=== PATIENT | male | born 1970 | race African-American/Black ===

== ENCOUNTER 2017-09-17 20:53 | Observation (INO) | END 2017-09-18 16:35 | disposition left against medical advice (07) ==

== ENCOUNTER 2017-10-20 23:33 | Inpatient (IN) | END 2017-11-14 15:00 | disposition home health service (06) | DRG 252 ==

== ENCOUNTER 2017-11-24 23:32 | Inpatient (IN) | END 2017-12-01 19:50 | disposition home or self-care (01) | DRG 811 ==

== ENCOUNTER 2018-03-29 15:51 | Emergency (ER) | END 2018-03-29 17:56 | disposition home or self-care (01) ==

== ENCOUNTER 2018-05-05 19:45 | Inpatient (IN) | END 2018-05-07 20:25 | disposition home or self-care (01) | DRG 252 ==

== ENCOUNTER 2018-08-09 14:02 | Inpatient (IN) | payer OTHER ==
[~2018-08-09] VITALS: Ht 190.5 cm; Wt 77.9 kg
[~2018-08-09 14:02] MED LIST: CALC667C PO; CLON0.3T PO; DOCU100C59 PO; HYDR-4012 PO; LISI40TA3 PO; MINO2.5T16 PO; NIFE30TA23 PO; PENT400T9 PO; SERT25TA PO; TEMA30CA PO
--- NOTE | 2018-08-09 19:25 | ERD ---
ER Documentation Chief Complaint Chief Complaint Complains of dizziness, infected toe and Hx of Dialysis HPI 47-year-old male history of diabetes, hypertension, end-stage renal disease on dialysis, peripheral vascular disease, coronary artery disease, diastolic congestive heart failure, anemia, right foot 4th/5th toe amputations and left BKA presents to the ED complaining of increasing pain, swelling and malodorous discharge from the right third toe. Patient states he injured his toe approximately a month ago and symptoms has been worsening since. No chest pain, palpitations, shortness of breath, abdominal pain, nausea or vomiting. No fevers or chills. ROS All systems reviewed and are negative except as per history of present illness. Medications Home Meds Reported Medications Hydrocodone/Acetaminophen ([place] 7.5-325 Tablet) 1 Each Tablet, 1 EACH PO BID, TAB 08/09/18 Minoxidil* (Lonitin*) 10 Mg Tab, 10 MG PO BID, TAB 08/09/18 Temazepam* (Temazepam*) 30 Mg Capsule, 30 MG PO HS PRN for INSOMNIA, CAP 08/09/18 Cetirizine Hcl* (Cetirizine Hcl*) 10 Mg Tablet, 10 MG PO DAILY, #30 TAB 08/09/18 Lisinopril* (Lisinopril*) 40 Mg Tablet, 40 MG PO DAILY, #30 TAB 08/09/18 Calcium Acetate* (Calcium Acetate*) 667 Mg Capsule, 1334 MG PO WITH MEALS, #60 CAP 08/09/18 Pentoxifylline* (Pentoxifylline*) 400 Mg Tablet.sa, 400 MG PO WITH MEALS, TAB 08/09/18 Clonidine Hcl* (Clonidine Hcl*) 0.3 Mg Tablet, 0.3 MG PO Q6H PRN for HTN, TAB 08/09/18 Docusate Sodium (Col-Rite) 100 Mg Capsule, 100 MG PO BID, CAP 08/09/18 Discontinued Reported Medications Docusate Sodium (Col-Rite) 100 Mg Capsule, 100 MG PO BID, CAP 05/05/18 Nifedipine* (Nifedipine ER*) 30 Mg Tablet.sa, 60 MG PO BID, TAB.SA 11/24/17 Hydrocodone/Acetaminophen ([place] 7.5-325 Tablet) 1 Each Tablet, 1 EACH PO Q8 PRN for PAIN, TAB 09/17/17 Calcium Acetate* (Calcium Acetate*) 667 Mg Capsule, 1334 MG PO WITH MEALS, CAP 09/17/17 Sertraline Hcl* (Zoloft*) 25 Mg Tablet, 25 MG PO DAILY, TAB 09/17/17 Pentoxifylline* (Pentoxifylline*) 400 Mg Tablet.sa, 400 MG PO TID, TAB 09/17/17 Temazepam* (Temazepam*) 30 Mg Capsule, 30 MG PO HS PRN for INSOMNIA, CAP 09/17/17 Lisinopril* (Lisinopril*) 40 Mg Tablet, 40 MG PO DAILY, TAB 09/17/17 Clonidine Hcl* (Clonidine Hcl*) 0.3 Mg Tablet, 0.6 MG PO BID, TAB 09/17/17 Minoxidil* (Lonitin*) 2.5 Mg Tab, 7.5 MG PO DAILY, TAB 09/17/17 Allergies Allergies: Coded Allergies: No Known Allergy (Unverified , 08/09/18) PMhx/Soc Reviewed in chart. As per HPI. History of Surgery: Yes Anesthesia Reaction: No Hx Neurological Disorder: Yes (H/O NEUROPATHY) Hx Respiratory Disorders: No Hx Cardiac Disorders: Yes (CAD, [place]) Hx Psychiatric Problems: No Hx Miscellaneous Medical Probl: No Hx Alcohol Use: No Hx Substance Use: No Hx Tobacco Use: No FmHx No family history relevant to presenting complaint Physical Exam Vitals Vital Signs Date Temp Pulse Resp B/P (MAP) Pulse Ox O2 O2 Flow FiO2 Time Delivery Rate 08/09/18 70 20 140/67 100 Room Air 21:22 (91) 08/09/18 98.2 59 20 142/80 100 14:10 (100) Physical Exam Const: Chronically ill-appearing, moderate distress. Head: Atraumatic Eyes: Normal Conjunctiva ENT: Normal External Ears, Nose and Mouth. Neck: Full range of motion. No meningismus. No JVD. Resp: Breath sounds are diminished at the bases but otherwise clear to auscultation bilaterally Cardio: Regular rate and rhythm, no murmurs Abd: Soft, non tender, non distended. Normal bowel sounds Skin: Diffuse papulosquamous rash. Back: No midline or flank tenderness. Left lower back: 2 cm area of fluctuance and tenderness. Ext: Status post left BKA. Right foot: Status post ray amputations of the fourth and fifth digits. Third toe is swollen, erythematous and tender with purulent drainage. Swelling and tenderness extends to the plantar aspect of the foot. No subcutaneous crepitus. Left upper extremity AV shunt with palpable thrill. Neur: Awake and alert. No focal deficit Psych: Normal Mood and Affect Result Diagram: 08/12/18 0808 08/12/18 0808 Results 24 hrs Laboratory Tests Test 08/09/18 19:55 08/09/18 19:56 08/09/18 19:57 08/09/18 22:07 Hepatitis B Surface NEGATIVE Antigen Hepatitis B Surface NEGATIVE Antibody White Blood Count 9.7 10^3/ul Red Blood Count 2.76 10^6/ul Hemoglobin 8.1 g/dl Hematocrit 25.6 % Mean Corpuscular 92.8 fl Volume Mean Corpuscular 29.3 pg Hemoglobin Mean Corpuscular 31.6 g/dl Hemoglobin Concent Red Cell Distribution 13.2 % Width Platelet Count 217 10^3/UL Mean Platelet Volume 10.4 fl Immature Granulocytes 0.600 % % Neutrophils % 66.6 % Lymphocytes % 10.0 % Monocytes % 8.0 % Eosinophils % 14.4 % Basophils % 0.4 % Nucleated Red Blood 0.0 /100WBC Cells % Immature Granulocytes 0.060 10^3/ul # Neutrophils # 6.5 10^3/ul Lymphocytes # 1.0 10^3/ul Monocytes # 0.8 10^3/ul Eosinophils # 1.4 10^3/ul Basophils # 0.0 10^3/ul Nucleated Red Blood 0.0 10^3/ul Cells # Prothrombin Time 16.6 Sec Prothrombin Time Ratio 1.3 INR International 1.33 Normalized Ratio Activated 56.8 Sec Partial Thromboplast Time Sodium Level 143 mmol/L Potassium Level 4.0 mmol/L Chloride Level 98 mmol/L Carbon Dioxide Level 27 mmol/L Anion Gap 18 Blood Urea Nitrogen 48 mg/dl Creatinine 8.72 mg/dl Est Glomerular Filtrat 8 mL/min Rate mL/min Glucose Level 130 mg/dl Calcium Level 9.2 mg/dl POC Venous Lactate 1.9 mmol/L 1.0 mmol/L Current Medications Medications Dose Sig/Yunior Start Time Status Last (Trade) Ordered Route PRN Stop Time Admin Dose Reason Admin Vancomycin 250 ml @ ONCE STAT 08/09/18 DC 08/09/18 HCl 125 mls/hr IVPB 19:26 08/09/18 20:59 21:25 Piperacillin 100 ml @ ONCE STAT 08/09/18 DC 08/09/18 Sod/ 200 mls/hr IVPB 19:26 08/09/18 20:18 Tazobactam 19:55 Sod Morphine 4 mg ONCE STAT 08/09/18 DC 08/09/18 Sulfate IV 20:08 08/09/18 20:15 (morphine) 20:10 Ondansetron 4 mg ONCE STAT 08/09/18 DC 08/09/18 HCl (Zofran IV 20:08 08/09/18 20:15 Inj) 20:10 Procedures/MDM DOCUMENTS REVIEWED: ED nurse, prior ED, prior records. EKG: Time: 1946. His rhythm. Ventricular rate 67. Nonspecific T wave changes. No acute ST elevation or depression. No ectopy. My Interpretation IMAGING: PROCEDURE: Portable chest x-ray. CLINICAL INDICATION: 47 years of age, male. Possible sepsis TECHNIQUE: Portable AP view of the chest. COMPARISON: None available. FINDINGS: Medical devices: None. Mediastinum: Mild atherosclerosis of the thoracic aorta. Mild enlarged cardiopericardial silhouette. Lungs: There is mild hazy ground-glass opacity in the right lower lung zone. Lungs are otherwise clear. Pleura: Negative for pleural effusion or pneumothorax. Bones: No acute bony abnormality. Additional comment: None. IMPRESSION: 1. Mild hazy increased opacity in the right lower lung zone is nonspecific and could represent atelectasis or an early infiltrate. 2. Mild cardiomegaly. RPTAT: HCTS Physician Antonio Date Time Electronically viewed and signed by Physician Antonio on 08/09/2018 19:56 CS/ PROCEDURE: XR Foot. CLINICAL INDICATION: 47 years of age, male. Pain, swelling and discharge. TECHNIQUE: Three views of the right foot. COMPARISON: None available. FINDINGS: Status post amputation of the fourth and fifth rays at the proximal shafts of the fourth and fifth metatarsals. There is overlying soft tissue swelling. There is an ulcer overlying the lateral base of the fifth metatarsal with focal soft tissue gas. There is sclerosis of the lateral base of the fifth metatarsal. Negative for aggressive bony destruction. There is mild periosteal reaction along the lateral cortex of the proximal fifth metatarsal. The amputation stumps of the proximal shafts of the fourth and fifth metatarsals are well corticated and tapering. There is destructive arthritis of the third MTP joint with marked bony erosions and a tapered pencil like configuration of the articular surfaces of the proximal phalanx and third metatarsal head from bony destruction. There is subluxation of the third MTP joint and the displaced third proximal phalanx res ults in chronic bony remodelling of the head of the second metatarsal where there is a punched out erosion. Midfoot and hindfoot are unremarkable.. There is diffuse soft tissue swelling over the forefoot and midfoot. There is vascular calcification. Additional comment: None. IMPRESSION: 1. Status post amputation of the fourth and fifth rays through the proximal shafts of the fourth and fifth metatarsals. There is a deep soft tissue ulcer over the lateral base of the fifth metatarsal with mild periosteal reaction along the lateral shaft of the fifth metatarsal that may be due to oste omyelitis. There is chronic bony sclerosis without aggressive bony destruction. This could better be evaluated with MRI. 2. 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 3. Soft tissue swelling and vascular calcification as described. RPTAT: HCTS Physician Antonio Date Time Electronically viewed and signed by Physician Antonio on 08/09/2018 20:04 CS/ MEDICAL DECISION MAKIN-year-old male history of diabetes, hypertension, end-stage renal disease on dialysis, peripheral vascular disease, coronary artery disease, diastolic congestive heart failure, anemia, right foot 4th/5th toe amputations and left BKA presents to the ED complaining of increasing pain, swelling and malodorous discharge from the right third toe. CBC reveals anemia consistent with prior results but no leukocytosis. Chemistry significant for elevated BUN and creatinine consistent with the patient's history of end-stage renal disease but no hyperkalemia or significant hyperglycemia. Patient with known, severe peripheral vascular disease presents with diabetic foot infection and possible abscess and osteomyelitis. Gangrene is considered but no subcutaneous emphysema. No evidence of necrotizing fasciitis. No criteria for systemic inflammatory response syndrome. Antibiotics initiated after cultures. Admit to med/surg for further evaluation and management. PATIENT CARE TRANSITIONED: Time: 20:25, Dr. Hitchcock. Counseled patient regarding diagnosis, diagnostic results and plan for adm ission. Departure Diagnosis: Primary Impression: Right foot pain Additional Impressions: Diabetic infection of right foot End stage renal disease on dialysis Hypertension Hypertension type: essential hypertension Qualified Codes: I10 - Essential (primary) hypertension Condition: Serious JAC DELEON MD Aug 09, 2018 19:25
[2018-08-09] MEDS ORDERED: VANCOMYCIN 1 GM (PMX) 250 ML IVPB STA (19:26)
[2018-08-09] MEDS ORDERED: PIPER-TAZO 3.375 GM IV (PMX) 100 ML IVPB STA (19:26)
[2018-08-09] MEDS ORDERED: ONDANSETRON 4 MG INJ IV STA (20:08)
[2018-08-09] MEDS ORDERED: morphine 4 MG/ML VIAL IV STA (20:08)
[2018-08-09] MEDS ORDERED: CLON0.3T PO (20:42)
[2018-08-09] MEDS ORDERED: DOCU100C59 PO (20:42)
[2018-08-09] MEDS ORDERED: CALC667C PO (20:43)
[2018-08-09] MEDS ORDERED: LISI40TA3 PO (20:43)
[2018-08-09] MEDS ORDERED: PENT400T9 PO (20:43)
[2018-08-09] MEDS ORDERED: CETI10TA19 PO (20:44)
[2018-08-09] MEDS ORDERED: TEMA30CA PO (20:44)
[2018-08-09] MEDS ORDERED: HYDR-4012 PO (20:45)
[2018-08-09] MEDS ORDERED: MINO10TA16 PO (20:45)
[2018-08-09] MEDS ORDERED: ONDANSETRON 4 MG INJ IV PRN (23:00)
[2018-08-09] MEDS ORDERED: ACETAMINOPHEN 325 MG TAB PO PRN (23:00)
[2018-08-09 23:37] VITALS: BP 159/75; PULSE 81; RESP 18
[2018-08-09 23:39] VITALS: Ht 190.5 cm; Wt 77.9 kg
[2018-08-10] VITALS (19 sets, daily range): BP systolic 115–180; BP diastolic 58–86; PULSE 72–95; RESP 16–20
[2018-08-10] MEDS ORDERED: VANCOMYCIN 500 MG (PMX) 100 ML IVPB ONE ×2 (02:00→06:00)
[2018-08-10] MEDS ORDERED: ZOLPIDEM 5 MG TAB PO PRN (02:00)
[2018-08-10] MEDS ORDERED: ACETAMINOPHEN 325 MG TAB PO PRN (02:00)
[2018-08-10] MEDS ORDERED: VANCOMYCIN IV PER PHARMACY XX SCH (02:00)
[2018-08-10] MEDS ORDERED: NON-FORMULARY/PATIENT OWN MED (Temazepam* 30 MG) PO PRN (02:00)
[2018-08-10] MEDS ORDERED: HYDROCODONE/APAP (7.5/325) TAB PO PRN (02:00)
[2018-08-10] MEDS ORDERED: hydrOXYzine HCL 25 MG TAB PO PRN (06:30)
[2018-08-10] MEDS ORDERED: LIDOCAINE 1% (MPF) 5 ML VIAL SC ONE (06:30)
[2018-08-10] MEDS ORDERED: GLUCAGON 1 MG INJ IM PRN (07:00)
[2018-08-10] MEDS ORDERED: GLUCOSE GEL 15 GRAM TUBE BUCCAL PRN (07:00)
[2018-08-10] MEDS ORDERED: DEXTROSE 50% 50 ML SYRINGE IV PRN ×2 (07:00)
[2018-08-10] MEDS ORDERED: GLUCOSE GEL 15 GRAM TUBE PO PRN ×2 (07:00)
[2018-08-10] MEDS: INSULIN ASPART [NOVOLOG] 3 ML PEN SC SCH ×4 (08:00→21:00)
[2018-08-10] MEDS: CALCIUM ACETATE 667 MG CAP PO SCH ×3 (08:03→17:41)
[2018-08-10] MEDS: PENTOXIFYLLINE (SR) 400 MG TAB PO SCH ×3 (08:03→17:41)
[2018-08-10] MEDS: LORATADINE 10 MG TAB PO SCH (08:27)
[2018-08-10] MEDS: LISINOPRIL 20 MG TAB PO SCH (09:00)
[2018-08-10] MEDS: MINOXIDIL 10 MG TAB PO SCH ×2 (09:00→21:40)
[2018-08-10] MEDS ORDERED: NON-FORMULARY/PATIENT OWN MED (Cetirizine Hcl* 10 MG) PO SCH (09:00)
[2018-08-10] MEDS: DOCUSATE SODIUM 100 MG CAP PO SCH ×2 (09:00→21:00)
[2018-08-10] MEDS: PIPER-TAZO 2.25 GM (PMX) 50 ML IVPB SCH ×3 (12:24→21:54)
--- NOTE | 2018-08-10 12:39 | HP ---
EVELYNPATRICIA 08/10/18 1239: Date/Time of Note Date/Time of Note DATE: 08/10/18 TIME: 12:39 Assessment/Plan VTE Prophylaxis Risk score (from Ns)>0 risk: 6 SCD applied (from Ns): No SCD contraindicated: bilateral amputee, other Pharmacological prophylaxis: heparin Lines/Catheters IV Catheter Type (from [facility]): Peripheral IV Assessment/Plan Hospital Course 1. Wet gangrene of 3rd toe on the right foot. 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 S/p amputation of the fourth and fifth rays through the proximal shafts of the fourth and fifth metatarsals right foot. 3. Cellulitis with deep soft tissue ulcer over the lateral base of the fifth metatarsal with mild periosteal reaction along the lateral shaft of the fifth metatarsal that may be due to osteomyelitis of the right foot, per Xray right foot. 4. End-stage renal disease on hemodialysis Monday, and Monday 5. Normocytic normochromic anemia, hx of anemia of chronic disease with EGD 11/01/17 with esophageal ulceration. Colonoscopy was done 09/03/15 for active bleeding. . 6. Hypertension, controlled. 7. Diabetes mellitus type II. 8. Coronary artery disease status post 4 stents. 9. Left below-knee amputation, s/p revision. 10. Diastolic CHF 11. Hx of hematoma of abdomen. Numerous surgical procedures, inc biopsy, drainage, exploratory laparotomy 2014 12. pt did not have cholecystectomy, apparently du to many surgical scars on abdomen, pt mentioned it 13. hx of tracheostomy 14. hx of positive troponin past. 15. s/p abdominal stents removal by dr Guy Assessment/Plan -C/w HD, last was on Monday, one ordered today -wound care -GI prophylaxis start Protonix -pain control -DVT prophylaxis Heparin 5000 U bID -marketing technology coordinator Dr Millard, -ID consult dr Ashton -arterial study left lower extremity -c/w Vancomycin -start Epogen after HD Result Diagram: 08/09/18195508/09/181955 Results 24hrs Laboratory Tests Test 08/09/18 19:56 08/09/18 19:57 08/09/18 22:07 08/10/18 08:02 White Blood Count 9.7 # Red Blood Count 2.76 L Hemoglobin 8.1 L Hematocrit 25.6 L Mean Corpuscular Volume 92.8 Mean Corpuscular 29.3 Hemoglobin Mean Corpuscular 31.6 L Hemoglobin Concent Red Cell Distribution 13.2 Width Platelet Count 217 # Mean Platelet Volume 10.4 Immature Granulocytes % 0.600 H Neutrophils % 66.6 Lymphocytes % 10.0 L Monocytes % 8.0 Eosinophils % 14.4 H Basophils % 0.4 Nucleated Red Blood 0.0 Cells % Immature Granulocytes # 0.060 H Neutrophils # 6.5 Lymphocytes # 1.0 Monocytes # 0.8 Eosinophils # 1.4 H Basophils # 0.0 Nucleated Red Blood 0.0 Cells # Prothrombin Time 16.6 H Prothrombin Time Ratio 1.3 INR International 1.33 Normalized Ratio Activated 56.8 H Partial Thromboplast Time Sodium Level 143 Potassium Level 4.0 Chloride Level 98 Carbon Dioxide Level 27 Anion Gap 18 H Blood Urea Nitrogen 48 H Creatinine 8.72 H Est Glomerular Filtrat 8 L Rate mL/min Glucose Level 130 Calcium Level 9.2 POC Venous Lactate 1.9 1.0 Bedside Glucose 123 Test 08/10/18 11:59 Bedside Glucose 111 HPI/ROS Admit Date/Time Admit Date/Time Aug 09, 2018 at 22:42 Hx of Present Illness 47 yo male with history of diabetes melitis, hypertension, CAD, anemia, PVD, left BKA, right 4,5 toe amputations on the right foot, ESRD, on HD Mon, , Mon. presented to the ED complaining of increasing pain, swelling and malodorous discharge from the right third toe. Patient states he injured his toe approximately a month and a half ago and symptoms has been worsening since. He was in [facility] in November 2017 due to his anemia and cholecystitis. Surgical history: colonoscopy, that was negative, EGD due to active bleeding, exploratory laparotomy due to hematoma formation, amputation of left leg to BKA level due to myositis, cholecystectomy, few left AV fistula revisions, amputation 4 and 5 toes on the right foot, and revision of left BKA. ROS Constitutional: chills, fatigue; No no complaints, No improved, No diaphoresis, No disoriented, No febrile, No nausea, No poor po, No weight change, No other ENT: bleeding; No no complaints, No pain, No congestion, No discharge, No dysphagia, No sore throat, No other Respiratory: shortness of breath; No no complaints, No pain, No cough, No pleuritic pain, No sputum, No wheezing, No other Gastrointestinal: no complaints, nausea; No pain, No blood, No constipation, No decreased appetite, No diarrhea, No flatus, No passing stool, No vomiting, No other Genitourinary: no complaints Musculoskeletal: no complaints, back pain, bone/joint pain, neck pain, restricted range of motion (right foot), swelling, other Skin: skin lesions; No no complaints, No erythema, No laceration, No pruritis, No rash, No other Endocrine: temp intolerance; No no complaints, No polyuria, No polydypsia, No dry skin, No weight change, No other PMH/Family/Social Past Medical History Medical History: congestive heart failure, coronary artery disease, hypertension, renal disease Medications Current Medications Vancomycin HCl (Vanco Iv Per Pharmacy) VANCOMYCIN PER PHARMACY PER PROTOCOL XX ; Start 08/10/18 at 02:00 Acetaminophen (Tylenol Tab) 650 mg Q6H PRN PO MILD PAIN(1-3)OR ELEVATED TEMP; Start 08/10/18 at 02:00 Ondansetron HCl (Zofran Inj) 4 mg Q6H PRN IV NAUSEA AND/OR VOMITING; Start 08/10/18 at 02:00 Calcium Acetate (Phoslo) 1,334 mg WITH MEALS PO Last administered on 08/10/18at 08:03; Admin Dose 1,334 MG; Start 08/10/18 at 08:00 Clonidine (Catapres) 0.3 mg Q6H PRN PO FOR SBP ABOVE 170; Start 08/10/18 at 02:00 Docusate Sodium (Colace) 100 mg BID PO ; Start 08/10/18 at 09:00 Acetaminophen/ Hydrocodone Bitart ([place] (7.5-325)) 1 tab BID PRN PO PAIN; Start 08/10/18 at 02:00 Lisinopril (Zestril) 40 mg DAILY PO ; Start 08/10/18 at 09:00 Minoxidil (Loniten) 10 mg BID PO ; Start 08/10/18 at 09:00 Pentoxifylline (Trental) 400 mg WITH MEALS PO Last administered on 08/10/18at 08:03; Admin Dose 400 MG; Start 08/10/18 at 08:00 Piperacillin Sod/ Tazobactam Sod 50 ml @ 100 mls/hr Q8 IVPB Last administered on 08/10/18at 12:24; Admin Dose 100 MLS/HR; Start 08/10/18 at 06:00 Loratadine (Claritin) 10 mg DAILY PO Last administered on 08/10/18at 08:27; Admin Dose 10 MG; Start 08/10/18 at 09:00 Zolpidem Tartrate (Ambien) 5 mg HS MAY REPEAT X 1 PRN PO INSOMNIA; Start 08/10/18 at 02:00 Insulin Aspart (Novolog Insulin Pen) NOVOLOG *MILD* ALGORITHM WITH MEALS BEDTIME SC ; Start 08/10/18 at 08:00 Hydroxyzine HCl (Atarax) 25 mg BID PRN PO ITCHING; Start 08/10/18 at 06:30 Miscellaneous Information 1 ea NOTE XX ; Start 08/10/18 at 07:00 Glucose (Glutose) 15 gm Q15M PRN PO DECREASED GLUCOSE; Start 08/10/18 at 07:00 Glucose (Glutose) 22.5 gm Q15M PRN PO DECREASED GLUCOSE; Start 08/10/18 at 07:00 Dextrose (D50w Syringe) 25 ml Q15M PRN IV DECREASED GLUCOSE; Start 08/10/18 at 07:00 Dextrose (D50w Syringe) 50 ml Q15M PRN IV DECREASED GLUCOSE; Start 08/10/18 at 07:00 Glucagon (Glucagen) 1 mg Q15M PRN IM DECREASED GLUCOSE; Start 08/10/18 at 07:00 Glucose (Glutose) 15 gm Q15M PRN BUCCAL DECREASED GLUCOSE; Start 08/10/18 at 07:00 Coded Allergies: No Known Allergy (Unverified , 08/09/18) Past Surgical History Past Surgical Hx: angioplasty, other ( right foot 4th/5th toe amputations and left BKA ) Social History Alcohol Use: none Smoking Status: Former smoker Drug Use: none Exam/Review of Systems Vital Signs Vitals Vital Signs Date Temp Pulse Resp B/P (MAP) Pulse Ox O2 O2 Flow FiO2 Time Delivery Rate 08/10/18 98.6 72 16 120/58 94 Room Air 07:25 (78) Intake and Output 08/09/18 08/09/18 08/10/18 1515:00 23:00 07:00 IntakeIntake Total 610 ml BalanceBalance 610 ml Exam Exam left arm av fistula Constitutional: alert, oriented Head: normocephalic ENMT: nl external ears & nose Neck: supple Respiratory: clear to auscultation, normal air movement Cardiovascular: regular rate and rhythm Gastrointestinal: soft, surgical scars Genitourinary - Female: CVA tenderness; No nl adnexae, No nl external genitalia, No CMT, No uterus, No other Musculoskeletal: joint tenderness (right foot), other (left BKA, right 3 toe swelling, s/p amputation 4.5 toesright foot) Skin: other (dry scabs all over, right foot ulcer right foot) HASEEB MAYA MD 08/10/18 1720: Assessment/Plan Assessment/Plan Assessment/Plan seen and examined with 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 abx podiatry and ID CW HD Result Diagram: 08/09/18195508/09/181955 PMH/Family/Social Past Medical History Coded Allergies: No Known Allergy (Unverified , 08/09/18) PATRICIA RIVAS Aug 10, 2018 12:39 HASEEB MAYA MD Aug 10, 2018 17:20
[2018-08-10] MEDS: morphine 2 MG INJ IV PRN ×3 (14:44→23:10)
[2018-08-10] MEDS: PANTOPRAZOLE (EC) 40 MG TAB PO SCH (14:45)
--- NOTE | 2018-08-10 16:17 | PN ---
DATE: 08/10/2018 TYPE OF CONSULTATION: Infectious disease. REQUESTING PHYSICIAN: Nette Moscoso MD Thank you Dr. Moscoso for this consultation. HISTORY OF PRESENT ILLNESS: This is a well-developed, chronically ill-appearing 47-year-old - Japanese man with a past medical history significant for coronary artery disease status post PCI, per ipheral arterial disease, status post left below-knee amputation, hypertension, end-stage renal disea se, hemodialysis dependent diabetes, history of left below-knee stump revision. Acutely, the patient came with right foot cellulitis and drainage from the wound. No fevers, no chills. LABORATORY DATA: White blood cell count on admission 9.7, H and H of 8.1 and 25.6, platelets 217, ne utrophils 66.6. ANTIMICROBIALS: The patient was started on: 1. Zosyn. 2. Vancomycin. DIAGNOSTIC DATA: X-ray of the foot revealed status post amputation of the 4th and 5th rays. There i s a deep soft tissue also over the left base of the 5th metatarsal with mild periosteal reaction johnny g the lateral shaft of the 5th metatarsal that may be due to osteomyelitis, destructive arthritis of the 3rd MTP joint with chronic subluxation and bony remodeling with a punched out erosion at the late ral head of 2nd metatarsal concerning for septic arthritis and osteomyelitis. PHYSICAL EXAMINATION: VITAL SIGNS: Temperature 98.9, pulse 74, respirations 20, blood pressure 115/59, saturation 98 on na kamron cannula. GENERAL: Well-developed, ill-appearing, middle-aged man in no distress. HEENT: Head is atraumatic, normocephalic. NECK: Supple. CHEST: Rise symmetrical. Breath sounds diminished to bases. HEART: S1, S2. ABDOMEN: Soft. Bowel tones are present. EXTREMITIES: With right foot erythema, edema, left below-knee amputation with dry scalp on the knee as well as on the stump itself. DIAGNOSTIC IMPRESSION: This is a middle-aged -Japanese man with numerous medical problems adm itted with right diabetic foot ulceration with concern for osteomyelitis. The patient is on broad sp ectrum antibiotics, which we will continue. We will await for podiatry evaluation. We will try to s end wound drainage for culture. Further recommendations per patient's clinical course, cultures and diagnostics. Above was discussed with Dr. Francisco Ashton. Dictated By: DAYSI BHATIA PRODUCT SAFETY SPECIALIST for FRANCISCO PACHECO/JOSE ANTONIO Conf#: [id number] DID#: [id number] CC: AZEEM HENNING MD;*EndCC*
[2018-08-10] MEDS: LIDOCAINE 2% JELLY 5 ML TOP PRN (16:54)
--- NOTE | 2018-08-10 19:35 | CONS ---
Consultation Date/Type/Reason Admit Date/Time Aug 09, 2018 at 22:42 Date/Time of Note DATE: 08/10/18 TIME: 19:35 Past Medical History Medical History: congestive heart failure, coronary artery disease, hypertensio n, renal disease Home Meds Reported Medications Hydrocodone/Acetaminophen ([place] 7.5-325 Tablet) 1 Each Tablet, 1 EACH PO BID, TAB 08/09/18 Minoxidil* (Lonitin*) 10 Mg Tab, 10 MG PO BID, TAB 08/09/18 Temazepam* (Temazepam*) 30 Mg Capsule, 30 MG PO HS PRN for INSOMNIA, CAP 08/09/18 Cetirizine Hcl* (Cetirizine Hcl*) 10 Mg Tablet, 10 MG PO DAILY, #30 TAB 08/09/18 Lisinopril* (Lisinopril*) 40 Mg Tablet, 40 MG PO DAILY, #30 TAB 08/09/18 Calcium Acetate* (Calcium Acetate*) 667 Mg Capsule, 1334 MG PO WITH MEALS, #60 CAP 08/09/18 Pentoxifylline* (Pentoxifylline*) 400 Mg Tablet.sa, 400 MG PO WITH MEALS, TAB 08/09/18 Clonidine Hcl* (Clonidine Hcl*) 0.3 Mg Tablet, 0.3 MG PO Q6H PRN for HTN, TAB 08/09/18 Docusate Sodium (Col-Rite) 100 Mg Capsule, 100 MG PO BID, CAP 08/09/18 Discontinued Reported Medications Docusate Sodium (Col-Rite) 100 Mg Capsule, 100 MG PO BID, CAP 05/05/18 Nifedipine* (Nifedipine ER*) 30 Mg Tablet.sa, 60 MG PO BID, TAB.SA 11/24/17 Hydrocodone/Acetaminophen ([place] 7.5-325 Tablet) 1 Each Tablet, 1 EACH PO Q8 PRN for PAIN, TAB 09/17/17 Calcium Acetate* (Calcium Acetate*) 667 Mg Capsule, 1334 MG PO WITH MEALS, CAP 09/17/17 Sertraline Hcl* (Zoloft*) 25 Mg Tablet, 25 MG PO DAILY, TAB 09/17/17 Pentoxifylline* (Pentoxifylline*) 400 Mg Tablet.sa, 400 MG PO TID, TAB 09/17/17 Temazepam* (Temazepam*) 30 Mg Capsule, 30 MG PO HS PRN for INSOMNIA, CAP 09/17/17 Lisinopril* (Lisinopril*) 40 Mg Tablet, 40 MG PO DAILY, TAB 09/17/17 Clonidine Hcl* (Clonidine Hcl*) 0.3 Mg Tablet, 0.6 MG PO BID, TAB 09/17/17 Minoxidil* (Lonitin*) 2.5 Mg Tab, 7.5 MG PO DAILY, TAB 09/17/17 Medications Current Medications Vancomycin HCl (Vanco Iv Per Pharmacy) VANCOMYCIN PER PHARMACY PER PROTOCOL XX ; Start 08/10/18 at 02:00 Acetaminophen (Tylenol Tab) 650 mg Q6H PRN PO MILD PAIN(1-3)OR ELEVATED TEMP; Start 08/10/18 at 02:00 Ondansetron HCl (Zofran Inj) 4 mg Q6H PRN IV NAUSEA AND/OR VOMITING; Start 08/10/18 at 02:00 Calcium Acetate (Phoslo) 1,334 mg WITH MEALS PO Last administered on 08/10/18at 17:41; Admin Dose 1,334 MG; Start 08/10/18 at 08:00 Clonidine (Catapres) 0.3 mg Q6H PRN PO FOR SBP ABOVE 170; Start 08/10/18 at 02:00 Docusate Sodium (Colace) 100 mg BID PO ; Start 08/10/18 at 09:00 Acetaminophen/ Hydrocodone Bitart ([place] (7.5-325)) 1 tab BID PRN PO PAIN; Start 08/10/18 at 02:00 Lisinopril (Zestril) 40 mg DAILY PO ; Start 08/10/18 at 09:00 Minoxidil (Loniten) 10 mg BID PO ; Start 08/10/18 at 09:00 Pentoxifylline (Trental) 400 mg WITH MEALS PO Last administered on 08/10/18at 17:41; Admin Dose 400 MG; Start 08/10/18 at 08:00 Piperacillin Sod/ Tazobactam Sod 50 ml @ 100 mls/hr Q8 IVPB Last administered on 08/10/18at 12:24; Admin Dose 100 MLS/HR; Start 08/10/18 at 06:00 Loratadine (Claritin) 10 mg DAILY PO Last administered on 08/10/18at 08:27; Admin Dose 10 MG; Start 08/10/18 at 09:00 Zolpidem Tartrate (Ambien) 5 mg HS MAY REPEAT X 1 PRN PO INSOMNIA; Start 08/10/18 at 02:00 Insulin Aspart (Novolog Insulin Pen) NOVOLOG *MILD* ALGORITHM WITH MEALS BED TIME SC ; Start 08/10/18 at 08:00 Hydroxyzine HCl (Atarax) 25 mg BID PRN PO ITCHING Last administered on 08/10/18at 19:21; Admin Dose 25 MG; Start 08/10/18 at 06:30 Miscellaneous Information 1 ea NOTE XX ; Start 08/10/18 at 07:00 Glucose (Glutose) 15 gm Q15M PRN PO DECREASED GLUCOSE; Start 08/10/18 at 07:00 Glucose (Glutose) 22.5 gm Q15M PRN PO DECREASED GLUCOSE; Start 08/10/18 at 07:00 Dextrose (D50w Syringe) 25 ml Q15M PRN IV DECREASED GLUCOSE; Start 08/10/18 at 07:00 Dextrose (D50w Syringe) 50 ml Q15M PRN IV DECREASED GLUCOSE; Start 08/10/18 at 07:00 Glucagon (Glucagen) 1 mg Q15M PRN IM DECREASED GLUCOSE; Start 08/10/18 at 07:00 Glucose (Glutose) 15 gm Q15M PRN BUCCAL DECREASED GLUCOSE; Start 08/10/18 at 07:00 Epoetin Adi (Epogen (Esrd)) 4,000 units TuThSa@17 SC ; Start 08/11/18 at 17:00 Lidocaine (Xylocaine 2% Jelly) 1 applic BEDSIDE MEDICATION PRN TOP PAIN LEVEL 1-5 Last administered on 08/10/18at 16:54; Admin Dose 1 APPLIC; Start 08/10/18 at 13:30 Morphine Sulfate (morphine) 2 mg Q4H PRN IV SEVERE PAIN LEVEL 7-10 Last administered on 08/10/18at 19:11; Admin Dose 2 MG; Start 08/10/18 at 13:30 Heparin Sodium (Porcine) (Heparin (5000 Units/1ml)) 5,000 unit BID SC ; Start 08/10/18 at 21:00 Pantoprazole (Protonix Tab) 40 mg DAILY@06 PO Last administered on 08/10/18at 14:45; Admin Dose 40 MG; Start 08/10/18 at 14:00 Allergies: Coded Allergies: No Known Allergy (Unverified , 08/09/18) Past Surgical History Past Surgical Hx: angioplasty, other ( right foot 4th/5th toe amputations and left BKA ) Social History Alcohol Use: none Smoking Status: Former smoker Drug Use: none Exam/Review of Systems Exam Vitals Vital Signs Date Temp Pulse Resp B/P (MAP) Pulse Ox O2 O2 Flow FiO2 Time Delivery Rate 08/10/18 80 19:15 08/10/18 18 156/70 98 Room Air 17:00 (98) 08/10/18 88.9 13:46 Intake and Output 08/09/18 08/09/18 08/10/18 1515:00 23:00 07:00 IntakeIntake Total 610 ml BalanceBalance 610 ml Results Result Diagram: 08/10/18 1733 08/10/18 1733 Results 24hrs Laboratory Tests Test 08/09/18 19:55 08/09/18 19:56 08/09/18 19:57 08/09/18 22:07 Hepatitis B Surface NEGATIVE Antigen Hepatitis B Surface NEGATIVE Antibody White Blood Count 9.7 # Red Blood Count 2.76 L Hemoglobin 8.1 L Hematocrit 25.6 L Mean Corpuscular Volume 92.8 Mean Corpuscular 29.3 Hemoglobin Mean Corpuscular 31.6 L Hemoglobin Concent Red Cell Distribution 13.2 Width Platelet Count 217 # Mean Platelet Volume 10.4 Immature Granulocytes % 0.600 H Neutrophils % 66.6 Lymphocytes % 10.0 L Monocytes % 8.0 Eosinophils % 14.4 H Basophils % 0.4 Nucleated Red Blood 0.0 Cells % Immature Granulocytes # 0.060 H Neutrophils # 6.5 Lymphocytes # 1.0 Monocytes # 0.8 Eosinophils # 1.4 H Basophils # 0.0 Nucleated Red Blood 0.0 Cells # Prothrombin Time 16.6 H Prothrombin Time Ratio 1.3 INR International 1.33 Normalized Ratio Activated 56.8 H Partial Thromboplast Time Sodium Level 143 Potassium Level 4.0 Chloride Level 98 Carbon Dioxide Level 27 Anion Gap 18 H Blood Urea Nitrogen 48 H Creatinine 8.72 H Est Glomerular Filtrat 8 L Rate mL/min Glucose Level 130 Calcium Level 9.2 POC Venous Lactate 1.9 1.0 Test 08/10/18 08:02 08/10/18 11:59 08/10/18 17:33 08/10/18 17:41 Bedside Glucose 123 111 100 White Blood Count 5.7 # Red Blood Count 2.50 L Hemoglobin 7.3 L Hematocrit 23.1 L Mean Corpuscular Volume 92.4 Mean Corpuscular 29.2 Hemoglobin Mean Corpuscular 31.6 L Hemoglobin Concent Red Cell Distribution 13.2 Width Platelet Count 190 Mean Platelet Volume 10.4 Immature Granulocytes % 0.500 H Neutrophils % 65.7 Lymphocytes % 10.8 L Monocytes % 4.4 Eosinophils % 18.2 H Basophils % 0.4 Nucleated Red Blood 0.0 Cells % Immature Granulocytes # 0.030 Neutrophils # 3.7 Lymphocytes # 0.6 L Monocytes # 0.3 Eosinophils # 1.0 H Basophils # 0.0 Nucleated Red Blood 0.0 Cells # Sodium Level 143 Potassium Level 4.1 Chloride Level 101 Carbon Dioxide Level 27 Anion Gap 15 H Blood Urea Nitrogen 47 H Creatinine 9.09 H Est Glomerular Filtrat 8 L Rate mL/min Glucose Level 104 Calcium Level 8.8 Medications Medication Current Medications Vancomycin HCl (Vanco Iv Per Pharmacy) VANCOMYCIN PER PHARMACY PER PROTOCOL XX ; Start 08/10/18 at 02:00 Acetaminophen (Tylenol Tab) 650 mg Q6H PRN PO MILD PAIN(1-3)OR ELEVATED TEMP; Start 08/10/18 at 02:00 Ondansetron HCl (Zofran Inj) 4 mg Q6H PRN IV NAUSEA AND/OR VOMITING; Start 08/10/18 at 02:00 Calcium Acetate (Phoslo) 1,334 mg WITH MEALS PO Last administered on 08/10/18at 17:41; Admin Dose 1,334 MG; Start 08/10/18 at 08:00 Clonidine (Catapres) 0.3 mg Q6H PRN PO FOR SBP ABOVE 170; Start 08/10/18 at 02:00 Docusate Sodium (Colace) 100 mg BID PO ; Start 08/10/18 at 09:00 Acetaminophen/ Hydrocodone Bitart ([place] (7.5-325)) 1 tab BID PRN PO PAIN; Start 08/10/18 at 02:00 Lisinopril (Zestril) 40 mg DAILY PO ; Start 08/10/18 at 09:00 Minoxidil (Loniten) 10 mg BID PO ; Start 08/10/18 at 09:00 Pentoxifylline (Trental) 400 mg WITH MEALS PO Last administered on 08/10/18 17:41; Admin Dose 400 MG; Start 08/10/18 at 08:00 Piperacillin Sod/ Tazobactam Sod 50 ml @ 100 mls/hr Q8 IVPB Last administered on 08/10/18at 12:24; Admin Dose 100 MLS/HR; Start 08/10/18 at 06:00 Loratadine (Claritin) 10 mg DAILY PO Last administered on 08/10/18 08:27; Admin Dose 10 MG; Start 08/10/18 at 09:00 Zolpidem Tartrate (Ambien) 5 mg HS MAY REPEAT X 1 PRN PO INSOMNIA; Start 08/10/18 at 02:00 Insulin Aspart (Novolog Insulin Pen) NOVOLOG *MILD* ALGORITHM WITH MEALS BEDTIME SC ; Start 08/10/18 at 08:00 Hydroxyzine HCl (Atarax) 25 mg BID PRN PO ITCHING Last administered on 08/10/18at 19:21; Admin Dose 25 MG; Start 08/10/18 at 06:30 Miscellaneous Information 1 ea NOTE XX ; Start 08/10/18 at 07:00 Glucose (Glutose) 15 gm Q15M PRN PO DECREASED GLUCOSE; Start 08/10/18 at 07:00 Glucose (Glutose) 22.5 gm Q15M PRN PO DECREASED GLUCOSE; Start 08/10/18 at 07:00 Dextrose (D50w Syringe) 25 ml Q15M PRN IV DECREASED GLUCOSE; Start 08/10/18 at 07:00 Dextrose (D50w Syringe) 50 ml Q15M PRN IV DECREASED GLUCOSE; Start 08/10/18 at 07:00 Glucagon (Glucagen) 1 mg Q15M PRN IM DECREASED GLUCOSE; Start 08/10/18 at 07:00 Glucose (Glutose) 15 gm Q15M PRN BUCCAL DECREASED GLUCOSE; Start 08/10/18 at 07:00 Epoetin Adi (Epogen (Esrd)) 4,000 units TuThSa@17 SC ; Start 08/11/18 at 17:00 Lidocaine (Xylocaine 2% Jelly) 1 applic BEDSIDE MEDICATION PRN TOP PAIN LEVEL 1-5 Last administered on 08/10/18at 16:54; Admin Dose 1 APPLIC; Start 08/10/18 at 13:30 Morphine Sulfate (morphine) 2 mg Q4H PRN IV SEVERE PAIN LEVEL 7-10 Last administered on 08/10/18at 19:11; Admin Dose 2 MG; Start 08/10/18 at 13:30 Heparin Sodium (Porcine) (Heparin (5000 Units/1ml)) 5,000 unit BID SC ; Start 08/10/18 at 21:00 Pantoprazole (Protonix Tab) 40 mg DAILY@06 PO Last administered on 08/10/18at 14:45; Admin Dose 40 MG; Start 08/10/18 at 14:00 SHEYLA IZAGUIRRE DPM Aug 10, 2018 19:35
[2018-08-10] MEDS: HEPARIN 5,000 UNIT/1 ML VIAL SC SCH (21:48)
[2018-08-10] MEDS ORDERED: DIPHENHYDRAMINE 25 MG CAP PO PRN (23:00)
[2018-08-11 02:12] VITALS: BP 132/62; PULSE 96; RESP 18
[2018-08-11] MEDS: morphine 2 MG INJ IV PRN ×5 (05:15→22:33)
[2018-08-11] MEDS: PANTOPRAZOLE (EC) 40 MG TAB PO SCH (05:19)
[2018-08-11] MEDS: PIPER-TAZO 2.25 GM (PMX) 50 ML IVPB SCH ×3 (05:20→22:39)
[2018-08-11] MEDS: INSULIN ASPART [NOVOLOG] 3 ML PEN SC SCH ×4 (08:00→21:00)
[2018-08-11 08:12] VITALS: BP 176/82; PULSE 86; RESP 18
[2018-08-11] MEDS: DOCUSATE SODIUM 100 MG CAP PO SCH ×2 (08:28→22:28)
[2018-08-11] MEDS: PENTOXIFYLLINE (SR) 400 MG TAB PO SCH ×3 (08:28→17:54)
[2018-08-11] MEDS: CALCIUM ACETATE 667 MG CAP PO SCH ×3 (08:29→17:54)
[2018-08-11] MEDS: MINOXIDIL 10 MG TAB PO SCH ×2 (08:31→22:28)
[2018-08-11] MEDS: LORATADINE 10 MG TAB PO SCH (08:31)
[2018-08-11] MEDS: LISINOPRIL 20 MG TAB PO SCH (08:31)
[2018-08-11] MEDS: HEPARIN 5,000 UNIT/1 ML VIAL SC SCH ×2 (08:32→22:32)
[2018-08-11 14:18] VITALS: BP 177/83; PULSE 84; RESP 17
--- NOTE | 2018-08-11 14:33 | CONS ---
Assessment/Plan Assessment/Plan Assessment/Plan (Daily) Peripheral vascular disease Attention Diabetes And stage renal disease Right foot ulceration Proceed with a CT angiogram to fully evaluate the peripheral vascular disease in in anticipation for possible intervention Consultation Date/Type/Reason Admit Date/Time Aug 09, 2018 at 22:42 Date of Consultation: Aug 11, 2018 Type of Consult Vascular surgery Reason for Consultation Peripheral vascular disease Date/Time of Note DATE: 08/11/18 TIME: 14:31 Hx of Present Illness This is a 47-year-old male with a history of end-stage renal disease peripheral vascular disease status post left below-knee amputation now being admitted after trauma to his right foot with ulcerations of the right lower extremity patient previously has had right fourth and fifth toe amputation Ultrasound has been done which shows monophasic flow in the lower extremities Past Medical History Medical History: congestive heart failure, coronary artery disease, hypertension, renal disease Home Meds Reported Medications Hydrocodone/Acetaminophen ([place] 7.5-325 Tablet) 1 Each Tablet, 1 EACH PO BID, TAB 08/09/18 Minoxidil* (Lonitin*) 10 Mg Tab, 10 MG PO BID, TAB 08/09/18 Temazepam* (Temazepam*) 30 Mg Capsule, 30 MG PO HS PRN for INSOMNIA, CAP 08/09/18 Cetirizine Hcl* (Cetirizine Hcl*) 10 Mg Tablet, 10 MG PO DAILY, #30 TAB 08/09/18 Lisinopril* (Lisinopril*) 40 Mg Tablet, 40 MG PO DAILY, #30 TAB 08/09/18 Calcium Acetate* (Calcium Acetate*) 667 Mg Capsule, 1334 MG PO WITH MEALS, #60 CAP 08/09/18 Pentoxifylline* (Pentoxifylline*) 400 Mg Tablet.sa, 400 MG PO WITH MEALS, TAB 08/09/18 Clonidine Hcl* (Clonidine Hcl*) 0.3 Mg Tablet, 0.3 MG PO Q6H PRN for HTN, TAB 08/09/18 Docusate Sodium (Col-Rite) 100 Mg Capsule, 100 MG PO BID, CAP 08/09/18 Discontinued Reported Medications Docusate Sodium (Col-Rite) 100 Mg Capsule, 100 MG PO BID, CAP 05/05/18 Nifedipine* (Nifedipine ER*) 30 Mg Tablet.sa, 60 MG PO BID, TAB.SA 11/24/17 Hydrocodone/Acetaminophen ([place] 7.5-325 Tablet) 1 Each Tablet, 1 EACH PO Q8 PRN for PAIN, TAB 09/17/17 Calcium Acetate* (Calcium Acetate*) 667 Mg Capsule, 1334 MG PO WITH MEALS, CAP 09/17/17 Sertraline Hcl* (Zoloft*) 25 Mg Tablet, 25 MG PO DAILY, TAB 09/17/17 Pentoxifylline* (Pentoxifylline*) 400 Mg Tablet.sa, 400 MG PO TID, TAB 09/17/17 Temazepam* (Temazepam*) 30 Mg Capsule, 30 MG PO HS PRN for INSOMNIA, CAP 09/17/17 Lisinopril* (Lisinopril*) 40 Mg Tablet, 40 MG PO DAILY, TAB 09/17/17 Clonidine Hcl* (Clonidine Hcl*) 0.3 Mg Tablet, 0.6 MG PO BID, TAB 09/17/17 Minoxidil* (Lonitin*) 2.5 Mg Tab, 7.5 MG PO DAILY, TAB 09/17/17 Medications Current Medications Vancomycin HCl (Vanco Iv Per Pharmacy) VANCOMYCIN PER PHARMACY PER PROTOCOL XX ; Start 08/10/18 at 02:00 Acetaminophen (Tylenol Tab) 650 mg Q6H PRN PO MILD PAIN(1-3)OR ELEVATED TEMP; Start 08/10/18 at 02:00 Ondansetron HCl (Zofran Inj) 4 mg Q6H PRN IV NAUSEA AND/OR VOMITING; Start 08/10/18 at 02:00 Calcium Acetate (Phoslo) 1,334 mg WITH MEALS PO Last administered on 08/11/18at 08:29; Admin Dose 1,334 MG; Start 08/10/18 at 08:00 Clonidine (Catapres) 0.3 mg Q6H PRN PO FOR SBP ABOVE 170; Start 08/10/18 at 02:00 Docusate Sodium (Colace) 100 mg BID PO Last administered on 08/11/18at 08:28; Admin Dose 100 MG; Start 08/10/18 at 09:00 Acetaminophen/ Hydrocodone Bitart ([place]rev[place] (7.5-325)) 1 tab BID PRN PO PAIN; Start 08/10/18 at 02:00 Lisinopril (Zestril) 40 mg DAILY PO Last administered on 08/11/18at 08:31; Admin Dose 40 MG; Start 08/10/18 at 09:00 Minoxidil (Loniten) 10 mg BID PO Last administered on 08/11/18at 08:31; Admin Dose 10 MG; Start 08/10/18 at 09:00 Pentoxifylline (Trental) 400 mg WITH MEALS PO Last administered on 08/11/18at 08:28; Admin Dose 400 MG; Start 08/10/18 at 08:00 Piperacillin Sod/ Tazobactam Sod 50 ml @ 100 mls/hr Q8 IVPB Last administered on 08/11/18at 13:53; Admin Dose 100 MLS/HR; Start 08/10/18 at 06:00 Loratadine (Claritin) 10 mg DAILY PO Last administered on 08/11/18at 08:31; Admin Dose 10 MG; Start 08/10/18 at 09:00 Zolpidem Tartrate (Ambien) 5 mg HS MAY REPEAT X 1 PRN PO INSOMNIA; Start 08/10/18 at 02:00 Insulin Aspart (Novolog Insulin Pen) NOVOLOG *MILD* ALGORITHM WITH MEALS BEDTIME SC ; Start 08/10/18 at 08:00 Hydroxyzine HCl (Atarax) 25 mg BID PRN PO ITCHING Last administered on 08/10/18at 19:21; Admin Dose 25 MG; Start 08/10/18 at 06:30 Miscellaneous Information 1 ea NOTE XX ; Start 08/10/18 at 07:00 Glucose (Glutose) 15 gm Q15M PRN PO DECREASED GLUCOSE; Start 08/10/18 at 07:00 Glucose (Glutose) 22.5 gm Q15M PRN PO DECREASED GLUCOSE; Start 08/10/18 at 07:00 Dextrose (D50w Syringe) 25 ml Q15M PRN IV DECREASED GLUCOSE; Start 08/10/18 at 07:00 Dextrose (D50w Syringe) 50 ml Q15M PRN IV DECREASED GLUCOSE; Start 08/10/18 at 07:00 Glucagon (Glucagen) 1 mg Q15M PRN IM DECREASED GLUCOSE; Start 08/10/18 at 07:00 Glucose (Glutose) 15 gm Q15M PRN BUCCAL DECREASED GLUCOSE; Start 08/10/18 at 07:00 Epoetin Adi (Epogen (Esrd)) 4,000 units TuThSa@17 SC ; Start 08/11/18 at 17:00 Lidocaine (Xylocaine 2% Jelly) 1 applic BEDSIDE MEDICATION PRN TOP PAIN LEVEL 1-5 Last administered on 08/10/18at 16:54; Admin Dose 1 APPLIC; Start 08/10/18 at 13:30 Morphine Sulfate (morphine) 2 mg Q4H PRN IV SEVERE PAIN LEVEL 7-10 Last administered on 08/11/18at 13:53; Admin Dose 2 MG; Start 08/10/18 at 13:30 Heparin Sodium (Porcine) (Heparin (5000 Units/1ml)) 5,000 unit BID SC Last administered on 08/10/18at 21:48; Admin Dose 5,000 UNIT; Start 08/10/18 at 21:00 Pantoprazole (Protonix Tab) 40 mg DAILY@06 PO Last administered on 08/11/18at 05:19; Admin Dose 40 MG; Start 08/10/18 at 14:00 Diphenhydramine HCl (Benadryl) 25 mg TID PRN PO ITCHING Last administered on 08/10/18at 23:10; Admin Dose 25 MG; Start 08/10/18 at 23:00 Diphenhydramine HCl (Benadryl) 25 mg TID PRN IV ITCHING; Start 08/10/18 at 23:00 Miscellaneous Information (*Rx Drug Level Order Reminder*) VANCO RANDOM @ 0,500 ONCE ONCE XX ; Start 08/12/18 at 05:00; Stop 08/12/18 at 05:01 Allergies: Coded Allergies: No Known Allergy (Unverified , 08/09/18) Past Surgical History Past Surgical Hx: angioplasty, other ( right foot 4th/5th toe amputations and left BKA ) Social History Alcohol Use: none Smoking Status: Former smoker Drug Use: none Exam/Review of Systems Exam Vitals Vital Signs Date Temp Pulse Resp B/P (MAP) Pulse Ox O2 O2 Flow FiO2 Time Delivery Rate 08/11/18 98.3 84 17 177/83 94 Room Air 14:18 (114) Intake and Output 08/10/18 08/10/18 08/11/18 1515:00 23:00 07:00 IntakeIntake Total 530 ml 440 ml 340 ml OutputOutput Total 1600 ml BalanceBalance 530 ml -1160 ml 340 ml Eyes: nl conjunctiva, EOMI, nl lids, nl sclera, PERRL ENMT: nl external ears & nose, nl lips & teeth, nl nasal mucosa & septum Neck: supple, non-tender Respiratory: clear to auscultation, normal air movement Cardiovascular: regular rate and rhythm, nl pulses Gastrointestinal: soft, nl liver, spleen, non-tender Musculoskeletal: nl extremities to inspection, nl gait and stance Extremities: normal pulses Neurological: [employer] II-XII intact, nl mental status, nl speech, nl strength Additional Comments Left below-knee amputation noted Patient with right fourth and fifth toe amputation and multiple lacerations and ulcerations in the right foot there is palpable femoral no popliteal or pedal pulses capillary refill is about 2-3 seconds the leg is warm down to the ankle Results Result Diagram: 08/11/18 1109 08/11/18 1109 Results 24hrs Laboratory Tests Test 08/10/18 17:33 08/10/18 17:41 08/10/18 21:41 08/11/18 08:27 White Blood Count 5.7 # Red Blood Count 2.50 L Hemoglobin 7.3 L Hematocrit 23.1 L Mean Corpuscular Volume 92.4 Mean Corpuscular 29.2 Hemoglobin Mean Corpuscular 31.6 L Hemoglobin Concent Red Cell Distribution 13.2 Width Platelet Count 190 Mean Platelet Volume 10.4 Immature Granulocytes % 0.500 H Neutrophils % 65.7 Lymphocytes % 10.8 L Monocytes % 4.4 Eosinophils % 18.2 H Basophils % 0.4 Nucleated Red Blood 0.0 Cells % Immature Granulocytes # 0.030 Neutrophils # 3.7 Lymphocytes # 0.6 L Monocytes # 0.3 Eosinophils # 1.0 H Basophils # 0.0 Nucleated Red Blood 0.0 Cells # Sodium Level 143 Potassium Level 4.1 Chloride Level 101 Carbon Dioxide Level 27 Anion Gap 15 H Blood Urea Nitrogen 47 H Creatinine 9.09 H Est Glomerular Filtrat 8 L Rate mL/min Glucose Level 104 Calcium Level 8.8 Bedside Glucose 100 78 88 Test 08/11/18 11:09 08/11/18 12:29 White Blood Count 6.0 Red Blood Count 2.72 L Hemoglobin 8.0 L Hematocrit 25.2 L Mean Corpuscular Volume 92.6 Mean Corpuscular 29.4 Hemoglobin Mean Corpuscular 31.7 L Hemoglobin Concent Red Cell Distribution 13.2 Width Platelet Count 196 Mean Platelet Volume 10.7 H Immature Granulocytes % 0.200 Neutrophils % 64.2 Lymphocytes % 10.6 L Monocytes % 9.1 Eosinophils % 15.4 H Basophils % 0.5 Nucleated Red Blood 0.0 Cells % Immature Granulocytes # 0.010 Neutrophils # 3.9 Lymphocytes # 0.6 L Monocytes # 0.6 Eosinophils # 0.9 H Basophils # 0.0 Nucleated Red Blood 0.0 Cells # Sodium Level 146 H Potassium Level 3.8 Chloride Level 101 Carbon Dioxide Level 31 Anion Gap 14 H Blood Urea Nitrogen 26 #H Creatinine 6.75 #H Est Glomerular Filtrat 11 L Rate mL/min Glucose Level 86 Hemoglobin A1c 7.5 H Calcium Level 9.1 Bedside Glucose 84 Medications Medication Current Medications Vancomycin HCl (Vanco Iv Per Pharmacy) VANCOMYCIN PER PHARMACY PER PROTOCOL XX ; Start 08/10/18 at 02:00 Acetaminophen (Tylenol Tab) 650 mg Q6H PRN PO MILD PAIN(1-3)OR ELEVATED TEMP; Start 08/10/18 at 02:00 Ondansetron HCl (Zofran Inj) 4 mg Q6H PRN IV NAUSEA AND/OR VOMITING; Start 08/10/18 at 02:00 Calcium Acetate (Phoslo) 1,334 mg WITH MEALS PO Last administered on 08/11/18at 08:29; Admin Dose 1,334 MG; Start 08/10/18 at 08:00 Clonidine (Catapres) 0.3 mg Q6H PRN PO FOR SBP ABOVE 170; Start 08/10/18 at 02:00 Docusate Sodium (Colace) 100 mg BID PO Last administered on 08/11/18at 08:28; Admin Dose 100 MG; Start 08/10/18 at 09:00 Acetaminophen/ Hydrocodone Bitart (Trevor (7.5-325)) 1 tab BID PRN PO PAIN; Start 08/10/18 at 02:00 Lisinopril (Zestril) 40 mg DAILY PO Last administered on 08/11/18at 08:31; Admin Dose 40 MG; Start 08/10/18 at 09:00 Minoxidil (Loniten) 10 mg BID PO Last administered on 08/11/18at 08:31; Admin Dose 10 MG; Start 08/10/18 at 09:00 Pentoxifylline (Trental) 400 mg WITH MEALS PO Last administered on 08/11/18at 08:28; Admin Dose 400 MG; Start 08/10/18 at 08:00 Piperacillin Sod/ Tazobactam Sod 50 ml @ 100 mls/hr Q8 IVPB Last administered on 08/11/18at 13:53; Admin Dose 100 MLS/HR; Start 08/10/18 at 06:00 Loratadine (Claritin) 10 mg DAILY PO Last administered on 08/11/18at 08:31; Admin Dose 10 MG; Start 08/10/18 at 09:00 Zolpidem Tartrate (Ambien) 5 mg HS MAY REPEAT X 1 PRN PO INSOMNIA; Start 08/10/18 at 02:00 Insulin Aspart (Novolog Insulin Pen) NOVOLOG *MILD* ALGORITHM WITH MEALS BEDTIME SC ; Start 08/10/18 at 08:00 Hydroxyzine HCl (Atarax) 25 mg BID PRN PO ITCHING Last administered on 08/10/18at 19:21; Admin Dose 25 MG; Start 08/10/18 at 06:30 Miscellaneous Information 1 ea NOTE XX ; Start 08/10/18 at 07:00 Glucose (Glutose) 15 gm Q15M PRN PO DECREASED GLUCOSE; Start 08/10/18 at 07:00 Glucose (Glutose) 22.5 gm Q15M PRN PO DECREASED GLUCOSE; Start 08/10/18 at 07:00 Dextrose (D50w Syringe) 25 ml Q15M PRN IV DECREASED GLUCOSE; Start 08/10/18 at 07:00 Dextrose (D50w Syringe) 50 ml Q15M PRN IV DECREASED GLUCOSE; Start 08/10/18 at 07:00 Glucagon (Glucagen) 1 mg Q15M PRN IM DECREASED GLUCOSE; Start 08/10/18 at 07:00 Glucose (Glutose) 15 gm Q15M PRN BUCCAL DECREASED GLUCOSE; Start 08/10/18 at 07:00 Epoetin Adi (Epogen (Esrd)) 4,000 units TuThSa@17 SC ; Start 08/11/18 at 17:00 Lidocaine (Xylocaine 2% Jelly) 1 applic BEDSIDE MEDICATION PRN TOP PAIN LEVEL 1-5 Last administered on 08/10/18at 16:54; Admin Dose 1 APPLIC; Start 08/10/18 at 13:30 Morphine Sulfate (morphine) 2 mg Q4H PRN IV SEVERE PAIN LEVEL 7-10 Last administered on 08/11/18at 13:53; Admin Dose 2 MG; Start 08/10/18 at 13:30 Heparin Sodium (Porcine) (Heparin (5000 Units/1ml)) 5,000 unit BID SC Last administered on 08/10/18at 21:48; Admin Dose 5,000 UNIT; Start 08/10/18 at 21:00 Pantoprazole (Protonix Tab) 40 mg DAILY@06 PO Last administered on 08/11/18at 05:19; Admin Dose 40 MG; Start 08/10/18 at 14:00 Diphenhydramine HCl (Benadryl) 25 mg TID PRN PO ITCHING Last administered on 08/10/18at 23:10; Admin Dose 25 MG; Start 08/10/18 at 23:00 Diphenhydramine HCl (Benadryl) 25 mg TID PRN IV ITCHING; Start 08/10/18 at 23:00 Miscellaneous Information (*Rx Drug Level Order Reminder*) VANCO RANDOM @ 0,500 ONCE ONCE XX ; Start 08/12/18 at 05:00; Stop 08/12/18 at 05:01 CARLOS SANDOVAL MD Aug 11, 2018 14:33
--- NOTE | 2018-08-11 14:38 | CONS ---
Consultation Date/Type/Reason Admit Date/Time Aug 09, 2018 at 22:42 Initial Consult Date SUBJECTIVE: Pt is awakae, afebrile, in no acute distress. VS: stable T: 98.3 LABS: Reviewed. WBC- 6.0 MICROBIOLOGY: Pending cultures. ANTIMICROBIALS: The patient was started on: 1. Zosyn. 2. Vancomycin. DIAGNOSTIC DATA: X-ray of the foot revealed status post amputation of the 4th and 5th rays. 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 PHYSICAL EXAMINATION: VITAL SIGNS: Temperature 98.9, pulse 74, respirations 20, blood pressure 115/59, saturation 98 on nasal cannula. GENERAL: Well-developed, ill-appearing, middle-aged man in no distress. HEENT: Head is atraumatic, normocephalic. NECK: Supple. CHEST: Rise symmetrical. Breath sounds diminished to bases. HEART: S1, S2. ABDOMEN: Soft. Bowel tones are present. EXTREMITIES: With right foot erythema, edema, left below-knee amputation with dry scalp on the knee as well as on the stump itself. ASSESSMENT: 1. right diabetic foot ulceration with concern for osteomyelitis. 2. coronary artery disease status post PCI, 3. Peripheral arterial disease, status post left below-knee amputation and history of revision 4. hypertension 5. end-stage renal disease, hemodialysis dependent 6. DM2 7. Right foot cellulitis Plan: Continue current treatment and current IV antbx. Pain management. Podiatry recommendation and wound care. Cultures are pending. Date/Time of Note DATE: 08/11/18 TIME: 14:32 Exam/Review of Systems Exam Vitals Vital Signs Date Temp Pulse Resp B/P (MAP) Pulse Ox O2 O2 Flow FiO2 Time Delivery Rate 08/11/18 98.3 84 17 177/83 94 Room Air 14:18 (114) Intake and Output 08/10/18 08/10/18 08/11/18 1515:00 23:00 07:00 IntakeIntake Total 530 ml 440 ml 340 ml OutputOutput Total 1600 ml BalanceBalance 530 ml -1160 ml 340 ml Results Result Diagram: 08/11/18 1109 08/11/18 1109 Results 24hrs Laboratory Tests Test 08/10/18 17:33 08/10/18 17:41 08/10/18 21:41 08/11/18 08:27 White Blood Count 5.7 # Red Blood Count 2.50 L Hemoglobin 7.3 L Hematocrit 23.1 L Mean Corpuscular Volume 92.4 Mean Corpuscular 29.2 Hemoglobin Mean Corpuscular 31.6 L Hemoglobin Concent Red Cell Distribution 13.2 Width Platelet Count 190 Mean Platelet Volume 10.4 Immature Granulocytes % 0.500 H Neutrophils % 65.7 Lymphocytes % 10.8 L Monocytes % 4.4 Eosinophils % 18.2 H Basophils % 0.4 Nucleated Red Blood 0.0 Cells % Immature Granulocytes # 0.030 Neutrophils # 3.7 Lymphocytes # 0.6 L Monocytes # 0.3 Eosinophils # 1.0 H Basophils # 0.0 Nucleated Red Blood 0.0 Cells # Sodium Level 143 Potassium Level 4.1 Chloride Level 101 Carbon Dioxide Level 27 Anion Gap 15 H Blood Urea Nitrogen 47 H Creatinine 9.09 H Est Glomerular Filtrat 8 L Rate mL/min Glucose Level 104 Calcium Level 8.8 Bedside Glucose 100 78 88 Test 08/11/18 11:09 08/11/18 12:29 White Blood Count 6.0 Red Blood Count 2.72 L Hemoglobin 8.0 L Hematocrit 25.2 L Mean Corpuscular Volume 92.6 Mean Corpuscular 29.4 Hemoglobin Mean Corpuscular 31.7 L Hemoglobin Concent Red Cell Distribution 13.2 Width Platelet Count 196 Mean Platelet Volume 10.7 H Immature Granulocytes % 0.200 Neutrophils % 64.2 Lymphocytes % 10.6 L Monocytes % 9.1 Eosinophils % 15.4 H Basophils % 0.5 Nucleated Red Blood 0.0 Cells % Immature Granulocytes # 0.010 Neutrophils # 3.9 Lymphocytes # 0.6 L Monocytes # 0.6 Eosinophils # 0.9 H Basophils # 0.0 Nucleated Red Blood 0.0 Cells # Sodium Level 146 H Potassium Level 3.8 Chloride Level 101 Carbon Dioxide Level 31 Anion Gap 14 H Blood Urea Nitrogen 26 #H Creatinine 6.75 #H Est Glomerular Filtrat 11 L Rate mL/min Glucose Level 86 Hemoglobin A1c 7.5 H Calcium Level 9.1 Bedside Glucose 84 Medications Medication Current Medications Vancomycin HCl (Vanco Iv Per Pharmacy) VANCOMYCIN PER PHARMACY PER PROTOCOL XX ; Start 08/10/18 at 02:00 Acetaminophen (Tylenol Tab) 650 mg Q6H PRN PO MILD PAIN(1-3)OR ELEVATED TEMP; Start 08/10/18 at 02:00 Ondansetron HCl (Zofran Inj) 4 mg Q6H PRN IV NAUSEA AND/OR VOMITING; Start 08/10/18 at 02:00 Calcium Acetate (Phoslo) 1,334 mg WITH MEALS PO Last administered on 08/11/18 08:29; Admin Dose 1,334 MG; Start 08/10/18 at 08:00 Clonidine (Catapres) 0.3 mg Q6H PRN PO FOR SBP ABOVE 170; Start 08/10/18 at 02:00 Docusate Sodium (Colace) 100 mg BID PO Last administered on 08/11/18 08:28; Admin Dose 100 MG; Start 08/10/18 at 09:00 Acetaminophen/ Hydrocodone Bitart ([place] (7.5-325)) 1 tab BID PRN PO PAIN; Start 08/10/18 at 02:00 Lisinopril (Zestril) 40 mg DAILY PO Last administered on 08/11/18 08:31; Admin Dose 40 MG; Start 08/10/18 at 09:00 Minoxidil (Loniten) 10 mg BID PO Last administered on 08/11/18 08:31; Admin Dose 10 MG; Start 08/10/18 at 09:00 Pentoxifylline (Trental) 400 mg WITH MEALS PO Last administered on 08/11/18 08:28; Admin Dose 400 MG; Start 08/10/18 at 08:00 Piperacillin Sod/ Tazobactam Sod 50 ml @ 100 mls/hr Q8 IVPB Last administered on 08/11/18 13:53; Admin Dose 100 MLS/HR; Start 08/10/18 at 06:00 Loratadine (Claritin) 10 mg DAILY PO Last administered on 08/11/18 08:31; Admin Dose 10 MG; Start 08/10/18 at 09:00 Zolpidem Tartrate (Ambien) 5 mg HS MAY REPEAT X 1 PRN PO INSOMNIA; Start 08/10/18 at 02:00 Insulin Aspart (Novolog Insulin Pen) NOVOLOG *MILD* ALGORITHM WITH MEALS BEDTIME SC ; Start 08/10/18 at 08:00 Hydroxyzine HCl (Atarax) 25 mg BID PRN PO ITCHING Last administered on 08/10/18at 19:21; Admin Dose 25 MG; Start 08/10/18 at 06:30 Miscellaneous Information 1 ea NOTE XX ; Start 08/10/18 at 07:00 Glucose (Glutose) 15 gm Q15M PRN PO DECREASED GLUCOSE; Start 08/10/18 at 07:00 Glucose (Glutose) 22.5 gm Q15M PRN PO DECREASED GLUCOSE; Start 08/10/18 at 07:00 Dextrose (D50w Syringe) 25 ml Q15M PRN IV DECREASED GLUCOSE; Start 08/10/18 at 07:00 Dextrose (D50w Syringe) 50 ml Q15M PRN IV DECREASED GLUCOSE; Start 08/10/18 at 07:00 Glucagon (Glucagen) 1 mg Q15M PRN IM DECREASED GLUCOSE; Start 08/10/18 at 07:00 Glucose (Glutose) 15 gm Q15M PRN BUCCAL DECREASED GLUCOSE; Start 08/10/18 at 07:00 Epoetin Adi (Epogen (Esrd)) 4,000 units TuThSa@17 SC ; Start 08/11/18 at 17:00 Lidocaine (Xylocaine 2% Jelly) 1 applic BEDSIDE MEDICATION PRN TOP PAIN LEVEL 1-5 Last administered on 08/10/18at 16:54; Admin Dose 1 APPLIC; Start 08/10/18 at 13:30 Morphine Sulfate (morphine) 2 mg Q4H PRN IV SEVERE PAIN LEVEL 7-10 Last administered on 08/11/18at 13:53; Admin Dose 2 MG; Start 08/10/18 at 13:30 Heparin Sodium (Porcine) (Heparin (5000 Units/1ml)) 5,000 unit BID SC Last administered on 08/10/18 21:48; Admin Dose 5,000 UNIT; Start 08/10/18 at 21:00 Pantoprazole (Protonix Tab) 40 mg DAILY@06 PO Last administered on 08/11/18 05:19; Admin Dose 40 MG; Start 08/10/18 at 14:00 Diphenhydramine HCl (Benadryl) 25 mg TID PRN PO ITCHING Last administered on 08/10/18at 23:10; Admin Dose 25 MG; Start 08/10/18 at 23:00 Diphenhydramine HCl (Benadryl) 25 mg TID PRN IV ITCHING; Start 08/10/18 at 23:00 Miscellaneous Information (*Rx Drug Level Order Reminder*) VANCO RANDOM @ 0,500 ONCE ONCE XX ; Start 08/12/18 at 05:00; Stop 08/12/18 at 05:01 CHELA ENCARNACION Aug 11, 2018 14:38
--- NOTE | 2018-08-11 14:55 | PN ---
Date/Time of Note Date/Time of Note DATE: 08/11/18 TIME: 14:52 Assessment/Plan VTE Prophylaxis Risk score (from Nsg)>0 risk: 2 SCD applied (from Ns): No SCD contraindicated: bilateral amputee Pharmacological prophylaxis: heparin Lines/Catheters IV Catheter Type (from Nrs): [place] Urinary Cath still in place: No Assessment/Plan Hospital Course 1. Wet gangrene of 3rd toe on the right foot. 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 S/p amputation of the fourth and fifth rays through the proximal shafts of the fourth and fifth metatarsals right foot. 3. Cellulitis with deep soft tissue ulcer over the lateral base of the fifth metatarsal with mild periosteal reaction along the lateral shaft of the fifth metatarsal that may be due to osteomyelitis of the right foot, per Xray right foot. 4. End-stage renal disease on hemodialysis Monday, and Monday 5. Normocytic normochromic anemia, hx of anemia of chronic disease with EGD 11/01/17 with esophageal ulceration. Colonoscopy was done 09/03/15 for active bleeding. 6. Hypertension, controlled. 7. Diabetes mellitus type II, not controlled well. last hg A1 C 7,5. 8. Coronary artery disease status post 4 stents. 9. Left below-knee amputation, s/p revision. 10. Diastolic CHF 11. Hx of hematoma of abdomen. Numerous surgical procedures, inc. biopsy, drainage, exploratory laparotomy 2014 12. pt did not have cholecystectomy, apparently due to many surgical scars on abdomen, pt mentioned it 13. hx of tracheostomy 14. hx of positive troponin past. 15. s/p abdominal stents removal by dr Guy Assessment/Plan -better hypertension control -C/w HD, last was on Monday, -wound care -GI prophylaxis Protonix -pain control -DVT prophylaxis Heparin 5000 U BID -straightener and aligner Dr Millard, aware -ID consult dr Ashton -Dr Lino vascular surgeon -arterial study left lower extremity is abnormal , monophasic waves -c/w Vancomycin -c/w Epogen after HD Result Diagram: 08/11/18 1109 08/11/18 1109 Results 24hrs Laboratory Tests Test 08/10/18 17:33 08/10/18 17:41 08/10/18 21:41 08/11/18 08:27 White Blood Count 5.7 # Red Blood Count 2.50 L Hemoglobin 7.3 L Hematocrit 23.1 L Mean Corpuscular Volume 92.4 Mean Corpuscular 29.2 Hemoglobin Mean Corpuscular 31.6 L Hemoglobin Concent Red Cell Distribution 13.2 Width Platelet Count 190 Mean Platelet Volume 10.4 Immature Granulocytes % 0.500 H Neutrophils % 65.7 Lymphocytes % 10.8 L Monocytes % 4.4 Eosinophils % 18.2 H Basophils % 0.4 Nucleated Red Blood 0.0 Cells % Immature Granulocytes # 0.030 Neutrophils # 3.7 Lymphocytes # 0.6 L Monocytes # 0.3 Eosinophils # 1.0 H Basophils # 0.0 Nucleated Red Blood 0.0 Cells # Sodium Level 143 Potassium Level 4.1 Chloride Level 101 Carbon Dioxide Level 27 Anion Gap 15 H Blood Urea Nitrogen 47 H Creatinine 9.09 H Est Glomerular Filtrat 8 L Rate mL/min Glucose Level 104 Calcium Level 8.8 Bedside Glucose 100 78 88 Test 08/11/18 11:09 08/11/18 12:29 White Blood Count 6.0 Red Blood Count 2.72 L Hemoglobin 8.0 L Hematocrit 25.2 L Mean Corpuscular Volume 92.6 Mean Corpuscular 29.4 Hemoglobin Mean Corpuscular 31.7 L Hemoglobin Concent Red Cell Distribution 13.2 Width Platelet Count 196 Mean Platelet Volume 10.7 H Immature Granulocytes % 0.200 Neutrophils % 64.2 Lymphocytes % 10.6 L Monocytes % 9.1 Eosinophils % 15.4 H Basophils % 0.5 Nucleated Red Blood 0.0 Cells % Immature Granulocytes # 0.010 Neutrophils # 3.9 Lymphocytes # 0.6 L Monocytes # 0.6 Eosinophils # 0.9 H Basophils # 0.0 Nucleated Red Blood 0.0 Cells # Sodium Level 146 H Potassium Level 3.8 Chloride Level 101 Carbon Dioxide Level 31 Anion Gap 14 H Blood Urea Nitrogen 26 #H Creatinine 6.75 #H Est Glomerular Filtrat 11 L Rate mL/min Glucose Level 86 Hemoglobin A1c 7.5 H Calcium Level 9.1 Bedside Glucose 84 Subjective 24 Hr Interval Summary Musculoskeletal: bone/joint pain (better) Exam/Review of Systems Exam Vitals Vital Signs Date Temp Pulse Resp B/P (MAP) Pulse Ox O2 O2 Flow FiO2 Time Delivery Rate 08/11/18 98.3 84 17 177/83 94 Room Air 14:18 (114) Intake and Output 08/10/18 08/10/18 08/11/18 1414:59 22:59 06:59 IntakeIntake Total 530 ml 340 ml 440 ml OutputOutput Total 1600 ml BalanceBalance 530 ml -1260 ml 440 ml Exam left arm AV fistula Constitutional: alert Neck: supple, other (tracheostomy healed) Gastrointestinal: soft, surgical scars Musculoskeletal: other (left BKA, right 3 toe discoloration , right 4, 5 toe am putated) Results Results 24hrs Laboratory Tests Test 08/10/18 17:33 08/10/18 17:41 08/10/18 21:41 08/11/18 08:27 White Blood Count 5.7 # Red Blood Count 2.50 L Hemoglobin 7.3 L Hematocrit 23.1 L Mean Corpuscular Volume 92.4 Mean Corpuscular 29.2 Hemoglobin Mean Corpuscular 31.6 L Hemoglobin Concent Red Cell Distribution 13.2 Width Platelet Count 190 Mean Platelet Volume 10.4 Immature Granulocytes % 0.500 H Neutrophils % 65.7 Lymphocytes % 10.8 L Monocytes % 4.4 Eosinophils % 18.2 H Basophils % 0.4 Nucleated Red Blood 0.0 Cells % Immature Granulocytes # 0.030 Neutrophils # 3.7 Lymphocytes # 0.6 L Monocytes # 0.3 Eosinophils # 1.0 H Basophils # 0.0 Nucleated Red Blood 0.0 Cells # Sodium Level 143 Potassium Level 4.1 Chloride Level 101 Carbon Dioxide Level 27 Anion Gap 15 H Blood Urea Nitrogen 47 H Creatinine 9.09 H Est Glomerular Filtrat 8 L Rate mL/min Glucose Level 104 Calcium Level 8.8 Bedside Glucose 100 78 88 Test 08/11/18 11:09 08/11/18 12:29 White Blood Count 6.0 Red Blood Count 2.72 L Hemoglobin 8.0 L Hematocrit 25.2 L Mean Corpuscular Volume 92.6 Mean Corpuscular 29.4 Hemoglobin Mean Corpuscular 31.7 L Hemoglobin Concent Red Cell Distribution 13.2 Width Platelet Count 196 Mean Platelet Volume 10.7 H Immature Granulocytes % 0.200 Neutrophils % 64.2 Lymphocytes % 10.6 L Monocytes % 9.1 Eosinophils % 15.4 H Basophils % 0.5 Nucleated Red Blood 0.0 Cells % Immature Granulocytes # 0.010 Neutrophils # 3.9 Lymphocytes # 0.6 L Monocytes # 0.6 Eosinophils # 0.9 H Basophils # 0.0 Nucleated Red Blood 0.0 Cells # Sodium Level 146 H Potassium Level 3.8 Chloride Level 101 Carbon Dioxide Level 31 Anion Gap 14 H Blood Urea Nitrogen 26 #H Creatinine 6.75 #H Est Glomerular Filtrat 11 L Rate mL/min Glucose Level 86 Hemoglobin A1c 7.5 H Calcium Level 9.1 Bedside Glucose 84 Medications Medication Current Medications Vancomycin HCl (Vanco Iv Per Pharmacy) VANCOMYCIN PER PHARMACY PER PROTOCOL XX ; Start 08/10/18 at 02:00 Acetaminophen (Tylenol Tab) 650 mg Q6H PRN PO MILD PAIN(1-3)OR ELEVATED TEMP; Start 08/10/18 at 02:00 Ondansetron HCl (Zofran Inj) 4 mg Q6H PRN IV NAUSEA AND/OR VOMITING; Start 08/10/18 at 02:00 Calcium Acetate (Phoslo) 1,334 mg WITH MEALS PO Last administered on 08/11/18 08:29; Admin Dose 1,334 MG; Start 08/10/18 at 08:00 Clonidine (Catapres) 0.3 mg Q6H PRN PO FOR SBP ABOVE 170; Start 08/10/18 at 02:00 Docusate Sodium (Colace) 100 mg BID PO Last administered on 08/11/18 08:28; Admin Dose 100 MG; Start 08/10/18 at 09:00 Acetaminophen/ Hydrocodone Bitart ([place] (7.5-325)) 1 tab BID PRN PO PAIN; Start 08/10/18 at 02:00 Lisinopril (Zestril) 40 mg DAILY PO Last administered on 08/11/18 08:31; Admin Dose 40 MG; Start 08/10/18 at 09:00 Minoxidil (Loniten) 10 mg BID PO Last administered on 08/11/18 08:31; Admin Dose 10 MG; Start 08/10/18 at 09:00 Pentoxifylline (Trental) 400 mg WITH MEALS PO Last administered on 08/11/18 08:28; Admin Dose 400 MG; Start 08/10/18 at 08:00 Piperacillin Sod/ Tazobactam Sod 50 ml @ 100 mls/hr Q8 IVPB Last administered on 08/11/18 13:53; Admin Dose 100 MLS/HR; Start 08/10/18 at 06:00 Loratadine (Claritin) 10 mg DAILY PO Last administered on 08/11/18 08:31; Admin Dose 10 MG; Start 08/10/18 at 09:00 Zolpidem Tartrate (Ambien) 5 mg HS MAY REPEAT X 1 PRN PO INSOMNIA; Start 08/10/18 at 02:00 Insulin Aspart (Novolog Insulin Pen) NOVOLOG *MILD* ALGORITHM WITH MEALS BEDTIME SC ; Start 08/10/18 at 08:00 Hydroxyzine HCl (Atarax) 25 mg BID PRN PO ITCHING Last administered on 08/10/18 19:21; Admin Dose 25 MG; Start 08/10/18 at 06:30 Miscellaneous Information 1 ea NOTE XX ; Start 08/10/18 at 07:00 Glucose (Glutose) 15 gm Q15M PRN PO DECREASED GLUCOSE; Start 08/10/18 at 07:00 Glucose (Glutose) 22.5 gm Q15M PRN PO DECREASED GLUCOSE; Start 08/10/18 at 07:00 Dextrose (D50w Syringe) 25 ml Q15M PRN IV DECREASED GLUCOSE; Start 08/10/18 at 07:00 Dextrose (D50w Syringe) 50 ml Q15M PRN IV DECREASED GLUCOSE; Start 08/10/18 at 07:00 Glucagon (Glucagen) 1 mg Q15M PRN IM DECREASED GLUCOSE; Start 08/10/18 at 07:00 Glucose (Glutose) 15 gm Q15M PRN BUCCAL DECREASED GLUCOSE; Start 08/10/18 at 07:00 Epoetin Adi (Epogen (Esrd)) 4,000 units TuThSa@17 SC ; Start 08/11/18 at 17:00 Lidocaine (Xylocaine 2% Jelly) 1 applic BEDSIDE MEDICATION PRN TOP PAIN LEVEL 1-5 Last administered on 08/10/18at 16:54; Admin Dose 1 APPLIC; Start 08/10/18 at 13:30 Morphine Sulfate (morphine) 2 mg Q4H PRN IV SEVERE PAIN LEVEL 7-10 Last administered on 08/11/18 13:53; Admin Dose 2 MG; Start 08/10/18 at 13:30 Heparin Sodium (Porcine) (Heparin (5000 Units/1ml)) 5,000 unit BID SC Last administered on 08/10/18at 21:48; Admin Dose 5,000 UNIT; Start 08/10/18 at 21:00 Pantoprazole (Protonix Tab) 40 mg DAILY@06 PO Last administered on 08/11/18at 05:19; Admin Dose 40 MG; Start 08/10/18 at 14:00 Diphenhydramine HCl (Benadryl) 25 mg TID PRN PO ITCHING Last administered on 08/10/18at 23:10; Admin Dose 25 MG; Start 08/10/18 at 23:00 Diphenhydramine HCl (Benadryl) 25 mg TID PRN IV ITCHING; Start 08/10/18 at 23:00 Miscellaneous Information (*Rx Drug Level Order Reminder*) VANCO RANDOM @ 0,500 ONCE ONCE XX ; Start 08/12/18 at 05:00; Stop 08/12/18 at 05:01 PATRICIA RIVAS Aug 11, 2018 14:55
[2018-08-11] MEDS: AMLODIPINE 10 MG TAB PO SCH (16:18)
[2018-08-11] MEDS: EPOETIN 4000 UNITS/1 ML INJ (ESRD) SC SCH (17:51)
[2018-08-11] MEDS ORDERED: SOD CHLORIDE 0.9% 100 ML ONE (19:48)
[2018-08-11] MEDS ORDERED: IODIXANOL LOCM 100 ML BTL ONE (19:48)
[2018-08-11 20:20] VITALS: BP 165/77; PULSE 83; RESP 16
[2018-08-12] VITALS (18 sets, daily range): BP systolic 108–183; BP diastolic 61–81; PULSE 71–87; RESP 16–18
[2018-08-12] MEDS: morphine 2 MG INJ IV PRN ×5 (04:05→23:55)
[2018-08-12] MEDS: PIPER-TAZO 2.25 GM (PMX) 50 ML IVPB SCH ×3 (06:47→23:19)
[2018-08-12] MEDS: PANTOPRAZOLE (EC) 40 MG TAB PO SCH (06:48)
[2018-08-12] MEDS: INSULIN ASPART [NOVOLOG] 3 ML PEN SC SCH ×4 (08:00→21:00)
[2018-08-12] MEDS: HEPARIN 5,000 UNIT/1 ML VIAL SC SCH ×2 (08:52→21:00)
[2018-08-12] MEDS: LORATADINE 10 MG TAB PO SCH (08:55)
[2018-08-12] MEDS: PENTOXIFYLLINE (SR) 400 MG TAB PO SCH ×3 (08:55→17:05)
[2018-08-12] MEDS: DOCUSATE SODIUM 100 MG CAP PO SCH ×2 (08:55→21:00)
[2018-08-12] MEDS: CALCIUM ACETATE 667 MG CAP PO SCH ×3 (08:55→17:04)
[2018-08-12] MEDS: MINOXIDIL 10 MG TAB PO SCH ×2 (08:56→21:28)
[2018-08-12] MEDS: AMLODIPINE 10 MG TAB PO SCH (08:57)
[2018-08-12] MEDS: LISINOPRIL 20 MG TAB PO SCH (08:57)
--- NOTE | 2018-08-12 12:16 | CONS ---
Consultation Date/Type/Reason Admit Date/Time Aug 09, 2018 at 22:42 Initial Consult Date SUBJECTIVE: Pt is awake, afebrile. No acute events over night. VS: stable T: 98.4 LABS: Reviewed. WBC- 7.1 MICROBIOLOGY: Pending cultures. BLOOD CULTURE Preliminary NO GROWTH AFTER 2 DAYS ANTIMICROBIALS: The patient was started on: 1. Zosyn. 2. Vancomycin. DIAGNOSTIC DATA: X-ray of the foot revealed status post amputation of the 4th and 5th rays. 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 PHYSICAL EXAMINATION: VITAL SIGNS: Temperature 98.9, pulse 74, respirations 20, blood pressure 115/59, saturation 98 on nasal cannula. GENERAL: Well-developed, ill-appearing, middle-aged man in no distress. HEENT: Head is atraumatic, normocephalic. NECK: Supple. CHEST: Rise symmetrical. Breath sounds diminished to bases. HEART: S1, S2. ABDOMEN: Soft. Bowel tones are present. EXTREMITIES: With right foot erythema, edema, left below-knee amputation with dry scalp on the knee as well as on the stump itself. ASSESSMENT: 1. right diabetic foot ulceration with concern for osteomyelitis. 2. coronary artery disease status post PCI, 3. Peripheral arterial disease, status post left below-knee amputation and history of revision 4. hypertension 5. end-stage renal disease, hemodialysis dependent 6. DM2 7. Right foot cellulitis Plan: Pt is stable. Continue current treatment and current IV antbx. Pain management. Podiatry recommendation and wound care. Final cultures are pending. Date/Time of Note DATE: 08/12/18 TIME: 12:14 Exam/Review of Systems Exam Vitals Vital Signs Date Temp Pulse Resp B/P (MAP) Pulse Ox O2 O2 Flow FiO2 Time Delivery Rate 08/12/18 98.4 77 16 183/77 98 Room Air 07:26 (112) Intake and Output 08/11/18 08/11/18 08/12/18 1515:00 23:00 07:00 IntakeIntake Total 220 ml 100 ml 50 ml BalanceBalance 220 ml 100 ml 50 ml Results Result Diagram: 08/12/18 0808 08/12/18 0808 Results 24hrs Laboratory Tests Test 08/11/18 12:29 08/11/18 17:57 08/11/18 21:17 08/12/18 08:08 Bedside Glucose 84 118 87 White Blood Count 7.1 Red Blood Count 3.02 L Hemoglobin 8.6 L Hematocrit 27.5 L Mean Corpuscular 91.1 Volume Mean Corpuscular 28.5 L Hemoglobin Mean Corpuscular 31.3 L Hemoglobin Concent Red Cell Distribution 12.9 Width Platelet Count 207 Mean Platelet Volume 10.4 Immature Granulocytes 0.600 H % Neutrophils % 68.8 Lymphocytes % 9.2 L Monocytes % 6.2 Eosinophils % 14.9 H Basophils % 0.3 Nucleated Red Blood 0.0 Cells % Immature Granulocytes 0.040 H # Neutrophils # 4.9 Lymphocytes # 0.7 L Monocytes # 0.4 Eosinophils # 1.1 H Basophils # 0.0 Nucleated Red Blood 0.0 Cells # Sodium Level 148 H Potassium Level 4.0 Chloride Level 104 Carbon Dioxide Level 30 Anion Gap 14 H Blood Urea Nitrogen 29 H Creatinine 8.34 H Est Glomerular Filtrat 8 L Rate mL/min Glucose Level 119 Calcium Level 9.4 Random Vancomycin 10.7 Level Test 08/12/18 08:48 Bedside Glucose 117 Medications Medication Current Medications Vancomycin HCl (Vanco Iv Per Pharmacy) VANCOMYCIN PER PHARMACY PER PROTOCOL XX ; Start 08/10/18 at 02:00 Acetaminophen (Tylenol Tab) 650 mg Q6H PRN PO MILD PAIN(1-3)OR ELEVATED TEMP; Start 08/10/18 at 02:00 Ondansetron HCl (Zofran Inj) 4 mg Q6H PRN IV NAUSEA AND/OR VOMITING; Start 08/10/18 at 02:00 Calcium Acetate (Phoslo) 1,334 mg WITH MEALS PO Last administered on 08/12/18at 08:55; Admin Dose 1,334 MG; Start 08/10/18 at 08:00 Clonidine (Catapres) 0.3 mg Q6H PRN PO FOR SBP ABOVE 170; Start 08/10/18 at 02:00 Docusate Sodium (Colace) 100 mg BID PO Last administered on 08/12/18at 08:55; Admin Dose 100 MG; Start 08/10/18 at 09:00 Acetaminophen/ Hydrocodone Bitart ([place] (7.5-325)) 1 tab BID PRN PO PAIN; Start 08/10/18 at 02:00 Lisinopril (Zestril) 40 mg DAILY PO Last administered on 08/11/18at 08:31; Admin Dose 40 MG; Start 08/10/18 at 09:00 Minoxidil (Loniten) 10 mg BID PO Last administered on 08/11/18at 22:28; Admin Dose 10 MG; Start 08/10/18 at 09:00 Pentoxifylline (Trental) 400 mg WITH MEALS PO Last administered on 08/12/18at 08:55; Admin Dose 400 MG; Start 08/10/18 at 08:00 Piperacillin Sod/ Tazobactam Sod 50 ml @ 100 mls/hr Q8 IVPB Last administered on 08/12/18at 06:47; Admin Dose 100 MLS/HR; Start 08/10/18 at 06:00 Loratadine (Claritin) 10 mg DAILY PO Last administered on 08/12/18at 08:55; Admin Dose 10 MG; Start 08/10/18 at 09:00 Zolpidem Tartrate (Ambien) 5 mg HS MAY REPEAT X 1 PRN PO INSOMNIA; Start 08/10/18 at 02:00 Insulin Aspart (Novolog Insulin Pen) NOVOLOG *MILD* ALGORITHM WITH MEALS BEDTIME SC ; Start 08/10/18 at 08:00 Hydroxyzine HCl (Atarax) 25 mg BID PRN PO ITCHING Last administered on 08/10/18at 19:21; Admin Dose 25 MG; Start 08/10/18 at 06:30 Miscellaneous Information 1 ea NOTE XX ; Start 08/10/18 at 07:00 Glucose (Glutose) 15 gm Q15M PRN PO DECREASED GLUCOSE; Start 08/10/18 at 07:00 Glucose (Glutose) 22.5 gm Q15M PRN PO DECREASED GLUCOSE; Start 08/10/18 at 07:00 Dextrose (D50w Syringe) 25 ml Q15M PRN IV DECREASED GLUCOSE; Start 08/10/18 at 07:00 Dextrose (D50w Syringe) 50 ml Q15M PRN IV DECREASED GLUCOSE; Start 08/10/18 at 07:00 Glucagon (Glucagen) 1 mg Q15M PRN IM DECREASED GLUCOSE; Start 08/10/18 at 07:00 Glucose (Glutose) 15 gm Q15M PRN BUCCAL DECREASED GLUCOSE; Start 08/10/18 at 07:00 Epoetin Adi (Epogen (Esrd)) 4,000 units TuThSa@17 SC Last administered on 08/11/18 17:51; Admin Dose 4,000 UNITS; Start 08/11/18 at 17:00 Lidocaine (Xylocaine 2% Jelly) 1 applic BEDSIDE MEDICATION PRN TOP PAIN LEVEL 1-5 Last administered on 08/10/18 16:54; Admin Dose 1 APPLIC; Start 08/10/18 at 13:30 Morphine Sulfate (morphine) 2 mg Q4H PRN IV SEVERE PAIN LEVEL 7-10 Last administered on 08/12/18 08:53; Admin Dose 2 MG; Start 08/10/18 at 13:30 Heparin Sodium (Porcine) (Heparin (5000 Units/1ml)) 5,000 unit BID SC Last administered on 08/12/18 08:52; Admin Dose 5,000 UNIT; Start 08/10/18 at 21:00 Pantoprazole (Protonix Tab) 40 mg DAILY@06 PO Last administered on 08/12/18 06:48; Admin Dose 40 MG; Start 08/10/18 at 14:00 Diphenhydramine HCl (Benadryl) 25 mg TID PRN PO ITCHING Last administered on 08/10/18at 23:10; Admin Dose 25 MG; Start 08/10/18 at 23:00 Diphenhydramine HCl (Benadryl) 25 mg TID PRN IV ITCHING; Start 08/10/18 at 23:00 Amlodipine Besylate (Norvasc) 10 mg DAILY PO Last administered on 08/11/18 16:18; Admin Dose 10 MG; Start 08/11/18 at 15:00 Vancomycin HCl 250 ml @ 125 mls/hr ONCE ONCE IVPB ; Start 08/12/18 at 18:00; Stop 08/12/18 at 19:59 CHELA ENCARNACION Aug 12, 2018 12:15
[2018-08-12] MEDS: LIDOCAINE 2% JELLY 5 ML TOP PRN (16:18)
--- NOTE | 2018-08-12 17:24 | PN ---
Date/Time of Note Date/Time of Note DATE: 08/12/18 TIME: 17:22 Assessment/Plan VTE Prophylaxis Risk score (from Nsg)>0 risk: 2 SCD applied (from Ns): No SCD contraindicated: other Pharmacological prophylaxis: other Lines/Catheters IV [facility]from [facility]): Saline Lock Urinary Cath still in place: No Assessment/Plan Hospital Course 1. Wet gangrene of 3rd toe on the right foot. 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 S/p amputation of the fourth and fifth rays through the proximal shafts of the fourth and fifth metatarsals right foot. 3. Cellulitis with deep soft tissue ulcer over the lateral base of the fifth metatarsal with mild periosteal reaction along the lateral shaft of the fifth metatarsal that may be due to osteomyelitis of the right foot, per Xray right foot. 4. End-stage renal disease on hemodialysis Monday, and Monday 5. Normocytic normochromic anemia, hx of anemia of chronic disease with EGD 11/01/17 with esophageal ulceration. Colonoscopy was done 09/03/15 for active bleeding. 6. Hypertension, controlled. 7. Diabetes mellitus type II, not controlled well. last hg A1 C 7,5. 8. Coronary artery disease status post 4 stents. 9. Left below-knee amputation, s/p revision. 10. Diastolic CHF 11. Hx of hematoma of abdomen. Numerous surgical procedures, inc. biopsy, drainage, exploratory laparotomy 2014 12. pt did not have cholecystectomy, apparently due to many surgical scars on abdomen, pt mentioned it 13. hx of tracheostomy 14. hx of positive troponin past. 15. s/p abdominal stents removal by dr Guy plan hd per id Result Diagram: 08/12/18 0808 08/12/18 0808 Results 24hrs Laboratory Tests Test 08/11/18 17:57 08/11/18 21:17 08/12/18 08:08 08/12/18 08:48 Bedside Glucose 118 87 117 White Blood Count 7.1 Red Blood Count 3.02 L Hemoglobin 8.6 L Hematocrit 27.5 L Mean Corpuscular 91.1 Volume Mean Corpuscular 28.5 L Hemoglobin Mean Corpuscular 31.3 L Hemoglobin Concent Red Cell Distribution 12.9 Width Platelet Count 207 Mean Platelet Volume 10.4 Immature Granulocytes 0.600 H % Neutrophils % 68.8 Lymphocytes % 9.2 L Monocytes % 6.2 Eosinophils % 14.9 H Basophils % 0.3 Nucleated Red Blood 0.0 Cells % Immature Granulocytes 0.040 H # Neutrophils # 4.9 Lymphocytes # 0.7 L Monocytes # 0.4 Eosinophils # 1.1 H Basophils # 0.0 Nucleated Red Blood 0.0 Cells # Sodium Level 148 H Potassium Level 4.0 Chloride Level 104 Carbon Dioxide Level 30 Anion Gap 14 H Blood Urea Nitrogen 29 H Creatinine 8.34 H Est Glomerular 8 L Filtrat Rate mL/min Glucose Level 119 Calcium Level 9.4 Random Vancomycin 10.7 Level Test 08/12/18 12:59 Bedside Glucose 93 Subjective 24 Hr Interval Summary Respiratory: no complaints Cardiovascular: no complaints Gastrointestinal: no complaints Exam/Review of Systems Exam Vitals Vital Signs Date Temp Pulse Resp B/P (MAP) Pulse Ox O2 O2 Flow FiO2 Time Delivery Rate 08/12/18 95.6 75 17 165/77 98 Room Air 14:22 (106) Intake and Output 08/11/18 08/11/18 08/12/18 1515:00 23:00 07:00 IntakeIntake Total 220 ml 100 ml 50 ml BalanceBalance 220 ml 100 ml 50 ml Neck: supple Respiratory: clear to auscultation Cardiovascular: regular rate and rhythm Gastrointestinal: soft, bowel sounds (+) Extremities: other (foot wound+) Results Results 24hrs Laboratory Tests Test 08/11/18 17:57 08/11/18 21:17 08/12/18 08:08 08/12/18 08:48 Bedside Glucose 118 87 117 White Blood Count 7.1 Red Blood Count 3.02 L Hemoglobin 8.6 L Hematocrit 27.5 L Mean Corpuscular 91.1 Volume Mean Corpuscular 28.5 L Hemoglobin Mean Corpuscular 31.3 L Hemoglobin Concent Red Cell Distribution 12.9 Width Platelet Count 207 Mean Platelet Volume 10.4 Immature Granulocytes 0.600 H % Neutrophils % 68.8 Lymphocytes % 9.2 L Monocytes % 6.2 Eosinophils % 14.9 H Basophils % 0.3 Nucleated Red Blood 0.0 Cells % Immature Granulocytes 0.040 H # Neutrophils # 4.9 Lymphocytes # 0.7 L Monocytes # 0.4 Eosinophils # 1.1 H Basophils # 0.0 Nucleated Red Blood 0.0 Cells # Sodium Level 148 H Potassium Level 4.0 Chloride Level 104 Carbon Dioxide Level 30 Anion Gap 14 H Blood Urea Nitrogen 29 H Creatinine 8.34 H Est Glomerular 8 L Filtrat Rate mL/min Glucose Level 119 Calcium Level 9.4 Random Vancomycin 10.7 Level Test 08/12/18 12:59 Bedside Glucose 93 Medications Medication Current Medications Vancomycin HCl (Vanco Iv Per Pharmacy) VANCOMYCIN PER PHARMACY PER PROTOCOL XX ; Start 08/10/18 at 02:00 Acetaminophen (Tylenol Tab) 650 mg Q6H PRN PO MILD PAIN(1-3)OR ELEVATED TEMP; Start 08/10/18 at 02:00 Ondansetron HCl (Zofran Inj) 4 mg Q6H PRN IV NAUSEA AND/OR VOMITING; Start 08/10/18 at 02:00 Calcium Acetate (Phoslo) 1,334 mg WITH MEALS PO Last administered on 08/12/18 08:55; Admin Dose 1,334 MG; Start 08/10/18 at 08:00 Clonidine (Catapres) 0.3 mg Q6H PRN PO FOR SBP ABOVE 170; Start 08/10/18 at 02:00 Docusate Sodium (Colace) 100 mg BID PO Last administered on 08/12/18 08:55; Admin Dose 100 MG; Start 08/10/18 at 09:00 Acetaminophen/ Hydrocodone Bitart ([place] (7.5-325)) 1 tab BID PRN PO PAIN; Start 08/10/18 at 02:00 Lisinopril (Zestril) 40 mg DAILY PO Last administered on 08/11/18 08:31; Admin Dose 40 MG; Start 08/10/18 at 09:00 Minoxidil (Loniten) 10 mg BID PO Last administered on 08/11/18 22:28; Admin Dose 10 MG; Start 08/10/18 at 09:00 Pentoxifylline (Trental) 400 mg WITH MEALS PO Last administered on 08/12/18 08:55; Admin Dose 400 MG; Start 08/10/18 at 08:00 Piperacillin Sod/ Tazobactam Sod 50 ml @ 100 mls/hr Q8 IVPB Last administered on 08/12/18 13:00; Admin Dose 100 MLS/HR; Start 08/10/18 at 06:00 Loratadine (Claritin) 10 mg DAILY PO Last administered on 08/12/18at 08:55; Admin Dose 10 MG; Start 08/10/18 at 09:00 Zolpidem Tartrate (Ambien) 5 mg HS MAY REPEAT X 1 PRN PO INSOMNIA; Start 08/10/18 at 02:00 Insulin Aspart (Novolog Insulin Pen) NOVOLOG *MILD* ALGORITHM WITH MEALS BEDTIME SC ; Start 08/10/18 at 08:00 Hydroxyzine HCl (Atarax) 25 mg BID PRN PO ITCHING Last administered on 08/10/18at 19:21; Admin Dose 25 MG; Start 08/10/18 at 06:30 Miscellaneous Information 1 ea NOTE XX ; Start 08/10/18 at 07:00 Glucose (Glutose) 15 gm Q15M PRN PO DECREASED GLUCOSE; Start 08/10/18 at 07:00 Glucose (Glutose) 22.5 gm Q15M PRN PO DECREASED GLUCOSE; Start 08/10/18 at 07:00 Dextrose (D50w Syringe) 25 ml Q15M PRN IV DECREASED GLUCOSE; Start 08/10/18 at 07:00 Dextrose (D50w Syringe) 50 ml Q15M PRN IV DECREASED GLUCOSE; Start 08/10/18 at 07:00 Glucagon (Glucagen) 1 mg Q15M PRN IM DECREASED GLUCOSE; Start 08/10/18 at 07:00 Glucose (Glutose) 15 gm Q15M PRN BUCCAL DECREASED GLUCOSE; Start 08/10/18 at 07:00 Epoetin Adi (Epogen (Esrd)) 4,000 units TuThSa@17 SC Last administered on 08/11/18at 17:51; Admin Dose 4,000 UNITS; Start 08/11/18 at 17:00 Lidocaine (Xylocaine 2% Jelly) 1 applic BEDSIDE MEDICATION PRN TOP PAIN LEVEL 1-5 Last administered on 08/12/18at 16:18; Admin Dose 1 APPLIC; Start 08/10/18 at 13:30 Morphine Sulfate (morphine) 2 mg Q4H PRN IV SEVERE PAIN LEVEL 7-10 Last administered on 08/12/18at 17:06; Admin Dose 2 MG; Start 08/10/18 at 13:30 Heparin Sodium (Porcine) (Heparin (5000 Units/1ml)) 5,000 unit BID SC Last administered on 08/12/18at 08:52; Admin Dose 5,000 UNIT; Start 08/10/18 at 21:00 Pantoprazole (Protonix Tab) 40 mg DAILY@06 PO Last administered on 08/12/18at 06:48; Admin Dose 40 MG; Start 08/10/18 at 14:00 Diphenhydramine HCl (Benadryl) 25 mg TID PRN PO ITCHING Last administered on 08/10/18at 23:10; Admin Dose 25 MG; Start 08/10/18 at 23:00 Diphenhydramine HCl (Benadryl) 25 mg TID PRN IV ITCHING; Start 08/10/18 at 23:00 Amlodipine Besylate (Norvasc) 10 mg DAILY PO Last administered on 08/11/18at 16 :18; Admin Dose 10 MG; Start 08/11/18 at 15:00 Vancomycin HCl 250 ml @ 125 mls/hr ONCE ONCE IVPB ; Start 08/12/18 at 18:00; Stop 08/12/18 at 19:59 AZEEM HENNING MD Aug 12, 2018 17:24
[2018-08-12] MEDS ORDERED: VANCOMYCIN 1 GM 250 ML IVPB ONE (18:00)
[2018-08-12] MEDS: DIPHENHYDRAMINE 50 MG INJ IV PRN ×2 (18:38→23:55)
[2018-08-12] MEDS ORDERED: SOD CHLORIDE 0.9% 100 ML ONE (21:04)
[2018-08-12] MEDS ORDERED: IOHEXOL 100 ML ONE (21:04)
--- NOTE | 2018-08-12 23:05 | PN ---
Date/Time of Note Date/Time of Note DATE: 08/12/18 TIME: 23:05 Assessment/Plan Lines/Catheters IV Catheter Type (from [facility]): Saline Lock [place] in Place (from [facility]): No Exam/Review of Systems Vital Signs Vitals Vital Signs Date Temp Pulse Resp B/P (MAP) Pulse Ox O2 O2 Flow FiO2 Time Delivery Rate 08/12/18 72 16 132/63 98 Room Air 20:10 (86) 08/12/18 96.9 19:48 Intake and Output 08/11/18 08/11/18 08/12/18 1515:00 23:00 07:00 IntakeIntake Total 220 ml 100 ml 50 ml BalanceBalance 220 ml 100 ml 50 ml Results Result Diagram: 08/12/18 0808 08/12/18 0808 SHEYLA IZAGUIRRE DPM Aug 12, 2018 23:05
[2018-08-13 02:00] VITALS: BP 148/70; PULSE 84; RESP 18
[2018-08-13] MEDS: morphine 2 MG INJ IV PRN ×5 (04:18→23:26)
[2018-08-13] MEDS: PANTOPRAZOLE (EC) 40 MG TAB PO SCH (06:00)
[2018-08-13] MEDS: PIPER-TAZO 2.25 GM (PMX) 50 ML IVPB SCH (06:11)
[2018-08-13 07:18] VITALS: BP 140/83; PULSE 87; RESP 20
[2018-08-13] MEDS: INSULIN ASPART [NOVOLOG] 3 ML PEN SC SCH ×4 (08:00→21:00)
[2018-08-13] MEDS: PENTOXIFYLLINE (SR) 400 MG TAB PO SCH ×3 (08:29→17:52)
[2018-08-13] MEDS: MINOXIDIL 10 MG TAB PO SCH ×2 (08:29→21:06)
[2018-08-13] MEDS: DOCUSATE SODIUM 100 MG CAP PO SCH ×2 (08:30→21:00)
[2018-08-13] MEDS: CALCIUM ACETATE 667 MG CAP PO SCH ×3 (08:30→17:52)
[2018-08-13] MEDS: AMLODIPINE 10 MG TAB PO SCH (08:31)
[2018-08-13] MEDS: LISINOPRIL 20 MG TAB PO SCH (08:32)
[2018-08-13] MEDS: LORATADINE 10 MG TAB PO SCH ×2 (08:32→12:30)
[2018-08-13] MEDS: HEPARIN 5,000 UNIT/1 ML VIAL SC SCH ×2 (08:33→21:00)
[2018-08-13] MEDS: DIPHENHYDRAMINE 50 MG INJ IV PRN ×2 (08:34→18:21)
--- NOTE | 2018-08-13 12:21 | CONS ---
Assessment/Plan Assessment/Plan Hospital Course (Demo Recall) Patient is awake, complaining of itchiness, no fevers overnight, vital signs stable. No labs today Microbiology: Blood cultures remain negative Antimicrobials: Vancomycin Zosyn PHYSICAL EXAMINATION: VITAL SIGNS: Temperature 98.9, pulse 74, respirations 20, blood pressure 115/59, saturation 98 on nasal cannula. GENERAL: Well-developed, ill-appearing, middle-aged man in no distress. HEENT: Head is atraumatic, normocephalic. NECK: Supple. CHEST: Rise symmetrical. Breath sounds diminished to bases. HEART: S1, S2. ABDOMEN: Soft. Bowel tones are present. EXTREMITIES: With right foot erythema, edema, left below-knee amputation with dry scalp on the knee as well as on the stump itself. Assessment: 1. Right foot diabetic ulceration, possible osteomyelitis 2. End-stage renal disease, hemodialysis dependent 3. Diffuse rash, rule out scabies 4. Severe peripheral arterial disease status post left below-knee amputation 5. Coronary artery disease status post cardiac stent 6. Hypertension Plan: Change Zosyn to Rocephin, continue vancomycin, add antihistamines, empiric Elimite tonight and ivermectin dose, follow podiatry and vascular surgery recommendations, pending CT angiogram Consultation Date/Type/Reason Admit Date/Time Aug 09, 2018 at 22:42 Initial Consult Date 08/11/18 Type of Consult id Date/Time of Note DATE: 08/13/18 TIME: 12:16 Exam/Review of Systems Exam Vitals Vital Signs Date Temp Pulse Resp B/P (MAP) Pulse Ox O2 O2 Flow FiO2 Time Delivery Rate 08/13/18 98.9 87 20 140/83 99 07:18 (102) 08/12/18 Room Air 20:10 Intake and Output 08/12/18 08/12/18 08/13/18 1515:00 23:00 07:00 IntakeIntake Total 340 ml 470 ml 550 ml OutputOutput Total 2500 ml BalanceBalance 340 ml -2030 ml 550 ml Results Result Diagram: 08/12/18 0808 08/13/18 1050 Results 24hrs Laboratory Tests Test 08/12/18 12:59 08/12/18 17:04 08/12/18 21:31 08/13/18 08:13 Bedside Glucose 93 135 77 85 Test 08/13/18 10:50 Sodium Level 147 H Potassium Level 3.7 Chloride Level 103 Carbon Dioxide Level 32 H Anion Gap 12 Blood Urea Nitrogen 17 # Creatinine 5.77 #H Est Glomerular 13 L Filtrat Rate mL/min Glucose Level 95 Calcium Level 9.4 Medications Medication Current Medications Vancomycin HCl (Vanco Iv Per Pharmacy) VANCOMYCIN PER PHARMACY PER PROTOCOL XX ; Start 08/10/18 at 02:00 Acetaminophen (Tylenol Tab) 650 mg Q6H PRN PO MILD PAIN(1-3)OR ELEVATED TEMP; Start 08/10/18 at 02:00 Ondansetron HCl (Zofran Inj) 4 mg Q6H PRN IV NAUSEA AND/OR VOMITING; Start 08/10/18 at 02:00 Calcium Acetate (Phoslo) 1,334 mg WITH MEALS PO Last administered on 08/13/18 08:30; Admin Dose 1,334 MG; Start 08/10/18 at 08:00 Clonidine (Catapres) 0.3 mg Q6H PRN PO FOR SBP ABOVE 170; Start 08/10/18 at 02: 00 Docusate Sodium (Colace) 100 mg BID PO Last administered on 08/12/18 08:55; Admin Dose 100 MG; Start 08/10/18 at 09:00 Acetaminophen/ Hydrocodone Bitart ([place] (7.5-325)) 1 tab BID PRN PO PAIN; Start 08/10/18 at 02:00 Lisinopril (Zestril) 40 mg DAILY PO Last administered on 08/13/18 08:32; Admin Dose 40 MG; Start 08/10/18 at 09:00 Minoxidil (Loniten) 10 mg BID PO Last administered on 08/13/18 08:29; Admin Dose 10 MG; Start 08/10/18 at 09:00 Pentoxifylline (Trental) 400 mg WITH MEALS PO Last administered on 08/13/18 08:29; Admin Dose 400 MG; Start 08/10/18 at 08:00 Piperacillin Sod/ Tazobactam Sod 50 ml @ 100 mls/hr Q8 IVPB Last administered on 08/13/18 06:11; Admin Dose 100 MLS/HR; Start 08/10/18 at 06:00 Loratadine (Claritin) 10 mg DAILY PO Last administered on 3/10/19at 08:55; Admin Dose 10 MG; Start 08/10/18 at 09:00 Zolpidem Tartrate (Ambien) 5 mg HS MAY REPEAT X 1 PRN PO INSOMNIA; Start 08/10/18 at 02:00 Insulin Aspart (Novolog Insulin Pen) NOVOLOG *MILD* ALGORITHM WITH MEALS BEDTIME SC ; Start 08/10/18 at 08:00 Hydroxyzine HCl (Atarax) 25 mg BID PRN PO ITCHING Last administered on 08/10/18at 19:21; Admin Dose 25 MG; Start 08/10/18 at 06:30 Miscellaneous Information 1 ea NOTE XX ; Start 08/10/18 at 07:00 Glucose (Glutose) 15 gm Q15M PRN PO DECREASED GLUCOSE; Start 08/10/18 at 07:00 Glucose (Glutose) 22.5 gm Q15M PRN PO DECREASED GLUCOSE; Start 08/10/18 at 07:00 Dextrose (D50w Syringe) 25 ml Q15M PRN IV DECREASED GLUCOSE; Start 08/10/18 at 07:00 Dextrose (D50w Syringe) 50 ml Q15M PRN IV DECREASED GLUCOSE; Start 08/10/18 at 07:00 Glucagon (Glucagen) 1 mg Q15M PRN IM DECREASED GLUCOSE; Start 08/10/18 at 07:00 Glucose (Glutose) 15 gm Q15M PRN BUCCAL DECREASED GLUCOSE; Start 08/10/18 at 07:00 Epoetin Adi (Epogen (Esrd)) 4,000 units TuThSa@17 SC Last administered on 08/11/18at 17:51; Admin Dose 4,000 UNITS; Start 08/11/18 at 17:00 Lidocaine (Xylocaine 2% Jelly) 1 applic BEDSIDE MEDICATION PRN TOP PAIN LEVEL 1-5 Last administered on 08/12/18at 16:18; Admin Dose 1 APPLIC; Start 08/10/18 at 13:30 Morphine Sulfate (morphine) 2 mg Q4H PRN IV SEVERE PAIN LEVEL 7-10 Last administered on 08/13/18at 08:35; Admin Dose 2 MG; Start 08/10/18 at 13:30 Heparin Sodium (Porcine) (Heparin (5000 Units/1ml)) 5,000 unit BID SC Last administered on 08/12/18at 08:52; Admin Dose 5,000 UNIT; Start 08/10/18 at 21:00 Pantoprazole (Protonix Tab) 40 mg DAILY@06 PO Last administered on 08/12/18 06:48; Admin Dose 40 MG; Start 08/10/18 at 14:00 Diphenhydramine HCl (Benadryl) 25 mg TID PRN PO ITCHING Last administered on 08/10/18at 23:10; Admin Dose 25 MG; Start 08/10/18 at 23:00 Diphenhydramine HCl (Benadryl) 25 mg TID PRN IV ITCHING Last administered on 08/13/18at 08:34; Admin Dose 25 MG; Start 08/10/18 at 23:00 Amlodipine Besylate (Norvasc) 10 mg DAILY PO Last administered on 08/13/18at 08:31; Admin Dose 10 MG; Start 08/11/18 at 15:00 DAYSI BHATIA NP Aug 13, 2018 12:21
[2018-08-13] MEDS: CEFTRIAXONE 1 GM/50 ML (PMX) 50 ML IVPB SCH (13:10)
[2018-08-13 13:19] VITALS: BP 152/71; PULSE 91; RESP 20
--- NOTE | 2018-08-13 14:12 | PN ---
Date/Time of Note Date/Time of Note DATE: 08/13/18 TIME: 14:07 Assessment/Plan VTE Prophylaxis Risk score (from Nsg)>0 risk: 2 SCD applied (from Ns): No SCD contraindicated: low risk/ambulating Pharmacological prophylaxis: NA/contraindicated Pharm contraindication: low risk/ambulating Lines/Catheters IV C[facility] (from [facility]): Saline Lock Urinary Cath still in place: No Assessment/Plan Hospital Course 47 y/o with 1. Wet gangrene of 3rd toe on the right foot. 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 S/p amputation of the fourth and fifth rays through the proximal shafts of the fourth and fifth metatarsals right foot. 3. Cellulitis with deep soft tissue ulcer over the lateral base of the fifth metatarsal with mild periosteal reaction along the lateral shaft of the fifth metatarsal that may be due to osteomyelitis of the right foot, per Xray right foot. 4. End-stage renal disease on hemodialysis Monday, and Monday 5. Normocytic normochromic anemia, hx of anemia of chronic disease with EGD 11/01/17 with esophageal ulceration. Colonoscopy was done 09/03/15 for active bleeding. 6. Hypertension, controlled. 7. Diabetes mellitus type II, not controlled well. last hg A1 C 7,5. 8. Coronary artery disease status post 4 stents. 9. Left below-knee amputation, s/p revision. 10. Diastolic CHF 11. Hx of hematoma of abdomen. Numerous surgical procedures, inc. biopsy, drainage, exploratory laparotomy 2014 12. pt did not have cholecystectomy, apparently due to many surgical scars on abdomen, pt mentioned it 13. hx of tracheostomy 14. hx of positive troponin past. Plan -Spoke to Dr. Grayson Delacruz who will review the CT angiogram and then probably on intervention -Follow-up vascular/podiatry recommendations -Continue with Rocephin -HD tomorrow -Pending cultures -cw with lisinopril/Norvasc/monoxidil - GI/DVT prophylaxsis Result Diagram: 08/12/18 0808 08/13/18 1050 Results 24hrs Laboratory Tests Test 08/12/18 17:04 08/12/18 21:31 08/13/18 08:13 08/13/18 10:50 Bedside Glucose 135 77 85 Sodium Level 147 H Potassium Level 3.7 Chloride Level 103 Carbon Dioxide Level 32 H Anion Gap 12 Blood Urea Nitrogen 17 # Creatinine 5.77 #H Est Glomerular 13 L Filtrat Rate mL/min Glucose Level 95 Calcium Level 9.4 Test 08/13/18 12:55 Bedside Glucose 74 Subjective 24 Hr Interval Summary Free Text/Dictation Status post HD yesterday CT angiogram reviewed pain In the legs Exam/Review of Systems Exam Vitals Vital Signs Date Temp Pulse Resp B/P (MAP) Pulse Ox O2 O2 Flow FiO2 Time Delivery Rate 08/13/18 97.5 91 20 152/71 97 13:19 (98) 08/12/18 Room Air 20:10 Intake and Output 08/12/18 08/12/18 08/13/18 1414:59 22:59 06:59 IntakeIntake Total 340 ml 470 ml 550 ml OutputOutput Total 2500 ml BalanceBalance 340 ml -2030 ml 550 ml Exam Neck: supple Respiratory: clear to auscultation Cardiovascular: regular rate and rhythm Gastrointestinal: soft, bowel sounds (+) Extremities: other (foot wound+)With right foot erythema, edema, left below- knee amputation with dry scalp on the knee as well as on the stump itself. Diffuse skin changes Fistula on the left Results Results 24hrs Laboratory Tests Test 08/12/18 17:04 08/12/18 21:31 08/13/18 08:13 08/13/18 10:50 Bedside Glucose 135 77 85 Sodium Level 147 H Potassium Level 3.7 Chloride Level 103 Carbon Dioxide Level 32 H Anion Gap 12 Blood Urea Nitrogen 17 # Creatinine 5.77 #H Est Glomerular 13 L Filtrat Rate mL/min Glucose Level 95 Calcium Level 9.4 Test 08/13/18 12:55 Bedside Glucose 74 Medications Medication Current Medications Vancomycin HCl (Vanco Iv Per Pharmacy) VANCOMYCIN PER PHARMACY PER PROTOCOL XX ; Start 08/10/18 at 02:00 Acetaminophen (Tylenol Tab) 650 mg Q6H PRN PO MILD PAIN(1-3)OR ELEVATED TEMP; Start 08/10/18 at 02:00 Ondansetron HCl (Zofran Inj) 4 mg Q6H PRN IV NAUSEA AND/OR VOMITING; Start 08/10/18 at 02:00 Calcium Acetate (Phoslo) 1,334 mg WITH MEALS PO Last administered on 08/13/18at 12:56; Admin Dose 1,334 MG; Start 08/10/18 at 08:00 Clonidine (Catapres) 0.3 mg Q6H PRN PO FOR SBP ABOVE 170; Start 08/10/18 at 02:00 Docusate Sodium (Colace) 100 mg BID PO Last administered on 08/12/18at 08:55; Admin Dose 100 MG; Start 08/10/18 at 09:00 Acetaminophen/ Hydrocodone Bitart ([place] (7.5-325)) 1 tab BID PRN PO PAIN; St art 08/10/18 at 02:00 Lisinopril (Zestril) 40 mg DAILY PO Last administered on 08/13/18at 08:32; Admin Dose 40 MG; Start 08/10/18 at 09:00 Minoxidil (Loniten) 10 mg BID PO Last administered on 08/13/18at 08:29; Admin Dose 10 MG; Start 08/10/18 at 09:00 Pentoxifylline (Trental) 400 mg WITH MEALS PO Last administered on 08/13/18at 12:57; Admin Dose 400 MG; Start 08/10/18 at 08:00 Zolpidem Tartrate (Ambien) 5 mg HS MAY REPEAT X 1 PRN PO INSOMNIA; Start 08/10/18 at 02:00 Insulin Aspart (Novolog Insulin Pen) NOVOLOG *MILD* ALGORITHM WITH MEALS BEDTIME SC ; Start 08/10/18 at 08:00 Hydroxyzine HCl (Atarax) 25 mg BID PRN PO ITCHING Last administered on 08/10/18at 19:21; Admin Dose 25 MG; Start 08/10/18 at 06:30 Miscellaneous Information 1 ea NOTE XX ; Start 08/10/18 at 07:00 Glucose (Glutose) 15 gm Q15M PRN PO DECREASED GLUCOSE; Start 08/10/18 at 07:00 Glucose (Glutose) 22.5 gm Q15M PRN PO DECREASED GLUCOSE; Start 08/10/18 at 07:00 Dextrose (D50w Syringe) 25 ml Q15M PRN IV DECREASED GLUCOSE; Start 08/10/18 at 07:00 Dextrose (D50w Syringe) 50 ml Q15M PRN IV DECREASED GLUCOSE; Start 08/10/18 at 07:00 Glucagon (Glucagen) 1 mg Q15M PRN IM DECREASED GLUCOSE; Start 08/10/18 at 07:00 Glucose (Glutose) 15 gm Q15M PRN BUCCAL DECREASED GLUCOSE; Start 08/10/18 at 07:00 Epoetin Adi (Epogen (Esrd)) 4,000 units TuThSa@17 SC Last administered on 08/11/18 17:51; Admin Dose 4,000 UNITS; Start 08/11/18 at 17:00 Lidocaine (Xylocaine 2% Jelly) 1 applic BEDSIDE MEDICATION PRN TOP PAIN LEVEL 1-5 Last administered on 08/12/18 16:18; Admin Dose 1 APPLIC; Start 08/10/18 at 13:30 Morphine Sulfate (morphine) 2 mg Q4H PRN IV SEVERE PAIN LEVEL 7-10 Last administered on 08/13/18 13:02; Admin Dose 2 MG; Start 08/10/18 at 13:30 Heparin Sodium (Porcine) (Heparin (5000 Units/1ml)) 5,000 unit BID SC Last administered on 08/12/18 08:52; Admin Dose 5,000 UNIT; Start 08/10/18 at 21:00 Pantoprazole (Protonix Tab) 40 mg DAILY@06 PO Last administered on 08/12/18 06:48; Admin Dose 40 MG; Start 08/10/18 at 14:00 Diphenhydramine HCl (Benadryl) 25 mg TID PRN PO ITCHING Last administered on 08/10/18 23:10; Admin Dose 25 MG; Start 08/10/18 at 23:00 Diphenhydramine HCl (Benadryl) 25 mg TID PRN IV ITCHING Last administered on 08/13/18 08:34; Admin Dose 25 MG; Start 08/10/18 at 23:00 Amlodipine Besylate (Norvasc) 10 mg DAILY PO Last administered on 08/13/18 08:31; Admin Dose 10 MG; Start 08/11/18 at 15:00 Ceftriaxone Sodium 50 ml @ 100 mls/hr Q24H IVPB Last administered on 08/13/18 13:10; Admin Dose 100 MLS/HR; Start 08/13/18 at 12:30 Ivermectin (Stromectol) 12 mg ONCE ONCE PO ; Start 08/13/18 at 14:30; Stop 08/13/18 at 14:31 Permethrin (Elimite 5% Cr) 1 applic ONCE ONCE TOP ; Start 08/13/18 at 21:00; Stop 08/13/18 at 21:01 Loratadine (Claritin) 10 mg DAILY PO ; Start 08/13/18 at 12:30 HASEEB MAYA MD Aug 13, 2018 14:12
[2018-08-13] MEDS ORDERED: IVERMECTIN 3 MG TAB PO ONE (14:30)
[2018-08-13] MEDS: ONDANSETRON 4 MG INJ IV PRN (15:19)
--- NOTE | 2018-08-13 19:08 | PN ---
Date/Time of Note Date/Time of Note DATE: 08/13/18 TIME: 19:04 Assessment/Plan Lines/Catheters IV Catheter Type (from Nrsg): Peripheral IV [place] in Place (from Nrsg): No Assessment/Plan Assessment/Plan Peripheral vascular disease T angiogram shows moderate to severe peripheral vascular disease lower extremity Patient status post left below-knee amputation He now has multiple ulcerations in the right foot And to proceed with a CT angiogram on Monday Subjective 24 Hr Interval Summary Constitutional: improved Pain Control: mild Exam/Review of Systems Vital Signs Vitals Vital Signs Date Temp Pulse Resp B/P (MAP) Pulse Ox O2 O2 Flow FiO2 Time Delivery Rate 08/13/18 97.5 91 20 152/71 97 13:19 (98) 08/12/18 Room Air 20:10 Intake and Output 08/12/18 08/12/18 08/13/18 1515:00 23:00 07:00 IntakeIntake Total 340 ml 470 ml 550 ml OutputOutput Total 2500 ml BalanceBalance 340 ml -2030 ml 550 ml Exam Eyes: nl conjunctiva, EOMI, nl lids, nl sclera ENMT: nl external ears & nose, nl lips & teeth, nl nasal mucosa & septum, mucosa pink and moist Neck: supple, non-tender Respiratory: clear to auscultation, normal air movement Musculoskeletal: nl extremities to inspection, nl gait and stance Additional Comments Left BKA noted Lacerations and ulcerations noted in the right lower extremity in the foot Results Result Diagram: 08/12/18 0808 08/13/18 1050 CARLOS SANDOVAL MD Aug 13, 2018 19:08
[2018-08-13 19:40] VITALS: BP 156/76; PULSE 86; RESP 18
[2018-08-13] MEDS ORDERED: PERMETHRIN 5% 60 GM CR TOP ONE (21:00)
--- NOTE | 2018-08-13 21:05 | PN ---
Date/Time of Note Date/Time of Note DATE: 08/13/18 TIME: 21:05 Assessment/Plan Lines/Catheters IV Catheter Type (from [facility]): Peripheral IV [place] in Place (from [facility]): No Exam/Review of Systems Vital Signs Vitals Vital Signs Date Temp Pulse Resp B/P (MAP) Pulse Ox O2 O2 Flow FiO2 Time Delivery Rate 08/13/18 96.9 86 18 156/76 99 19:40 (102) 08/12/18 Room Air 20:10 Intake and Output 08/12/18 08/12/18 08/13/18 1414:59 22:59 06:59 IntakeIntake Total 340 ml 470 ml 550 ml OutputOutput Total 2500 ml BalanceBalance 340 ml -2030 ml 550 ml Results Result Diagram: 08/12/18 0808 08/13/18 1050 SHEYLA IZAGUIRRE DPM Aug 13, 2018 21:05
[2018-08-14] VITALS (16 sets, daily range): BP systolic 108–145; BP diastolic 57–71; PULSE 81–95; RESP 18–20
[2018-08-14] MEDS: DIPHENHYDRAMINE 50 MG INJ IV PRN ×3 (03:00→20:37)
[2018-08-14] MEDS: morphine 2 MG INJ IV PRN ×3 (05:04→20:37)
[2018-08-14] MEDS: PANTOPRAZOLE (EC) 40 MG TAB PO SCH (07:34)
[2018-08-14] MEDS: INSULIN ASPART [NOVOLOG] 3 ML PEN SC SCH ×4 (08:00→20:42)
[2018-08-14] MEDS: LISINOPRIL 20 MG TAB PO SCH (09:00)
[2018-08-14] MEDS: MINOXIDIL 10 MG TAB PO SCH ×2 (09:00→20:37)
[2018-08-14] MEDS: AMLODIPINE 10 MG TAB PO SCH (09:00)
[2018-08-14] MEDS: LORATADINE 10 MG TAB PO SCH (09:33)
[2018-08-14] MEDS: CALCIUM ACETATE 667 MG CAP PO SCH ×3 (09:33→18:00)
[2018-08-14] MEDS: HEPARIN 5,000 UNIT/1 ML VIAL SC SCH (09:33)
[2018-08-14] MEDS: PENTOXIFYLLINE (SR) 400 MG TAB PO SCH ×3 (09:34→18:00)
[2018-08-14] MEDS: DOCUSATE SODIUM 100 MG CAP PO SCH ×2 (09:34→20:42)
[2018-08-14] MEDS: LIDOCAINE 2% JELLY 5 ML TOP PRN (12:20)
--- NOTE | 2018-08-14 12:29 | CONS ---
Assessment/Plan Assessment/Plan Hospital Course (Demo Recall) No acute changes, looks comfortable, no fevers Microbiology: Blood cultures remain negative Antimicrobials: Vancomycin Rocephin PHYSICAL EXAMINATION: VITAL SIGNS: Temperature 98.9, pulse 74, respirations 20, blood pressure 115/59, saturation 98 on nasal cannula. GENERAL: Well-developed, ill-appearing, middle-aged man in no distress. HEENT: Head is atraumatic, normocephalic. NECK: Supple. CHEST: Rise symmetrical. Breath sounds diminished to bases. HEART: S1, S2. ABDOMEN: Soft. Bowel tones are present. EXTREMITIES: With right foot erythema, edema, left below-knee amputation with dry scalp on the knee as well as on the stump itself. Assessment: 1. Right foot diabetic ulceration, possible osteomyelitis 2. End-stage renal disease, hemodialysis dependent 3. Diffuse rash==> neg scabies 4. Severe peripheral arterial disease status post left below-knee amputation 5. Coronary artery disease status post cardiac stent 6. Hypertension Plan: Stable, continue abx, follow podiatry and vascular surgery recommendations, pending CT angiogram Consultation Date/Type/Reason Admit Date/Time Aug 09, 2018 at 22:42 Initial Consult Date 08/11/18 Type of Consult id Date/Time of Note DATE: 08/14/18 TIME: 12:27 Exam/Review of Systems Exam Vitals Vital Signs Date Temp Pulse Resp B/P (MAP) Pulse Ox O2 O2 Flow FiO2 Time Delivery Rate 08/14/18 81 12:15 08/14/18 18 128/69 98 Room Air 11:15 (88) 08/14/18 98.5 07:19 Intake and Output 08/13/18 08/13/18 08/14/18 1515:00 23:00 07:00 IntakeIntake Total 290 ml 480 ml OutputOutput Total 100 ml BalanceBalance 190 ml 480 ml Results Result Diagram: 08/12/18 0808 08/13/18 1050 Results 24hrs Laboratory Tests Test 08/13/18 12:55 08/13/18 17:51 08/13/18 21:09 08/14/18 08:24 Bedside Glucose 74 74 116 135 Test 08/14/18 12:18 Bedside Glucose 86 Medications Medication Current Medications Vancomycin HCl (Vanco Iv Per Pharmacy) VANCOMYCIN PER PHARMACY PER PROTOCOL XX ; Start 08/10/18 at 02:00 Acetaminophen (Tylenol Tab) 650 mg Q6H PRN PO MILD PAIN(1-3)OR ELEVATED TEMP; Start 08/10/18 at 02:00 Ondansetron HCl (Zofran Inj) 4 mg Q6H PRN IV NAUSEA AND/OR VOMITING Last ad ministered on 08/13/18 15:19; Admin Dose 4 MG; Start 08/10/18 at 02:00 Calcium Acetate (Phoslo) 1,334 mg WITH MEALS PO Last administered on 08/14/18 09:33; Admin Dose 1,334 MG; Start 08/10/18 at 08:00 Clonidine (Catapres) 0.3 mg Q6H PRN PO FOR SBP ABOVE 170; Start 08/10/18 at 02:00 Docusate Sodium (Colace) 100 mg BID PO Last administered on 08/14/18 09:34; Admin Dose 100 MG; Start 08/10/18 at 09:00 Acetaminophen/ Hydrocodone Bitart ([place] (7.5-325)) 1 tab BID PRN PO PAIN; Start 08/10/18 at 02:00 Lisinopril (Zestril) 40 mg DAILY PO Last administered on 08/13/18 08:32; Admin Dose 40 MG; Start 08/10/18 at 09:00 Minoxidil (Loniten) 10 mg BID PO Last administered on 08/13/18 21:06; Admin Do se 10 MG; Start 08/10/18 at 09:00 Pentoxifylline (Trental) 400 mg WITH MEALS PO Last administered on 08/14/18 09:34; Admin Dose 400 MG; Start 08/10/18 at 08:00 Zolpidem Tartrate (Ambien) 5 mg HS MAY REPEAT X 1 PRN PO INSOMNIA; Start 08/10/18 at 02:00 Insulin Aspart (Novolog Insulin Pen) NOVOLOG *MILD* ALGORITHM WITH MEALS BEDTIME SC ; Start 08/10/18 at 08:00 Hydroxyzine HCl (Atarax) 25 mg BID PRN PO ITCHING Last administered on 08/10/18 19:21; Admin Dose 25 MG; Start 08/10/18 at 06:30 Miscellaneous Information 1 ea NOTE XX ; Start 08/10/18 at 07:00 Glucose (Glutose) 15 gm Q15M PRN PO DECREASED GLUCOSE; Start 08/10/18 at 07:00 Glucose (Glutose) 22.5 gm Q15M PRN PO DECREASED GLUCOSE; Start 08/10/18 at 07:00 Dextrose (D50w Syringe) 25 ml Q15M PRN IV DECREASED GLUCOSE; Start 08/10/18 at 07:00 Dextrose (D50w Syringe) 50 ml Q15M PRN IV DECREASED GLUCOSE; Start 08/10/18 at 07:00 Glucagon (Glucagen) 1 mg Q15M PRN IM DECREASED GLUCOSE; Start 08/10/18 at 07:00 Glucose (Glutose) 15 gm Q15M PRN BUCCAL DECREASED GLUCOSE; Start 08/10/18 at 07:00 Epoetin Adi (Epogen (Esrd)) 4,000 units TuThSa@17 SC Last administered on 08/11/18 17:51; Admin Dose 4,000 UNITS; Start 08/11/18 at 17:00 Lidocaine (Xylocaine 2% Jelly) 1 applic BEDSIDE MEDICATION PRN TOP PAIN LEVEL 1-5 Last administered on 08/14/18 12:20; Admin Dose 1 APPLIC; Start 08/10/18 at 13:30 Morphine Sulfate (morphine) 2 mg Q4H PRN IV SEVERE PAIN LEVEL 7-10 Last administered on 08/14/18 12:13; Admin Dose 2 MG; Start 08/10/18 at 13:30 Heparin Sodium (Porcine) (Heparin (5000 Units/1ml)) 5,000 unit BID SC Last administered on 08/14/18 09:33; Admin Dose 5,000 UNIT; Start 08/10/18 at 21:00 Pantoprazole (Protonix Tab) 40 mg DAILY@06 PO Last administered on 08/14/18 07:34; Admin Dose 40 MG; Start 08/10/18 at 14:00 Diphenhydramine HCl (Benadryl) 25 mg TID PRN PO ITCHING Last administered on 08/10/18 23:10; Admin Dose 25 MG; Start 08/10/18 at 23:00 Diphenhydramine HCl (Benadryl) 25 mg TID PRN IV ITCHING Last administered on 08/14/18 12:10; Admin Dose 25 MG; Start 08/10/18 at 23:00 Amlodipine Besylate (Norvasc) 10 mg DAILY PO Last administered on 08/13/18at 08:31; Admin Dose 10 MG; Start 08/11/18 at 15:00 Ceftriaxone Sodium 50 ml @ 100 mls/hr Q24H IVPB Last administered on 08/13/18at 13:10; Admin Dose 100 MLS/HR; Start 08/13/18 at 12:30 Loratadine (Claritin) 10 mg DAILY PO Last administered on 08/14/18at 09:33; Admin Dose 10 MG; Start 08/13/18 at 12:30 DAYSI BHATIA NP Aug 14, 2018 12:29
[2018-08-14] MEDS: CEFTRIAXONE 1 GM/50 ML (PMX) 50 ML IVPB SCH ×2 (12:30→15:34)
--- NOTE | 2018-08-14 14:11 | PN ---
Date/Time of Note Date/Time of Note DATE: 08/14/18 TIME: 14:08 Assessment/Plan VTE Prophylaxis Risk score (from Nsg)>0 risk: 3 SCD applied (from Nsg): No SCD contraindicated: low risk/ambulating Pharmacological prophylaxis: NA/contraindicated Pharm contraindication: low risk/ambulating Lines/Catheters IV Catheter Type (from Nrs): Saline Lock Urinary Cath still in place: No Assessment/Plan Hospital Course 47 y/o with 1. Wet gangrene of 3rd toe on the right foot. 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 S/p amputation of the fourth and fifth rays through the proximal shafts of the fourth and fifth metatarsals right foot. 3. Cellulitis with deep soft tissue ulcer over the lateral base of the fifth metatarsal with mild periosteal reaction along the lateral shaft of the fifth metatarsal that may be due to osteomyelitis of the right foot, per Xray right foot. 4. End-stage renal disease on hemodialysis Monday, and Monday 5. Normocytic normochromic anemia, hx of anemia of chronic disease with EGD 11/01/17 with esophageal ulceration. Colonoscopy was done 09/03/15 for active bleeding. 6. Hypertension, controlled. 7. Diabetes mellitus type II, not controlled well. last hg A1 C 7,5. 8. Coronary artery disease status post 4 stents. 9. Left below-knee amputation, s/p revision. 10. Diastolic CHF 11. Hx of hematoma of abdomen. Numerous surgical procedures, inc. biopsy, drainage, exploratory laparotomy 2014 12. pt did not have cholecystectomy, apparently due to many surgical scars on abdomen, pt mentioned it 13. hx of tracheostomy 14. hx of positive troponin past. Plan -Go for aortogram tomorrow and possibly angioplasty -Follow-up vascular/podiatry recommendations -Continue with Rocephin/vancomycin -HD Monday -Benadryl/morphine -pt Was following an outside water resources project manager and was supposed to follow them on 0 313 for biopsy results -Pending cultures -cw with lisinopril/Norvasc/monoxidil - cw epogen - GI/DVT prophylaxsis Result Diagram: 08/12/18 0808 08/13/18 1050 Results 24hrs Laboratory Tests Test 08/13/18 17:51 08/13/18 21:09 08/14/18 08:24 08/14/18 12:18 Bedside Glucose 74 116 135 86 Subjective 24 Hr Interval Summary Free Text/Dictation he is scheduled for aortogram tomorrow Complaining of itching requesting Benadryl to be dosed with morphine Exam/Review of Systems Exam Vitals Vital Signs Date Temp Pulse Resp B/P (MAP) Pulse Ox O2 O2 Flow FiO2 Time Delivery Rate 08/14/18 85 14:00 08/14/18 18 128/69 98 Room Air 11:15 (88) 08/14/18 98.5 07:19 Intake and Output 08/13/18 08/13/18 08/14/18 1515:00 23:00 07:00 IntakeIntake Total 290 ml 480 ml OutputOutput Total 100 ml BalanceBalance 190 ml 480 ml Exam Neck: supple Respiratory: clear to auscultation Cardiovascular: regular rate and rhythm Gastrointestinal: soft, bowel sounds (+) Extremities: other (foot wound+)With right foot erythema, edema, left below- knee amputation with dry scalp on the knee as well as on the stump itself. Diffuse skin changes Fistula on the left arm Lacerations and ulcerations noted in the right lower extremity in the foot Results Results 24hrs Laboratory Tests Test 08/13/18 17:51 08/13/18 21:09 08/14/18 08:24 08/14/18 12:18 Bedside Glucose 74 116 135 86 Medications Medication Current Medications Vancomycin HCl (Vanco Iv Per Pharmacy) VANCOMYCIN PER PHARMACY PER PROTOCOL XX ; Start 08/10/18 at 02:00 Acetaminophen (Tylenol Tab) 650 mg Q6H PRN PO MILD PAIN(1-3)OR ELEVATED TEMP; Start 08/10/18 at 02:00 Ondansetron HCl (Zofran Inj) 4 mg Q6H PRN IV NAUSEA AND/OR VOMITING Last administered on 08/13/18at 15:19; Admin Dose 4 MG; Start 08/10/18 at 02:00 Calcium Acetate (Phoslo) 1,334 mg WITH MEALS PO Last administered on 08/14/18at 09:33; Admin Dose 1,334 MG; Start 08/10/18 at 08:00 Clonidine (Catapres) 0.3 mg Q6H PRN PO FOR SBP ABOVE 170; Start 08/10/18 at 02:00 Docusate Sodium (Colace) 100 mg BID PO Last administered on 08/14/18at 09:34; Admin Dose 100 MG; Start 08/10/18 at 09:00 Acetaminophen/ Hydrocodone Bitart ([place] (7.5-325)) 1 tab BID PRN PO PAIN; Start 08/10/18 at 02:00 Lisinopril (Zestril) 40 mg DAILY PO Last administered on 08/13/18at 08:32; Admin Dose 40 MG; Start 08/10/18 at 09:00 Minoxidil (Loniten) 10 mg BID PO Last administered on 08/13/18at 21:06; Admin Dose 10 MG; Start 08/10/18 at 09:00 Pentoxifylline (Trental) 400 mg WITH MEALS PO Last administered on 08/14/18 09:34; Admin Dose 400 MG; Start 08/10/18 at 08:00 Zolpidem Tartrate (Ambien) 5 mg HS MAY REPEAT X 1 PRN PO INSOMNIA; Start 08/10/18 at 02:00 Insulin Aspart (Novolog Insulin Pen) NOVOLOG *MILD* ALGORITHM WITH MEALS BEDTIME SC ; Start 08/10/18 at 08:00 Hydroxyzine HCl (Atarax) 25 mg BID PRN PO ITCHING Last administered on 08/10/18at 19:21; Admin Dose 25 MG; Start 08/10/18 at 06:30 Miscellaneous Information 1 ea NOTE XX ; Start 08/10/18 at 07:00 Glucose (Glutose) 15 gm Q15M PRN PO DECREASED GLUCOSE; Start 08/10/18 at 07:00 Glucose (Glutose) 22.5 gm Q15M PRN PO DECREASED GLUCOSE; Start 08/10/18 at 07:00 Dextrose (D50w Syringe) 25 ml Q15M PRN IV DECREASED GLUCOSE; Start 08/10/18 at 07:00 Dextrose (D50w Syringe) 50 ml Q15M PRN IV DECREASED GLUCOSE; Start 08/10/18 at 07:00 Glucagon (Glucagen) 1 mg Q15M PRN IM DECREASED GLUCOSE; Start 08/10/18 at 07:00 Glucose (Glutose) 15 gm Q15M PRN BUCCAL DECREASED GLUCOSE; Start 08/10/18 at 07:00 Epoetin Adi (Epogen (Esrd)) 4,000 units TuThSa@17 SC Last administered on 08/11/18 17:51; Admin Dose 4,000 UNITS; Start 08/11/18 at 17:00 Lidocaine (Xylocaine 2% Jelly) 1 applic BEDSIDE MEDICATION PRN TOP PAIN LEVEL 1-5 Last administered on 08/14/18 12:20; Admin Dose 1 APPLIC; Start 08/10/18 at 13:30 Morphine Sulfate (morphine) 2 mg Q4H PRN IV SEVERE PAIN LEVEL 7-10 Last administered on 08/14/18 12:13; Admin Dose 2 MG; Start 08/10/18 at 13:30 Heparin Sodium (Porcine) (Heparin (5000 Units/1ml)) 5,000 unit BID SC Last administered on 08/14/18 09:33; Admin Dose 5,000 UNIT; Start 08/10/18 at 21:00 Pantoprazole (Protonix Tab) 40 mg DAILY@06 PO Last administered on 08/14/18 07:34; Admin Dose 40 MG; Start 08/10/18 at 14:00 Amlodipine Besylate (Norvasc) 10 mg DAILY PO Last administered on 08/13/18 08:31; Admin Dose 10 MG; Start 08/11/18 at 15:00 Ceftriaxone Sodium 50 ml @ 100 mls/hr Q24H IVPB Last administered on 08/13/18 13:10; Admin Dose 100 MLS/HR; Start 08/13/18 at 12:30 Loratadine (Claritin) 10 mg DAILY PO Last administered on 08/14/18 09:33; Admin Dose 10 MG; Start 08/13/18 at 12:30 Diphenhydramine HCl (Benadryl) 25 mg Q4 PRN IV ITCHING; Start 08/14/18 at 14:30; Status HASEEB ALVAREZ MD Aug 14, 2018 14:11
--- NOTE | 2018-08-14 15:12 | PN ---
Date/Time of Note Date/Time of Note DATE: 08/14/18 TIME: 15:11 Assessment/Plan Lines/Catheters IV Catheter Type (from Nrsg): Saline Lock [place] in Place (from Nrsg): No Assessment/Plan Assessment/Plan Peripheral vascular disease Plan for angiogram with possible angioplasty tomorrow Subjective 24 Hr Interval Summary Constitutional: improved Pain Control: mild Exam/Review of Systems Vital Signs Vitals Vital Signs Date Temp Pulse Resp B/P (MAP) Pulse Ox O2 O2 Flow FiO2 Time Delivery Rate 08/14/18 86 14:30 08/14/18 18 128/69 98 Room Air 11:15 (88) 08/14/18 98.5 07:19 Intake and Output 08/13/18 08/13/18 08/14/18 1515:00 23:00 07:00 IntakeIntake Total 290 ml 480 ml OutputOutput Total 100 ml BalanceBalance 190 ml 480 ml Exam Eyes: nl conjunctiva, EOMI, nl lids, nl sclera ENMT: nl external ears & nose, nl lips & teeth, nl nasal mucosa & septum, mucosa pink and moist Neck: supple, non-tender Respiratory: clear to auscultation, normal air movement Cardiovascular: regular rate and rhythm, nl pulses Gastrointestinal: soft, nl liver, spleen, non-tender Musculoskeletal: nl extremities to inspection, nl gait and stance Additional Comments Lower extremity ulcerations noted Results Result Diagram: 08/12/18 0808 08/13/18 1050 CARLOS SANDOVAL MD Aug 14, 2018 15:12
[2018-08-14] MEDS: EPOETIN 4000 UNITS/1 ML INJ (ESRD) SC SCH (18:27)
[2018-08-15] VITALS (14 sets, daily range): BP systolic 124–153; BP diastolic 61–79; PULSE 82–96; RESP 14–25
[2018-08-15] MEDS ORDERED: DEXTROSE 5%-0.45% NACL 1,000 ML IV SCH
[2018-08-15] MEDS: DIPHENHYDRAMINE 50 MG INJ IV PRN ×3 (00:38→10:16)
[2018-08-15] MEDS: morphine 2 MG INJ IV PRN ×5 (00:39→22:44)
[2018-08-15] MEDS: INSULIN ASPART [NOVOLOG] 3 ML PEN SC SCH ×5 (05:00→21:00)
[2018-08-15] MEDS: PANTOPRAZOLE (EC) 40 MG TAB PO SCH (05:16)
[2018-08-15] MEDS ORDERED: HEPARIN 1000 UNITS/ML 10 ML INJ ONE (07:26)
[2018-08-15] MEDS ORDERED: LIDOCAINE 1% (MDV) 20 ML INJ ONE ×2 (07:27→08:10)
[2018-08-15] MEDS ORDERED: IODIXANOL LOCM 100 ML BTL ONE ×2 (07:27→08:10)
[2018-08-15] MEDS ORDERED: FENTAnyl 50 MCG/ML VIAL ONE (07:27)
[2018-08-15] MEDS ORDERED: HEPARIN 1000 UNITS/NS (A-LINE) 1,000 ML ONE (07:27)
[2018-08-15] MEDS ORDERED: MIDAZOLAM 1 MG/ML 2 ML INJ ONE ×2 (07:27→07:45)
[2018-08-15] MEDS ORDERED: SOD CHLORIDE 0.9% 500 ML ONE (07:30)
[2018-08-15] MEDS: PENTOXIFYLLINE (SR) 400 MG TAB PO SCH ×3 (08:00→18:17)
[2018-08-15] MEDS: CALCIUM ACETATE 667 MG CAP PO SCH ×3 (08:00→18:17)
[2018-08-15] MEDS: LORATADINE 10 MG TAB PO SCH (08:49)
[2018-08-15] MEDS: DOCUSATE SODIUM 100 MG CAP PO SCH ×2 (08:50→21:00)
[2018-08-15] MEDS: AMLODIPINE 10 MG TAB PO SCH (08:50)
[2018-08-15] MEDS: LISINOPRIL 20 MG TAB PO SCH (08:50)
[2018-08-15] MEDS: MINOXIDIL 10 MG TAB PO SCH ×2 (08:50→21:36)
--- NOTE | 2018-08-15 09:36 | OPR ---
Date/Time of Note Date/Time of Note DATE: 08/15/18 TIME: 09:31 Operative Report Procedure Date: Aug 15, 2018 Preoperative Diagnosis Right lower extremity foot ulcerations and peripheral vascular disease Postoperative Diagnosis Same Operation/Procedure Performed Atherectomy right superficial femoral artery and popliteal artery Balloon angioplasty right superficial femoral artery and popliteal artery using 6 x 200 mm balloon Right lower extremity third order degree angiogram Catheter introduction to the abdominal aorta Aortogram with bilateral iliacs runoffs Ultrasound guidance into the femoral artery Interpositions revision of the angiograms and angioplasties Surgeon see signature line Hydrogen Plant Operations Manager None Anesthesia Type: MAC Estimated Blood Loss: minimal Transfusion none Specimen None Grafts/Implants none Complications none Disposition: PACU Procedure Description Patient was placed in supine position prepped and draped in usual sterile fashion timeout was called I start This was gained in the left common femoral artery using ultrasound guidance a 5 [place] sheath was advanced over the guidewire which was a Invisible Connect wire Rim catheter advanced into the abdominal aorta aortogram with bilateral lower extremity iliac runoffs were done Catheter was advanced from left to right third order degree right lower extremity angiogram was Interpositions revision of the angiogram revealed Abdominal aorta normal Bilateral common iliac arteries and Lateral internal iliac arteries normal The lateral external iliac arteries normal Bilateral common femoral arteries normal The left side the patient had a amputation Right profunda was no Right superficial femoral artery and popliteal artery had multiple tandem lesions up to 99% Trifurcation had minimal disease There was a posterior tibial artery which was a 3 mm vessel widely patent all the way down into the arch of the foot Anterior tibial artery was 100% occluded Peroneal artery was a small vessel that went down into the ankle and stopped Patient was given 5000 units of IV heparin Over a advantage wire a 6 [place] destination sheath was advanced from left to right the tip was placed in the common femoral artery Over an exchange catheter a 014 [place] wire was advanced all the way down into the right posterior tibial artery Patient had been given heparin PT [employer] atherectomy device was used to do atherectomy of the right suture femoral artery popliteal artery Was followed by 3 balloon inflations of 6 x 200 elevator balloon was inflated and the popliteal artery and 2 visual femoral artery including the previous 2 stents The final angiogram revealed less than 10% stenosis in the right superficial femoral artery and the popliteal artery with at least single vessel runoff via a patent posterior tibial artery down to the foot All hardware was removed and the site of femoral entrance was closed using Angio-Seal She tolerated procedure well CARLOS SANDOVAL MD Aug 15, 2018 09:36
--- NOTE | 2018-08-15 09:51 | OPR ---
Date/Time of Note Date/Time of Note DATE: 08/15/18 TIME: 09:50 Operative Report Procedure Date: Aug 15, 2018 Preoperative Diagnosis Right pleural effusion Postoperative Diagnosis Same Operation/Procedure Performed Right Pleurx catheter placement Surgeon see signature line Nail Assembly Machine Operator None Anesthesia Type: other Estimated Blood Loss: minimal Transfusion none Specimen None Grafts/Implants none Complications none Disposition: PACU Procedure Description Patient was placed in supine position prepped and draped in usual sterile fashion timeout was called and I start Access was gained in the right pleural cavity guidewire was advanced through without any difficulty subcutaneous tissues were dilated Pleurx catheter was advanced into the subcutaneous tunnel and advanced into the right pleural cavity using introducer sheath the tip of the catheter was placed into the pleural cavity the cough was just underneath the skin incision the catheter was secured to skin using 4-0 Vicryl suture and the exit site was closing using a single 3-0 Vicryl suture in interrupted fashion patient tolerated procedure well CARLOS SANDOVAL MD Aug 15, 2018 09:51
--- NOTE | 2018-08-15 09:52 | CONS ---
Assessment/Plan Assessment/Plan Hospital Course (Demo Recall) No acute changes, looks comfortable, s/p angioplasty in am Microbiology: Blood cultures remain negative Antimicrobials: Vancomycin Rocephin PHYSICAL EXAMINATION: VITAL SIGNS: Temperature 98.9, pulse 74, respirations 20, blood pressure 115/59, saturation 98 on nasal cannula. GENERAL: Well-developed, ill-appearing, middle-aged man in no distress. HEENT: Head is atraumatic, normocephalic. NECK: Supple. CHEST: Rise symmetrical. Breath sounds diminished to bases. HEART: S1, S2. ABDOMEN: Soft. Bowel tones are present. EXTREMITIES: With right foot erythema, edema, left below-knee amputation with dry scalp on the knee as well as on the stump itself. Assessment: 1. Right foot diabetic ulceration, possible osteomyelitis 2. End-stage renal disease, hemodialysis dependent 3. Diffuse rash==> neg scabies 4. Severe peripheral arterial disease status post left below-knee amputation 5. Coronary artery disease status post cardiac stent 6. Hypertension Plan: Stable, s/p balloon angioplasty in am, continue abx, follow podiatry recommendations, triamcinolone cream for itching Consultation Date/Type/Reason Admit Date/Time Aug 09, 2018 at 22:42 Initial Consult Date 08/11/18 Type of Consult id Date/Time of Note DATE: 08/15/18 TIME: 09:50 Exam/Review of Systems Exam Vitals Vital Signs Date Temp Pulse Resp B/P (MAP) Pulse Ox O2 O2 Flow FiO2 Time Delivery Rate 08/15/18 83 16 145/72 Room Air 09:45 (96) 08/15/18 99 09:42 08/15/18 98.5 09:22 Intake and Output 08/14/18 08/14/18 08/15/18 1515:00 23:00 07:00 IntakeIntake Total 720 ml 50 ml 200 ml OutputOutput Total 1600 ml BalanceBalance -880 ml 50 ml 200 ml Results Result Diagram: 08/15/18 0445 08/15/18 0445 Results 24hrs Laboratory Tests Test 08/14/18 12:18 08/14/18 17:57 08/14/18 20:29 08/15/18 04:45 Bedside Glucose 86 78 97 White Blood Count 8.2 Red Blood Count 3.11 L Hemoglobin 8.8 L Hematocrit 28.3 L Mean Corpuscular 91.0 Volume Mean Corpuscular 28.3 L Hemoglobin Mean Corpuscular 31.1 L Hemoglobin Concent Red Cell 13.3 Distribution Width Platelet Count 205 Mean Platelet Volume 10.0 Immature 0.700 H Granulocytes % Neutrophils % 67.2 Lymphocytes % 12.8 L Monocytes % 5.9 Eosinophils % 12.9 H Basophils % 0.5 Nucleated Red Blood 0.0 Cells % Immature 0.060 H Granulocytes # Neutrophils # 5.5 Lymphocytes # 1.1 Monocytes # 0.5 Eosinophils # 1.1 H Basophils # 0.0 Nucleated Red Blood 0.0 Cells # Sodium Level 146 H Potassium Level 4.3 Chloride Level 103 Carbon Dioxide Level 32 H Anion Gap 11 Blood Urea Nitrogen 15 Creatinine 5.19 H Est Glomerular 14 L Filtrat Rate mL/min Glucose Level 78 Calcium Level 9.6 Phosphorus Level 3.3 Magnesium Level 2.1 Random Vancomycin 15.7 Level Test 08/15/18 04:58 Bedside Glucose 80 Medications Medication Current Medications Vancomycin HCl (Vanco Iv Per Pharmacy) VANCOMYCIN PER PHARMACY PER PROTOCOL XX ; Start 08/10/18 at 02:00 Acetaminophen (Tylenol Tab) 650 mg Q6H PRN PO MILD PAIN(1-3)OR ELEVATED TEMP; Start 08/10/18 at 02:00 Ondansetron HCl (Zofran Inj) 4 mg Q6H PRN IV NAUSEA AND/OR VOMITING Last administered on 08/13/18at 15:19; Admin Dose 4 MG; Start 08/10/18 at 02:00 Calcium Acetate (Phoslo) 1,334 mg WITH MEALS PO Last administered on 08/14/18at 09:33; Admin Dose 1,334 MG; Start 08/10/18 at 08:00 Clonidine (Catapres) 0.3 mg Q6H PRN PO FOR SBP ABOVE 170; Start 08/10/18 at 02:00 Docusate Sodium (Colace) 100 mg BID PO Last administered on 08/14/18at 09:34; Admin Dose 100 MG; Start 08/10/18 at 09:00 Acetaminophen/ Hydrocodone Bitart ([place] (7.5-325)) 1 tab BID PRN PO PAIN; Start 08/10/18 at 02:00 Lisinopril (Zestril) 40 mg DAILY PO Last administered on 08/13/18at 08:32; Admin Dose 40 MG; Start 08/10/18 at 09:00 Minoxidil (Loniten) 10 mg BID PO Last administered on 08/14/18at 20:37; Admin Dose 10 MG; Start 08/10/18 at 09:00 Pentoxifylline (Trental) 400 mg WITH MEALS PO Last administered on 08/14/18 09:34; Admin Dose 400 MG; Start 08/10/18 at 08:00 Zolpidem Tartrate (Ambien) 5 mg HS MAY REPEAT X 1 PRN PO INSOMNIA; Start 08/10/18 at 02:00 Hydroxyzine HCl (Atarax) 25 mg BID PRN PO ITCHING Last administered on 08/10/18 19:21; Admin Dose 25 MG; Start 08/10/18 at 06:30 Miscellaneous Information 1 ea NOTE XX ; Start 08/10/18 at 07:00 Glucose (Glutose) 15 gm Q15M PRN PO DECREASED GLUCOSE; Start 08/10/18 at 07:00 Glucose (Glutose) 22.5 gm Q15M PRN PO DECREASED GLUCOSE; Start 08/10/18 at 07:00 Dextrose (D50w Syringe) 25 ml Q15M PRN IV DECREASED GLUCOSE; Start 08/10/18 at 07:00 Dextrose (D50w Syringe) 50 ml Q15M PRN IV DECREASED GLUCOSE; Start 08/10/18 at 07:00 Glucagon (Glucagen) 1 mg Q15M PRN IM DECREASED GLUCOSE; Start 08/10/18 at 07:00 Glucose (Glutose) 15 gm Q15M PRN BUCCAL DECREASED GLUCOSE; Start 08/10/18 at 07:00 Epoetin Adi (Epogen (Esrd)) 4,000 units TuThSa@17 SC Last administered on 08/14/18 18:27; Admin Dose 4,000 UNITS; Start 08/11/18 at 17:00 Lidocaine (Xylocaine 2% Jelly) 1 applic BEDSIDE MEDICATION PRN TOP PAIN LEVEL 1-5 Last administered on 08/14/18at 12:20; Admin Dose 1 APPLIC; Start 08/10/18 at 13:30 Morphine Sulfate (morphine) 2 mg Q4H PRN IV SEVERE PAIN LEVEL 7-10 Last administered on 08/15/18at 05:09; Admin Dose 2 MG; Start 08/10/18 at 13:30 Heparin Sodium (Porcine) (Heparin (5000 Units/1ml)) 5,000 unit BID SC Last administered on 08/14/18 09:33; Admin Dose 5,000 UNIT; Start 08/10/18 at 21:00; Status Hold Pantoprazole (Protonix Tab) 40 mg DAILY@06 PO Last administered on 08/14/18 07:34; Admin Dose 40 MG; Start 08/10/18 at 14:00 Amlodipine Besylate (Norvasc) 10 mg DAILY PO Last administered on 08/13/18at 08:31; Admin Dose 10 MG; Start 08/11/18 at 15:00 Ceftriaxone Sodium 50 ml @ 100 mls/hr Q24H IVPB Last administered on 08/14/18 15:34; Admin Dose 100 MLS/HR; Start 08/13/18 at 12:30 Loratadine (Claritin) 10 mg DAILY PO Last administered on 08/14/18 09:33; Admin Dose 10 MG; Start 08/13/18 at 12:30 Diphenhydramine HCl (Benadryl) 25 mg Q4H PRN IV ITCHING Last administered on 08/15/18at 05:08; Admin Dose 25 MG; Start 08/14/18 at 14:30 Dextrose/Sodium Chloride 1,000 ml @ 40 mls/hr Q24H IV Last administered on 08/15/18at 00:04; Admin Dose 40 MLS/HR; Start 08/15/18 at 00:00 Insulin Aspart (Novolog Insulin Pen) NOVOLOG *MILD* ALGORI... Q4 SC ; Start 08/15/18 at 05:00 DAYSI BHATIA NP Aug 15, 2018 09:52
--- NOTE | 2018-08-15 11:01 | PN ---
Date/Time of Note Date/Time of Note DATE: 08/15/18 TIME: 10:56 Assessment/Plan Lines/Catheters IV Catheter Type (from [facility]): Peripheral IV [place] in Place (from Nrs): No Assessment/Plan Problems: (1) Toe gangrene (2) Acquired absence of right foot (3) Diabetic infection of right foot Status: Acute (4) Diabetes, polyneuropathy Assessment/Plan patient will be scheduled for amputation of light third gangrenous toe Subjective 24 Hr Interval Summary Patient was seen at bedside. Patient is status post right lower extremity angiography and thrombectomy. Patient is in no acute distress. Denies overnight adverse events. Denies fever, chills, nausea or vomiting. Denies recent trauma. Constitutional: no complaints Pain Control: well controlled Exam/Review of Systems Vital Signs Vitals Vital Signs Date Temp Pulse Resp B/P (MAP) Pulse Ox O2 O2 Flow FiO2 Time Delivery Rate 08/15/18 97.3 94 16 132/68 96 10:13 (89) 08/15/18 Room Air 09:49 Intake and Output 08/14/18 08/14/18 08/15/18 1515:00 23:00 07:00 IntakeIntake Total 720 ml 50 ml 200 ml OutputOutput Total 1600 ml BalanceBalance -880 ml 50 ml 200 ml Results Result Diagram: 08/15/18 0445 08/15/18 0445 SHEYLA IZAGUIRRE DPM Aug 15, 2018 11:01
--- NOTE | 2018-08-15 11:26 | PN ---
Date/Time of Note Date/Time of Note DATE: 08/15/18 TIME: 11:23 Assessment/Plan VTE Prophylaxis Risk score (from Nsg)>0 risk: 2 SCD applied (from Nsg): No SCD contraindicated: low risk/ambulating Pharmacological prophylaxis: NA/contraindicated Pharm contraindication: low risk/ambulating Lines/Catheters IV Catheter Type (from Nrsg): Peripheral IV Urinary Cath still in place: No Assessment/Plan Hospital Course 47 y/o with 1. Wet gangrene of 3rd toe on the right foot. 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 S/p amputation of the fourth and fifth rays through the proximal shafts of the fourth and fifth metatarsals right foot. 3. Cellulitis with deep soft tissue ulcer over the lateral base of the fifth metatarsal with mild periosteal reaction along the lateral shaft of the fifth metatarsal that may be due to osteomyelitis of the right foot, per Xray right foot. 4. End-stage renal disease on hemodialysis Monday, and Monday 5. Normocytic normochromic anemia, hx of anemia of chronic disease with EGD 11/01/17 with esophageal ulceration. Colonoscopy was done 09/03/15 for active bleeding. 6. Hypertension, controlled. 7. Diabetes mellitus type II, not controlled well. last hg A1 C 7,5. 8. Coronary artery disease status post 4 stents. 9. Left below-knee amputation, s/p revision. 10. Diastolic CHF 11. Hx of hematoma of abdomen. Numerous surgical procedures, inc. biopsy, drainage, exploratory laparotomy 2014 12. pt did not have cholecystectomy, apparently due to many surgical scars on abdomen, pt mentioned it 13. hx of tracheostomy 14. hx of positive troponin past. 15 pvd s/p Atherectomy right superficial femoral artery and popliteal artery Balloon angioplasty right superficial femoral artery and popliteal artery using 6 x 200 mm balloon Plan -Patient will need amputation of the third toe spoke to Dr. Klein who will try to schedule -Status post atherectomy and balloon angioplasty of the right superficial femoral artery and popliteal artery today patient will need to be on Plavix, after the surgery -HD Monday -Follow-up vascular/podiatry recommendations -Continue with Rocephin/vancomycin -Benadryl/morphine -pt Was following an outside drop hammer mechanic and was supposed to follow them on [phone] for biopsy results -Culture negative so far -cw with lisinopril/Norvasc/monoxidil - cw epogen - GI/DVT prophylaxsis Result Diagram: 08/15/18 0445 08/15/18 0445 Results 24hrs Laboratory Tests Test 08/14/18 12:18 08/14/18 17:57 08/14/18 20:29 08/15/18 04:45 Bedside Glucose 86 78 97 White Blood Count 8.2 Red Blood Count 3.11 L Hemoglobin 8.8 L Hematocrit 28.3 L Mean Corpuscular 91.0 Volume Mean Corpuscular 28.3 L Hemoglobin Mean Corpuscular 31.1 L Hemoglobin Concent Red Cell 13.3 Distribution Width Platelet Count 205 Mean Platelet Volume 10.0 Immature 0.700 H Granulocytes % Neutrophils % 67.2 Lymphocytes % 12.8 L Monocytes % 5.9 Eosinophils % 12.9 H Basophils % 0.5 Nucleated Red Blood 0.0 Cells % Immature 0.060 H Granulocytes # Neutrophils # 5.5 Lymphocytes # 1.1 Monocytes # 0.5 Eosinophils # 1.1 H Basophils # 0.0 Nucleated Red Blood 0.0 Cells # Sodium Level 146 H Potassium Level 4.3 Chloride Level 103 Carbon Dioxide Level 32 H Anion Gap 11 Blood Urea Nitrogen 15 Creatinine 5.19 H Est Glomerular 14 L Filtrat Rate mL/min Glucose Level 78 Calcium Level 9.6 Phosphorus Level 3.3 Magnesium Level 2.1 Random Vancomycin 15.7 Level Test 08/15/18 04:58 Bedside Glucose 80 Subjective 24 Hr Interval Summary Free Text/Dictation This post atherectomy and angioplasty today Exam/Review of Systems Exam Vitals Vital Signs Date Temp Pulse Resp B/P (MAP) Pulse Ox O2 O2 Flow FiO2 Time Delivery Rate 08/15/18 97.3 94 16 132/68 96 10:13 (89) 08/15/18 Room Air 09:49 Intake and Output 08/14/18 08/14/18 08/15/18 1515:00 23:00 07:00 IntakeIntake Total 720 ml 50 ml 200 ml OutputOutput Total 1600 ml BalanceBalance -880 ml 50 ml 200 ml Exam Neck: supple Respiratory: clear to auscultation Cardiovascular: regular rate and rhythm Gastrointestinal: soft, bowel sounds (+) Extremities: other (foot wound+)With right foot erythema, edema, left below- knee amputation with dry scalp on the knee as well as on the stump itself. Diffuse skin changes Fistula on the left arm Lacerations and ulcerations noted in the right lower extremity in the foot Results Results 24hrs Laboratory Tests Test 08/14/18 12:18 08/14/18 17:57 08/14/18 20:29 08/15/18 04:45 Bedside Glucose 86 78 97 White Blood Count 8.2 Red Blood Count 3.11 L Hemoglobin 8.8 L Hematocrit 28.3 L Mean Corpuscular 91.0 Volume Mean Corpuscular 28.3 L Hemoglobin Mean Corpuscular 31.1 L Hemoglobin Concent Red Cell 13.3 Distribution Width Platelet Count 205 Mean Platelet Volume 10.0 Immature 0.700 H Granulocytes % Neutrophils % 67.2 Lymphocytes % 12.8 L Monocytes % 5.9 Eosinophils % 12.9 H Basophils % 0.5 Nucleated Red Blood 0.0 Cells % Immature 0.060 H Granulocytes # Neutrophils # 5.5 Lymphocytes # 1.1 Monocytes # 0.5 Eosinophils # 1.1 H Basophils # 0.0 Nucleated Red Blood 0.0 Cells # Sodium Level 146 H Potassium Level 4.3 Chloride Level 103 Carbon Dioxide Level 32 H Anion Gap 11 Blood Urea Nitrogen 15 Creatinine 5.19 H Est Glomerular 14 L Filtrat Rate mL/min Glucose Level 78 Calcium Level 9.6 Phosphorus Level 3.3 Magnesium Level 2.1 Random Vancomycin 15.7 Level Test 08/15/18 04:58 Bedside Glucose 80 Medications Medication Current Medications Vancomycin HCl (Vanco Iv Per Pharmacy) VANCOMYCIN PER PHARMACY PER PROTOCOL XX ; Start 08/10/18 at 02:00 Acetaminophen (Tylenol Tab) 650 mg Q6H PRN PO MILD PAIN(1-3)OR ELEVATED TEMP; Start 08/10/18 at 02:00 Ondansetron HCl (Zofran Inj) 4 mg Q6H PRN IV NAUSEA AND/OR VOMITING Last administered on 08/13/18at 15:19; Admin Dose 4 MG; Start 08/10/18 at 02:00 Calcium Acetate (Phoslo) 1,334 mg WITH MEALS PO Last administered on 08/14/18at 09:33; Admin Dose 1,334 MG; Start 08/10/18 at 08:00 Clonidine (Catapres) 0.3 mg Q6H PRN PO FOR SBP ABOVE 170; Start 08/10/18 at 02:00 Docusate Sodium (Colace) 100 mg BID PO Last administered on 08/14/18at 09:34; Admin Dose 100 MG; Start 08/10/18 at 09:00 Acetaminophen/ Hydrocodone Bitart ([place] (7.5-325)) 1 tab BID PRN PO PAIN; Start 08/10/18 at 02:00 Lisinopril (Zestril) 40 mg DAILY PO Last administered on 08/13/18at 08:32; Admin Dose 40 MG; Start 08/10/18 at 09:00 Minoxidil (Loniten) 10 mg BID PO Last administered on 08/14/18at 20:37; Admin Dose 10 MG; Start 08/10/18 at 09:00 Pentoxifylline (Trental) 400 mg WITH MEALS PO Last administered on 08/14/18at 09:34; Admin Dose 400 MG; Start 08/10/18 at 08:00 Zolpidem Tartrate (Ambien) 5 mg HS MAY REPEAT X 1 PRN PO INSOMNIA; Start 08/10/18 at 02:00 Hydroxyzine HCl (Atarax) 25 mg BID PRN PO ITCHING Last administered on 08/10/18at 19:21; Admin Dose 25 MG; Start 08/10/18 at 06:30 Miscellaneous Information 1 ea NOTE XX ; Start 08/10/18 at 07:00 Glucose (Glutose) 15 gm Q15M PRN PO DECREASED GLUCOSE; Start 08/10/18 at 07:00 Glucose (Glutose) 22.5 gm Q15M PRN PO DECREASED GLUCOSE; Start 08/10/18 at 07:00 Dextrose (D50w Syringe) 25 ml Q15M PRN IV DECREASED GLUCOSE; Start 08/10/18 at 07:00 Dextrose (D50w Syringe) 50 ml Q15M PRN IV DECREASED GLUCOSE; Start 08/10/18 at 07:00 Glucagon (Glucagen) 1 mg Q15M PRN IM DECREASED GLUCOSE; Start 08/10/18 at 07:00 Glucose (Glutose) 15 gm Q15M PRN BUCCAL DECREASED GLUCOSE; Start 08/10/18 at 07:00 Epoetin Adi (Epogen (Esrd)) 4,000 units TuThSa@17 SC Last administered on 08/14/18 18:27; Admin Dose 4,000 UNITS; Start 08/11/18 at 17:00 Lidocaine (Xylocaine 2% Jelly) 1 applic BEDSIDE MEDICATION PRN TOP PAIN LEVEL 1-5 Last administered on 08/14/18 12:20; Admin Dose 1 APPLIC; Start 08/10/18 at 13:30 Morphine Sulfate (morphine) 2 mg Q4H PRN IV SEVERE PAIN LEVEL 7-10 Last administered on 08/15/18 05:09; Admin Dose 2 MG; Start 08/10/18 at 13:30 Heparin Sodium (Porcine) (Heparin (5000 Units/1ml)) 5,000 unit BID SC Last administered on 08/14/18 09:33; Admin Dose 5,000 UNIT; Start 08/10/18 at 21:00; Status Hold Pantoprazole (Protonix Tab) 40 mg DAILY@06 PO Last administered on 08/14/18 07:34; Admin Dose 40 MG; Start 08/10/18 at 14:00 Amlodipine Besylate (Norvasc) 10 mg DAILY PO Last administered on 08/13/18 08:31; Admin Dose 10 MG; Start 08/11/18 at 15:00 Ceftriaxone Sodium 50 ml @ 100 mls/hr Q24H IVPB Last administered on 08/14/18 15:34; Admin Dose 100 MLS/HR; Start 08/13/18 at 12:30 Loratadine (Claritin) 10 mg DAILY PO Last administered on 08/14/18 09:33; Admin Dose 10 MG; Start 08/13/18 at 12:30 Diphenhydramine HCl (Benadryl) 25 mg Q4H PRN IV ITCHING Last administered on 08/15/18 10:16; Admin Dose 25 MG; Start 08/14/18 at 14:30 Dextrose/Sodium Chloride 1,000 ml @ 40 mls/hr Q24H IV Last administered on 08/15/18 00:04; Admin Dose 40 MLS/HR; Start 08/15/18 at 00:00 Insulin Aspart (Novolog Insulin Pen) NOVOLOG *MILD* ALGORI... Q4 SC ; Start 08/15/18 at 05:00 Triamcinolone Acetonide (Kenalog 0.1% Cr) 1 applic TID TOP ; Start 08/15/18 at 13:00 HASEEB MAYA MD Aug 15, 2018 11:26
[2018-08-15] MEDS: CEFTRIAXONE 1 GM/50 ML (PMX) 50 ML IVPB SCH (12:54)
[2018-08-15] MEDS: TRIAMCINOLONE ACET 0.1% 15 GM CR TOP SCH ×2 (13:00→21:33)
[2018-08-16] VITALS (17 sets, daily range): BP systolic 87–170; BP diastolic 51–79; PULSE 66–93; RESP 18–19
[2018-08-16] MEDS: ACCU-CHEK XX SCH (01:57)
[2018-08-16] MEDS: morphine 2 MG INJ IV PRN ×4 (02:43→20:00)
[2018-08-16] MEDS: PANTOPRAZOLE (EC) 40 MG TAB PO SCH (06:00)
[2018-08-16] MEDS: INSULIN ASPART [NOVOLOG] 3 ML PEN SC SCH ×4 (08:00→21:00)
[2018-08-16] MEDS: VANCOMYCIN 1 GM 250 ML IVPB SCH (08:40)
[2018-08-16] MEDS: DOCUSATE SODIUM 100 MG CAP PO SCH ×2 (08:43→21:33)
[2018-08-16] MEDS: LORATADINE 10 MG TAB PO SCH (08:43)
[2018-08-16] MEDS: CALCIUM ACETATE 667 MG CAP PO SCH ×3 (08:43→18:00)
[2018-08-16] MEDS: PENTOXIFYLLINE (SR) 400 MG TAB PO SCH ×3 (08:44→18:00)
[2018-08-16] MEDS: TRIAMCINOLONE ACET 0.1% 15 GM CR TOP SCH ×3 (08:45→21:37)
[2018-08-16] MEDS: AMLODIPINE 10 MG TAB PO SCH (09:00)
[2018-08-16] MEDS: LISINOPRIL 20 MG TAB PO SCH (09:00)
[2018-08-16] MEDS: MINOXIDIL 10 MG TAB PO SCH ×2 (09:00→21:34)
[2018-08-16] MEDS: CEFTRIAXONE 1 GM/50 ML (PMX) 50 ML IVPB SCH (12:50)
[2018-08-16] MEDS: DIPHENHYDRAMINE 50 MG INJ IV PRN ×2 (14:20→20:00)
--- NOTE | 2018-08-16 14:23 | PN ---
Date/Time of Note Date/Time of Note DATE: 08/16/18 TIME: 14:21 Assessment/Plan VTE Prophylaxis Risk score (from Nsg)>0 risk: 1 SCD applied (from Nsg): No SCD contraindicated: low risk/ambulating Pharmacological prophylaxis: NA/contraindicated Pharm contraindication: low risk/ambulating Lines/Catheters IV Catheter Type (from Nrs): [place] Urinary Cath still in place: No Assessment/Plan Hospital Course 47 y/o with 1. Wet gangrene of 3rd toe on the right foot. 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 S/p amputation of the fourth and fifth rays through the proximal shafts of the fourth and fifth metatarsals right foot. 3. Cellulitis with deep soft tissue ulcer over the lateral base of the fifth metatarsal with mild periosteal reaction along the lateral shaft of the fifth metatarsal that may be due to osteomyelitis of the right foot, per Xray right foot. 4. End-stage renal disease on hemodialysis Monday, and Monday 5. Normocytic normochromic anemia, hx of anemia of chronic disease with EGD 11/01/17 with esophageal ulceration. Colonoscopy was done 09/03/15 for active bleeding. 6. Hypertension, controlled. 7. Diabetes mellitus type II, not controlled well. last hg A1 C 7,5. 8. Coronary artery disease status post 4 stents. 9. Left below-knee amputation, s/p revision. 10. Diastolic CHF 11. Hx of hematoma of abdomen. Numerous surgical procedures, inc. biopsy, drainage, exploratory laparotomy 2014 12. pt did not have cholecystectomy, apparently due to many surgical scars on abdomen, pt mentioned it 13. hx of tracheostomy 14. hx of positive troponin past. 15 pvd s/p Atherectomy right superficial femoral artery and popliteal artery Balloon angioplasty right superficial femoral artery and popliteal artery using 6 x 200 mm balloon Plan -Patient will need amputation of the third toe spoke to Dr. Millard who will try to schedule, possibly tomorrow -Status post atherectomy and balloon angioplasty of the right superficial femoral artery and popliteal artery today patient will need to be on Plavix, after the surgery -HD Monday -Follow-up vascular/podiatry recommendations -Continue with Rocephin/vancomycin -Benadryl/morphine -pt Was following an outside customer insight analyst and was supposed to follow them on [phone] for biopsy results -Culture negative so far -cw with lisinopril/Norvasc/monoxidil - cw epogen - GI/DVT prophylaxsis Result Diagram: 08/15/18 0445 08/15/18 0445 Results 24hrs Laboratory Tests Test 08/15/18 17:42 08/15/18 21:33 08/16/18 08:26 08/16/18 12:47 Bedside Glucose 121 91 95 109 Subjective 24 Hr Interval Summary Free Text/Dictation Talk to Dr. Klein who is planning on doing surgery tomorrow HD due today Exam/Review of Systems Exam Vitals Vital Signs Date Temp Pulse Resp B/P (MAP) Pulse Ox O2 O2 Flow FiO2 Time Delivery Rate 08/16/18 98.9 91 19 170/78 99 07:44 (108) 08/15/18 Room Air 09:49 Intake and Output 08/15/18 08/15/18 08/16/18 1515:00 23:00 07:00 IntakeIntake Total 610 ml 480 ml BalanceBalance 610 ml 480 ml Exam Neck: supple Respiratory: clear to auscultation Cardiovascular: regular rate and rhythm Gastrointestinal: soft, bowel sounds (+) Extremities: other (foot wound+)With right foot erythema, edema, left below- knee amputation with dry scalp on the knee as well as on the stump itself. Diffuse skin changes Fistula on the left arm Lacerations and ulcerations noted in the right lower extremity in the foot Results Results 24hrs Laboratory Tests Test 08/15/18 17:42 08/15/18 21:33 08/16/18 08:26 08/16/18 12:47 Bedside Glucose 121 91 95 109 Medications Medication Current Medications Vancomycin HCl (Vanco Iv Per Pharmacy) VANCOMYCIN PER PHARMACY PER PROTOCOL XX ; Start 08/10/18 at 02:00 Acetaminophen (Tylenol Tab) 650 mg Q6H PRN PO MILD PAIN(1-3)OR ELEVATED TEMP; Start 08/10/18 at 02:00 Ondansetron HCl (Zofran Inj) 4 mg Q6H PRN IV NAUSEA AND/OR VOMITING Last administered on 08/13/18at 15:19; Admin Dose 4 MG; Start 08/10/18 at 02:00 Calcium Acetate (Phoslo) 1,334 mg WITH MEALS PO Last administered on 08/16/18at 12:46; Admin Dose 1,334 MG; Start 08/10/18 at 08:00 Clonidine (Catapres) 0.3 mg Q6H PRN PO FOR SBP ABOVE 170; Start 08/10/18 at 02:00 Docusate Sodium (Colace) 100 mg BID PO Last administered on 08/16/18at 08:43; Admin Dose 100 MG; Start 08/10/18 at 09:00 Acetaminophen/ Hydrocodone Bitart ([place] (7.5-325)) 1 tab BID PRN PO PAIN; Start 08/10/18 at 02:00 Lisinopril (Zestril) 40 mg DAILY PO Last administered on 08/13/18at 08:32; Admin Dose 40 MG; Start 08/10/18 at 09:00 Minoxidil (Loniten) 10 mg BID PO Last administered on 08/15/18at 21:36; Admin Dose 10 MG; Start 08/10/18 at 09:00 Pentoxifylline (Trental) 400 mg WITH MEALS PO Last administered on 08/16/18at 12:47; Admin Dose 400 MG; Start 08/10/18 at 08:00 Zolpidem Tartrate (Ambien) 5 mg HS MAY REPEAT X 1 PRN PO INSOMNIA; Start 08/10/18 at 02:00 Hydroxyzine HCl (Atarax) 25 mg BID PRN PO ITCHING Last administered on 08/10/18at 19:21; Admin Dose 25 MG; Start 08/10/18 at 06:30 Miscellaneous Information 1 ea NOTE XX ; Start 08/10/18 at 07:00 Glucose (Glutose) 15 gm Q15M PRN PO DECREASED GLUCOSE; Start 08/10/18 at 07:00 Glucose (Glutose) 22.5 gm Q15M PRN PO DECREASED GLUCOSE; Start 08/10/18 at 07:00 Dextrose (D50w Syringe) 25 ml Q15M PRN IV DECREASED GLUCOSE; Start 08/10/18 at 07:00 Dextrose (D50w Syringe) 50 ml Q15M PRN IV DECREASED GLUCOSE; Start 08/10/18 at 07:00 Glucagon (Glucagen) 1 mg Q15M PRN IM DECREASED GLUCOSE; Start 08/10/18 at 07:00 Glucose (Glutose) 15 gm Q15M PRN BUCCAL DECREASED GLUCOSE; Start 08/10/18 at 0 7:00 Epoetin Adi (Epogen (Esrd)) 4,000 units TuThSa@17 SC Last administered on 08/14/18 18:27; Admin Dose 4,000 UNITS; Start 08/11/18 at 17:00 Lidocaine (Xylocaine 2% Jelly) 1 applic BEDSIDE MEDICATION PRN TOP PAIN LEVEL 1-5 Last administered on 08/14/18 12:20; Admin Dose 1 APPLIC; Start 08/10/18 at 13:30 Morphine Sulfate (morphine) 2 mg Q4H PRN IV SEVERE PAIN LEVEL 7-10 Last administered on 08/16/18 14:20; Admin Dose 2 MG; Start 08/10/18 at 13:30 Heparin Sodium (Porcine) (Heparin (5000 Units/1ml)) 5,000 unit BID SC Last administered on 08/14/18 09:33; Admin Dose 5,000 UNIT; Start 08/10/18 at 21:00; Status Hold Pantoprazole (Protonix Tab) 40 mg DAILY@06 PO Last administered on 08/14/18 07:34; Admin Dose 40 MG; Start 08/10/18 at 14:00 Amlodipine Besylate (Norvasc) 10 mg DAILY PO Last administered on 08/13/18 08:31; Admin Dose 10 MG; Start 08/11/18 at 15:00 Ceftriaxone Sodium 50 ml @ 100 mls/hr Q24H IVPB Last administered on 08/16/18 12:50; Admin Dose 100 MLS/HR; Start 08/13/18 at 12:30 Loratadine (Claritin) 10 mg DAILY PO Last administered on 08/16/18 08:43; Admin Dose 10 MG; Start 08/13/18 at 12:30 Diphenhydramine HCl (Benadryl) 25 mg Q4H PRN IV ITCHING Last administered on 08/16/18 14:20; Admin Dose 25 MG; Start 08/14/18 at 14:30 Triamcinolone Acetonide (Kenalog 0.1% Cr) 1 applic TID TOP Last administered on 08/16/18 12:50; Admin Dose 1 APPLIC; Start 08/15/18 at 13:00 Vancomycin HCl 250 ml @ 125 mls/hr Q96H IVPB Last administered on 08/16/18at 08:40; Admin Dose 125 MLS/HR; Start 08/16/18 at 09:00 Diagnostic Test (Pha) (Accu-Chek) 1 ea 02 XX ; Start 08/16/18 at 02:00 Insulin Aspart (Novolog Insulin Pen) NOVOLOG *MILD* ALGORITHM WITH MEALS BEDTIME SC ; Start 08/15/18 at 21:00 HASEEB MAYA MD Aug 16, 2018 14:23
[2018-08-16] MEDS: LIDOCAINE 2% JELLY 5 ML TOP PRN (15:15)
--- NOTE | 2018-08-16 16:02 | CONS ---
Assessment/Plan Assessment/Plan Hospital Course (Demo Recall) Alert, looks comfortable no fevers Microbiology: Blood cultures remain negative Antimicrobials: Vancomycin Rocephin PHYSICAL EXAMINATION: VITAL SIGNS: Temperature 98.9, pulse 74, respirations 20, blood pressure 115/59, saturation 98 on nasal cannula. GENERAL: Well-developed, ill-appearing, middle-aged man in no distress. HEENT: Head is atraumatic, normocephalic. NECK: Supple. CHEST: Rise symmetrical. Breath sounds diminished to bases. HEART: S1, S2. ABDOMEN: Soft. Bowel tones are present. EXTREMITIES: With right foot erythema, edema, left below-knee amputation with dry scalp on the knee as well as on the stump itself. Assessment: 1. Right foot diabetic ulceration, possible osteomyelitis 2. End-stage renal disease, hemodialysis dependent 3. Diffuse rash==> neg scabies 4. Severe peripheral arterial disease status post left below-knee amputation= =s/p balloon angioplasty 08/15/18 5. Coronary artery disease status post cardiac stent 6. Hypertension Plan: Stable, continue abx, follow podiatry recommendations==> plan for toe amputation Consultation Date/Type/Reason Admit Date/Time Aug 09, 2018 at 22:42 Initial Consult Date 08/11/18 Type of Consult id Date/Time of Note DATE: 08/16/18 TIME: 16:01 Exam/Review of Systems Exam Vitals Vital Signs Date Temp Pulse Resp B/P (MAP) Pulse Ox O2 O2 Flow FiO2 Time Delivery Rate 08/16/18 98.9 91 19 170/78 99 07:44 (108) 08/15/18 Room Air 09:49 Intake and Output 08/15/18 08/15/18 08/16/18 1515:00 23:00 07:00 IntakeIntake Total 610 ml 480 ml BalanceBalance 610 ml 480 ml Results Result Diagram: 08/15/18 0445 08/15/18 0445 Results 24hrs Laboratory Tests Test 08/15/18 17:42 08/15/18 21:33 08/16/18 08:26 08/16/18 12:47 Bedside Glucose 121 91 95 109 Medications Medication Current Medications Vancomycin HCl (Vanco Iv Per Pharmacy) VANCOMYCIN PER PHARMACY PER PROTOCOL XX ; Start 08/10/18 at 02:00 Acetaminophen (Tylenol Tab) 650 mg Q6H PRN PO MILD PAIN(1-3)OR ELEVATED TEMP; Start 08/10/18 at 02:00 Ondansetron HCl (Zofran Inj) 4 mg Q6H PRN IV NAUSEA AND/OR VOMITING Last administered on 08/13/18 15:19; Admin Dose 4 MG; Start 08/10/18 at 02:00 Calcium Acetate (Phoslo) 1,334 mg WITH MEALS PO Last administered on 08/16/18 12:46; Admin Dose 1,334 MG; Start 08/10/18 at 08:00 Clonidine (Catapres) 0.3 mg Q6H PRN PO FOR SBP ABOVE 170; Start 08/10/18 at 02:00 Docusate Sodium (Colace) 100 mg BID PO Last administered on 08/16/18 08:43; Admin Dose 100 MG; Start 08/10/18 at 09:00 Acetaminophen/ Hydrocodone Bitart ([place] (7.5-325)) 1 tab BID PRN PO PAIN; Start 08/10/18 at 02:00 Lisinopril (Zestril) 40 mg DAILY PO Last administered on 08/13/18 08:32; Admin Dose 40 MG; Start 08/10/18 at 09:00 Minoxidil (Loniten) 10 mg BID PO Last administered on 08/15/18 21:36; Admin Dose 10 MG; Start 08/10/18 at 09:00 Pentoxifylline (Trental) 400 mg WITH MEALS PO Last administered on 08/16/18 12:47; Admin Dose 400 MG; Start 08/10/18 at 08:00 Zolpidem Tartrate (Ambien) 5 mg HS MAY REPEAT X 1 PRN PO INSOMNIA; Start 08/10/18 at 02:00 Hydroxyzine HCl (Atarax) 25 mg BID PRN PO ITCHING Last administered on 08/10/18 19:21; Admin Dose 25 MG; Start 08/10/18 at 06:30 Miscellaneous Information 1 ea NOTE XX ; Start 08/10/18 at 07:00 Glucose (Glutose) 15 gm Q15M PRN PO DECREASED GLUCOSE; Start 08/10/18 at 07:00 Glucose (Glutose) 22.5 gm Q15M PRN PO DECREASED GLUCOSE; Start 08/10/18 at 07:00 Dextrose (D50w Syringe) 25 ml Q15M PRN IV DECREASED GLUCOSE; Start 08/10/18 at 07:00 Dextrose (D50w Syringe) 50 ml Q15M PRN IV DECREASED GLUCOSE; Start 08/10/18 at 07:00 Glucagon (Glucagen) 1 mg Q15M PRN IM DECREASED GLUCOSE; Start 08/10/18 at 07:00 Glucose (Glutose) 15 gm Q15M PRN BUCCAL DECREASED GLUCOSE; Start 08/10/18 at 07:00 Epoetin Adi (Epogen (Esrd)) 4,000 units TuThSa@17 SC Last administered on 08/14/18 18:27; Admin Dose 4,000 UNITS; Start 08/11/18 at 17:00 Lidocaine (Xylocaine 2% Jelly) 1 applic BEDSIDE MEDICATION PRN TOP PAIN LEVEL 1-5 Last administered on 08/16/18 15:15; Admin Dose 1 APPLIC; Start 08/10/18 at 13:30 Morphine Sulfate (morphine) 2 mg Q4H PRN IV SEVERE PAIN LEVEL 7-10 Last administered on 08/16/18 14:20; Admin Dose 2 MG; Start 08/10/18 at 13:30 Heparin Sodium (Porcine) (Heparin (5000 Units/1ml)) 5,000 unit BID SC Last administered on 08/14/18 09:33; Admin Dose 5,000 UNIT; Start 08/10/18 at 21:00; Status Hold Pantoprazole (Protonix Tab) 40 mg DAILY@06 PO Last administered on 08/14/18 07:34; Admin Dose 40 MG; Start 08/10/18 at 14:00 Amlodipine Besylate (Norvasc) 10 mg DAILY PO Last administered on 08/13/18 08:31; Admin Dose 10 MG; Start 08/11/18 at 15:00 Ceftriaxone Sodium 50 ml @ 100 mls/hr Q24H IVPB Last administered on 08/16/18 12:50; Admin Dose 100 MLS/HR; Start 08/13/18 at 12:30 Loratadine (Claritin) 10 mg DAILY PO Last administered on 08/16/18 08:43; Admin Dose 10 MG; Start 08/13/18 at 12:30 Diphenhydramine HCl (Benadryl) 25 mg Q4H PRN IV ITCHING Last administered on 3/14/19at 14:20; Admin Dose 25 MG; Start 08/14/18 at 14:30 Triamcinolone Acetonide (Kenalog 0.1% Cr) 1 applic TID TOP Last administered on 08/16/18at 12:50; Admin Dose 1 APPLIC; Start 08/15/18 at 13:00 Vancomycin HCl 250 ml @ 125 mls/hr Q96H IVPB Last administered on 08/16/18at 08:40; Admin Dose 125 MLS/HR; Start 08/16/18 at 09:00 Diagnostic Test (Pha) (Accu-Chek) 1 02 XX ; Start 08/16/18 at 02:00 Insulin Aspart (Novolog Insulin Pen) NOVOLOG *MILD* ALGORITHM WITH MEALS BEDTIME SC ; Start 08/15/18 at 21:00 DAYSI BHATIA NP Aug 16, 2018 16:02
[2018-08-16] MEDS: EPOETIN 4000 UNITS/1 ML INJ (ESRD) SC SCH (20:03)
[2018-08-17] MEDS: DIPHENHYDRAMINE 50 MG INJ IV PRN ×6 (00:17→23:23)
[2018-08-17] MEDS: morphine 2 MG INJ IV PRN ×6 (00:18→23:23)
[2018-08-17] MEDS: ACCU-CHEK XX SCH ×2 (01:42→21:47)
[2018-08-17 02:29] VITALS: BP 142/66; PULSE 90; RESP 18
[2018-08-17] MEDS: PANTOPRAZOLE (EC) 40 MG TAB PO SCH (05:17)
[2018-08-17 07:20] VITALS: BP 121/60; PULSE 92; RESP 18
[2018-08-17] MEDS: INSULIN ASPART [NOVOLOG] 3 ML PEN SC SCH ×4 (08:00→21:00)
[2018-08-17] MEDS: LORATADINE 10 MG TAB PO SCH (09:33)
[2018-08-17] MEDS: PENTOXIFYLLINE (SR) 400 MG TAB PO SCH ×3 (09:33→19:00)
[2018-08-17] MEDS: CALCIUM ACETATE 667 MG CAP PO SCH ×3 (09:33→19:00)
[2018-08-17] MEDS: LISINOPRIL 20 MG TAB PO SCH (09:34)
[2018-08-17] MEDS: DOCUSATE SODIUM 100 MG CAP PO SCH ×2 (09:34→20:52)
[2018-08-17] MEDS: AMLODIPINE 10 MG TAB PO SCH (09:34)
[2018-08-17] MEDS: MINOXIDIL 10 MG TAB PO SCH ×2 (09:34→20:53)
[2018-08-17] MEDS: TRIAMCINOLONE ACET 0.1% 15 GM CR TOP SCH ×3 (09:35→20:54)
[2018-08-17] MEDS ORDERED: DEXTROSE 5%-0.45% NACL 1,000 ML IV SCH ×2 (10:30→19:00)
--- NOTE | 2018-08-17 13:06 | PN ---
Date/Time of Note Date/Time of Note DATE: 08/17/18 TIME: 13:04 Assessment/Plan VTE Prophylaxis Risk score (from Ns)>0 risk: 3 SCD applied (from Ns): No SCD contraindicated: bilateral amputee Pharmacological prophylaxis: NA/contraindicated Pharm contraindication: surgical contra Lines/Catheters [facility] [place] Urinary Cath still in place: No Assessment/Plan Hospital Course 1. Wet gangrene of 3rd toe on the right foot. 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 S/p amputation of the fourth and fifth rays through the proximal shafts of the fourth and fifth metatarsals right foot. 3. Cellulitis with deep soft tissue ulcer over the lateral base of the fifth metatarsal with mild periosteal reaction along the lateral shaft of the fifth metatarsal that may be due to osteomyelitis of the right foot, per Xray right foot. 4. End-stage renal disease on hemodialysis Monday, and Monday 5. Normocytic normochromic anemia, hx of anemia of chronic disease with EGD 11/01/17 with esophageal ulceration. Colonoscopy was done 09/03/15 for active bleeding. 6. Hypertension, controlled. 7. Diabetes mellitus type II, not controlled well. last hg A1 C 7,5. 8. Coronary artery disease status post 4 stents. 9. Left below-knee amputation, s/p revision. 10. Diastolic CHF 11. Hx of hematoma of abdomen. Numerous surgical procedures, inc. biopsy, drainage, exploratory laparotomy 2014 12. pt did not have cholecystectomy, apparently due to many surgical scars on abdomen, pt mentioned it 13. hx of tracheostomy 14. hx of positive troponin past. 15. s/p abdominal stents removal by dr Guy 16. S/p balloon angioplasty right superficial femoral artery and popliteal artery using 6 x [address] Guerin Assessment/Plan -Patient will need amputation of the third toe spoke to Dr. Millard who will try to schedule, possibly tomorrow -Status post atherectomy and balloon angioplasty of the right superficial femoral artery and popliteal artery today patient will need to be on Plavix, a fter the surgery -HD Ila Thursday Saturday -Follow-up vascular/podiatry recommendations -Continue with Rocephin/vancomycin -Benadryl/morphine -Culture negative so far -cw with lisinopril/Norvasc/monoxidil - cw Epogen - GI/DVT prophylaxis Result Diagram: 08/17/18 0951 08/17/18 0951 Results 24hrs Laboratory Tests Test 08/16/18 17:45 08/16/18 21:35 08/17/18 08:13 08/17/18 09:51 Bedside Glucose 101 101 94 White Blood Count 8.6 Red Blood Count 3.25 L Hemoglobin 9.1 L Hematocrit 29.3 L Mean Corpuscular 90.2 Volume Mean Corpuscular 28.0 L Hemoglobin Mean Corpuscular 31.1 L Hemoglobin Concent Red Cell 13.0 Distribution Width Platelet Count 173 Mean Platelet Volume 9.5 Immature 0.600 H Granulocytes % Neutrophils % 65.8 Lymphocytes % 13.7 L Monocytes % 7.7 Eosinophils % 11.7 H Basophils % 0.5 Nucleated Red Blood 0.0 Cells % Immature 0.050 H Granulocytes # Neutrophils # 5.7 Lymphocytes # 1.2 Monocytes # 0.7 Eosinophils # 1.0 H Basophils # 0.0 Nucleated Red Blood 0.0 Cells # Sodium Level 139 Potassium Level 4.6 Chloride Level 99 Carbon Dioxide Level 31 Anion Gap 9 Blood Urea Nitrogen 21 H Creatinine 5.50 H Est Glomerular 14 L Filtrat Rate mL/min Glucose Level 77 Calcium Level 9.9 Phosphorus Level 4.2 Magnesium Level 2.1 Subjective 24 Hr Interval Summary Musculoskeletal: bone/joint pain Exam/Review of Systems Exam Vitals Vital Signs Date Temp Pulse Resp B/P (MAP) Pulse Ox O2 O2 Flow FiO2 Time Delivery Rate 08/17/18 98.4 92 18 121/60 97 07:20 (80) 08/16/18 Room Air 19:24 Intake and Output 08/16/18 08/16/18 08/17/18 1515:00 23:00 07:00 IntakeIntake Total 1340 ml OutputOutput Total 150 ml 2500 ml BalanceBalance 1190 ml -2500 ml Exam left arm AV fistula Constitutional: alert, oriented Respiratory: clear to auscultation Cardiovascular: regular rate and rhythm Gastrointestinal: soft Musculoskeletal: other (left BKA. right amp 4. 5 toes. edema 3 toe) Results Results 24hrs Laboratory Tests Test 08/16/18 17:45 08/16/18 21:35 08/17/18 08:13 08/17/18 09:51 Bedside Glucose 101 101 94 White Blood Count 8.6 Red Blood Count 3.25 L Hemoglobin 9.1 L Hematocrit 29.3 L Mean Corpuscular 90.2 Volume Mean Corpuscular 28.0 L Hemoglobin Mean Corpuscular 31.1 L Hemoglobin Concent Red Cell 13.0 Distribution Width Platelet Count 173 Mean Platelet Volume 9.5 Immature 0.600 H Granulocytes % Neutrophils % 65.8 Lymphocytes % 13.7 L Monocytes % 7.7 Eosinophils % 11.7 H Basophils % 0.5 Nucleated Red Blood 0.0 Cells % Immature 0.050 H Granulocytes # Neutrophils # 5.7 Lymphocytes # 1.2 Monocytes # 0.7 Eosinophils # 1.0 H Basophils # 0.0 Nucleated Red Blood 0.0 Cells # Sodium Level 139 Potassium Level 4.6 Chloride Level 99 Carbon Dioxide Level 31 Anion Gap 9 Blood Urea Nitrogen 21 H Creatinine 5.50 H Est Glomerular 14 L Filtrat Rate mL/min Glucose Level 77 Calcium Level 9.9 Phosphorus Level 4.2 Magnesium Level 2.1 Medications Medication Current Medications Vancomycin HCl (Vanco Iv Per Pharmacy) VANCOMYCIN PER PHARMACY PER PROTOCOL XX ; Start 08/10/18 at 02:00 Acetaminophen (Tylenol Tab) 650 mg Q6H PRN PO MILD PAIN(1-3)OR ELEVATED TEMP; Start 08/10/18 at 02:00 Ondansetron HCl (Zofran Inj) 4 mg Q6H PRN IV NAUSEA AND/OR VOMITING Last administered on 08/13/18at 15:19; Admin Dose 4 MG; Start 08/10/18 at 02:00 Calcium Acetate (Phoslo) 1,334 mg WITH MEALS PO Last administered on 08/17/18at 09:33; Admin Dose 1,334 MG; Start 08/10/18 at 08:00 Clonidine (Catapres) 0.3 mg Q6H PRN PO FOR SBP ABOVE 170; Start 08/10/18 at 02:00 Docusate Sodium (Colace) 100 mg BID PO Last administered on 08/17/18at 09:34; Admin Dose 100 MG; Start 08/10/18 at 09:00 Acetaminophen/ Hydrocodone Bitart ([place] (7.5-325)) 1 tab BID PRN PO PAIN; Start 08/10/18 at 02:00 Lisinopril (Zestril) 40 mg DAILY PO Last administered on 08/17/18at 09:34; Admin Dose 40 MG; Start 08/10/18 at 09:00 Minoxidil (Loniten) 10 mg BID PO Last administered on 08/17/18at 09:34; Admin Dose 10 MG; Start 08/10/18 at 09:00 Pentoxifylline (Trental) 400 mg WITH MEALS PO Last administered on 08/17/18at 09:33; Admin Dose 400 MG; Start 08/10/18 at 08:00 Zolpidem Tartrate (Ambien) 5 mg HS MAY REPEAT X 1 PRN PO INSOMNIA; Start 08/10/18 at 02:00 Hydroxyzine HCl (Atarax) 25 mg BID PRN PO ITCHING Last administered on 08/10/18at 19:21; Admin Dose 25 MG; Start 08/10/18 at 06:30 Miscellaneous Information 1 ea NOTE XX ; Start 08/10/18 at 07:00 Glucose (Glutose) 15 gm Q15M PRN PO DECREASED GLUCOSE; Start 08/10/18 at 07:00 Glucose (Glutose) 22.5 gm Q15M PRN PO DECREASED GLUCOSE; Start 08/10/18 at 07:00 Dextrose (D50w Syringe) 25 ml Q15M PRN IV DECREASED GLUCOSE; Start 08/10/18 at 07:00 Dextrose (D50w Syringe) 50 ml Q15M PRN IV DECREASED GLUCOSE; Start 08/10/18 at 07:00 Glucagon (Glucagen) 1 mg Q15M PRN IM DECREASED GLUCOSE; Start 08/10/18 at 07:00 Glucose (Glutose) 15 gm Q15M PRN BUCCAL DECREASED GLUCOSE; Start 08/10/18 at 07:00 Epoetin Adi (Epogen (Esrd)) 4,000 units TuThSa@17 SC Last administered on 08/16/18at 20:03; Admin Dose 4,000 UNITS; Start 08/11/18 at 17:00 Lidocaine (Xylocaine 2% Jelly) 1 applic BEDSIDE MEDICATION PRN TOP PAIN LEVEL 1-5 Last administered on 08/16/18at 15:15; Admin Dose 1 APPLIC; Start 08/10/18 at 13:30 Morphine Sulfate (morphine) 2 mg Q4H PRN IV SEVERE PAIN LEVEL 7-10 Last administered on 08/17/18 10:36; Admin Dose 2 MG; Start 08/10/18 at 13:30 Heparin Sodium (Porcine) (Heparin (5000 Units/1ml)) 5,000 unit BID SC Last administered on 08/14/18 09:33; Admin Dose 5,000 UNIT; Start 08/10/18 at 21:00; Status Hold Pantoprazole (Protonix Tab) 40 mg DAILY@06 PO Last administered on 08/17/18 05:17; Admin Dose 40 MG; Start 08/10/18 at 14:00 Amlodipine Besylate (Norvasc) 10 mg DAILY PO Last administered on 08/17/18 09:34; Admin Dose 10 MG; Start 08/11/18 at 15:00 Ceftriaxone Sodium 50 ml @ 100 mls/hr Q24H IVPB Last administered on 08/16/18 12:50; Admin Dose 100 MLS/HR; Start 08/13/18 at 12:30 Loratadine (Claritin) 10 mg DAILY PO Last administered on 08/17/18 09:33; Admin Dose 10 MG; Start 08/13/18 at 12:30 Diphenhydramine HCl (Benadryl) 25 mg Q4H PRN IV ITCHING Last administered on 08/17/18 10:35; Admin Dose 25 MG; Start 08/14/18 at 14:30 Triamcinolone Acetonide (Kenalog 0.1% Cr) 1 applic TID TOP Last administered on 08/17/18 09:35; Admin Dose 1 APPLIC; Start 08/15/18 at 13:00 Vancomycin HCl 250 ml @ 125 mls/hr Q96H IVPB Last administered on 08/16/18 08:40; Admin Dose 125 MLS/HR; Start 08/16/18 at 09:00 Diagnostic Test (Pha) (Accu-Chek) 1 ea 02 XX ; Start 08/16/18 at 02:00 Insulin Aspart (Novolog Insulin Pen) NOVOLOG *MILD* ALGORITHM WITH MEALS BEDTIME SC ; Start 08/15/18 at 21:00 Dextrose/Sodium Chloride 1,000 ml @ 40 mls/hr Q24H IV Last administered on 08/17/18 11:00; Admin Dose 40 MLS/HR; Start 08/17/18 at 10:30 PATRICIA RIVAS Aug 17, 2018 13:06
[2018-08-17] MEDS: ONDANSETRON 4 MG INJ IV PRN (13:18)
[2018-08-17] MEDS: CEFTRIAXONE 1 GM/50 ML (PMX) 50 ML IVPB SCH (13:22)
[2018-08-17 14:21] VITALS: BP 163/74; PULSE 99; RESP 18
--- NOTE | 2018-08-17 14:36 | CONS ---
Assessment/Plan Assessment/Plan Hospital Course (Demo Recall) Alert, looks comfortable Microbiology: Blood cultures remain negative Antimicrobials: Vancomycin Rocephin PHYSICAL EXAMINATION: VITAL SIGNS: Temperature 98.9, pulse 74, respirations 20, blood pressure 115/59, saturation 98 on nasal cannula. GENERAL: Well-developed, ill-appearing, middle-aged man in no distress. HEENT: Head is atraumatic, normocephalic. NECK: Supple. CHEST: Rise symmetrical. Breath sounds diminished to bases. HEART: S1, S2. ABDOMEN: Soft. Bowel tones are present. EXTREMITIES: With right foot erythema, edema, left below-knee amputation with dry scalp on the knee as well as on the stump itself. Assessment: 1. Right foot diabetic ulceration, possible osteomyelitis 2. End-stage renal disease, hemodialysis dependent 3. Diffuse rash==> neg scabies 4. Severe peripheral arterial disease status post left below-knee amputation==s/p balloon angioplasty 08/15/18 5. Coronary artery disease status post cardiac stent 6. Hypertension Plan: Remains stable, continue abx, follow podiatry recommendations==> pending toe amputation Consultation Date/Type/Reason Admit Date/Time Aug 09, 2018 at 22:42 Initial Consult Date 08/11/18 Type of Consult id Date/Time of Note DATE: 08/17/18 TIME: 14:35 Exam/Review of Systems Exam Vitals Vital Signs Date Temp Pulse Resp B/P (MAP) Pulse Ox O2 O2 Flow FiO2 Time Delivery Rate 08/17/18 98.2 99 18 163/74 98 14:21 (103) 08/16/18 Room Air 19:24 Intake and Output 08/16/18 08/16/18 08/17/18 1515:00 23:00 07:00 IntakeIntake Total 1340 ml OutputOutput Total 150 ml 2500 ml BalanceBalance 1190 ml -2500 ml Results Result Diagram: 08/17/18 0951 08/17/18 0951 Results 24hrs Laboratory Tests Test 08/16/18 17:45 08/16/18 21:35 08/17/18 08:13 08/17/18 09:51 Bedside Glucose 101 101 94 White Blood Count 8.6 Red Blood Count 3.25 L Hemoglobin 9.1 L Hematocrit 29.3 L Mean Corpuscular 90.2 Volume Mean Corpuscular 28.0 L Hemoglobin Mean Corpuscular 31.1 L Hemoglobin Concent Red Cell 13.0 Distribution Width Platelet Count 173 Mean Platelet Volume 9.5 Immature 0.600 H Granulocytes % Neutrophils % 65.8 Lymphocytes % 13.7 L Monocytes % 7.7 Eosinophils % 11.7 H Basophils % 0.5 Nucleated Red Blood 0.0 Cells % Immature 0.050 H Granulocytes # Neutrophils # 5.7 Lymphocytes # 1.2 Monocytes # 0.7 Eosinophils # 1.0 H Basophils # 0.0 Nucleated Red Blood 0.0 Cells # Sodium Level 139 Potassium Level 4.6 Chloride Level 99 Carbon Dioxide Level 31 Anion Gap 9 Blood Urea Nitrogen 21 H Creatinine 5.50 H Est Glomerular 14 L Filtrat Rate mL/min Glucose Level 77 Calcium Level 9.9 Phosphorus Level 4.2 Magnesium Level 2.1 Test 08/17/18 13:17 Bedside Glucose 80 Medications Medication Current Medications Vancomycin HCl (Vanco Iv Per Pharmacy) VANCOMYCIN PER PHARMACY PER PROTOCOL XX ; Start 08/10/18 at 02:00 Acetaminophen (Tylenol Tab) 650 mg Q6H PRN PO MILD PAIN(1-3)OR ELEVATED TEMP; Start 08/10/18 at 02:00 Ondansetron HCl (Zofran Inj) 4 mg Q6H PRN IV NAUSEA AND/OR VOMITING Last administered on 08/17/18at 13:18; Admin Dose 4 MG; Start 08/10/18 at 02:00 Calcium Acetate (Phoslo) 1,334 mg WITH MEALS PO Last administered on 08/17/18at 09:33; Admin Dose 1,334 MG; Start 08/10/18 at 08:00 Clonidine (Catapres) 0.3 mg Q6H PRN PO FOR SBP ABOVE 170; Start 08/10/18 at 02:00 Docusate Sodium (Colace) 100 mg BID PO Last administered on 08/17/18at 09:34; Admin Dose 100 MG; Start 08/10/18 at 09:00 Acetaminophen/ Hydrocodone Bitart ([place] (7.5-325)) 1 tab BID PRN PO PAIN; Start 08/10/18 at 02:00 Lisinopril (Zestril) 40 mg DAILY PO Last administered on 08/17/18at 09:34; Admin Dose 40 MG; Start 08/10/18 at 09:00 Minoxidil (Loniten) 10 mg BID PO Last administered on 08/17/18at 09:34; Admin Dose 10 MG; Start 08/10/18 at 09:00 Pentoxifylline (Trental) 400 mg WITH MEALS PO Last administered on 08/17/18at 09:33; Admin Dose 400 MG; Start 08/10/18 at 08:00 Zolpidem Tartrate (Ambien) 5 mg HS MAY REPEAT X 1 PRN PO INSOMNIA; Start 08/10/18 at 02:00 Hydroxyzine HCl (Atarax) 25 mg BID PRN PO ITCHING Last administered on 08/10/18at 19:21; Admin Dose 25 MG; Start 08/10/18 at 06:30 Miscellaneous Information 1 ea NOTE XX ; Start 08/10/18 at 07:00 Glucose (Glutose) 15 gm Q15M PRN PO DECREASED GLUCOSE; Start 08/10/18 at 07:00 Glucose (Glutose) 22.5 gm Q15M PRN PO DECREASED GLUCOSE; Start 08/10/18 at 07:00 Dextrose (D50w Syringe) 25 ml Q15M PRN IV DECREASED GLUCOSE; Start 08/10/18 at 07:00 Dextrose (D50w Syringe) 50 ml Q15M PRN IV DECREASED GLUCOSE; Start 08/10/18 at 07:00 Glucagon (Glucagen) 1 mg Q15M PRN IM DECREASED GLUCOSE; Start 08/10/18 at 07:00 Glucose (Glutose) 15 gm Q15M PRN BUCCAL DECREASED GLUCOSE; Start 08/10/18 at 07:00 Epoetin Adi (Epogen (Esrd)) 4,000 units TuThSa@17 SC Last administered on 08/16/18at 20:03; Admin Dose 4,000 UNITS; Start 08/11/18 at 17:00 Lidocaine (Xylocaine 2% Jelly) 1 applic BEDSIDE MEDICATION PRN TOP PAIN LEVEL 1-5 Last administered on 08/16/18at 15:15; Admin Dose 1 APPLIC; Start 08/10/18 at 13:30 Morphine Sulfate (morphine) 2 mg Q4H PRN IV SEVERE PAIN LEVEL 7-10 Last administered on 08/17/18at 10:36; Admin Dose 2 MG; Start 08/10/18 at 13:30 Heparin Sodium (Porcine) (Heparin (5000 Units/1ml)) 5,000 unit BID SC Last administered on 08/14/18 09:33; Admin Dose 5,000 UNIT; Start 08/10/18 at 21:00; Status Hold Pantoprazole (Protonix Tab) 40 mg DAILY@06 PO Last administered on 08/17/18 05:17; Admin Dose 40 MG; Start 08/10/18 at 14:00 Amlodipine Besylate (Norvasc) 10 mg DAILY PO Last administered on 08/17/18 09:34; Admin Dose 10 MG; Start 08/11/18 at 15:00 Ceftriaxone Sodium 50 ml @ 100 mls/hr Q24H IVPB Last administered on 08/17/18 13:22; Admin Dose 100 MLS/HR; Start 08/13/18 at 12:30 Loratadine (Claritin) 10 mg DAILY PO Last administered on 08/17/18 09:33; Admin Dose 10 MG; Start 08/13/18 at 12:30 Diphenhydramine HCl (Benadryl) 25 mg Q4H PRN IV ITCHING Last administered on 08/17/18 10:35; Admin Dose 25 MG; Start 08/14/18 at 14:30 Triamcinolone Acetonide (Kenalog 0.1% Cr) 1 applic TID TOP Last administered on 08/17/18 13:19; Admin Dose 1 APPLIC; Start 08/15/18 at 13:00 Vancomycin HCl 250 ml @ 125 mls/hr Q96H IVPB Last administered on 08/16/18 08:40; Admin Dose 125 MLS/HR; Start 08/16/18 at 09:00 Diagnostic Test (Pha) (Accu-Chek) 1 ea 02 XX ; Start 08/16/18 at 02:00 Insulin Aspart (Novolog Insulin Pen) NOVOLOG *MILD* ALGORITHM WITH MEALS BEDTIME SC ; Start 08/15/18 at 21:00 Dextrose/Sodium Chloride 1,000 ml @ 40 mls/hr Q24H IV Last administered on 08/17/18 11:00; Admin Dose 40 MLS/HR; Start 08/17/18 at 10:30 DAYSI BHATIA NP Aug 17, 2018 14:36
[2018-08-17 19:58] VITALS: BP 144/80; PULSE 90; RESP 18
[2018-08-18] VITALS (32 sets, daily range): BP systolic 76–174; BP diastolic 44–77; PULSE 82–115; RESP 15–21
[2018-08-18] MEDS ORDERED: DEXTROSE 5%-0.45% NACL 1,000 ML IV SCH
[2018-08-18] MEDS: DIPHENHYDRAMINE 50 MG INJ IV PRN ×5 (04:08→23:50)
[2018-08-18] MEDS: morphine 2 MG INJ IV PRN ×5 (04:09→23:50)
[2018-08-18] MEDS: INSULIN ASPART [NOVOLOG] 3 ML PEN SC SCH ×5 (05:00→20:43)
[2018-08-18] MEDS: PANTOPRAZOLE (EC) 40 MG TAB PO SCH (05:50)
[2018-08-18] MEDS ORDERED: BUPIVACAINE 0.5% (SDV) 30 ML INJ ONE (06:56)
[2018-08-18] MEDS ORDERED: LIDOCAINE 2% (MDV) 20 ML INJ ONE (06:56)
[2018-08-18] MEDS ORDERED: POLYMYXIN/BACITRACIN 1L IRRIG ONE (06:56)
[2018-08-18] MEDS ORDERED: PROPOFOL 200 MG INJ ONE (07:00)
[2018-08-18] MEDS ORDERED: LIDOCAINE 2% (SDV) 5 ML INJ ONE (07:00)
[2018-08-18] MEDS ORDERED: FENTAnyl 50 MCG/ML VIAL ONE (07:09)
[2018-08-18] MEDS ORDERED: MIDAZOLAM 1 MG/ML 2 ML INJ ONE (07:09)
[2018-08-18] MEDS ORDERED: ROPIVACAINE 0.2% 20 ML VIAL ONE (07:18)
--- NOTE | 2018-08-18 07:19 | PN ---
Date/Time of Note Date/Time of Note DATE: 08/18/18 TIME: 07:17 Assessment/Plan Lines/Catheters IV Catheter Type (from Nrs): Peripheral IV [place] in Place (from Nrsg): No Assessment/Plan Problems: (1) Toe gangrene (2) Acquired absence of right foot (3) End stage renal disease on dialysis Status: Acute (4) Non-pressure chronic ulcer of other part of right foot with necrosis of muscle (5) Peripheral vascular disease (6) Diabetes, polyneuropathy Assessment/Plan Plan: Amputation of right third toe today Subjective 24 Hr Interval Summary Patient was seen at bedside. Patient is in no acute distress. Denies overnight adverse events. Denies fever, chills, nausea or vomiting. Denies recent trauma. Constitutional: no complaints Pain Control: well controlled Exam/Review of Systems Vital Signs Vitals Vital Signs Date Temp Pulse Resp B/P (MAP) Pulse Ox O2 O2 Flow FiO2 Time Delivery Rate 08/18/18 98.6 89 19 141/74 95 Room Air 05:30 (96) Intake and Output 08/17/18 08/17/18 08/18/18 1515:00 23:00 07:00 IntakeIntake Total 50 ml 260 ml 720 ml BalanceBalance 50 ml 260 ml 720 ml Exam Free Text/Dictation Open wound right lateral foot; dry; no pus and no bleeding Patient is s/p right foot 5th and 4th toe amputations Right third toe gangrene Non palpable pedal pulses; s/p recent lower extremity arterial intervention by Dr. Guerin No other changes Labs reviewed Results Result Diagram: 08/17/18 0951 08/17/18 0951 SHEYLA IZAGUIRRE DPM Aug 18, 2018 07:19
--- NOTE | 2018-08-18 07:21 | HPN ---
Date/Time of Note Date/Time of Note DATE: 08/18/18 TIME: 07:21 Interval H&P Admission Note Pt. seen H&P reviewed: No system changes SHEYLA IZAGUIRRE DPM Aug 18, 2018 07:21
--- NOTE | 2018-08-18 07:21 | PREAC ---
Date/Time of Note Date/Time of Note DATE: 08/18/18 TIME: 07:18 Anesthesia Eval and Record Evaluation Time Pre-Procedure Interview DATE: 08/18/18 TIME: 07:18 Age 47 Sex male NPO: 8 hrs Preoperative diagnosis R foot third toe diabetic foot ulcer Planned procedure R foot third toe amputation Past Medical History Past Medical History: Includes Cardio: HTN, Dyslipidemia, NH, CAD, PTCA/Stent, CHF Endo: Diabetes Renal: ESRD on dialysis, HD last: (Monday (08/17/18)), Other Heme: Anemia Surgery & Anesthesia Issues No known issue Meds Anticoagulation: No Beta Ramsey within 24 hr: No Reason Beta Ramsey not given: Pt. not on B-Ramsey Reported Medications Hydrocodone/Acetaminophen ([place] 7.5-325 Tablet) 1 Each Tablet, 1 EACH PO BID, TAB 08/09/18 Minoxidil* (Lonitin*) 10 Mg Tab, 10 MG PO BID, TAB 08/09/18 Temazepam* (Temazepam*) 30 Mg Capsule, 30 MG PO HS PRN for INSOMNIA, CAP 08/09/18 Cetirizine Hcl* (Cetirizine Hcl*) 10 Mg Tablet, 10 MG PO DAILY, #30 TAB 08/09/18 Lisinopril* (Lisinopril*) 40 Mg Tablet, 40 MG PO DAILY, #30 TAB 08/09/18 Calcium Acetate* (Calcium Acetate*) 667 Mg Capsule, 1334 MG PO WITH MEALS, #60 CAP 08/09/18 Pentoxifylline* (Pentoxifylline*) 400 Mg Tablet.sa, 400 MG PO WITH MEALS, TAB 08/09/18 Clonidine Hcl* (Clonidine Hcl*) 0.3 Mg Tablet, 0.3 MG PO Q6H PRN for HTN, TAB 08/09/18 Docusate Sodium (Col-Rite) 100 Mg Capsule, 100 MG PO BID, CAP 08/09/18 Current Medications Vancomycin HCl (Vanco Iv Per Pharmacy) VANCOMYCIN PER PHARMACY PER PROTOCOL XX ; Start 08/10/18 at 02:00 Acetaminophen (Tylenol Tab) 650 mg Q6H PRN PO MILD PAIN(1-3)OR ELEVATED TEMP; Start 08/10/18 at 02:00 Ondansetron HCl (Zofran Inj) 4 mg Q6H PRN IV NAUSEA AND/OR VOMITING Last administered on 08/17/18 13:18; Admin Dose 4 MG; Start 08/10/18 at 02:00 Calcium Acetate (Phoslo) 1,334 mg WITH MEALS PO Last administered on 08/17/18 19:00; Admin Dose 1,334 MG; Start 08/10/18 at 08:00 Clonidine (Catapres) 0.3 mg Q6H PRN PO FOR SBP ABOVE 170; Start 08/10/18 at 02:00 Docusate Sodium (Colace) 100 mg BID PO Last administered on 08/17/18 20:52; Admin Dose 100 MG; Start 08/10/18 at 09:00 Acetaminophen/ Hydrocodone Bitart ([place] (7.5-325)) 1 tab BID PRN PO PAIN; Start 08/10/18 at 02:00 Lisinopril (Zestril) 40 mg DAILY PO Last administered on 08/17/18 09:34; Admin Dose 40 MG; Start 08/10/18 at 09:00 Minoxidil (Loniten) 10 mg BID PO Last administered on 08/17/18 20:53; Admin Dose 10 MG; Start 08/10/18 at 09:00 Pentoxifylline (Trental) 400 mg WITH MEALS PO Last administered on 08/17/18 19:00; Admin Dose 400 MG; Start 08/10/18 at 08:00 Zolpidem Tartrate (Ambien) 5 mg HS MAY REPEAT X 1 PRN PO INSOMNIA; Start 08/10/18 at 02:00 Hydroxyzine HCl (Atarax) 25 mg BID PRN PO ITCHING Last administered on 08/10/18 19:21; Admin Dose 25 MG; Start 08/10/18 at 06:30 Miscellaneous Information 1 ea NOTE XX ; Start 08/10/18 at 07:00 Glucose (Glutose) 15 gm Q15M PRN PO DECREASED GLUCOSE; Start 08/10/18 at 07:00 Glucose (Glutose) 22.5 gm Q15M PRN PO DECREASED GLUCOSE; Start 08/10/18 at 07:00 Dextrose (D50w Syringe) 25 ml Q15M PRN IV DECREASED GLUCOSE; Start 08/10/18 at 07:00 Dextrose (D50w Syringe) 50 ml Q15M PRN IV DECREASED GLUCOSE; Start 08/10/18 at 07:00 Glucagon (Glucagen) 1 mg Q15M PRN IM DECREASED GLUCOSE; Start 08/10/18 at 07:00 Glucose (Glutose) 15 gm Q15M PRN BUCCAL DECREASED GLUCOSE; Start 08/10/18 at 07:00 Epoetin Adi (Epogen (Esrd)) 4,000 units TuThSa@17 SC Last administered on 08/16/18 20:03; Admin Dose 4,000 UNITS; Start 08/11/18 at 17:00 Lidocaine (Xylocaine 2% Jelly) 1 applic BEDSIDE MEDICATION PRN TOP PAIN LEVEL 1-5 Last administered on 08/16/18 15:15; Admin Dose 1 APPLIC; Start 08/10/18 at 13:30 Morphine Sulfate (morphine) 2 mg Q4H PRN IV SEVERE PAIN LEVEL 7-10 Last administered on 08/18/18 04:09; Admin Dose 2 MG; Start 08/10/18 at 13:30 Heparin Sodium (Porcine) (Heparin (5000 Units/1ml)) 5,000 unit BID SC Last administered on 08/14/18 09:33; Admin Dose 5,000 UNIT; Start 08/10/18 at 21:00; Status Hold Pantoprazole (Protonix Tab) 40 mg DAILY@06 PO Last administered on 08/17/18 05:17; Admin Dose 40 MG; Start 08/10/18 at 14:00 Amlodipine Besylate (Norvasc) 10 mg DAILY PO Last administered on 08/17/18 09:34; Admin Dose 10 MG; Start 08/11/18 at 15:00 Ceftriaxone Sodium 50 ml @ 100 mls/hr Q24H IVPB Last administered on 08/17/18 13:22; Admin Dose 100 MLS/HR; Start 08/13/18 at 12:30 Loratadine (Claritin) 10 mg DAILY PO Last administered on 08/17/18 09:33; Admin Dose 10 MG; Start 08/13/18 at 12:30 Diphenhydramine HCl (Benadryl) 25 mg Q4H PRN IV ITCHING Last administered on 08/18/18 04:08; Admin Dose 25 MG; Start 08/14/18 at 14:30 Triamcinolone Acetonide (Kenalog 0.1% Cr) 1 applic TID TOP Last administered on 3/15/19at 20:54; Admin Dose 1 APPLIC; Start 08/15/18 at 13:00 Vancomycin HCl 250 ml @ 125 mls/hr Q96H IVPB Last administered on 08/16/18at 08:40; Admin Dose 125 MLS/HR; Start 08/16/18 at 09:00 Diagnostic Test (Pha) (Accu-Chek) 1 ea 02 XX ; Start 08/16/18 at 02:00 Insulin Aspart (Novolog Insulin Pen) NOVOLOG *MILD* ALGORITHM WITH MEALS BEDTIME SC ; Start 08/15/18 at 21:00; Status Hold Dextrose/Sodium Chloride 1,000 ml @ 40 mls/hr Q24H IV Last administered on 08/17/18at 23:25; Admin Dose 40 MLS/HR; Start 08/18/18 at 00:00 Insulin Aspart (Novolog Insulin Pen) NOVOLOG *MILD* ALGORI... Q4 SC ; Start 08/18/18 at 05:00 Meds reviewed: Yes Allergies Coded Allergies: No Known Allergy (Unverified , 08/09/18) Allergies Reviewed: Yes Labs/Studies Labs Reviewed: Reviewed by anesthesiologist Result Diagram: 08/17/18 0951 08/17/18 0951 Laboratory Tests 08/17/18 09:51 test: N/A Studies: CXR Pre-procedure Exam Last vitals Vital Signs Date Temp Pulse Resp B/P (MAP) Pulse Ox O2 O2 Flow FiO2 Time Delivery Rate 08/18/18 98.6 89 19 141/74 95 Room Air 05:30 (96) Airway: Adequate mouth opening, Adequate thyromental dist Mallampati: Mallampati II Teeth: Normal Lung: Normal Heart: Normal Anticipated Difficutly with IV: Anticipate Difficult IV Access ASA Physical Status ASA physical status: 3 Emergency: None Planned Anesthetic General/MAC: MAC, Other (GA BACKUP) Planned Pain Management Local by surgeon Pre-operative Attestations Prior to commencing anesthesia and surgery, the patient was re-evaluated, there was verification of: *The patient's identity *The results of appropriate recent lab work and preoperative vital signs *The above evaluation not changing prior to induction *Anesthetic plan, risk benefits, alternative and complications discussed with patient/family; questions answered; patient/family understands, accepts and wishes to proceed. MEGHAN JOHNSON MD Aug 18, 2018 07:21
[2018-08-18] MEDS ORDERED: ONDANSETRON 4 MG INJ ONE (08:11)
[2018-08-18] MEDS ORDERED: EPHEDrine SULFATE 50 MG/5 ML SYG IV PRN (08:30)
[2018-08-18] MEDS ORDERED: HYDROmorphONE 1 MG/5 ML IV SYRINGE IV PRN ×2 (08:30)
[2018-08-18] MEDS ORDERED: FENTAnyl 50 MCG/ML VIAL IV PRN ×2 (08:30)
[2018-08-18] MEDS ORDERED: ONDANSETRON 4 MG INJ IV PRN (08:30)
--- NOTE | 2018-08-18 08:32 | SIPON ---
Date/Time of Note Date/Time of Note DATE: 08/18/18 TIME: 08:30 Operative Report Preoperative Diagnosis gangrene right third toe peripheral vascular disease; severe multiple open wounds of lower extremity s/p multiple toe amputations of the right foot s/p below the knee amputation left lower extremity Postoperative Diagnosis gangrene right third toe peripheral vascular disease; severe multiple open wounds of lower extremity s/p multiple toe amputations of the right foot s/p below the knee amputation left lower extremity Operation/Procedure Performed amputation of right third toe; open application of wound VAC right foot Surgeon see signature line statistical assistant none Anesthesia: MAC Estimated blood loss: minimal Transfusion Required none Specimen right third toe and necrotic soft tissue Grafts/Implants none Complications none SHEYLA IZAGUIRRE DPM Aug 18, 2018 08:32
--- NOTE | 2018-08-18 08:32 | OPR ---
Date/Time of Note Date/Time of Note DATE: 08/18/18 TIME: 08:32 Operative Report Procedure Date: Aug 18, 2018 Preoperative Diagnosis Right foot third toe gangrene Multiple open wounds of the right foot Peripheral vascular disease Peripheral neuropathy Postoperative Diagnosis Right foot third toe gangrene Multiple open wounds of the right foot Peripheral vascular disease Peripheral neuropathy Operation/Procedure Performed Right third toe amputation Application of wound VAC to the right foot Surgeon see signature line Business Law Teacher None Anesthesia Type: MAC Estimated Blood Loss: minimal Transfusion none Specimen Right third gangrenous toe Grafts/Implants none Complications none Pt Condition Post Procedure: stable Disposition: PACU Indications This is a pleasant 47-year-old male patient who has been suffering with severe peripheral vascular disease, diabetes mellitus, end-stage renal disease on hem odialysis, open wounds of the right lower extremity, history of right foot fourth and fifth ray amputation, with recent lower extremity arterial intervention and gangrenous changes to right third toe and possibly fourth. Recommended procedure is primary rotation of the right third toe with application of wound VAC. Risks and complications of this type of surgery was discussed with patient in great detail. Risks and complications discussed include, but are not limited to, postoperative infection, postoperative pain, chronic pain and disability, hardware failure, malunion, nonunion, delayed union, failure of surgery to correct the problem, need for additional surgical procedures, toenail changes, onychomycosis, deep venous thrombosis, gait disturbance, problems with shoegear, limitation of activities, limb loss and loss of life. Advised patient that he may require more proximal amputation secondary to complications of his chronic diseases. Patient understands the discussion and agrees to the procedure. An informed consent was obtained, signed and placed in the chart. No guarantee or warrantee was given or implied as to the outcome of the procedure either in verbal or written form. Procedure Description The patient was seen in the preoperative unit. The proposed surgery was discussed with patient in great detail. Risks and complications of this type of surgery was discussed with patient in great detail. Opportunity was given to patient to ask questions and all questions were answered. The patient acknowledges understanding of the discussion. An informed consent was then obtained, signed and placed in the chart. Patient was taken to the operating room and was placed on the operating table in the supine position. All bony prominences were padded properly. A timeout was called by the circulating nurse. Everyone in the operating room was agreeable to the timeout. The patient was then placed under monitored anesthesia care and local anesthesia by the anesthesiologist. The right lower extremity was scrubbed,l prepped, and draped in the usual aseptic manner. Attention was directed to the right foot. The right third, second and part of the hallux was found to be necrotic with mostly third toe being gangrenous. A #15 blade was used to make an incision around the third toe MPJ area and the toe was disarticulated. The toe was passed to the back table. Necrotic soft tissue and bone was cut and passed to the back table. The wound was flushed with copious amounts of sterile normal saline. There was minimal bleeding present and bleeders were cauterized as necessary. A wound VAC was applied to the right foot and set to 125mmHg suction continuous. Injection was given: 20 cc 0.5% Marcaine plain into the right ankle using aseptic technique. Sterile dressing was applied. The patient tolerated procedure and anesthesia well. The patient was transferred to the recovery room with vital signs stable and vascular status intact to right lower extremity. The patient will be sent back to the floor after postoperative monitoring. Postoperative orders were written. Patient will be followed up in-house. SHEYLA IZAGUIRRE DPM Aug 18, 2018 08:32
[2018-08-18] MEDS ORDERED: ALBUMIN HUMAN 5% 250 ML IV STA (08:46)
[2018-08-18] MEDS: DOCUSATE SODIUM 100 MG CAP PO SCH ×2 (09:52→20:42)
[2018-08-18] MEDS: CALCIUM ACETATE 667 MG CAP PO SCH ×3 (09:52→17:46)
[2018-08-18] MEDS: LORATADINE 10 MG TAB PO SCH (09:52)
[2018-08-18] MEDS: PENTOXIFYLLINE (SR) 400 MG TAB PO SCH ×3 (09:52→18:27)
[2018-08-18] MEDS: TRIAMCINOLONE ACET 0.1% 15 GM CR TOP SCH ×3 (09:53→20:44)
--- NOTE | 2018-08-18 10:09 | PAC ---
Date/Time of Note Date/Time of Note DATE: 08/18/18 TIME: 09:35 Post-Anesthesia Notes Post-Anesthesia Note Last documented vital signs Vital Signs Date Temp Pulse Resp B/P (MAP) Pulse Ox O2 O2 Flow FiO2 Time Delivery Rate 08/18/18 98.0 100 16 114/63 94 Nasal 1.0 09:30 (80) Cannula Activity: WNL Respiratory function: WNL Cardiovascular function: WNL Mental status: Baseline Pain reasonably controlled: Yes Hydration appropriate: Yes Nausea/Vomiting absent: Yes MEGHAN JOHNSON MD Aug 18, 2018 10:09
[2018-08-18] MEDS: LIDOCAINE 2% JELLY 5 ML TOP PRN (10:26)
--- NOTE | 2018-08-18 10:28 | PN ---
Date/Time of Note Date/Time of Note DATE: 08/18/18 TIME: 10:28 Assessment/Plan VTE Prophylaxis Risk score (from Ns)>0 risk: 4 SCD applied (from Ns): No SCD contraindicated: bilateral amputee Pharmacological prophylaxis: heparin Lines/Catheters IV [facility] Saline Lock Urinary Cath still in place: No Assessment/Plan Hospital Course 1. Wet gangrene of 3rd toe on the right foot. S/p amputation of right third toe 08/18/2018 2. S/p amputation of the fourth and fifth rays through the proximal shafts of the fourth and fifth metatarsals right foot. 3. Cellulitis with deep soft tissue ulcer over the lateral base of the fifth metatarsal with mild periosteal reaction along the lateral shaft of the fifth metatarsal that may be due to osteomyelitis of the right foot, per X-ray right foot. 4. End-stage renal disease on hemodialysis Monday, and Monday 5. Normocytic normochromic anemia, hx of anemia of chronic disease with EGD 10/05 with esophageal ulceration. Colonoscopy was done 09/03/15 for active bleeding. 6. Hypertension, controlled. 7. Diabetes mellitus type II, not controlled well. last hg A1 C 7,5. 8. Coronary artery disease status post 4 stents. 9. Left below-knee amputation, s/p revision. 10. Diastolic CHF 11. Hx of hematoma of abdomen. Numerous surgical procedures, inc. biopsy, drainage, exploratory laparotomy 2014 12. pt did not have cholecystectomy, apparently due to many surgical scars on abdomen, pt mentioned it 13. hx of tracheostomy 14. hx of positive troponin past. 15. s/p abdominal stents removal by dr Guy 16. S/p balloon angioplasty right superficial femoral artery and popliteal art alycia using 6 x [address] Guerin Assessment/Plan -Status post atherectomy and balloon angioplasty of the right superficial femoral artery and popliteal artery today patient will need to be on Plavix, after the surgery. Monday -HD Monday -Follow-up vascular/podiatry recommendations -Continue with Rocephin/vancomycin -Benadryl/morphine -Culture negative so far -cw with lisinopril/Norvasc/monoxidil - cw Epogen - GI/DVT prophylaxis Result Diagram: 08/17/1851 08/17/1851 Results 24hrs Laboratory Tests Test 08/17/18 13:17 08/17/18 17:51 08/17/18 20:52 08/18/18 05:28 Bedside Glucose 80 83 129 98 Test 08/18/18 08:37 08/18/18 09:51 Bedside Glucose 114 80 Subjective 24 Hr Interval Summary Constitutional: improved Exam/Review of Systems Exam Vitals Vital Signs Date Temp Pulse Resp B/P (MAP) Pulse Ox O2 O2 Flow FiO2 Time Delivery Rate 08/18/18 97.9 115 17 174/71 94 Room Air 10:10 (105) 08/18/18 1.0 09:30 Intake and Output 08/17/18 08/17/18 08/18/18 1515:00 23:00 07:00 IntakeIntake Total 50 ml 260 ml 720 ml BalanceBalance 50 ml 260 ml 720 ml Constitutional: alert, oriented Neck: supple Respiratory: clear to auscultation Musculoskeletal: joint tenderness (rigth foot with wound vac), other (left BKA) Results Results 24hrs Laboratory Tests Test 08/17/18 13:17 08/17/18 17:51 08/17/18 20:52 08/18/18 05:28 Bedside Glucose 80 83 129 98 Test 08/18/18 08:37 08/18/18 09:51 Bedside Glucose 114 80 Medications Medication Current Medications Vancomycin HCl (Vanco Iv Per Pharmacy) VANCOMYCIN PER PHARMACY PER PROTOCOL XX ; Start 08/10/18 at 02:00 Acetaminophen (Tylenol Tab) 650 mg Q6H PRN PO MILD PAIN(1-3)OR ELEVATED TEMP; Start 08/10/18 at 02:00 Ondansetron HCl (Zofran Inj) 4 mg Q6H PRN IV NAUSEA AND/OR VOMITING Last administered on 08/17/18at 13:18; Admin Dose 4 MG; Start 08/10/18 at 02:00 Calcium Acetate (Phoslo) 1,334 mg WITH MEALS PO Last administered on 08/18/18at 09:52; Admin Dose 1,334 MG; Start 08/10/18 at 08:00 Clonidine (Catapres) 0.3 mg Q6H PRN PO FOR SBP ABOVE 170; Start 08/10/18 at 02:00 Docusate Sodium (Colace) 100 mg BID PO Last administered on 08/18/18 09:52; Admin Dose 100 MG; Start 08/10/18 at 09:00 Acetaminophen/ Hydrocodone Bitart ([place] (7.5-325)) 1 tab BID PRN PO PAIN; Start 08/10/18 at 02:00 Lisinopril (Zestril) 40 mg DAILY PO Last administered on 08/17/18 09:34; Admin Dose 40 MG; Start 08/10/18 at 09:00 Minoxidil (Loniten) 10 mg BID PO Last administered on 08/17/18 20:53; Admin Dose 10 MG; Start 08/10/18 at 09:00 Pentoxifylline (Trental) 400 mg WITH MEALS PO Last administered on 08/18/18 09:52; Admin Dose 400 MG; Start 08/10/18 at 08:00 Zolpidem Tartrate (Ambien) 5 mg HS MAY REPEAT X 1 PRN PO INSOMNIA; Start 08/10/18 at 02:00 Hydroxyzine HCl (Atarax) 25 mg BID PRN PO ITCHING Last administered on 08/10/18 19:21; Admin Dose 25 MG; Start 08/10/18 at 06:30 Miscellaneous Information 1 ea NOTE XX ; Start 08/10/18 at 07:00 Glucose (Glutose) 15 gm Q15M PRN PO DECREASED GLUCOSE; Start 08/10/18 at 07:00 Glucose (Glutose) 22.5 gm Q15M PRN PO DECREASED GLUCOSE; Start 08/10/18 at 07:00 Dextrose (D50w Syringe) 25 ml Q15M PRN IV DECREASED GLUCOSE; Start 08/10/18 at 07:00 Dextrose (D50w Syringe) 50 ml Q15M PRN IV DECREASED GLUCOSE; Start 08/10/18 at 07:00 Glucagon (Glucagen) 1 mg Q15M PRN IM DECREASED GLUCOSE; Start 08/10/18 at 07:00 Glucose (Glutose) 15 gm Q15M PRN BUCCAL DECREASED GLUCOSE; Start 08/10/18 at 07:00 Epoetin Adi (Epogen (Esrd)) 4,000 units TuThSa@17 SC Last administered on 08/16/18 20:03; Admin Dose 4,000 UNITS; Start 08/11/18 at 17:00 Lidocaine (Xylocaine 2% Jelly) 1 applic BEDSIDE MEDICATION PRN TOP PAIN LEVEL 1-5 Last administered on 08/18/18 10:26; Admin Dose 1 APPLIC; Start 08/10/18 at 13:30 Morphine Sulfate (morphine) 2 mg Q4H PRN IV SEVERE PAIN LEVEL 7-10 Last administered on 08/18/18 10:24; Admin Dose 2 MG; Start 08/10/18 at 13:30 Heparin Sodium (Porcine) (Heparin (5000 Units/1ml)) 5,000 unit BID SC Last administered on 08/14/18 09:33; Admin Dose 5,000 UNIT; Start 08/10/18 at 21:00; Status Hold Pantoprazole (Protonix Tab) 40 mg DAILY@06 PO Last administered on 08/17/18 05:17; Admin Dose 40 MG; Start 08/10/18 at 14:00 Amlodipine Besylate (Norvasc) 10 mg DAILY PO Last administered on 08/17/18 09:34; Admin Dose 10 MG; Start 08/11/18 at 15:00 Ceftriaxone Sodium 50 ml @ 100 mls/hr Q24H IVPB Last administered on 08/17/18 13:22; Admin Dose 100 MLS/HR; Start 08/13/18 at 12:30 Loratadine (Claritin) 10 mg DAILY PO Last administered on 08/18/18 09:52; Admin Dose 10 MG; Start 08/13/18 at 12:30 Diphenhydramine HCl (Benadryl) 25 mg Q4H PRN IV ITCHING Last administered on 08/18/18 08:51; Admin Dose 25 MG; Start 08/14/18 at 14:30 Triamcinolone Acetonide (Kenalog 0.1% Cr) 1 applic TID TOP Last administered on 08/18/18 09:53; Admin Dose 1 APPLIC; Start 08/15/18 at 13:00 Vancomycin HCl 250 ml @ 125 mls/hr Q96H IVPB Last administered on 08/16/18 08:40; Admin Dose 125 MLS/HR; Start 08/16/18 at 09:00 Diagnostic Test (Pha) (Accu-Chek) 1 ea 02 XX ; Start 08/16/18 at 02:00 Insulin Aspart (Novolog Insulin Pen) NOVOLOG *MILD* ALGORITHM WITH MEALS BEDTIME SC ; Start 08/15/18 at 21:00; Status Hold Hydromorphone HCl (Dilaudid) 0.2 mg PACU PRN IV MILD PAIN 1-3; Start 08/18/18 at 08:30; Stop 08/18/18 at 12:30 Hydromorphone HCl (Dilaudid) 0.4 mg PACU PRN IV MOD PAIN 4-6; Start 08/18/18 at 08:30; Stop 08/18/18 at 12:30 Fentanyl (Sublimaze) 25 mcg PACU ORDER PRN IV MILD PAIN 1-3; Start 08/18/18 at 0 8:30; Stop 08/18/18 at 12:30 Fentanyl (Sublimaze) 50 mcg PACU ORDER PRN IV MOD PAIN 4-6; Start 08/18/18 at 08:30; Stop 08/18/18 at 12:30 Ondansetron HCl (Zofran Inj) 4 mg PACU ORDER PRN IV NAUSEA/VOMITING; Start 08/18/18 at 08:30; Stop 08/18/18 at 12:30 Ephedrine Sulfate 5 mg PACU ORDER PRN IV BLOOD PRESSURE SUPPORT Last administered on 08/18/18at 08:51; Admin Dose 5 MG; Start 08/18/18 at 08:30; Stop 08/18/18 at 12:30 PATRICIA RIVAS 16, 2019 10:28
[2018-08-18] MEDS: BISACODYL 10 MG SUPP PR ONE ×2 (11:30→15:18)
[2018-08-18] MEDS: CEFTRIAXONE 1 GM/50 ML (PMX) 50 ML IVPB SCH (15:14)
[2018-08-18] MEDS: MINOXIDIL 10 MG TAB PO SCH ×2 (15:14→22:55)
[2018-08-18] MEDS: AMLODIPINE 10 MG TAB PO SCH (15:14)
[2018-08-18] MEDS: LISINOPRIL 20 MG TAB PO SCH (15:15)
--- NOTE | 2018-08-18 16:30 | CONS ---
Assessment/Plan Assessment/Plan Hospital Course (Demo Recall) ID PROGRESS NOTE CURRENT ABX: DAY # Vanco IV + Ceftriaxone 08/18/18 1449 08/18/18 1449 24H INTERVAL SUMMARY * POD #0-> s/p RIGHT 3 RD TOE AMPUTATION-> PT HAS WOUND VAC ON WITH 125 MM[facility] * Patient is resting post op today, no fevers, VSS, NAD, chart reviewed DIAGNOSTIC IMAGING * 08/18/18 RIGHT FOOT CX: IMPRESSION: * 1. Lateral skin ulceration at the midfoot near probable osteomyelitis of a slightly fragmented residual fifth metatarsal base. * 2. Suspect erosion along the lateral margin of the second metatarsal head that may reflect osteomyelitis. * 3. Amputation of the third, fourth, and fifth digits as well as the distal metatarsals. * 4. Consider MRI for more sensitive evaluation as clinically warranted. MICRO/OTHER * 08/10/18 (-)MRSA nares * 08/09/18 BCX (-) PHYSICAL EXAMINATION: GENERAL: VSS HEENT: AT, NC, anicteric NECK: Supple, CHEST: Equal chest rise bilaterally, without dyspnea on observation HEART: Pulse RRR ABDOMEN: Soft / NT EXTREMITIES: Warm, dry / S/P RIGHT 3 RD TOE AMPUTATION .PT HAS WOUND VAC ON WITH 125 MM[facility] * left below-knee amputation with dry scalp on the knee as well as on the stump itself. SKIN: No rash, no diaphoresis ID ASSESSMENT 47 yo M admit with: 1. Right foot diabetic ulceration, possible osteomyelitis * POD #0-> s/p RIGHT 3 RD TOE AMPUTATION-> PT HAS WOUND VAC ON WITH 125 [facility] 2. End-stage renal disease, hemodialysis dependent 3. Diffuse rash==> neg scabies 4. Severe peripheral arterial disease status post left below-knee amputation==s/p balloon angioplasty 08/15/18 5. Coronary artery disease status post cardiac stent 6. Hypertension ABX ALLERGIES: None to ABX INVASIVES: PIV CURRENT ABX: DAY # Vanco IV + Ceftriaxone ID RECOMMENDATIONS/PLAN: 1. Continue current ABX . Consultation Date/Type/Reason Admit Date/Time Aug 09, 2018 at 22:42 Initial Consult Date 08/11/18 Date/Time of Note DATE: 08/18/18 TIME: 16:29 Exam/Review of Systems Exam Vitals Vital Signs Date Temp Pulse Resp B/P (MAP) Pulse Ox O2 O2 Flow FiO2 Time Delivery Rate 08/18/18 98.2 101 18 123/77 99 Room Air 15:00 (92) 08/18/18 1.0 09:30 Intake and Output 08/17/18 08/17/18 08/18/18 1414:59 22:59 06:59 IntakeIntake Total 50 ml 260 ml 720 ml BalanceBalance 50 ml 260 ml 720 ml Results Result Diagram: 08/18/18 1449 08/18/18 1449 Results 24hrs Laboratory Tests Test 08/17/18 17:51 08/17/18 20:52 08/18/18 05:28 08/18/18 08:37 Bedside Glucose 83 129 98 114 Test 08/18/18 09:51 08/18/18 12:56 08/18/18 14:49 Bedside Glucose 80 151 White Blood Count 7.9 Red Blood Count 2.85 L Hemoglobin 8.0 L Hematocrit 25.6 L Mean Corpuscular 89.8 Volume Mean Corpuscular 28.1 L Hemoglobin Mean Corpuscular 31.3 L Hemoglobin Concent Red Cell 12.9 Distribution Width Platelet Count 130 #L Mean Platelet Volume 9.8 Immature 0.800 H Granulocytes % Neutrophils % 75.5 Lymphocytes % 8.7 L Monocytes % 6.7 Eosinophils % 8.0 H Basophils % 0.3 Nucleated Red Blood 0.0 Cells % Immature 0.060 H Granulocytes # Neutrophils # 6.0 Lymphocytes # 0.7 L Monocytes # 0.5 Eosinophils # 0.6 H Basophils # 0.0 Nucleated Red Blood 0.0 Cells # Sodium Level 139 Potassium Level 3.8 Chloride Level 102 Carbon Dioxide Level 26 Anion Gap 11 Blood Urea Nitrogen 15 Creatinine 3.62 #H Est Glomerular 22 L Filtrat Rate mL/min Glucose Level 161 Calcium Level 9.3 Medications Medication Current Medications Vancomycin HCl (Vanco Iv Per Pharmacy) VANCOMYCIN PER PHARMACY PER PROTOCOL XX ; Start 08/10/18 at 02:00 Acetaminophen (Tylenol Tab) 650 mg Q6H PRN PO MILD PAIN(1-3)OR ELEVATED TEMP; Start 08/10/18 at 02:00 Ondansetron HCl (Zofran Inj) 4 mg Q6H PRN IV NAUSEA AND/OR VOMITING Last administered on 08/17/18 13:18; Admin Dose 4 MG; Start 08/10/18 at 02:00 Calcium Acetate (Phoslo) 1,334 mg WITH MEALS PO Last administered on 08/18/18 12:57; Admin Dose 1,334 MG; Start 08/10/18 at 08:00 Clonidine (Catapres) 0.3 mg Q6H PRN PO FOR SBP ABOVE 170; Start 08/10/18 at 02:00 Docusate Sodium (Colace) 100 mg BID PO Last administered on 08/18/18 09:52; Admin Dose 100 MG; Start 08/10/18 at 09:00 Acetaminophen/ Hydrocodone Bitart ([place] (7.5-325)) 1 tab BID PRN PO PAIN; Start 08/10/18 at 02:00 Lisinopril (Zestril) 40 mg DAILY PO Last administered on 08/18/18 15:15; Admin Dose 40 MG; Start 08/10/18 at 09:00 Minoxidil (Loniten) 10 mg BID PO Last administered on 08/18/18 15:14; Admin Dose 10 MG; Start 08/10/18 at 09:00 Pentoxifylline (Trental) 400 mg WITH MEALS PO Last administered on 08/18/18 12:57; Admin Dose 400 MG; Start 08/10/18 at 08:00 Zolpidem Tartrate (Ambien) 5 mg HS MAY REPEAT X 1 PRN PO INSOMNIA; Start 08/10/18 at 02:00 Hydroxyzine HCl (Atarax) 25 mg BID PRN PO ITCHING Last administered on 08/10/18at 19:21; Admin Dose 25 MG; Start 08/10/18 at 06:30 Miscellaneous Information 1 ea NOTE XX ; Start 08/10/18 at 07:00 Glucose (Glutose) 15 gm Q15M PRN PO DECREASED GLUCOSE; Start 08/10/18 at 07:00 Glucose (Glutose) 22.5 gm Q15M PRN PO DECREASED GLUCOSE; Start 08/10/18 at 07:00 Dextrose (D50w Syringe) 25 ml Q15M PRN IV DECREASED GLUCOSE; Start 08/10/18 at 07:00 Dextrose (D50w Syringe) 50 ml Q15M PRN IV DECREASED GLUCOSE; Start 08/10/18 at 07:00 Glucagon (Glucagen) 1 mg Q15M PRN IM DECREASED GLUCOSE; Start 08/10/18 at 07:00 Glucose (Glutose) 15 gm Q15M PRN BUCCAL DECREASED GLUCOSE; Start 08/10/18 at 07:00 Epoetin Adi (Epogen (Esrd)) 4,000 units TuThSa@17 SC Last administered on 08/16/18 20:03; Admin Dose 4,000 UNITS; Start 08/11/18 at 17:00 Lidocaine (Xylocaine 2% Jelly) 1 applic BEDSIDE MEDICATION PRN TOP PAIN LEVEL 1-5 Last administered on 08/18/18 10:26; Admin Dose 1 APPLIC; Start 08/10/18 at 13:30 Morphine Sulfate (morphine) 2 mg Q4H PRN IV SEVERE PAIN LEVEL 7-10 Last administered on 08/18/18 15:19; Admin Dose 2 MG; Start 08/10/18 at 13:30 Heparin Sodium (Porcine) (Heparin (5000 Units/1ml)) 5,000 unit BID SC Last administered on 08/14/18 09:33; Admin Dose 5,000 UNIT; Start 08/10/18 at 21:00; Status Hold Pantoprazole (Protonix Tab) 40 mg DAILY@06 PO Last administered on 08/17/18 05:17; Admin Dose 40 MG; Start 08/10/18 at 14:00 Amlodipine Besylate (Norvasc) 10 mg DAILY PO Last administered on 08/18/18 15:14; Admin Dose 10 MG; Start 08/11/18 at 15:00 Ceftriaxone Sodium 50 ml @ 100 mls/hr Q24H IVPB Last administered on 08/18/18 15:14; Admin Dose 100 MLS/HR; Start 08/13/18 at 12:30 Loratadine (Claritin) 10 mg DAILY PO Last administered on 08/18/18 09:52; Admin Dose 10 MG; Start 08/13/18 at 12:30 Diphenhydramine HCl (Benadryl) 25 mg Q4H PRN IV ITCHING Last administered on 08/18/18 15:19; Admin Dose 25 MG; Start 08/14/18 at 14:30 Triamcinolone Acetonide (Kenalog 0.1% Cr) 1 applic TID TOP Last administered on 08/18/18at 13:01; Admin Dose 1 APPLIC; Start 08/15/18 at 13:00 Vancomycin HCl 250 ml @ 125 mls/hr Q96H IVPB Last administered on 08/16/18at 08:40; Admin Dose 125 MLS/HR; Start 08/16/18 at 09:00 Diagnostic Test (Pha) (Accu-Chek) 1 ea 02 XX ; Start 08/16/18 at 02:00 Insulin Aspart (Novolog Insulin Pen) NOVOLOG *MILD* ALGORITHM WITH MEALS BEDTIME SC Last administered on 08/18/18at 12:59; Admin Dose 1 UNIT; Start 08/15/18 at 21:00 PORSCHE SUÁREZ NP Aug 18, 2018 16:30
[2018-08-18] MEDS: EPOETIN 4000 UNITS/1 ML INJ (ESRD) SC SCH (17:50)
[2018-08-18] MEDS: MEROPENEM 500MG/50 ML (PMX) 50 ML IVPB SCH (22:54)
[2018-08-19 02:00] VITALS: BP 124/58; PULSE 109; RESP 18
[2018-08-19] MEDS: ACCU-CHEK XX SCH (02:00)
[2018-08-19] MEDS: morphine 2 MG INJ IV PRN ×5 (04:07→22:31)
[2018-08-19] MEDS: PANTOPRAZOLE (EC) 40 MG TAB PO SCH (05:59)
[2018-08-19] MEDS: INSULIN ASPART [NOVOLOG] 3 ML PEN SC SCH ×4 (08:00→21:00)
[2018-08-19 08:22] VITALS: BP 106/55; PULSE 100; RESP 16
[2018-08-19] MEDS: LISINOPRIL 20 MG TAB PO SCH (09:00)
[2018-08-19] MEDS: AMLODIPINE 10 MG TAB PO SCH (09:00)
[2018-08-19] MEDS: MINOXIDIL 10 MG TAB PO SCH ×2 (09:00→21:17)
[2018-08-19] MEDS: PENTOXIFYLLINE (SR) 400 MG TAB PO SCH ×3 (09:28→17:56)
[2018-08-19] MEDS: CALCIUM ACETATE 667 MG CAP PO SCH ×3 (09:28→17:56)
[2018-08-19] MEDS: LORATADINE 10 MG TAB PO SCH (09:29)
[2018-08-19] MEDS: DOCUSATE SODIUM 100 MG CAP PO SCH ×2 (09:30→21:17)
[2018-08-19] MEDS: TRIAMCINOLONE ACET 0.1% 15 GM CR TOP SCH ×3 (09:41→21:00)
--- NOTE | 2018-08-19 13:55 | CONS ---
Assessment/Plan Assessment/Plan Hospital Course (Demo Recall) ID PROGRESS NOTE CURRENT ABX: DAY # Vanco IV + MERREM s/p Ceftriaxone 08/18/18 1449 08/18/18 1449 24H INTERVAL SUMMARY POD #1-> s/p RIGHT 3 RD TOE AMPUTATION-> PT HAS WOUND VAC ON WITH 125 [facility] * Last night post operatively he spiked a fever > 103.+ -- I was called by the nurse and gave order to replace Ceftriaxone with MERREM * Today is he afebrile, no WBC ordered. DIAGNOSTIC IMAGING * 08/18/18 RIGHT FOOT CX: IMPRESSION: * 1. Lateral skin ulceration at the midfoot near probable osteomyelitis of a slightly fragmented residual fifth metatarsal base. * 2. Suspect erosion along the lateral margin of the second metatarsal head that may reflect osteomyelitis. * 3. Amputation of the third, fourth, and fifth digits as well as the distal metatarsals. * 4. Consider MRI for more sensitive evaluation as clinically warranted. MICRO/OTHER * 08/10/18 (-)MRSA nares * 08/09/18 BCX (-) PHYSICAL EXAMINATION: GENERAL: VSS HEENT: AT, NC, anicteric NECK: Supple, CHEST: Equal chest rise bilaterally, without dyspnea on observation HEART: Pulse RRR ABDOMEN: Soft / NT EXTREMITIES: Warm, dry / S/P RIGHT 3 RD TOE AMPUTATION .PT HAS WOUND VAC ON WITH 125 [facility] * left below-knee amputation with dry scalp on the knee as well as on the stump itself. SKIN: No rash, no diaphoresis ID ASSESSMENT 47 yo M admit with: 1. Right foot diabetic ulceration, possible osteomyelitis * POD #0-> s/p RIGHT 3 RD TOE AMPUTATION-> PT HAS WOUND VAC ON WITH 125 [facility] 2. End-stage renal disease, hemodialysis dependent 3. Diffuse rash==> neg scabies 4. Severe peripheral arterial disease status post left below-knee amputation==s/p balloon angioplasty 08/15/18 5. Coronary artery disease status post cardiac stent 6. Hypertension ABX ALLERGIES: None to ABX INVASIVES: PIV CURRENT ABX: DAY # Vanco IV + MERREM s/p Ceftriaxone ID RECOMMENDATIONS/PLAN: 1. Continue current ABX 2. Await micro if sent from 08/18/18 3. Last night post operatively he spiked a fever > 103.+ -- I was called by the nurse and gave order to replace Ceftriaxone with MERREM * Today is he afebrile, check WBC . Consultation Date/Type/Reason Admit Date/Time Aug 09, 2018 at 22:42 Initial Consult Date 08/11/18 Date/Time of Note DATE: 08/19/18 TIME: 13:52 Exam/Review of Systems Exam Vitals Vital Signs Date Temp Pulse Resp B/P (MAP) Pulse Ox O2 O2 Flow FiO2 Time Delivery Rate 08/19/18 98.4 100 16 106/55 97 08:22 (72) 08/18/18 Room Air 15:00 08/18/18 1.0 09:30 Intake and Output 08/18/18 08/18/18 08/19/18 1515:00 23:00 07:00 IntakeIntake Total 200 ml 650 ml 600 ml OutputOutput Total 2005 ml BalanceBalance -1805 ml 650 ml 600 ml Results Result Diagram: 08/18/18 1449 08/18/18 1449 Results 24hrs Laboratory Tests Test 08/18/18 14:49 08/18/18 17:46 08/18/18 20:37 08/18/18 22:01 White Blood Count 7.9 Red Blood Count 2.85 L Hemoglobin 8.0 L Hematocrit 25.6 L Mean Corpuscular 89.8 Volume Mean Corpuscular 28.1 L Hemoglobin Mean Corpuscular 31.3 L Hemoglobin Concent Red Cell 12.9 Distribution Width Platelet Count 130 #L Mean Platelet Volume 9.8 Immature 0.800 H Granulocytes % Neutrophils % 75.5 Lymphocytes % 8.7 L Monocytes % 6.7 Eosinophils % 8.0 H Basophils % 0.3 Nucleated Red Blood 0.0 Cells % Immature 0.060 H Granulocytes # Neutrophils # 6.0 Lymphocytes # 0.7 L Monocytes # 0.5 Eosinophils # 0.6 H Basophils # 0.0 Nucleated Red Blood 0.0 Cells # Sodium Level 139 Potassium Level 3.8 Chloride Level 102 Carbon Dioxide Level 26 Anion Gap 11 Blood Urea Nitrogen 15 Creatinine 3.62 #H Est Glomerular 22 L Filtrat Rate mL/min Glucose Level 161 Calcium Level 9.3 Bedside Glucose 119 93 Lactic Acid Level 1.2 Test 08/19/18 08:10 08/19/18 12:35 Bedside Glucose 132 87 Medications Medication Current Medications Vancomycin HCl (Vanco Iv Per Pharmacy) VANCOMYCIN PER PHARMACY PER PROTOCOL XX ; Start 08/10/18 at 02:00 Acetaminophen (Tylenol Tab) 650 mg Q6H PRN PO MILD PAIN(1-3)OR ELEVATED TEMP Last administered on 08/18/18at 20:42; Admin Dose 650 MG; Start 08/10/18 at 02:00 Ondansetron HCl (Zofran Inj) 4 mg Q6H PRN IV NAUSEA AND/OR VOMITING Last administered on 08/17/18 13:18; Admin Dose 4 MG; Start 08/10/18 at 02:00 Calcium Acetate (Phoslo) 1,334 mg WITH MEALS PO Last administered on 08/19/18 12:36; Admin Dose 1,334 MG; Start 08/10/18 at 08:00 Clonidine (Catapres) 0.3 mg Q6H PRN PO FOR SBP ABOVE 170; Start 08/10/18 at 02:00 Docusate Sodium (Colace) 100 mg BID PO Last administered on 08/19/18at 09:30; Admin Dose 100 MG; Start 08/10/18 at 09:00 Acetaminophen/ Hydrocodone Bitart ([place] (7.5-325)) 1 tab BID PRN PO PAIN; Start 08/10/18 at 02:00 Lisinopril (Zestril) 40 mg DAILY PO Last administered on 08/18/18at 15:15; Admin Dose 40 MG; Start 08/10/18 at 09:00 Minoxidil (Loniten) 10 mg BID PO Last administered on 08/18/18at 22:55; Admin Dose 10 MG; Start 08/10/18 at 09:00 Pentoxifylline (Trental) 400 mg WITH MEALS PO Last administered on 08/19/18 12:36; Admin Dose 400 MG; Start 08/10/18 at 08:00 Zolpidem Tartrate (Ambien) 5 mg HS MAY REPEAT X 1 PRN PO INSOMNIA; Start at 02:00 Hydroxyzine HCl (Atarax) 25 mg BID PRN PO ITCHING Last administered on 08/10/18at 19:21; Admin Dose 25 MG; Start 08/10/18 at 06:30 Miscellaneous Information 1 ea NOTE XX ; Start 08/10/18 at 07:00 Glucose (Glutose) 15 gm Q15M PRN PO DECREASED GLUCOSE; Start 08/10/18 at 07:00 Glucose (Glutose) 22.5 gm Q15M PRN PO DECREASED GLUCOSE; Start 08/10/18 at 07:00 Dextrose (D50w Syringe) 25 ml Q15M PRN IV DECREASED GLUCOSE; Start 08/10/18 at 07:00 Dextrose (D50w Syringe) 50 ml Q15M PRN IV DECREASED GLUCOSE; Start 08/10/18 at 07:00 Glucagon (Glucagen) 1 mg Q15M PRN IM DECREASED GLUCOSE; Start 08/10/18 at 07:00 Glucose (Glutose) 15 gm Q15M PRN BUCCAL DECREASED GLUCOSE; Start 08/10/18 at 07:00 Epoetin Adi (Epogen (Esrd)) 4,000 units TuThSa@17 SC Last administered on 08/18/18at 17:50; Admin Dose 4,000 UNITS; Start 08/11/18 at 17:00 Lidocaine (Xylocaine 2% Jelly) 1 applic BEDSIDE MEDICATION PRN TOP PAIN LEVEL 1-5 Last administered on 08/18/18 10:26; Admin Dose 1 APPLIC; Start 08/10/18 at 13:30 Morphine Sulfate (morphine) 2 mg Q4H PRN IV SEVERE PAIN LEVEL 7-10 Last administered on 08/19/18 12:20; Admin Dose 2 MG; Start 08/10/18 at 13:30 Heparin Sodium (Porcine) (Heparin (5000 Units/1ml)) 5,000 unit BID SC Last administered on 08/14/18 09:33; Admin Dose 5,000 UNIT; Start 08/10/18 at 21:00; Status Hold Pantoprazole (Protonix Tab) 40 mg DAILY@06 PO Last administered on 08/19/18 05:59; Admin Dose 40 MG; Start 08/10/18 at 14:00 Amlodipine Besylate (Norvasc) 10 mg DAILY PO Last administered on 08/18/18at 15:14; Admin Dose 10 MG; Start 08/11/18 at 15:00 Loratadine (Claritin) 10 mg DAILY PO Last administered on 08/19/18at 09:29; Admin Dose 10 MG; Start 08/13/18 at 12:30 Diphenhydramine HCl (Benadryl) 25 mg Q4H PRN IV ITCHING Last administered on 08/18/18at 23:50; Admin Dose 25 MG; Start 08/14/18 at 14:30 Triamcinolone Acetonide (Kenalog 0.1% Cr) 1 applic TID TOP Last administered on 08/19/18 09:41; Admin Dose 1 APPLIC; Start 08/15/18 at 13:00 Vancomycin HCl 250 ml @ 125 mls/hr Q96H IVPB Last administered on 08/16/18at 08:40; Admin Dose 125 MLS/HR; Start 08/16/18 at 09:00 Diagnostic Test (Pha) (Accu-Chek) 1 ea 02 XX ; Start 08/16/18 at 02:00 Insulin Aspart (Novolog Insulin Pen) NOVOLOG *MILD* ALGORITHM WITH MEALS BEDTIME SC Last administered on 08/18/18at 12:59; Admin Dose 1 UNIT; Start 08/15/18 at 21:00 Miscellaneous Information (* Miscellaneous Pharmacy Order) [facility] TO DOSE ONCE XX ; Start 08/18/18 at 22:00 Meropenem/Sodium Chloride 50 ml @ 100 mls/hr Q24H IVPB Last administered on 08/18/18at 22:54; Admin Dose 100 MLS/HR; Start 08/18/18 at 23:00 Miscellaneous Information (*Rx Drug Level Order Reminder*) RANDOM VANCO LEVEL... ONCE ONCE XX ; Start 08/20/18 at 05:00; Stop 08/20/18 at 05:01 PORSCHE SUÁREZ NP Aug 19, 2018 13:55
[2018-08-19 14:44] VITALS: BP 130/60; PULSE 99; RESP 16
--- NOTE | 2018-08-19 18:18 | PN ---
Date/Time of Note Date/Time of Note DATE: 08/19/18 TIME: 18:16 Assessment/Plan VTE Prophylaxis Risk score (from Nsg)>0 risk: 3 SCD applied (from Ns): No SCD contraindicated: DVT, other Pharmacological prophylaxis: other Lines/Catheters IV Catheter Type (from Nrs): [place] Urinary Cath still in place: No Assessment/Plan Hospital Course 1. Wet gangrene of 3rd toe on the right foot. 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 S/p amputation of the fourth and fifth rays through the proximal shafts of the fourth and fifth metatarsals right foot. 3. Cellulitis with deep soft tissue ulcer over the lateral base of the fifth metatarsal with mild periosteal reaction along the lateral shaft of the fifth metatarsal that may be due to osteomyelitis of the right foot, per Xray right foot. 4. End-stage renal disease on hemodialysis Monday, and Monday 5. Normocytic normochromic anemia, hx of anemia of chronic disease with EGD 11/01/17 with esophageal ulceration. Colonoscopy was done 09/03/15 for active bleeding. 6. Hypertension, controlled. 7. Diabetes mellitus type II, not controlled well. last hg A1 C 7,5. 8. Coronary artery disease status post 4 stents. 9. Left below-knee amputation, s/p revision. 10. Diastolic CHF 11. Hx of hematoma of abdomen. Numerous surgical procedures, inc. biopsy, drainage, exploratory laparotomy 2014 12. pt did not have cholecystectomy, apparently due to many surgical scars on abdomen, pt mentioned it 13. hx of tracheostomy 14. hx of positive troponin past. 15. s/p abdominal stents removal by dr Brooks moser hd per id [facility] [place]o Result Diagram: 08/18/18 1449 08/18/18 1449 Results 24hrs Laboratory Tests Test 08/18/18 20:37 08/18/18 22:01 08/19/18 08:10 08/19/18 12:35 Bedside Glucose 93 132 87 Lactic Acid Level 1.2 Test 08/19/18 17:54 Bedside Glucose 95 Subjective 24 Hr Interval Summary Subjective hx not possible: other (foot pain s/p fever) Gastrointestinal: no complaints Genitourinary: no complaints Exam/Review of Systems Exam Vitals Vital Signs Date Temp Pulse Resp B/P (MAP) Pulse Ox O2 O2 Flow FiO2 Time Delivery Rate 08/19/18 98.4 99 16 130/60 98 14:44 (83) 08/18/18 Room Air 15:00 08/18/18 1.0 09:30 Intake and Output 08/18/18 08/18/18 08/19/18 1515:00 23:00 07:00 IntakeIntake Total 200 ml 650 ml 600 ml OutputOutput Total 2005 ml BalanceBalance -1805 ml 650 ml 600 ml Cardiovascular: regular rate and rhythm, diastolic murmur Gastrointestinal: soft Extremities: edema (++) Results Results 24hrs Laboratory Tests Test 08/18/18 20:37 08/18/18 22:01 08/19/18 08:10 08/19/18 12:35 Bedside Glucose 93 132 87 Lactic Acid Level 1.2 Test 08/19/18 17:54 Bedside Glucose 95 Medications Medication Current Medications Vancomycin HCl (Vanco Iv Per Pharmacy) VANCOMYCIN PER PHARMACY PER PROTOCOL XX ; Start 08/10/18 at 02:00 Acetaminophen (Tylenol Tab) 650 mg Q6H PRN PO MILD PAIN(1-3)OR ELEVATED TEMP Last administered on 08/18/18at 20:42; Admin Dose 650 MG; Start 08/10/18 at 02:00 Ondansetron HCl (Zofran Inj) 4 mg Q6H PRN IV NAUSEA AND/OR VOMITING Last administered on 08/17/18at 13:18; Admin Dose 4 MG; Start 08/10/18 at 02:00 Calcium Acetate (Phoslo) 1,334 mg WITH MEALS PO Last administered on 08/19/18at 17:56; Admin Dose 1,334 MG; Start 08/10/18 at 08:00 Clonidine (Catapres) 0.3 mg Q6H PRN PO FOR SBP ABOVE 170; Start 08/10/18 at 02:00 Docusate Sodium (Colace) 100 mg BID PO Last administered on 08/19/18at 09:30; Admin Dose 100 MG; Start 08/10/18 at 09:00 Acetaminophen/ Hydrocodone Bitart ([place] (7.5-325)) 1 tab BID PRN PO PAIN; Start 08/10/18 at 02:00 Lisinopril (Zestril) 40 mg DAILY PO Last administered on 08/18/18at 15:15; Admin Dose 40 MG; Start 08/10/18 at 09:00 Minoxidil (Loniten) 10 mg BID PO Last administered on 08/18/18at 22:55; Admin Dose 10 MG; Start 08/10/18 at 09:00 Pentoxifylline (Trental) 400 mg WITH MEALS PO Last administered on 08/19/18at 17:56; Admin Dose 400 MG; Start 08/10/18 at 08:00 Zolpidem Tartrate (Ambien) 5 mg HS MAY REPEAT X 1 PRN PO INSOMNIA; Start 08/10/18 at 02:00 Hydroxyzine HCl (Atarax) 25 mg BID PRN PO ITCHING Last administered on 08/10/18at 19:21; Admin Dose 25 MG; Start 08/10/18 at 06:30 Miscellaneous Information 1 ea NOTE XX ; Start 08/10/18 at 07:00 Glucose (Glutose) 15 gm Q15M PRN PO DECREASED GLUCOSE; Start 08/10/18 at 07:00 Glucose (Glutose) 22.5 gm Q15M PRN PO DECREASED GLUCOSE; Start 08/10/18 at 07:00 Dextrose (D50w Syringe) 25 ml Q15M PRN IV DECREASED GLUCOSE; Start 08/10/18 at 07:00 Dextrose (D50w Syringe) 50 ml Q15M PRN IV DECREASED GLUCOSE; Start 08/10/18 at 07:00 Glucagon (Glucagen) 1 mg Q15M PRN IM DECREASED GLUCOSE; Start 08/10/18 at 07:00 Glucose (Glutose) 15 gm Q15M PRN BUCCAL DECREASED GLUCOSE; Start 08/10/18 at 07:00 Epoetin Adi (Epogen (Esrd)) 4,000 units TuThSa@17 SC Last administered on 08/18/18at 17:50; Admin Dose 4,000 UNITS; Start 08/11/18 at 17:00 Lidocaine (Xylocaine 2% Jelly) 1 applic BEDSIDE MEDICATION PRN TOP PAIN LEVEL 1-5 Last administered on 08/18/18at 10:26; Admin Dose 1 APPLIC; Start 08/10/18 at 13:30 Morphine Sulfate (morphine) 2 mg Q4H PRN IV SEVERE PAIN LEVEL 7-10 Last administered on 08/19/18 12:20; Admin Dose 2 MG; Start 08/10/18 at 13:30 Heparin Sodium (Porcine) (Heparin (5000 Units/1ml)) 5,000 unit BID SC Last administered on 08/14/18 09:33; Admin Dose 5,000 UNIT; Start 08/10/18 at 21:00; Status Hold Pantoprazole (Protonix Tab) 40 mg DAILY@06 PO Last administered on 08/19/18 05:59; Admin Dose 40 MG; Start 08/10/18 at 14:00 Amlodipine Besylate (Norvasc) 10 mg DAILY PO Last administered on 08/18/18 15:14; Admin Dose 10 MG; Start 08/11/18 at 15:00 Loratadine (Claritin) 10 mg DAILY PO Last administered on 08/19/18 09:29; Admin Dose 10 MG; Start 08/13/18 at 12:30 Diphenhydramine HCl (Benadryl) 25 mg Q4H PRN IV ITCHING Last administered on 08/18/18 23:50; Admin Dose 25 MG; Start 08/14/18 at 14:30 Triamcinolone Acetonide (Kenalog 0.1% Cr) 1 applic TID TOP Last administered on 08/19/18 17:56; Admin Dose 1 APPLIC; Start 08/15/18 at 13:00 Vancomycin HCl 250 ml @ 125 mls/hr Q96H IVPB Last administered on 08/16/18 08:40; Admin Dose 125 MLS/HR; Start 08/16/18 at 09:00 Diagnostic Test (Pha) (Accu-Chek) 1 ea 02 XX ; Start 08/16/18 at 02:00 Insulin Aspart (Novolog Insulin Pen) NOVOLOG *MILD* ALGORITHM WITH MEALS BEDTIME SC Last administered on 08/18/18 12:59; Admin Dose 1 UNIT; Start 08/15/18 at 21:00 Miscellaneous Information (* Miscellaneous Pharmacy Order) [facility] TO DOSE ONCE XX ; Start 08/18/18 at 22:00 Meropenem/Sodium Chloride 50 ml @ 100 mls/hr Q24H IVPB Last administered on 08/18/18 22:54; Admin Dose 100 MLS/HR; Start 08/18/18 at 23:00 Miscellaneous Information (*Rx Drug Level Order Reminder*) RANDOM VANCO LEVEL... ONCE ONCE XX ; Start 08/20/18 at 05:00; Stop 08/20/18 at 05:01 AZEEM HENNING MD Aug 19, 2018 18:18
[2018-08-19 20:34] VITALS: BP 142/66; PULSE 100; RESP 16
[2018-08-19] MEDS: MEROPENEM 500MG/50 ML (PMX) 50 ML IVPB SCH (22:33)
[2018-08-20] MEDS: ACCU-CHEK XX SCH (02:00)
[2018-08-20 02:10] VITALS: BP 122/60; PULSE 95; RESP 16
[2018-08-20] MEDS: morphine 2 MG INJ IV PRN ×5 (03:38→22:33)
[2018-08-20] MEDS: PANTOPRAZOLE (EC) 40 MG TAB PO SCH (05:42)
[2018-08-20 07:16] VITALS: BP 129/61; PULSE 95; RESP 20
[2018-08-20] MEDS: INSULIN ASPART [NOVOLOG] 3 ML PEN SC SCH ×4 (08:00→21:00)
[2018-08-20] MEDS: MINOXIDIL 10 MG TAB PO SCH ×2 (08:10→21:55)
[2018-08-20] MEDS: AMLODIPINE 10 MG TAB PO SCH (08:10)
[2018-08-20] MEDS: PENTOXIFYLLINE (SR) 400 MG TAB PO SCH ×3 (08:10→17:37)
[2018-08-20] MEDS: CALCIUM ACETATE 667 MG CAP PO SCH ×3 (08:11→17:37)
[2018-08-20] MEDS: LORATADINE 10 MG TAB PO SCH (08:11)
[2018-08-20] MEDS: LISINOPRIL 20 MG TAB PO SCH (08:11)
[2018-08-20] MEDS: DOCUSATE SODIUM 100 MG CAP PO SCH ×2 (08:12→21:00)
[2018-08-20] MEDS: TRIAMCINOLONE ACET 0.1% 15 GM CR TOP SCH ×3 (08:18→21:00)
[2018-08-20] MEDS: VANCOMYCIN 1 GM 250 ML IVPB SCH (09:36)
--- NOTE | 2018-08-20 11:46 | PN ---
Date/Time of Note Date/Time of Note DATE: 08/20/18 TIME: 11:39 Assessment/Plan VTE Prophylaxis Risk score (from Nsg)>0 risk: 5 SCD applied (from Nsg): No SCD contraindicated: low risk/ambulating Pharmacological prophylaxis: NA/contraindicated Pharm contraindication: low risk/ambulating Lines/Catheters IV Catheter Type (from Nrs): Saline Lock Urinary Cath still in place: No Assessment/Plan Hospital Course 47 y/o with 1. Wet gangrene of 3rd toe on the right foot. 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 S/p amputation of the fourth and fifth rays through the proximal shafts of the fourth and fifth metatarsals right foot. 3. Cellulitis with deep soft tissue ulcer over the lateral base of the fifth metatarsal with mild periosteal reaction along the lateral shaft of the fifth metatarsal that may be due to osteomyelitis of the right foot, per Xray right foot. 4. End-stage renal disease on hemodialysis Monday, and Monday 5. Normocytic normochromic anemia, hx of anemia of chronic disease with EGD 11/01/17 with esophageal ulceration. Colonoscopy was done 09/03/15 for active bleeding. 6. Hypertension, controlled. 7. Diabetes mellitus type II, not controlled well. last hg A1 C 7,5. 8. Coronary artery disease status post 4 stents. 9. Left below-knee amputation, s/p revision. 10. Diastolic CHF 11. Hx of hematoma of abdomen. Numerous surgical procedures, inc. biopsy, drainage, exploratory laparotomy 2014 12. pt did not have cholecystectomy, apparently due to many surgical scars on abdomen, pt mentioned it 13. hx of tracheostomy 14. hx of positive troponin past. 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 Klein patient does not need any IV more antibiotics -Benadryl/morphine -pt Was following an outside room service manager and was supposed to follow them on [phone] for biopsy results -Culture negative so far -cw with lisinopril/Norvasc/monoxidil - cw epogen - GI/DVT prophylaxsis dC planning arrange home with wound VAC, will DC tomorrow after hemodialysis Result Diagram: 08/20/18 0713 08/20/18 0713 Results 24hrs Laboratory Tests Test 08/19/18 12:35 08/19/18 17:54 08/19/18 21:20 08/20/18 07:13 Bedside Glucose 87 95 113 White Blood Count 8.1 Red Blood Count 2.73 L Hemoglobin 7.6 L Hematocrit 24.5 L Mean Corpuscular 89.7 Volume Mean Corpuscular 27.8 L Hemoglobin Mean Corpuscular 31.0 L Hemoglobin Concent Red Cell 13.2 Distribution Width Platelet Count 121 L Mean Platelet Volume 10.2 Immature 0.700 H Granulocytes % Neutrophils % 71.9 Lymphocytes % 10.8 L Monocytes % 7.6 Eosinophils % 8.6 H Basophils % 0.4 Nucleated Red Blood 0.0 Cells % Immature 0.060 H Granulocytes # Neutrophils # 5.8 Lymphocytes # 0.9 Monocytes # 0.6 Eosinophils # 0.7 H Basophils # 0.0 Nucleated Red Blood 0.0 Cells # Sodium Level 142 Potassium Level 5.1 Chloride Level 104 Carbon Dioxide Level 26 Anion Gap 12 Blood Urea Nitrogen 41 #H Creatinine 7.49 #H Est Glomerular 9 L Filtrat Rate mL/min Glucose Level 111 # Calcium Level 9.6 Total Bilirubin 0.0 L Direct Bilirubin 0.00 Indirect Bilirubin 0.0 Aspartate Amino 18 Transf (AST/SGOT) Alanine < 6 L Aminotransferase (AL T/SGPT) Alkaline Phosphatase 239 H Total Protein 9.9 H Albumin 3.9 Globulin 6.00 H Albumin/Globulin 0.65 Ratio Random Vancomycin 11.8 Level Test 08/20/18 08:03 Bedside Glucose 136 Subjective 24 Hr Interval Summary Free Text/Dictation he is doing okay no more fevers Exam/Review of Systems Exam Vitals Vital Signs Date Temp Pulse Resp B/P (MAP) Pulse Ox O2 O2 Flow FiO2 Time Delivery Rate 08/20/18 99.0 95 20 129/61 96 Room Air 07:16 (83) 08/18/18 1.0 09:30 Intake and Output 08/19/18 08/19/18 08/20/18 1515:00 23:00 07:00 IntakeIntake Total 640 ml 480 ml 50 ml BalanceBalance 640 ml 480 ml 50 ml Exam Neck: supple Respiratory: clear to auscultation Cardiovascular: regular rate and rhythm Gastrointestinal: soft, bowel sounds (+) Extremities: other (foot wound+)With right foot erythema, edema, left below- knee amputation with dry scalp on the knee as well as on the stump itself. Diffuse skin changes Fistula on the left arm wound vac Results Results 24hrs Laboratory Tests Test 08/19/18 12:35 08/19/18 17:54 08/19/18 21:20 08/20/18 07:13 Bedside Glucose 87 95 113 White Blood Count 8.1 Red Blood Count 2.73 L Hemoglobin 7.6 L Hematocrit 24.5 L Mean Corpuscular 89.7 Volume Mean Corpuscular 27.8 L Hemoglobin Mean Corpuscular 31.0 L Hemoglobin Concent Red Cell 13.2 Distribution Width Platelet Count 121 L Mean Platelet Volume 10.2 Immature 0.700 H Granulocytes % Neutrophils % 71.9 Lymphocytes % 10.8 L Monocytes % 7.6 Eosinophils % 8.6 H Basophils % 0.4 Nucleated Red Blood 0.0 Cells % Immature 0.060 H Granulocytes # Neutrophils # 5.8 Lymphocytes # 0.9 Monocytes # 0.6 Eosinophils # 0.7 H Basophils # 0.0 Nucleated Red Blood 0.0 Cells # Sodium Level 142 Potassium Level 5.1 Chloride Level 104 Carbon Dioxide Level 26 Anion Gap 12 Blood Urea Nitrogen 41 #H Creatinine 7.49 #H Est Glomerular 9 L Filtrat Rate mL/min Glucose Level 111 # Calcium Level 9.6 Total Bilirubin 0.0 L Direct Bilirubin 0.00 Indirect Bilirubin 0.0 Aspartate Amino 18 Transf (AST/SGOT) Alanine < 6 L Aminotransferase (AL T/SGPT) Alkaline Phosphatase 239 H Total Protein 9.9 H Albumin 3.9 Globulin 6.00 H Albumin/Globulin 0.65 Ratio Random Vancomycin 11.8 Level Test 08/20/18 08:03 Bedside Glucose 136 Medications Medication Current Medications Vancomycin HCl (Vanco Iv Per Pharmacy) VANCOMYCIN PER PHARMACY PER PROTOCOL XX ; Start 08/10/18 at 02:00 Acetaminophen (Tylenol Tab) 650 mg Q6H PRN PO MILD PAIN(1-3)OR ELEVATED TEMP Last administered on 08/18/18 20:42; Admin Dose 650 MG; Start 08/10/18 at 02:00 Ondansetron HCl (Zofran Inj) 4 mg Q6H PRN IV NAUSEA AND/OR VOMITING Last administered on 08/17/18 13:18; Admin Dose 4 MG; Start 08/10/18 at 02:00 Calcium Acetate (Phoslo) 1,334 mg WITH MEALS PO Last administered on 08/20/18 08:11; Admin Dose 1,334 MG; Start 08/10/18 at 08:00 Clonidine (Catapres) 0.3 mg Q6H PRN PO FOR SBP ABOVE 170; Start 08/10/18 at 02:00 Docusate Sodium (Colace) 100 mg BID PO Last administered on 08/20/18 08:12; Admin Dose 100 MG; Start 08/10/18 at 09:00 Acetaminophen/ Hydrocodone Bitart ([place] (7.5-325)) 1 tab BID PRN PO PAIN; Start 08/10/18 at 02:00 Lisinopril (Zestril) 40 mg DAILY PO Last administered on 08/20/18 08:11; Admin Dose 40 MG; Start 08/10/18 at 09:00 Minoxidil (Loniten) 10 mg BID PO Last administered on 08/20/18 08:10; Admin Dose 10 MG; Start 08/10/18 at 09:00 Pentoxifylline (Trental) 400 mg WITH MEALS PO Last administered on 08/20/18 08:10; Admin Dose 400 MG; Start 08/10/18 at 08:00 Zolpidem Tartrate (Ambien) 5 mg HS MAY REPEAT X 1 PRN PO INSOMNIA Last administered on 08/19/18 22:30; Admin Dose 5 MG; Start 08/10/18 at 02:00 Hydroxyzine HCl (Atarax) 25 mg BID PRN PO ITCHING Last administered on 08/10/18 19:21; Admin Dose 25 MG; Start 08/10/18 at 06:30 Miscellaneous Information 1 ea NOTE XX ; Start 08/10/18 at 07:00 Glucose (Glutose) 15 gm Q15M PRN PO DECREASED GLUCOSE; Start 08/10/18 at 07:00 Glucose (Glutose) 22.5 gm Q15M PRN PO DECREASED GLUCOSE; Start 08/10/18 at 07:00 Dextrose (D50w Syringe) 25 ml Q15M PRN IV DECREASED GLUCOSE; Start 08/10/18 at 07:00 Dextrose (D50w Syringe) 50 ml Q15M PRN IV DECREASED GLUCOSE; Start 08/10/18 at 07:00 Glucagon (Glucagen) 1 mg Q15M PRN IM DECREASED GLUCOSE; Start 08/10/18 at 07:00 Glucose (Glutose) 15 gm Q15M PRN BUCCAL DECREASED GLUCOSE; Start 08/10/18 at 07:00 Epoetin Adi (Epogen (Esrd)) 4,000 units TuThSa@17 SC Last administered on 08/18 17:50; Admin Dose 4,000 UNITS; Start 08/11/18 at 17:00 Lidocaine (Xylocaine 2% Jelly) 1 applic BEDSIDE MEDICATION PRN TOP PAIN LEVEL 1-5 Last administered on 08/18/18 10:26; Admin Dose 1 APPLIC; Start 08/10/18 at 13:30 Morphine Sulfate (morphine) 2 mg Q4H PRN IV SEVERE PAIN LEVEL 7-10 Last ad ministered on 08/20/18 08:14; Admin Dose 2 MG; Start 08/10/18 at 13:30 Heparin Sodium (Porcine) (Heparin (5000 Units/1ml)) 5,000 unit BID SC Last administered on 08/14/18 09:33; Admin Dose 5,000 UNIT; Start 08/10/18 at 21:00; Status Hold Pantoprazole (Protonix Tab) 40 mg DAILY@06 PO Last administered on 08/20/18 05:42; Admin Dose 40 MG; Start 08/10/18 at 14:00 Amlodipine Besylate (Norvasc) 10 mg DAILY PO Last administered on 08/20/18 08:10; Admin Dose 10 MG; Start 08/11/18 at 15:00 Loratadine (Claritin) 10 mg DAILY PO Last administered on 08/20/18 08:11; Admin Dose 10 MG; Start 08/13/18 at 12:30 Diphenhydramine HCl (Benadryl) 25 mg Q4H PRN IV ITCHING Last administered on 08/18/18 23:50; Admin Dose 25 MG; Start 08/14/18 at 14:30 Triamcinolone Acetonide (Kenalog 0.1% Cr) 1 applic TID TOP Last administered on 08/20/18 08:18; Admin Dose 1 APPLIC; Start 08/15/18 at 13:00 Vancomycin HCl 250 ml @ 125 mls/hr Q96H IVPB Last administered on 08/20/18 09:36; Admin Dose 125 MLS/HR; Start 08/16/18 at 09:00 Diagnostic Test (Pha) (Accu-Chek) 1 ea 02 XX ; Start 08/16/18 at 02:00 Insulin Aspart (Novolog Insulin Pen) NOVOLOG *MILD* ALGORITHM WITH MEALS BEDTIME SC Last administered on 08/18/18 12:59; Admin Dose 1 UNIT; Start 08/15/18 at 21:00 Miscellaneous Information (* Miscellaneous Pharmacy Order) [facility] TO [facility]SE ONCE XX ; Start 08/18/18 at 22:00 Meropenem/Sodium Chloride 50 ml @ 100 mls/hr Q24H IVPB Last administered on 08/19/18 22:33; Admin Dose 100 MLS/HR; Start 08/18/18 at 23:00 HASEEB MAYA MD Aug 20, 2018 11:46
--- NOTE | 2018-08-20 13:36 | CONS ---
Assessment/Plan Assessment/Plan Hospital Course (Demo Recall) Alert, looks comfortable, denies pain Microbiology: Blood cultures remain negative Antimicrobials: Vancomycin Merrem PHYSICAL EXAMINATION: GENERAL: Well-developed, ill-appearing, middle-aged man in no distress. HEENT: Head is atraumatic, normocephalic. NECK: Supple. CHEST: Rise symmetrical. Breath sounds diminished to bases. HEART: S1, S2. ABDOMEN: Soft. Bowel tones are present. EXTREMITIES: With right foot erythema, edema, left below-knee amputation with dry scalp on the knee as well as on the stump itself. Assessment: 1. Right foot diabetic ulceration, s/p amputation of right third toe/application of wound VAC right foot 2. End-stage renal disease, hemodialysis dependent 3. Diffuse rash==> neg scabies 4. Severe peripheral arterial disease status post left below-knee amputation==s/p balloon angioplasty 08/15/18 5. Coronary artery disease status post cardiac stent 6. Hypertension Plan: Remains stable, change meropenem to oral Levaquin, continue vancomycin for couple more days. Per discussion with podiatry. Patient has no osteomyelitis Consultation Date/Type/Reason Admit Date/Time Aug 09, 2018 at 22:42 Initial Consult Date 08/11/18 Type of Consult id Date/Time of Note DATE: 08/20/18 TIME: 13:33 Exam/Review of Systems Exam Vitals Vital Signs Date Temp Pulse Resp B/P (MAP) Pulse Ox O2 O2 Flow FiO2 Time Delivery Rate 08/20/18 99.0 95 20 129/61 96 Room Air 07:16 (83) 08/18/18 1.0 09:30 Intake and Output 08/19/18 08/19/18 08/20/18 1414:59 22:59 06:59 IntakeIntake Total 640 ml 480 ml 50 ml BalanceBalance 640 ml 480 ml 50 ml Results Result Diagram: 08/20/18 0713 08/20/18 0713 Results 24hrs Laboratory Tests Test 08/19/18 17:54 08/19/18 21:20 08/20/18 07:13 08/20/18 08:03 Bedside Glucose 95 113 136 White Blood Count 8.1 Red Blood Count 2.73 L Hemoglobin 7.6 L Hematocrit 24.5 L Mean Corpuscular 89.7 Volume Mean Corpuscular 27.8 L Hemoglobin Mean Corpuscular 31.0 L Hemoglobin Concent Red Cell 13.2 Distribution Width Platelet Count 121 L Mean Platelet Volume 10.2 Immature 0.700 H Granulocytes % Neutrophils % 71.9 Lymphocytes % 10.8 L Monocytes % 7.6 Eosinophils % 8.6 H Basophils % 0.4 Nucleated Red Blood 0.0 Cells % Immature 0.060 H Granulocytes # Neutrophils # 5.8 Lymphocytes # 0.9 Monocytes # 0.6 Eosinophils # 0.7 H Basophils # 0.0 Nucleated Red Blood 0.0 Cells # Sodium Level 142 Potassium Level 5.1 Chloride Level 104 Carbon Dioxide Level 26 Anion Gap 12 Blood Urea Nitrogen 41 #H Creatinine 7.49 #H Est Glomerular 9 L Filtrat Rate mL/min Glucose Level 111 # Calcium Level 9.6 Total Bilirubin 0.0 L Direct Bilirubin 0.00 Indirect Bilirubin 0.0 Aspartate Amino 18 Transf (AST/SGOT) Alanine < 6 L Aminotransferase (AL T/SGPT) Alkaline Phosphatase 239 H Total Protein 9.9 H Albumin 3.9 Globulin 6.00 H Albumin/Globulin 0.65 Ratio Random Vancomycin 11.8 Level Test 08/20/18 12:33 Bedside Glucose 117 Medications Medication Current Medications Vancomycin HCl (Vanco Iv Per Pharmacy) VANCOMYCIN PER PHARMACY PER PROTOCOL XX ; Start 08/10/18 at 02:00 Acetaminophen (Tylenol Tab) 650 mg Q6H PRN PO MILD PAIN(1-3)OR ELEVATED TEMP Last administered on 08/18/18at 20:42; Admin Dose 650 MG; Start 08/10/18 at 02:00 Ondansetron HCl (Zofran Inj) 4 mg Q6H PRN IV NAUSEA AND/OR VOMITING Last administered on 08/17/18at 13:18; Admin Dose 4 MG; Start 08/10/18 at 02:00 Calcium Acetate (Phoslo) 1,334 mg WITH MEALS PO Last administered on 08/20/18at 12:34; Admin Dose 1,334 MG; Start 08/10/18 at 08:00 Clonidine (Catapres) 0.3 mg Q6H PRN PO FOR SBP ABOVE 170; Start 08/10/18 at 02:00 Docusate Sodium (Colace) 100 mg BID PO Last administered on 08/20/18at 08:12; Admin Dose 100 MG; Start 08/10/18 at 09:00 Acetaminophen/ Hydrocodone Bitart ([place] (7.5325)) 1 tab BID PRN PO PAIN; Start 08/10/18 at 02:00 Lisinopril (Zestril) 40 mg DAILY PO Last administered on 08/20/18at 08:11; Admin Dose 40 MG; Start 08/10/18 at 09:00 Minoxidil (Loniten) 10 mg BID PO Last administered on 08/20/18at 08:10; Admin Dose 10 MG; Start 08/10/18 at 09:00 Pentoxifylline (Trental) 400 mg WITH MEALS PO Last administered on 08/20/18 12:34; Admin Dose 400 MG; Start 08/10/18 at 08:00 Zolpidem Tartrate (Ambien) 5 mg HS MAY REPEAT X 1 PRN PO INSOMNIA Last administered on 08/19/18at 22:30; Admin Dose 5 MG; Start 08/10/18 at 02:00 Hydroxyzine HCl (Atarax) 25 mg BID PRN PO ITCHING Last administered on 08/10/18at 19:21; Admin Dose 25 MG; Start 08/10/18 at 06:30 Miscellaneous Information 1 ea NOTE XX ; Start 08/10/18 at 07:00 Glucose (Glutose) 15 gm Q15M PRN PO DECREASED GLUCOSE; Start 08/10/18 at 07:00 Glucose (Glutose) 22.5 gm Q15M PRN PO DECREASED GLUCOSE; Start 08/10/18 at 07:00 Dextrose (D50w Syringe) 25 ml Q15M PRN IV DECREASED GLUCOSE; Start 08/10/18 at 07:00 Dextrose (D50w Syringe) 50 ml Q15M PRN IV DECREASED GLUCOSE; Start 08/10/18 at 07:00 Glucagon (Glucagen) 1 mg Q15M PRN IM DECREASED GLUCOSE; Start 08/10/18 at 07:00 Glucose (Glutose) 15 gm Q15M PRN BUCCAL DECREASED GLUCOSE; Start 08/10/18 at 07: 00 Epoetin Adi (Epogen (Esrd)) 4,000 units TuThSa@17 SC Last administered on 08/18/18at 17:50; Admin Dose 4,000 UNITS; Start 08/11/18 at 17:00 Lidocaine (Xylocaine 2% Jelly) 1 applic BEDSIDE MEDICATION PRN TOP PAIN LEVEL 1-5 Last administered on 08/18/18 10:26; Admin Dose 1 APPLIC; Start 08/10/18 at 13:30 Morphine Sulfate (morphine) 2 mg Q4H PRN IV SEVERE PAIN LEVEL 7-10 Last administered on 08/20/18 12:34; Admin Dose 2 MG; Start 08/10/18 at 13:30 Heparin Sodium (Porcine) (Heparin (5000 Units/1ml)) 5,000 unit BID SC Last administered on 08/14/18 09:33; Admin Dose 5,000 UNIT; Start 08/10/18 at 21:00; Status Hold Pantoprazole (Protonix Tab) 40 mg DAILY@06 PO Last administered on 08/20/18 05:42; Admin Dose 40 MG; Start 08/10/18 at 14:00 Amlodipine Besylate (Norvasc) 10 mg DAILY PO Last administered on 08/20/18 08:10; Admin Dose 10 MG; Start 08/11/18 at 15:00 Loratadine (Claritin) 10 mg DAILY PO Last administered on 08/20/18 08:11; Admin Dose 10 MG; Start 08/13/18 at 12:30 Diphenhydramine HCl (Benadryl) 25 mg Q4H PRN IV ITCHING Last administered on 08/18/18 23:50; Admin Dose 25 MG; Start 08/14/18 at 14:30 Triamcinolone Acetonide (Kenalog 0.1% Cr) 1 applic TID TOP Last administered on 08/20/18 08:18; Admin Dose 1 APPLIC; Start 08/15/18 at 13:00 Vancomycin HCl 250 ml @ 125 mls/hr Q96H IVPB Last administered on 08/20/18 09:36; Admin Dose 125 MLS/HR; Start 08/16/18 at 09:00 Diagnostic Test (Pha) (Accu-Chek) 1 ea 02 XX ; Start 08/16/18 at 02:00 Insulin Aspart (Novolog Insulin Pen) NOVOLOG *MILD* ALGORITHM WITH MEALS BEDTIME SC Last administered on 08/18/18 12:59; Admin Dose 1 UNIT; Start 08/15/18 at 21:00 Miscellaneous Information (* Miscellaneous Pharmacy Order) [facility] TO [facility]SE [facility] XX ; Start 08/18/18 at 22:00 Meropen[facility]/Sodium Chloride 50 ml @ 100 mls/hr Q24H IVPB Last administered on 08/19/18at 22:33; Admin Dose 100 MLS/HR; Start 08/18/18 at 23:00 Senna (Senokot) 1 tab BID PO ; Start 08/20/18 at 13:30 DAYSI BHATIA NP Aug 20, 2018 13:36
[2018-08-20] MEDS: SENNA TAB PO SCH ×2 (14:03→17:35)
[2018-08-20 14:21] VITALS: BP 143/68; PULSE 92; RESP 18
[2018-08-20] MEDS: LEVOFLOXACIN 250 MG TAB PO SCH ×3 (15:24→17:38)
[2018-08-20] MEDS: DIPHENHYDRAMINE 50 MG INJ IV PRN ×2 (18:05→22:33)
[2018-08-20 20:00] VITALS: BP 130/66; PULSE 95; RESP 16
[2018-08-21] VITALS (18 sets, daily range): BP systolic 90–160; BP diastolic 57–77; PULSE 86–98; RESP 16–20
[2018-08-21] MEDS: ACCU-CHEK XX SCH (02:00)
[2018-08-21] MEDS: morphine 2 MG INJ IV PRN ×5 (03:27→22:57)
[2018-08-21] MEDS: DIPHENHYDRAMINE 50 MG INJ IV PRN ×5 (03:27→22:56)
[2018-08-21] MEDS: INSULIN ASPART [NOVOLOG] 3 ML PEN SC SCH ×4 (07:49→21:00)
[2018-08-21] MEDS: MINOXIDIL 10 MG TAB PO SCH ×2 (09:00→22:55)
[2018-08-21] MEDS: AMLODIPINE 10 MG TAB PO SCH (09:00)
[2018-08-21] MEDS: LISINOPRIL 20 MG TAB PO SCH (09:00)
[2018-08-21] MEDS: DOCUSATE SODIUM 100 MG CAP PO SCH ×2 (09:24→22:55)
[2018-08-21] MEDS: PANTOPRAZOLE (EC) 40 MG TAB PO SCH (09:24)
[2018-08-21] MEDS: SENNA TAB PO SCH ×2 (09:24→22:56)
[2018-08-21] MEDS: PENTOXIFYLLINE (SR) 400 MG TAB PO SCH ×3 (09:24→18:08)
[2018-08-21] MEDS: LORATADINE 10 MG TAB PO SCH (09:24)
[2018-08-21] MEDS: CALCIUM ACETATE 667 MG CAP PO SCH ×3 (09:24→18:08)
[2018-08-21] MEDS: TRIAMCINOLONE ACET 0.1% 15 GM CR TOP SCH ×3 (09:25→23:02)
[2018-08-21] MEDS: LIDOCAINE 2% JELLY 5 ML TOP PRN (09:31)
--- NOTE | 2018-08-21 13:31 | CONS ---
Assessment/Plan Assessment/Plan Hospital Course (Demo Recall) Alert, looks comfortable Microbiology: Blood cultures remain negative Antimicrobials: Vancomycin Levaquin PHYSICAL EXAMINATION: GENERAL: Well-developed, ill-appearing, middle-aged man in no distress. HEENT: Head is atraumatic, normocephalic. NECK: Supple. CHEST: Rise symmetrical. Breath sounds diminished to bases. HEART: S1, S2. ABDOMEN: Soft. Bowel tones are present. EXTREMITIES: With right foot erythema, edema, left below-knee amputation with dry scalp on the knee as well as on the stump itself. Assessment: 1. Right foot diabetic ulceration/ischemia, s/p amputation of right third toe/application of wound VAC right foot 2. End-stage renal disease, hemodialysis dependent 3. Diffuse rash==> neg scabies 4. Severe peripheral arterial disease status post left below-knee amputation==s/p balloon angioplasty 08/15/18 5. Coronary artery disease status post cardiac stent 6. Hypertension Plan: Remains stable, continue present care, abx for couple more days Consultation Date/Type/Reason Admit Date/Time Aug 09, 2018 at 22:42 Initial Consult Date 08/11/18 Type of Consult id Date/Time of Note DATE: 08/21/18 TIME: 13:30 Exam/Review of Systems Exam Vitals Vital Signs Date Temp Pulse Resp B/P (MAP) Pulse Ox O2 O2 Flow FiO2 Time Delivery Rate 08/21/18 94 12:05 08/21/18 16 136/73 98 Room Air 09:52 (94) 08/21/18 97.6 07:32 08/18/18 1.0 09:30 Intake and Output 08/20/18 08/20/18 08/21/18 1515:00 23:00 07:00 IntakeIntake Total 490 ml 720 ml BalanceBalance 490 ml 720 ml Results Result Diagram: 08/21/18 1012 08/21/18 1012 Results 24hrs Laboratory Tests Test 08/20/18 13:33 08/20/18 17:37 08/20/18 21:54 08/21/18 07:48 Hemoglobin 7.3 L Hematocrit 23.7 L Bedside Glucose 112 105 81 Test 08/21/18 10:12 08/21/18 12:46 White Blood Count 8.0 Red Blood Count 2.57 L Hemoglobin 7.1 L Hematocrit 22.9 L Mean Corpuscular 89.1 Volume Mean Corpuscular 27.6 L Hemoglobin Mean Corpuscular 31.0 L Hemoglobin Concent Red Cell 13.4 Distribution Width Platelet Count 125 L Mean Platelet Volume 10.5 H Immature 1.000 H Granulocytes % Neutrophils % 74.3 Lymphocytes % 10.0 L Monocytes % 5.5 Eosinophils % 8.9 H Basophils % 0.3 Nucleated Red Blood 0.0 Cells % Immature 0.080 H Granulocytes # Neutrophils # 6.0 Lymphocytes # 0.8 Monocytes # 0.4 Eosinophils # 0.7 H Basophils # 0.0 Nucleated Red Blood 0.0 Cells # Sodium Level 140 Potassium Level 4.9 Chloride Level 105 Carbon Dioxide Level 23 Anion Gap 12 Blood Urea Nitrogen 38 H Creatinine 6.41 H Est Glomerular 11 L Filtrat Rate mL/min Glucose Level 126 Calcium Level 9.5 Phosphorus Level 3.2 Magnesium Level 2.4 Bedside Glucose 89 Medications Medication Current Medications Vancomycin HCl (Vanco Iv Per Pharmacy) VANCOMYCIN PER PHARMACY PER PROTOCOL XX ; Start 08/10/18 at 02:00 Acetaminophen (Tylenol Tab) 650 mg Q6H PRN PO MILD PAIN(1-3)OR ELEVATED TEMP Last administered on 08/18/18at 20:42; Admin Dose 650 MG; Start 08/10/18 at 02:00 Ondansetron HCl (Zofran Inj) 4 mg Q6H PRN IV NAUSEA AND/OR VOMITING Last administered on 08/17/18 13:18; Admin Dose 4 MG; Start 08/10/18 at 02:00 Calcium Acetate (Phoslo) 1,334 mg WITH MEALS PO Last administered on 08/21/18 12:47; Admin Dose 1,334 MG; Start 08/10/18 at 08:00 Clonidine (Catapres) 0.3 mg Q6H PRN PO FOR SBP ABOVE 170; Start 08/10/18 at 02:00 Docusate Sodium (Colace) 100 mg BID PO Last administered on 08/21/18at 09:24; Admin Dose 100 MG; Start 08/10/18 at 09:00 Acetaminophen/ Hydrocodone Bitart ([place] (7.5-325)) 1 tab BID PRN PO PAIN; Start 08/10/18 at 02:00 Lisinopril (Zestril) 40 mg DAILY PO Last administered on 08/20/18at 08:11; Admin Dose 40 MG; Start 08/10/18 at 09:00 Minoxidil (Loniten) 10 mg BID PO Last administered on 08/20/18 21:55; Admin Dose 10 MG; Start 08/10/18 at 09:00 Pentoxifylline (Trental) 400 mg WITH MEALS PO Last administered on 08/21/18 12:47; Admin Dose 400 MG; Start 08/10/18 at 08:00 Zolpidem Tartrate (Ambien) 5 mg HS MAY REPEAT X 1 PRN PO INSOMNIA Last administered on 08/19/18 22:30; Admin Dose 5 MG; Start 08/10/18 at 02:00 Hydroxyzine HCl (Atarax) 25 mg BID PRN PO ITCHING Last administered on 08/10/18 19:21; Admin Dose 25 MG; Start 08/10/18 at 06:30 Miscellaneous Information 1 ea NOTE XX ; Start 08/10/18 at 07:00 Glucose (Glutose) 15 gm Q15M PRN PO DECREASED GLUCOSE; Start 08/10/18 at 07:00 Glucose (Glutose) 22.5 gm Q15M PRN PO DECREASED GLUCOSE; Start 08/10/18 at 07:00 Dextrose (D50w Syringe) 25 ml Q15M PRN IV DECREASED GLUCOSE; Start 08/10/18 at 07:00 Dextrose (D50w Syringe) 50 ml Q15M PRN IV DECREASED GLUCOSE; Start 08/10/18 at 07:00 Glucagon (Glucagen) 1 mg Q15M PRN IM DECREASED GLUCOSE; Start 08/10/18 at 07:00 Glucose (Glutose) 15 gm Q15M PRN BUCCAL DECREASED GLUCOSE; Start 08/10/18 at 07:00 Epoetin Adi (Epogen (Esrd)) 4,000 units TuThSa@17 SC Last administered on 08/18/18 17:50; Admin Dose 4,000 UNITS; Start 08/11/18 at 17:00 Lidocaine (Xylocaine 2% Jelly) 1 applic BEDSIDE MEDICATION PRN TOP PAIN LEVEL 1-5 Last administered on 08/21/18 09:31; Admin Dose 1 APPLIC; Start 08/10/18 at 13:30 Morphine Sulfate (morphine) 2 mg Q4H PRN IV SEVERE PAIN LEVEL 7-10 Last administered on 08/21/18 07:50; Admin Dose 2 MG; Start 08/10/18 at 13:30 Heparin Sodium (Porcine) (Heparin (5000 Units/1ml)) 5,000 unit BID SC Last administered on 08/14/18 09:33; Admin Dose 5,000 UNIT; Start 08/10/18 at 21:00; Status Hold Pantoprazole (Protonix Tab) 40 mg DAILY@06 PO Last administered on 08/21/18 09:24; Admin Dose 40 MG; Start 08/10/18 at 14:00 Amlodipine Besylate (Norvasc) 10 mg DAILY PO Last administered on 08/20/18 08:10; Admin Dose 10 MG; Start 08/11/18 at 15:00 Loratadine (Claritin) 10 mg DAILY PO Last administered on 08/21/18 09:24; Admin Dose 10 MG; Start 08/13/18 at 12:30 Diphenhydramine HCl (Benadryl) 25 mg Q4H PRN IV ITCHING Last administered on 08/21/18 07:49; Admin Dose 25 MG; Start 08/14/18 at 14:30 Triamcinolone Acetonide (Kenalog 0.1% Cr) 1 applic TID TOP Last administered on 08/21/18 12:48; Admin Dose 1 APPLIC; Start 08/15/18 at 13:00 Vancomycin HCl 250 ml @ 125 mls/hr Q96H IVPB Last administered on 08/20/18 09:36; Admin Dose 125 MLS/HR; Start 08/16/18 at 09:00 Diagnostic Test (Pha) (Accu-Chek) 1 ea 02 XX ; Start 08/16/18 at 02:00 Insulin Aspart (Novolog Insulin Pen) NOVOLOG *MILD* ALGORITHM WITH MEALS BEDTIME SC Last administered on 08/18/18 12:59; Admin Dose 1 UNIT; Start 08/15/18 at 21:00 Miscellaneous Information (* Miscellaneous Pharmacy Order) [facility] TO [facility]SE ON[facility] XX ; Start 08/18/18 at 22:00 Senna (Senokot) 1 tab BID PO Last administered on 08/21/18 09:24; Admin Dose 1 TAB; Start 08/20/18 at 13:30 Levofloxacin (Levaquin) 250 mg Q2D@0600 PO Last administered on 08/20/18at 17:38; Admin Dose 250 MG; Start 08/20/18 at 15:00 DAYSI BHATIA NP Aug 21, 2018 13:31
--- NOTE | 2018-08-21 16:42 | PN ---
Date/Time of Note Date/Time of Note DATE: 08/21/18 TIME: 16:41 Assessment/Plan VTE Prophylaxis Risk score (from Nsg)>0 risk: 5 SCD applied (from Nsg): No SCD contraindicated: low risk/ambulating Pharmacological prophylaxis: NA/contraindicated Pharm contraindication: low risk/ambulating Lines/Catheters IV Catheter Type (from Nrs): Saline Lock Urinary Cath still in place: No Assessment/Plan Hospital Course 47 y/o with 1. Wet gangrene of 3rd toe on the right foot. 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 S/p amputation of the fourth and fifth rays through the proximal shafts of the fourth and fifth metatarsals right foot. 3. Cellulitis with deep soft tissue ulcer over the lateral base of the fifth metatarsal with mild periosteal reaction along the lateral shaft of the fifth metatarsal that may be due to osteomyelitis of the right foot, per Xray right foot. 4. End-stage renal disease on hemodialysis Monday, and Monday 5. Normocytic normochromic anemia, hx of anemia of chronic disease with EGD 11/01/17 with esophageal ulceration. Colonoscopy was done 09/03/15 for active bleeding. 6. Hypertension, controlled. 7. Diabetes mellitus type II, not controlled well. last hg A1 C 7,5. 8. Coronary artery disease status post 4 stents. 9. Left below-knee amputation, s/p revision. 10. Diastolic CHF 11. Hx of hematoma of abdomen. Numerous surgical procedures, inc. biopsy, drainage, exploratory laparotomy 2014 12. pt did not have cholecystectomy, apparently due to many surgical scars on abdomen, pt mentioned it 13. hx of tracheostomy 14. hx of positive troponin past. 15 pvd s/p Atherectomy right superficial femoral artery and popliteal artery Balloon angioplasty right superficial femoral artery and popliteal artery using 6 x 200 mm balloon Plan -s/p amputaion> now with wound vac also removed -Status post atherectomy and balloon angioplasty of the right superficial femoral artery and popliteal artery today patient will need to be on Plavix, after the surgery -HD Monday, 1 unit of blood today -Follow-up vascular/podiatry recommendations -Per ID and per Dr. Klein patient does not need any IV more antibiotics -Benadryl/morphine -pt Was following an outside spa attendant and was supposed to follow them on 0 313 for biopsy results -Culture negative so far -cw with lisinopril/Norvasc/monoxidil - cw epogen - GI/DVT prophylaxsis DC planning per surgery not sure if patient reads removed back wound VAC/surgery again left a message for Dr. Millard Result Diagram: 08/21/18 1012 08/21/18 1012 Results 24hrs Laboratory Tests Test 08/20/18 17:37 08/20/18 21:54 08/21/18 07:48 08/21/18 10:12 Bedside Glucose 112 105 81 White Blood Count 8.0 Red Blood Count 2.57 L Hemoglobin 7.1 L Hematocrit 22.9 L Mean Corpuscular 89.1 Volume Mean Corpuscular 27.6 L Hemoglobin Mean Corpuscular 31.0 L Hemoglobin Concent Red Cell 13.4 Distribution Width Platelet Count 125 L Mean Platelet Volume 10.5 H Immature 1.000 H Granulocytes % Neutrophils % 74.3 Lymphocytes % 10.0 L Monocytes % 5.5 Eosinophils % 8.9 H Basophils % 0.3 Nucleated Red Blood 0.0 Cells % Immature 0.080 H Granulocytes # Neutrophils # 6.0 Lymphocytes # 0.8 Monocytes # 0.4 Eosinophils # 0.7 H Basophils # 0.0 Nucleated Red Blood 0.0 Cells # Sodium Level 140 Potassium Level 4.9 Chloride Level 105 Carbon Dioxide Level 23 Anion Gap 12 Blood Urea Nitrogen 38 H Creatinine 6.41 H Est Glomerular 11 L Filtrat Rate mL/min Glucose Level 126 Calcium Level 9.5 Phosphorus Level 3.2 Magnesium Level 2.4 Test 08/21/18 12:46 Bedside Glucose 89 Subjective 24 Hr Interval Summary Free Text/Dictation VAC is removed now Exam/Review of Systems Exam Vitals Vital Signs Date Temp Pulse Resp B/P (MAP) Pulse Ox O2 O2 Flow FiO2 Time Delivery Rate 08/21/18 97.8 94 20 123/59 96 Room Air 14:05 (80) 08/18/18 1.0 09:30 Intake and Output 08/20/18 08/20/18 08/21/18 1414:59 22:59 06:59 IntakeIntake Total 490 ml 720 ml BalanceBalance 490 ml 720 ml Exam Neck: supple Respiratory: clear to auscultation Cardiovascular: regular rate and rhythm Gastrointestinal: soft, bowel sounds (+) Extremities: other (foot wound+)With right foot erythema, edema, left below- knee amputation with dry scalp on the knee as well as on the stump itself. Diffuse skin changes Fistula on the left arm wound vac is removed Results Results 24hrs Laboratory Tests Test 08/20/18 17:37 08/20/18 21:54 08/21/18 07:48 08/21/18 10:12 Bedside Glucose 112 105 81 White Blood Count 8.0 Red Blood Count 2.57 L Hemoglobin 7.1 L Hematocrit 22.9 L Mean Corpuscular 89.1 Volume Mean Corpuscular 27.6 L Hemoglobin Mean Corpuscular 31.0 L Hemoglobin Concent Red Cell 13.4 Distribution Width Platelet Count 125 L Mean Platelet Volume 10.5 H Immature 1.000 H Granulocytes % Neutrophils % 74.3 Lymphocytes % 10.0 L Monocytes % 5.5 Eosinophils % 8.9 H Basophils % 0.3 Nucleated Red Blood 0.0 Cells % Immature 0.080 H Granulocytes # Neutrophils # 6.0 Lymphocytes # 0.8 Monocytes # 0.4 Eosinophils # 0.7 H Basophils # 0.0 Nucleated Red Blood 0.0 Cells # Sodium Level 140 Potassium Level 4.9 Chloride Level 105 Carbon Dioxide Level 23 Anion Gap 12 Blood Urea Nitrogen 38 H Creatinine 6.41 H Est Glomerular 11 L Filtrat Rate mL/min Glucose Level 126 Calcium Level 9.5 Phosphorus Level 3.2 Magnesium Level 2.4 Test 08/21/18 12:46 Bedside Glucose 89 Medications Medication Current Medications Vancomycin HCl (Vanco Iv Per Pharmacy) VANCOMYCIN PER PHARMACY PER PROTOCOL XX ; Start 08/10/18 at 02:00 Acetaminophen (Tylenol Tab) 650 mg Q6H PRN PO MILD PAIN(1-3)OR ELEVATED TEMP Last administered on 08/18/18at 20:42; Admin Dose 650 MG; Start 08/10/18 at 02:00 Ondansetron HCl (Zofran Inj) 4 mg Q6H PRN IV NAUSEA AND/OR VOMITING Last administered on 08/17/18at 13:18; Admin Dose 4 MG; Start 08/10/18 at 02:00 Calcium Acetate (Phoslo) 1,334 mg WITH MEALS PO Last administered on 08/21/18 12:47; Admin Dose 1,334 MG; Start 08/10/18 at 08:00 Clonidine (Catapres) 0.3 mg Q6H PRN PO FOR SBP ABOVE 170; Start 08/10/18 at 02:00 Docusate Sodium (Colace) 100 mg BID PO Last administered on 08/21/18 09:24; Admin Dose 100 MG; Start 08/10/18 at 09:00 Acetaminophen/ Hydrocodone Bitart ([place] (7.5-325)) 1 tab BID PRN PO PAIN; Start 08/10/18 at 02:00 Lisinopril (Zestril) 40 mg DAILY PO Last administered on 08/20/18 08:11; Admin Dose 40 MG; Start 08/10/18 at 09:00 Minoxidil (Loniten) 10 mg BID PO Last administered on 08/20/18 21:55; Admin Dose 10 MG; Start 08/10/18 at 09:00 Pentoxifylline (Trental) 400 mg WITH MEALS PO Last administered on 08/21/18 12:47; Admin Dose 400 MG; Start 08/10/18 at 08:00 Zolpidem Tartrate (Ambien) 5 mg HS MAY REPEAT X 1 PRN PO INSOMNIA Last administered on 08/19/18 22:30; Admin Dose 5 MG; Start 08/10/18 at 02:00 Hydroxyzine HCl (Atarax) 25 mg BID PRN PO ITCHING Last administered on 08/10/18 19:21; Admin Dose 25 MG; Start 08/10/18 at 06:30 Miscellaneous Information 1 ea NOTE XX ; Start 08/10/18 at 07:00 Glucose (Glutose) 15 gm Q15M PRN PO DECREASED GLUCOSE; Start 08/10/18 at 07:00 Glucose (Glutose) 22.5 gm Q15M PRN PO DECREASED GLUCOSE; Start 08/10/18 at 07:00 Dextrose (D50w Syringe) 25 ml Q15M PRN IV DECREASED GLUCOSE; Start 08/10/18 at 07:00 Dextrose (D50w Syringe) 50 ml Q15M PRN IV DECREASED GLUCOSE; Start 08/10/18 at 07:00 Glucagon (Glucagen) 1 mg Q15M PRN IM DECREASED GLUCOSE; Start 08/10/18 at 07:00 Glucose (Glutose) 15 gm Q15M PRN BUCCAL DECREASED GLUCOSE; Start 08/10/18 at 07:00 Epoetin Adi (Epogen (Esrd)) 4,000 units TuThSa@17 SC Last administered on 08/18/18 17:50; Admin Dose 4,000 UNITS; Start 08/11/18 at 17:00 Lidocaine (Xylocaine 2% Jelly) 1 applic BEDSIDE MEDICATION PRN TOP PAIN LEVEL 1-5 Last administered on 08/21/18 09:31; Admin Dose 1 APPLIC; Start 08/10/18 at 13:30 Morphine Sulfate (morphine) 2 mg Q4H PRN IV SEVERE PAIN LEVEL 7-10 Last administered on 08/21/18 13:42; Admin Dose 2 MG; Start 08/10/18 at 13:30 Heparin Sodium (Porcine) (Heparin (5000 Units/1ml)) 5,000 unit BID SC Last administered on 08/14/18 09:33; Admin Dose 5,000 UNIT; Start 08/10/18 at 21:00; Status Hold Pantoprazole (Protonix Tab) 40 mg DAILY@06 PO Last administered on 08/21/18 09:24; Admin Dose 40 MG; Start 08/10/18 at 14:00 Amlodipine Besylate (Norvasc) 10 mg DAILY PO Last administered on 08/20/18 08 :10; Admin Dose 10 MG; Start 08/11/18 at 15:00 Loratadine (Claritin) 10 mg DAILY PO Last administered on 08/21/18 09:24; Admin Dose 10 MG; Start 08/13/18 at 12:30 Diphenhydramine HCl (Benadryl) 25 mg Q4H PRN IV ITCHING Last administered on 08/21/18 13:42; Admin Dose 25 MG; Start 08/14/18 at 14:30 Triamcinolone Acetonide (Kenalog 0.1% Cr) 1 applic TID TOP Last administered on 08/21/18 12:48; Admin Dose 1 APPLIC; Start 08/15/18 at 13:00 Vancomycin HCl 250 ml @ 125 mls/hr Q96H IVPB Last administered on 08/20/18 09:36; Admin Dose 125 MLS/HR; Start 08/16/18 at 09:00 Diagnostic Test (Pha) (Accu-Chek) 1 XX ; Start 08/16/18 at 02:00 Insulin Aspart (Novolog Insulin Pen) NOVOLOG *MILD* ALGORITHM WITH MEALS BEDTIME SC Last administered on 08/18/18at 12:59; Admin Dose 1 UNIT; Start 08/03 08/21 at 21:00 Miscellaneous Information (* Miscellaneous Pharmacy Order) [facility] TO DOSE ONCE XX ; Start 08/18/18 at 22:00 Senna (Senokot) 1 tab BID PO Last administered on 08/21/18at 09:24; Admin Dose 1 TAB; Start 08/20/18 at 13:30 Levofloxacin (Levaquin) 250 mg Q2D@0600 PO Last administered on 08/20/18at 17:38; Admin Dose 250 MG; Start 08/20/18 at 15:00 HASEEB MAYA MD Aug 21, 2018 16:42
--- NOTE | 2018-08-21 17:49 | PN ---
Date/Time of Note Date/Time of Note DATE: 08/21/18 TIME: 17:45 Assessment/Plan Lines/Catheters IV Catheter Type (from Nrsg): Saline Lock [place] in Place (from Nrsg): No Assessment/Plan Problems: (1) Acquired absence of other right toe(s) Comment: Involving the third, fourth and fifth toes with the third toe being the most recent amputation. At this time the wound VAC is no longer needed. I will start patient on silver alginate to the wound with daily dressing change. I have discussed with patient and medical team regarding patient placement in a shelter facility in order to allow the right foot to demarcate. He will require further surgical management which may or may not include more proximal amputation. Patient acknowledges understanding of the discussion. Patient is to remain nonweightbearing on the right foot. 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 Patient reports no pain in his right foot and denies fever and chills. The wound VAC has been off as per my instructions. Constitutional: no complaints Pain Control: well controlled Exam/Review of Systems Vital Signs Vitals Vital Signs Date Temp Pulse Resp B/P (MAP) Pulse Ox O2 O2 Flow FiO2 Time Delivery Rate 08/21/18 97.8 94 20 123/59 96 Room Air 14:05 (80) 08/18/18 1.0 09:30 Intake and Output 08/20/18 08/20/18 08/21/18 1515:00 23:00 07:00 IntakeIntake Total 490 ml 720 ml BalanceBalance 490 ml 720 ml Exam Free Text/Dictation Patient is in no acute distress laying supine in bed. Dressing was removed from the right foot. Status post temptation of the third toe with previous amputations of the fourth and fifth toes. The right second toe is gangrenous to the level of the MPJ and demarcating. The hallux seems to be dry and brittle. Chronic dry open wound noted on the lateral right foot at the base of the fifth metatarsal bone. There is no active pus and no active bleeding from any of the wounds. Skin is dry. Today the foot feels much warmer than last visit most likely secondary to angioplasty that was done recently by Dr. Guerin. Labs reviewed. Imaging reviewed. Results Result Diagram: 08/21/18 1012 08/21/18 1012 SHEYLA IZAGUIRRE DPM Aug 21, 2018 17:49
[2018-08-21] MEDS: EPOETIN 4000 UNITS/1 ML INJ (ESRD) SC SCH (18:07)
[2018-08-22] MEDS: ACCU-CHEK XX SCH (02:00)
[2018-08-22] MEDS: DIPHENHYDRAMINE 50 MG INJ IV PRN ×5 (03:30→22:05)
[2018-08-22] MEDS: morphine 2 MG INJ IV PRN ×5 (03:30→22:05)
[2018-08-22] MEDS: LEVOFLOXACIN 250 MG TAB PO SCH ×2 (08:00→11:00)
[2018-08-22] MEDS: INSULIN ASPART [NOVOLOG] 3 ML PEN SC SCH ×4 (08:00→21:00)
[2018-08-22 08:06] VITALS: BP 154/74; PULSE 98; RESP 18
[2018-08-22] MEDS: SENNA TAB PO SCH ×2 (08:47→21:23)
[2018-08-22] MEDS: LISINOPRIL 20 MG TAB PO SCH (08:47)
[2018-08-22] MEDS: LORATADINE 10 MG TAB PO SCH (08:48)
[2018-08-22] MEDS: PENTOXIFYLLINE (SR) 400 MG TAB PO SCH ×3 (08:48→17:51)
[2018-08-22] MEDS: DOCUSATE SODIUM 100 MG CAP PO SCH ×2 (08:48→21:23)
[2018-08-22] MEDS: PANTOPRAZOLE (EC) 40 MG TAB PO SCH (08:48)
[2018-08-22] MEDS: CALCIUM ACETATE 667 MG CAP PO SCH ×3 (08:48→17:51)
[2018-08-22] MEDS: AMLODIPINE 10 MG TAB PO SCH (08:48)
[2018-08-22] MEDS: TRIAMCINOLONE ACET 0.1% 15 GM CR TOP SCH ×3 (08:49→21:23)
[2018-08-22] MEDS: MINOXIDIL 10 MG TAB PO SCH ×2 (11:01→21:23)
--- NOTE | 2018-08-22 11:22 | CONS ---
Assessment/Plan Assessment/Plan Hospital Course (Demo Recall) Looks comfortable Microbiology: Blood cultures remain negative Antimicrobials: Vancomycin Levaquin PHYSICAL EXAMINATION: GENERAL: Well-developed, ill-appearing, middle-aged man in no distress. HEENT: Head is atraumatic, normocephalic. NECK: Supple. CHEST: Rise symmetrical. Breath sounds diminished to bases. HEART: S1, S2. ABDOMEN: Soft. Bowel tones are present. EXTREMITIES: With right foot dsg, left below-knee amputation with dry scalp on the knee as well as on the stump itself. Assessment: 1. Right foot diabetic ulceration/ischemia, s/p amputation of right third toe/application of wound VAC right foot 2. End-stage renal disease, hemodialysis dependent 3. Diffuse rash==> neg scabies 4. Severe peripheral arterial disease status post left below-knee amputation==s/p balloon angioplasty 08/15/18 5. Coronary artery disease status post cardiac stent 6. Hypertension Plan: Remains stable, podiatry rec-s noted, needs placement in a [facility] facility in order to allow the right foot to demarcate. Pt will require further surgical management with possible more proximal amputation Consultation Date/Type/Reason Admit Date/Time Aug 09, 2018 at 22:42 Initial Consult Date 08/11/18 Type of Consult id Date/Time of Note DATE: 08/22/18 TIME: 11:20 Exam/Review of Systems Exam Vitals Vital Signs Date Temp Pulse Resp B/P (MAP) Pulse Ox O2 O2 Flow FiO2 Time Delivery Rate 08/22/18 98.2 98 18 154/74 97 Room Air 08:06 (100) 08/18/18 1.0 09:30 Intake and Output 08/21/18 08/21/18 08/22/18 1515:00 23:00 07:00 IntakeIntake Total 600 ml 710 ml 240 ml OutputOutput Total 2750 ml BalanceBalance -2150 ml 710 ml 240 ml Results Result Diagram: 08/21/18 1012 08/21/18 1012 Results 24hrs Laboratory Tests Test 08/21/18 12:46 08/21/18 18:05 08/21/18 22:54 08/22/18 06:25 Bedside Glucose 89 127 101 Lab Scanned BLOOD TRANSFUSIO Report N Test 08/22/18 08:44 Bedside Glucose 109 Medications Medication Current Medications Vancomycin HCl (Vanco Iv Per Pharmacy) VANCOMYCIN PER PHARMACY PER PROTOCOL XX ; Start 08/10/18 at 02:00 Acetaminophen (Tylenol Tab) 650 mg Q6H PRN PO MILD PAIN(1-3)OR ELEVATED TEMP Last administered on 08/18/18 20:42; Admin Dose 650 MG; Start 08/10/18 at 02:00 Ondansetron HCl (Zofran Inj) 4 mg Q6H PRN IV NAUSEA AND/OR VOMITING Last administered on 08/17/18 13:18; Admin Dose 4 MG; Start 08/10/18 at 02:00 Calcium Acetate (Phoslo) 1,334 mg WITH MEALS PO Last administered on 08/22/18 08:48; Admin Dose 1,334 MG; Start 08/10/18 at 08:00 Clonidine (Catapres) 0.3 mg Q6H PRN PO FOR SBP ABOVE 170; Start 08/10/18 at 02:00 Docusate Sodium (Colace) 100 mg BID PO Last administered on 08/22/18 08:48; Admin Dose 100 MG; Start 08/10/18 at 09:00 Acetaminophen/ Hydrocodone Bitart ([place] (7.5-325)) 1 tab BID PRN PO PAIN; Start 08/10/18 at 02:00 Lisinopril (Zestril) 40 mg DAILY PO Last administered on 08/22/18 08:47; Admin Dose 40 MG; Start 08/10/18 at 09:00 Minoxidil (Loniten) 10 mg BID PO Last administered on 08/22/18 11:01; Admin Dose 10 MG; Start 08/10/18 at 09:00 Pentoxifylline (Trental) 400 mg WITH MEALS PO Last administered on 08/22/18 08:48; Admin Dose 400 MG; Start 08/10/18 at 08:00 Zolpidem Tartrate (Ambien) 5 mg HS MAY REPEAT X 1 PRN PO INSOMNIA Last administered on 08/19/18 22:30; Admin Dose 5 MG; Start 08/10/18 at 02:00 Hydroxyzine HCl (Atarax) 25 mg BID PRN PO ITCHING Last administered on 08/10/18 19:21; Admin Dose 25 MG; Start 08/10/18 at 06:30 Miscellaneous Information 1 ea NOTE XX ; Start 08/10/18 at 07:00 Glucose (Glutose) 15 gm Q15M PRN PO DECREASED GLUCOSE; Start 08/10/18 at 07:00 Glucose (Glutose) 22.5 gm Q15M PRN PO DECREASED GLUCOSE; Start 08/10/18 at 07:00 Dextrose (D50w Syringe) 25 ml Q15M PRN IV DECREASED GLUCOSE; Start 08/10/18 at 07:00 Dextrose (D50w Syringe) 50 ml Q15M PRN IV DECREASED GLUCOSE; Start 08/10/18 at 07:00 Glucagon (Glucagen) 1 mg Q15M PRN IM DECREASED GLUCOSE; Start 08/10/18 at 07:00 Glucose (Glutose) 15 gm Q15M PRN BUCCAL DECREASED GLUCOSE; Start 08/10/18 at 07:00 Epoetin Adi (Epogen (Esrd)) 4,000 units TuThSa@17 SC Last administered on 08/21/18at 18:07; Admin Dose 4,000 UNITS; Start 08/11/18 at 17:00 Lidocaine (Xylocaine 2% Jelly) 1 applic BEDSIDE MEDICATION PRN TOP PAIN LEVEL 1-5 Last administered on 08/21/18 09:31; Admin Dose 1 APPLIC; Start 08/10/18 at 13:30 Morphine Sulfate (morphine) 2 mg Q4H PRN IV SEVERE PAIN LEVEL 7-10 Last administered on 08/22/18 08:53; Admin Dose 2 MG; Start 08/10/18 at 13:30 Heparin Sodium (Porcine) (Heparin (5000 Units/1ml)) 5,000 unit BID SC Last administered on 08/14/18 09:33; Admin Dose 5,000 UNIT; Start 08/10/18 at 21:00; Status Hold Pantoprazole (Protonix Tab) 40 mg DAILY@06 PO Last administered on 08/22/18 08:48; Admin Dose 40 MG; Start 08/10/18 at 14:00 Amlodipine Besylate (Norvasc) 10 mg DAILY PO Last administered on 08/22/18 08:48; Admin Dose 10 MG; Start 08/11/18 at 15:00 Loratadine (Claritin) 10 mg DAILY PO Last administered on 08/22/18at 08:48; Admin Dose 10 MG; Start 08/13/18 at 12:30 Diphenhydramine HCl (Benadryl) 25 mg Q4H PRN IV ITCHING Last administered on 08/22/18 08:53; Admin Dose 25 MG; Start 08/14/18 at 14:30 Triamcinolone Acetonide (Kenalog 0.1% Cr) 1 applic TID TOP Last administered on 08/22/18 08:49; Admin Dose 1 APPLIC; Start 08/15/18 at 13:00 Vancomycin HCl 250 ml @ 125 mls/hr Q96H IVPB Last administered on 08/20/18 09:36; Admin Dose 125 MLS/HR; Start 08/16/18 at 09:00 Diagnostic Test (Pha) (Accu-Chek) 1 ea 02 XX ; Start 08/16/18 at 02:00 Insulin Aspart (Novolog Insulin Pen) NOVOLOG *MILD* ALGORITHM WITH MEALS BEDTIME SC Last administered on 08/18/18 12:59; Admin Dose 1 UNIT; Start 08/15/18 at 21:00 Miscellaneous Information (* Miscellaneous Pharmacy Order) [facility] TO DOSE ONCE XX ; Start 08/18/18 at 22:00 Senna (Senokot) 1 tab BID PO Last administered on 08/22/18 08:47; Admin Dose 1 TAB; Start 08/20/18 at 13:30 Levofloxacin (Levaquin) 250 mg Q2D@0600 PO Last administered on 08/22/18 11:00; Admin Dose 250 MG; Start 08/20/18 at 15:00 DAYSI BHATIA NP Aug 22, 2018 11:22
--- NOTE | 2018-08-22 14:41 | PN ---
Date/Time of Note Date/Time of Note DATE: 08/22/18 TIME: 14:39 Assessment/Plan VTE Prophylaxis Risk score (from Nsg)>0 risk: 5 SCD applied (from Nsg): No SCD contraindicated: low risk/ambulating Pharmacological prophylaxis: NA/contraindicated Pharm contraindication: low risk/ambulating Lines/Catheters IV Catheter Type (from Nrs): Saline Lock Urinary Cath still in place: No Assessment/Plan Hospital Course 47 y/o with 1. Wet gangrene of 3rd toe on the right foot. 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 S/p amputation of the fourth and fifth rays through the proximal shafts of the fourth and fifth metatarsals right foot. 3. Cellulitis with deep soft tissue ulcer over the lateral base of the fifth metatarsal with mild periosteal reaction along the lateral shaft of the fifth metatarsal that may be due to osteomyelitis of the right foot, per Xray right foot. 4. End-stage renal disease on hemodialysis Monday, and Monday 5. Normocytic normochromic anemia, hx of anemia of chronic disease with EGD 11/01/17 with esophageal ulceration. Colonoscopy was done 09/03/15 for active bleeding. 6. Hypertension, controlled. 7. Diabetes mellitus type II, not controlled well. last hg A1 C 7,5. 8. Coronary artery disease status post 4 stents. 9. Left below-knee amputation, s/p revision. 10. Diastolic CHF 11. Hx of hematoma of abdomen. Numerous surgical procedures, inc. biopsy, drainage, exploratory laparotomy 2014 12. pt did not have cholecystectomy, apparently due to many surgical scars on abdomen, pt mentioned it 13. hx of tracheostomy 14. hx of positive troponin past. 15 pvd s/p Atherectomy right superficial femoral artery and popliteal artery Balloon angioplasty right superficial femoral artery and popliteal artery using 6 x 200 mm balloon Plan -s/p amputaion> now with wound vac also removed -Status post atherectomy and balloon angioplasty of the right superficial femoral artery and popliteal artery today patient will need to be on Plavix ? after the surgery -HD Monday, 1 unit of blood today -Follow-up vascular/podiatry recommendations -Per ID and per Dr. Klein patient does not need any IV more antibiotics -Benadryl/morphine -pt Was following an outside belt loop cutter and was supposed to follow them on 0 313 for biopsy results -Culture negative so far -cw with lisinopril/Norvasc/monoxidil - cw epogen - GI/DVT prophylaxsis home health arrnagement dc tmw after HD Result Diagram: 08/21/18 1012 08/21/18 1012 Results 24hrs Laboratory Tests Test 08/21/18 18:05 08/21/18 22:54 08/22/18 06:25 08/22/18 08:44 Bedside Glucose 127 101 109 Lab Scanned BLOOD TRANSFUSIO Report N Test 08/22/18 13:28 Bedside Glucose 86 Subjective 24 Hr Interval Summary Free Text/Dictation Discussed This is Dr. Klein about further treatment, to the patient to go to [facility] and follow-up later as an outpatient for possible surgery Discussed with the patient he does not want to go to [facility] he wants to go home Exam/Review of Systems Exam Vitals Vital Signs Date Temp Pulse Resp B/P (MAP) Pulse Ox O2 O2 Flow FiO2 Time Delivery Rate 08/22/18 98.2 98 18 154/74 97 Room Air 08:06 (100) 08/18/18 1.0 09:30 Intake and Output 08/21/18 08/21/18 08/22/18 1515:00 23:00 07:00 IntakeIntake Total 600 ml 710 ml 240 ml OutputOutput Total 2750 ml BalanceBalance -2150 ml 710 ml 240 ml Exam Neck: supple Respiratory: clear to auscultation Cardiovascular: regular rate and rhythm Gastrointestinal: soft, bowel sounds (+) Extremities: other (foot wound+)With right foot erythema, edema, left below- knee amputation with dry scalp on the knee as well as on the stump itself. Diffuse skin changes Fistula on the left arm wound vac is removed Results Results 24hrs Laboratory Tests Test 08/21/18 18:05 08/21/18 22:54 08/22/18 06:25 08/22/18 08:44 Bedside Glucose 127 101 109 Lab Scanned BLOOD TRANSFUSIO Report N Test 08/22/18 13:28 Bedside Glucose 86 Medications Medication Current Medications Vancomycin HCl (Vanco Iv Per Pharmacy) VANCOMYCIN PER PHARMACY PER PROTOCOL XX ; Start 08/10/18 at 02:00 Acetaminophen (Tylenol Tab) 650 mg Q6H PRN PO MILD PAIN(1-3)OR ELEVATED TEMP Last administered on 08/18/18 20:42; Admin Dose 650 MG; Start 08/10/18 at 02:00 Ondansetron HCl (Zofran Inj) 4 mg Q6H PRN IV NAUSEA AND/OR VOMITING Last administered on 08/17/18 13:18; Admin Dose 4 MG; Start 08/10/18 at 02:00 Calcium Acetate (Phoslo) 1,334 mg WITH MEALS PO Last administered on 08/22/18 13:30; Admin Dose 1,334 MG; Start 08/10/18 at 08:00 Clonidine (Catapres) 0.3 mg Q6H PRN PO FOR SBP ABOVE 170; Start 08/10/18 at 02:00 Docusate Sodium (Colace) 100 mg BID PO Last administered on 08/22/18 08:48; Admin Dose 100 MG; Start 08/10/18 at 09:00 Acetaminophen/ Hydrocodone Bitart ([place] (7.5-325)) 1 tab BID PRN PO PAIN; Start 08/10/18 at 02:00 Lisinopril (Zestril) 40 mg DAILY PO Last administered on 08/22/18 08:47; Admin Dose 40 MG; Start 08/10/18 at 09:00 Minoxidil (Loniten) 10 mg BID PO Last administered on 08/22/18 11:01; Admin Dose 10 MG; Start 08/10/18 at 09:00 Pentoxifylline (Trental) 400 mg WITH MEALS PO Last administered on 08/22/18 13:29; Admin Dose 400 MG; Start 08/10/18 at 08:00 Zolpidem Tartrate (Ambien) 5 mg HS MAY REPEAT X 1 PRN PO INSOMNIA Last administered on 08/19/18 22:30; Admin Dose 5 MG; Start 08/10/18 at 02:00 Hydroxyzine HCl (Atarax) 25 mg BID PRN PO ITCHING Last administered on 08/10/18 19:21; Admin Dose 25 MG; Start 08/10/18 at 06:30 Miscellaneous Information 1 ea NOTE XX ; Start 08/10/18 at 07:00 Glucose (Glutose) 15 gm Q15M PRN PO DECREASED GLUCOSE; Start 08/10/18 at 07:00 Glucose (Glutose) 22.5 gm Q15M PRN PO DECREASED GLUCOSE; Start 08/10/18 at 07:00 Dextrose (D50w Syringe) 25 ml Q15M PRN IV DECREASED GLUCOSE; Start 08/10/18 at 07:00 Dextrose (D50w Syringe) 50 ml Q15M PRN IV DECREASED GLUCOSE; Start 08/10/18 at 07:00 Glucagon (Glucagen) 1 mg Q15M PRN IM DECREASED GLUCOSE; Start 08/10/18 at 07:00 Glucose (Glutose) 15 gm Q15M PRN BUCCAL DECREASED GLUCOSE; Start 08/10/18 at 07:00 Epoetin Adi (Epogen (Esrd)) 4,000 units TuThSa@17 SC Last administered on 08/21/18 18:07; Admin Dose 4,000 UNITS; Start 08/11/18 at 17:00 Lidocaine (Xylocaine 2% Jelly) 1 applic BEDSIDE MEDICATION PRN TOP PAIN LEVEL 1-5 Last administered on 08/21/18 09:31; Admin Dose 1 APPLIC; Start 08/10/18 at 13:30 Morphine Sulfate (morphine) 2 mg Q4H PRN IV SEVERE PAIN LEVEL 7-10 Last administered on 08/22/18 13:34; Admin Dose 2 MG; Start 08/10/18 at 13:30 Heparin Sodium (Porcine) (Heparin (5000 Units/1ml)) 5,000 unit BID SC Last administered on 08/14/18 09:33; Admin Dose 5,000 UNIT; Start 08/10/18 at 21:00; Status Hold Pantoprazole (Protonix Tab) 40 mg DAILY@06 PO Last administered on 08/22/18 08:48; Admin Dose 40 MG; Start 08/10/18 at 14:00 Amlodipine Besylate (Norvasc) 10 mg DAILY PO Last administered on 08/22/18 08:48; Admin Dose 10 MG; Start 08/11/18 at 15:00 Loratadine (Claritin) 10 mg DAILY PO Last administered on 08/22/18 08:48; Admin Dose 10 MG; Start 08/13/18 at 12:30 Diphenhydramine HCl (Benadryl) 25 mg Q4H PRN IV ITCHING Last administered on 08/22/18 13:33; Admin Dose 25 MG; Start 08/14/18 at 14:30 Triamcinolone Acetonide (Kenalog 0.1% Cr) 1 applic TID TOP Last administered on 08/22/18 08:49; Admin Dose 1 APPLIC; Start 08/15/18 at 13:00 Vancomycin HCl 250 ml @ 125 mls/hr Q96H IVPB Last administered on 08/20/18 09:36; Admin Dose 125 MLS/HR; Start 08/16/18 at 09:00 Diagnostic Test (Pha) (Accu-Chek) 1 ea 02 XX ; Start 08/16/18 at 02:00 Insulin Aspart (Novolog Insulin Pen) NOVOLOG *MILD* ALGORITHM WITH MEALS BEDTIME SC Last administered on 08/18/18 12:59; Admin Dose 1 UNIT; Start 08/15/18 at 21:00 Miscellaneous Information (* Miscellaneous Pharmacy Order) [facility] TO DOSE ONCE XX ; Start 08/18/18 at 22:00 Senna (Senokot) 1 tab BID PO Last administered on 08/22/18 08:47; Admin Dose 1 TAB; Start 08/20/18 at 13:30 Levofloxacin (Levaquin) 250 mg Q2D@0600 PO Last administered on 08/22/18 11:00; Admin Dose 250 MG; Start 08/20/18 at 15:00 HASEEB MAYA MD Aug 22, 2018 14:40
--- NOTE | 2018-08-22 14:44 | PDOCDIS ---
Discharge Instructions DIAGNOSIS Discharge Diagnosis AtAherectomy right superficial femoral artery and popliteal artery Balloon angioplasty right superficial femoral artery and popliteal artery using 6 x 200 mm balloon Right lower extremity third order degree angiogram S/P AMPUTATION CONDITION [id number] Patient Condition: [id number] Fair HOME CARE INSTRUCTIONS: [id number] Special Diet: [id number] Renal ACTIVITY: [id number] Activity Restrictions: [id number] Slowly Increase Activity [id number] Activity Restrictions [id number] non weigh bearing on rt foot Comment: FOLLOW UP/APPOINTMENTS Follow-up Plan f/u Pcp IN 1-2 WEEKS f/u HD TTS FU Dr Millard in 1 week Return to ER if he has severe discoloration fevers chills discharge from the wound HASEEB MAYA MD Aug 22, 2018 14:44
[2018-08-22 15:09] VITALS: BP 151/75; PULSE 89; RESP 18
[2018-08-22 19:59] VITALS: BP 185/87; PULSE 86; RESP 18
[2018-08-22 23:00] VITALS: BP 168/76; PULSE 86; RESP 18
[2018-08-23] VITALS (17 sets, daily range): BP systolic 108–163; BP diastolic 59–94; PULSE 73–98; RESP 16–20
[2018-08-23] MEDS: ACCU-CHEK XX SCH (02:00)
[2018-08-23] MEDS: DIPHENHYDRAMINE 50 MG INJ IV PRN ×3 (02:21→13:53)
[2018-08-23] MEDS: morphine 2 MG INJ IV PRN ×3 (02:21→13:53)
[2018-08-23] MEDS: INSULIN ASPART [NOVOLOG] 3 ML PEN SC SCH ×2 (08:00→13:10)
[2018-08-23] MEDS: SENNA TAB PO SCH (09:00)
[2018-08-23] MEDS: MINOXIDIL 10 MG TAB PO SCH (09:00)
[2018-08-23] MEDS: AMLODIPINE 10 MG TAB PO SCH (09:00)
[2018-08-23] MEDS: DOCUSATE SODIUM 100 MG CAP PO SCH (09:00)
[2018-08-23] MEDS: LISINOPRIL 20 MG TAB PO SCH (09:00)
[2018-08-23] MEDS: PENTOXIFYLLINE (SR) 400 MG TAB PO SCH ×2 (09:04→13:52)
[2018-08-23] MEDS: CALCIUM ACETATE 667 MG CAP PO SCH ×2 (09:04→13:53)
[2018-08-23] MEDS: PANTOPRAZOLE (EC) 40 MG TAB PO SCH (09:04)
[2018-08-23] MEDS: LORATADINE 10 MG TAB PO SCH (09:04)
[2018-08-23] MEDS: TRIAMCINOLONE ACET 0.1% 15 GM CR TOP SCH ×2 (09:05→13:00)
[2018-08-23] MEDS: LIDOCAINE 2% JELLY 5 ML TOP PRN (11:44)
--- NOTE | 2018-08-23 14:03 | CONS ---
Assessment/Plan Assessment/Plan Hospital Course (Demo Recall) In HD, looks comfortable Microbiology: Blood cultures remain negative PHYSICAL EXAMINATION: GENERAL: Well-developed, ill-appearing, middle-aged man in no distress. HEENT: Head is atraumatic, normocephalic. NECK: Supple. CHEST: Rise symmetrical. Breath sounds diminished to bases. HEART: S1, S2. ABDOMEN: Soft. Bowel tones are present. EXTREMITIES: With right foot dsg, left below-knee amputation with dry scalp on the knee as well as on the stump itself. Assessment: 1. Right foot diabetic ulceration/ischemia, s/p amputation of right third toe/application of wound VAC right foot 2. End-stage renal disease, hemodialysis dependent 3. Diffuse rash==> neg scabies 4. Severe peripheral arterial disease status post left below-knee amputation==s/p balloon angioplasty 08/15/18 5. Coronary artery disease status post cardiac stent 6. Hypertension Plan: Remains stable, off abx, per podiatry rec-s pt will require further surgical management with possible more proximal amputation, awaiting for demarcation Consultation Date/Type/Reason Admit Date/Time Aug 09, 2018 at 22:42 Initial Consult Date 08/11/18 Type of Consult id Date/Time of Note DATE: 08/23/18 TIME: 14:02 Exam/Review of Systems Exam Vitals Vital Signs Date Temp Pulse Resp B/P (MAP) Pulse Ox O2 O2 Flow FiO2 Time Delivery Rate 08/23/18 87 13:20 08/23/18 16 130/73 93 Room Air 11:59 (92) 08/23/18 98.5 07:59 Intake and Output 08/22/18 08/22/18 08/23/18 1515:00 23:00 07:00 IntakeIntake Total 840 ml 480 ml BalanceBalance 840 ml 480 ml Results Result Diagram: 08/23/18 1155 08/23/18 1155 Results 24hrs Laboratory Tests Test 08/22/18 17:50 08/22/18 21:12 08/23/18 08:17 08/23/18 11:55 Bedside Glucose 92 110 92 White Blood Count 7.5 Red Blood Count 2.75 L Hemoglobin 7.7 L Hematocrit 24.0 L Mean Corpuscular 87.3 Volume Mean Corpuscular 28.0 L Hemoglobin Mean Corpuscular 32.1 Hemoglobin Concent Red Cell 13.3 Distribution Width Platelet Count 160 # Mean Platelet Volume 10.3 Immature 0.900 H Granulocytes % Neutrophils % 68.7 Lymphocytes % 12.3 L Monocytes % 8.3 Eosinophils % 9.4 H Basophils % 0.4 Nucleated Red Blood 0.0 Cells % Immature 0.070 H Granulocytes # Neutrophils # 5.1 Lymphocytes # 0.9 Monocytes # 0.6 Eosinophils # 0.7 H Basophils # 0.0 Nucleated Red Blood 0.0 Cells # Sodium Level 139 Potassium Level 4.8 Chloride Level 101 Carbon Dioxide Level 24 Anion Gap 14 H Blood Urea Nitrogen 55 H Creatinine 8.68 H Est Glomerular 8 L Filtrat Rate mL/min Glucose Level 98 Calcium Level 9.8 Phosphorus Level 4.9 Magnesium Level 2.4 Test 08/23/18 13:09 Bedside Glucose 88 Medications Medication Current Medications Acetaminophen (Tylenol Tab) 650 mg Q6H PRN PO MILD PAIN(1-3)OR ELEVATED TEMP Last administered on 08/18/18 20:42; Admin Dose 650 MG; Start 08/10/18 at 02:00 Ondansetron HCl (Zofran Inj) 4 mg Q6H PRN IV NAUSEA AND/OR VOMITING Last administered on 08/17/18 13:18; Admin Dose 4 MG; Start 08/10/18 at 02:00 Calcium Acetate (Phoslo) 1,334 mg WITH MEALS PO Last administered on 08/23/18at 13:53; Admin Dose 1,334 MG; Start 08/10/18 at 08:00 Clonidine (Catapres) 0.3 mg Q6H PRN PO FOR SBP ABOVE 170; Start 08/10/18 at 02:00 Docusate Sodium (Colace) 100 mg BID PO Last administered on 08/22/18at 21:23; Admin Dose 100 MG; Start 08/10/18 at 09:00 Acetaminophen/ Hydrocodone Bitart ([place] (7.5-325)) 1 tab BID PRN PO PAIN; Start 08/10/18 at 02:00 Lisinopril (Zestril) 40 mg DAILY PO Last administered on 08/22/18at 08:47; Admin Dose 40 MG; Start 08/10/18 at 09:00 Minoxidil (Loniten) 10 mg BID PO Last administered on 08/22/18at 21:23; Admin Dose 10 MG; Start 08/10/18 at 09:00 Pentoxifylline (Trental) 400 mg WITH MEALS PO Last administered on 08/23/18 13:52; Admin Dose 400 MG; Start 08/10/18 at 08:00 Zolpidem Tartrate (Ambien) 5 mg HS MAY REPEAT X 1 PRN PO INSOMNIA Last administered on 08/19/18 22:30; Admin Dose 5 MG; Start 08/10/18 at 02:00 Hydroxyzine HCl (Atarax) 25 mg BID PRN PO ITCHING Last administered on 08/10/18 19:21; Admin Dose 25 MG; Start 08/10/18 at 06:30 Miscellaneous Information 1 ea NOTE XX ; Start 08/10/18 at 07:00 Glucose (Glutose) 15 gm Q15M PRN PO DECREASED GLUCOSE; Start 08/10/18 at 07:00 Glucose (Glutose) 22.5 gm Q15M PRN PO DECREASED GLUCOSE; Start 08/10/18 at 07:00 Dextrose (D50w Syringe) 25 ml Q15M PRN IV DECREASED GLUCOSE; Start 08/10/18 at 07:00 Dextrose (D50w Syringe) 50 ml Q15M PRN IV DECREASED GLUCOSE; Start 08/10/18 at 07:00 Glucagon (Glucagen) 1 mg Q15M PRN IM DECREASED GLUCOSE; Start 08/10/18 at 07:00 Glucose (Glutose) 15 gm Q15M PRN BUCCAL DECREASED GLUCOSE; Start 08/10/18 at 07:00 Epoetin Adi (Epogen (Esrd)) 4,000 units TuThSa@17 SC Last administered on 08/21/18 18:07; Admin Dose 4,000 UNITS; Start 08/11/18 at 17:00 Lidocaine (Xylocaine 2% Jelly) 1 applic BEDSIDE MEDICATION PRN TOP PAIN LEVEL 1-5 Last administered on 08/23/18 11:44; Admin Dose 1 APPLIC; Start 08/10/18 at 13:30 Morphine Sulfate (morphine) 2 mg Q4H PRN IV SEVERE PAIN LEVEL 7-10 Last administered on 08/23/18 13:53; Admin Dose 2 MG; Start 08/10/18 at 13:30 Heparin Sodium (Porcine) (Heparin (5000 Units/1ml)) 5,000 unit BID SC Last administered on 08/14/18 09:33; Admin Dose 5,000 UNIT; Start 08/10/18 at 21:00; Status Hold Pantoprazole (Protonix Tab) 40 mg DAILY@06 PO Last administered on 08/23/18 09:04; Admin Dose 40 MG; Start 08/10/18 at 14:00 Amlodipine Besylate (Norvasc) 10 mg DAILY PO Last administered on 08/22/18 08:48; Admin Dose 10 MG; Start 08/11/18 at 15:00 Loratadine (Claritin) 10 mg DAILY PO Last administered on 08/23/18 09:04; Adm in Dose 10 MG; Start 08/13/18 at 12:30 Diphenhydramine HCl (Benadryl) 25 mg Q4H PRN IV ITCHING Last administered on 08/23/18 13:53; Admin Dose 25 MG; Start 08/14/18 at 14:30 Triamcinolone Acetonide (Kenalog 0.1% Cr) 1 applic TID TOP Last administered on 08/23/18 09:05; Admin Dose 1 APPLIC; Start 08/15/18 at 13:00 Diagnostic Test (Pha) (Accu-Chek) 1 ea 02 XX ; Start 08/16/18 at 02:00 Insulin Aspart (Novolog Insulin Pen) NOVOLOG *MILD* ALGORITHM WITH MEALS BEDTIME SC Last administered on 08/18/18 12:59; Admin Dose 1 UNIT; Start 08/15/18 at 21:00 Miscellaneous Information (* Miscellaneous Pharmacy Order) [facility] TO DOSE ONCE XX ; Start 08/18/18 at 22:00 Senna (Senokot) 1 tab BID PO Last administered on 08/22/18 21:23; Admin Dose 1 TAB; Start 08/20/18 at 13:30 DAYSI BHATIA NP Aug 23, 2018 14:03
--- NOTE | 2018-08-23 14:39 | QN ---
Documentation Comment seen and examined HASEEB Griffin MD Aug 23, 2018 14:39
--- NOTE | 2018-08-24 03:24 | DS ---
DATE OF ADMISSION: 08/09/2018 DATE OF DISCHARGE: 08/23/2018 HISTORY OF PRESENT ILLNESS AND HOSPITAL COURSE: This is a 47-year-old -[place] male with a p ast medical history of diabetes, hypertension, CKD, end-stage renal disease, hemodialysis, left BKA, right fourth and fifth toe amputations, who presented to the emergency department complaining of swel ling, moderate on the right third toe. The patient says that he injured his toe approximately a juliette h and a half ago. Symptoms had been worse since then. On admission, vital signs show temperature 98 .6, pulse 72, respirations 18, blood pressure 120/58, saturating 94%. The patient had joint tenderne ss and right toe swelling. The patient was started on broad spectrum IV antibiotics, vancomycin and cefepime. Blood cultures were sent that were negative. The patient also had a foot x-ray done on that showed status post amputation of fourth and fifth toes. There is a deep soft tissue ul cers over the base of the 5th metatarsal and a periosteal reaction on the lateral shaft of the fifth metatarsal due to osteomyelitis. The patient also had an arterial study done that showed diffuse mon ophasic waveforms in the right leg with no focal area of high degree stenosis. The patient was seen by Dr. Guerin for vascular consultation on 08/15/2018. He had angiogram done that showed atherect maribell of the right superficial femoral artery and popliteal artery that was performed in lieu of balloo n angioplasty of the right superficial femoral artery and popliteal artery using balloon. The patien t was continued on hemodialysis during the hospitalization. The patient was seen by podiatry consult ation with Dr. Millard. The patient was also seen by ID consultation and their recommendations were librado saucedo. The patient had diffuse rash of the hands that patient had biopsied before and was also tona ivette for scabies that were negative. The patient was started on vancomycin and Levaquin. The patient was seen by Dr. Millard again and had on 08/15/2018, gangrene and had an amputation of the right thir d toe and application of the wound VAC. Postop, the patient was doing better, denied any fevers. Cu ltures had been negative. Per ID and Dr. Millard, the patient does not need any more antibiotics. Pl an was for the patient to go to a [facility] facility in order to allow the right foot to demarc ate; however, the patient [facility]. Currently, the patient will go home wit h nonweightbearing on the right lower extremity and will follow up with Dr. Millard in 1 to 2 weeks. FINAL DISCHARGE DIAGNOSES: 1. Wet gangrene of the third toe on right foot. Destructive arthritis of the third metacarpal joint s, chronic subluxation, status post amputation and status post application of the wound VAC now, whic h has been removed. 2. Cellulitis of the deep tissue ulcer on the lateral aspect of the fifth metatarsal on the right fo ot. 3. End-stage renal disease, on hemodialysis. 4. Peripheral vascular disease, status post atherectomy of the right superficial femoral artery and popliteal artery. Balloon angioplasty of the right superficial femoral artery and popliteal artery 5. Normocytic normochromic anemia. History of EGD ____ with esophageal ulceration. 6. Hypertension. 7. Diabetes. 8. Coronary artery disease. 9. Left ____ amputation 10. History of diastolic congestive heart failure. 11. History of hematoma of the abdomen. 12. History of tracheostomy. 13. History of a positive troponin test. 14. Anemia of chronic disease. DISCHARGE CONDITION: Stable. DISCHARGE DIET: Renal diet. DISCHARGE MEDICATIONS: Continue home medications. 1. Calcium acetate. 2. Cetirizine. 3. Clonidine. 4. Colace. 5. [place]. 6. Lisinopril 40. 7. Minoxidil 10 b.i.d. 8. Pentoxifylline. 9. Restoril. DISCHARGE INSTRUCTIONS: The patient was instructed to follow up with Dr. Millard in 1 week. Arrtray ent was done for home care, wound care, and the patient was instructed to return to the ER if he has severe abdominal pain, discharge, fevers or chills. Dictated By: HASEEB AGOSTO/JOSE ANTONIO Conf#: [id number] DID#: [id number] CC: AZEEM HENNING MD;*EndCC*
== END 2018-08-23 16:20 | disposition home health service (06) | DRG 270 ==
LOC: E/R 14:02 → 2NE 22:42 → CANRESERV 22:58
PROVIDERS: ADMIT Internal Medicine Nephrology; ATTEND Internal Medicine Nephrology
PROC: 5A1D70Z Performance of Urinary Filtration, Intermittent, Less than 6 Hours Per Day (ICD-10-PCS; 2018-08-10)
PROC: 5A1D70Z Performance of Urinary Filtration, Intermittent, Less than 6 Hours Per Day (ICD-10-PCS; 2018-08-12)
PROC: 5A1D70Z Performance of Urinary Filtration, Intermittent, Less than 6 Hours Per Day (ICD-10-PCS; 2018-08-13)
PROC: 047M3ZZ Dilation of Right Popliteal Artery, Percutaneous Approach (ICD-10-PCS; 2018-08-15)
PROC: B41DYZZ Fluoroscopy of Aorta and Bilateral Lower Extremity Arteries using Other Contrast (ICD-10-PCS; 2018-08-15)
PROC: 2W1SX6Z Compression of Right Foot using Pressure Dressing (ICD-10-PCS; 2018-08-15)
PROC: 5A1D70Z Performance of Urinary Filtration, Intermittent, Less than 6 Hours Per Day (ICD-10-PCS; 2018-08-15)
PROC: 04CK3ZZ Extirpation of Matter from Right Femoral Artery, Percutaneous Approach (ICD-10-PCS; principal; 2018-08-15 07:30)
PROC: 04CM3ZZ Extirpation of Matter from Right Popliteal Artery, Percutaneous Approach (ICD-10-PCS; 2018-08-15 07:30)
PROC: 047K3ZZ Dilation of Right Femoral Artery, Percutaneous Approach (ICD-10-PCS; 2018-08-15 07:30)
PROC: 5A1D70Z Performance of Urinary Filtration, Intermittent, Less than 6 Hours Per Day (ICD-10-PCS; 2018-08-17)
PROC: 0Y6T0Z0 Detachment at Right 3rd Toe, Complete, Open Approach (ICD-10-PCS; 2018-08-18)
PROC: 5A1D70Z Performance of Urinary Filtration, Intermittent, Less than 6 Hours Per Day (ICD-10-PCS; 2018-08-20)
PROC: 30233N1 Transfusion of Nonautologous Red Blood Cells into Peripheral Vein, Percutaneous Approach (ICD-10-PCS; 2018-08-21)
PROC: 5A1D70Z Performance of Urinary Filtration, Intermittent, Less than 6 Hours Per Day (ICD-10-PCS; 2018-08-22)
DX: E11.52 Type 2 diabetes mellitus with diabetic peripheral angiopathy with gangrene (principal); N18.6 End stage renal disease; I13.2 Hypertensive heart and chronic kidney disease with heart failure and with stage 5 chronic kidney disease, or end stage renal disease; M00.9 Pyogenic arthritis, unspecified; M86.8X7 Other osteomyelitis, ankle and foot; L03.115 Cellulitis of right lower limb; I50.32 Chronic diastolic (congestive) heart failure; Z93.0 Tracheostomy status; E11.22 Type 2 diabetes mellitus with diabetic chronic kidney disease; E11.40 Type 2 diabetes mellitus with diabetic neuropathy, unspecified; E11.69 Type 2 diabetes mellitus with other specified complication; E11.621 Type 2 diabetes mellitus with foot ulcer; L97.519 Non-pressure chronic ulcer of other part of right foot with unspecified severity; I25.10 Atherosclerotic heart disease of native coronary artery without angina pectoris; D63.1 Anemia in chronic kidney disease; D63.8 Anemia in other chronic diseases classified elsewhere; Z79.4 Long term (current) use of insulin; I25.2 Old myocardial infarction; Z99.2 Dependence on renal dialysis; Z89.421 Acquired absence of other right toe(s); Z89.512 Acquired absence of left leg below knee; Z95.5 Presence of coronary angioplasty implant and graft; Z87.891 Personal history of nicotine dependence
CPT/HCPCS: 32550; 36415; 36430; 71045; 73630; 75630; 75635; 80048; 80053; 80202; 82962; 83036; 83605; 83735; 84100; 85014; 85018; 85025; 85610; 85730; 86644; 86706; 86850; 86900; 86901; 86920; 87040; 87081; 87340; 88305; 88311; 90935; 93005; 93926; 96365; 96366; 96375; C1725; C1760; C1769; C1887; C1894; J0696; J1200; J1644; J1815; J2185; J2250; J2270; J2405; J2543; J2795; J3010; J3370; J7040; J7042; P9016; P9045; Q4081; Q9967

== ENCOUNTER 2018-10-07 21:22 | Inpatient (IN) | payer OTHER ==
[~2018-10-07] VITALS: Ht 182.9 cm; Wt 85.0 kg
[~2018-10-07 21:22] MED LIST changes: +CETI10TA19 PO; +MINO10TA16 PO; -MINO2.5T16 PO; -NIFE30TA23 PO; -SERT25TA PO
[2018-10-08 00:05] VITALS: BP 126/58; PULSE 87; RESP 18
[2018-10-08 00:15] VITALS: Ht 182.9 cm; Wt 85.0 kg
[2018-10-08] MEDS: morphine 2 MG INJ IV PRN ×4 (01:19→20:24)
[2018-10-08] MEDS ORDERED: ALBUTEROL 0.083% (NEB) 2.5 MG/3 ML AMP HHN PRN (01:30)
[2018-10-08] MEDS ORDERED: DOCUSATE SODIUM 100 MG CAP PO PRN (01:30)
[2018-10-08] MEDS ORDERED: ACETAMINOPHEN 325 MG TAB PO PRN (01:30)
[2018-10-08] MEDS: ACCU-CHEK XX SCH (02:00)
[2018-10-08] MEDS ORDERED: DEXTROSE 50% 50 ML SYRINGE IV PRN ×2 (05:30)
[2018-10-08] MEDS ORDERED: GLUCOSE GEL 15 GRAM TUBE BUCCAL PRN (05:30)
[2018-10-08] MEDS ORDERED: GLUCAGON 1 MG INJ IM PRN (05:30)
[2018-10-08] MEDS ORDERED: GLUCOSE GEL 15 GRAM TUBE PO PRN ×2 (05:30)
[2018-10-08] MEDS ORDERED: PANTOPRAZOLE 40 MG INJ IV SCH (06:00)
[2018-10-08] MEDS: INSULIN ASPART [NOVOLOG] 3 ML PEN SC SCH ×4 (08:00→20:20)
[2018-10-08 08:30] VITALS: BP 141/67; PULSE 86; RESP 20
[2018-10-08] MEDS: CEFTRIAXONE 1 GM/NS 50 ML IVPB SCH (08:40)
[2018-10-08] MEDS ORDERED: CEFTRIAXONE 1 GM INJ IVPB SCH (09:00)
--- NOTE | 2018-10-08 14:31 | QN ---
Documentation Comment pt seen and examined HASEEB MAYA MD October 08, 2018 14:31
[2018-10-08 14:58] VITALS: BP 182/84; PULSE 86; RESP 18
[2018-10-08] MEDS ORDERED: VANCOMYCIN IV PER PHARMACY XX SCH (15:00)
[2018-10-08] MEDS ORDERED: VANCOMYCIN HCL 1.75 GM in SOD CHLORIDE 0.9% 500 ML IVPB SCH (15:30)
[2018-10-08 15:45] VITALS: BP 164/72; PULSE 89; RESP 16
--- NOTE | 2018-10-08 17:12 | HP ---
DATE OF ADMISSION: 10/08/2018 REASON FOR ADMISSION: Transferred from [facility] from [facility] secondary to ane elvia and diabetic foot. HISTORY OF PRESENT ILLNESS: This is a 48-year-old male with a past medical history of end-stage misti l disease on hemodialysis Monday, and Monday; history of hypertension, hyperlipidemia, le ft BKA, right 4th and 5th toe amputations, who was initially admitted in August 2018 secondary to ____ _ of the third toe on the right foot. During that time, patient had an angiogram done that showed at herectomy of the right superficial femoral artery, popliteal artery were performed, balloon angioplas ty of the right superficial femoral artery and popliteal artery using balloon. The patient had been followed by Dr. Millard as an outpatient and Dr. Jones as an outpatient. The patient had an amputatio n of the right third toe and application of wound VAC and was discharged home to follow up with Dr. Tamara lisa in 1 to 2 weeks. The 3patient had been following Dr. Millard. The patient went to [facility] yesterday. After he finished the dialysis, he was told that his hemoglobin was low and was trans ferred and came to [facility]. There, the patient's vital signs were stable. Potassium 3.3 , BUN of 36 with a creatinine of 4.8. White count 7.3, hemoglobin 6.1. X-ray of the right foot show ed osteomyelitis of the second and third metatarsal and third proximal toe, and the patient was given IV antibiotics, vancomycin and Zosyn, and was transferred due to insurance reasons. PAST MEDICAL HISTORY: 1. End-stage renal disease on hemodialysis Monday, and Monday. 2. Hypertension. 3. Peripheral vascular disease. 4. Wet gangrene of the third toe on the right foot. 5. Amputation of fourth and fifth toes. 6. Normocytic anemia. 7. Hypertension. 8. Diabetes. 9. Coronary artery disease, status post stents. 10. Left BKA. 11. Diastolic congestive heart failure. 12. History of tracheostomy 13. History of abdominal stents. ALLERGIES: DILAUDID. PAST SURGICAL HISTORY: Significant for abdominal surgery, fistula placements and Perm-A-Cath placeme nt. The patient also had history of tracheostomy before. HOME MEDICATIONS: 1. Cetirizine. 2. Pentoxifylline 400. 3. Clonidine 0.3 p.o. q.6. 4. Lisinopril 40. 5. Minoxidil 10 b.i.d. 6. Vicodin. 7. Temazepam. 8. Calcium acetate. 9. Colace. SOCIAL HISTORY: Denies any history of smoking, alcohol or any drug use. Currently lives at home. FAMILY HISTORY: Noncontributory. REVIEW OF SYSTEMS: The patient also complains of nausea and some pain on the right side of the ribs. The patient has said that he had fallen before. Denied any nausea, vomiting, diarrhea, headache, b lurry vision. Denies any focal neurological deficits. PHYSICAL EXAMINATION: VITAL SIGNS: Currently, blood pressure 126/56, temperature 99.2, pulse 87, respirations 18. GENERAL: The patient is awake, alert and oriented, does not appear to be in any acute distress. HEENT: Pupils are equal, round and reactive to light. NECK: Supple, no JVD. HEART: Regular rate and rhythm. LUNGS: Clear to auscultate bilaterally. ABDOMEN: Surgical scar present. EXTREMITIES: The patient has left BKA, right. Diffuse skin sloughing of the right foot. Multiple u lcers seen on the bottom of the sole with gangrenous changes on the sole and on the dorsum. The kary ent has a left AV fistula with good bruit and thrill. The patient also has skin changes with a hyper pigmented rash, which has been old. DIAGNOSTIC DATA: Pending from here. ASSESSMENT AND PLAN: This is a 48-year-old male with: 1. Right diabetic foot ulcer with osteomyelitis evident on the x-ray. 2. With peripheral vascular disease status post angioplasty. 3. Some vomiting, some right rib pain status post fall. 4. Hypertension. 5. End-stage renal disease on hemodialysis. 6. Anemia. 7. Hyperlipidemia. 8. Diabetes. 9. End-stage renal disease on hemodialysis. 10. Coronary artery disease, status post stents. 11. History of tracheostomy. PLAN: At this period of time, the patient will be admitted to [facility]. We will get stat labs. I am no t sure if the patient received blood or not. The patient will be continued on hemodialysis. Podiatr y and Dr. Jones consultation has been obtained. We will also obtain ID consultation. Rest of the tr eatment will depend on the patient's hospitalization course. Dictated By: HASEEB HAMILTON Conf#: [id number] DID#: [id number]
[2018-10-08] MEDS: PENTOXIFYLLINE (SR) 400 MG TAB PO SCH (18:12)
--- NOTE | 2018-10-08 19:13 | CONS ---
DATE OF ADMISSION: 10/08/2018 DATE OF CONSULTATION: 10/08/2018 TYPE OF CONSULTATION: Infectious disease. REASON FOR CONSULTATION: Antibiotic management. HISTORY OF PRESENT ILLNESS: Kwame Serna is a 48-year-old unfortunate male who was transferred to [facility] secondary to anemia and a diabetic foot. His past problems include: 1. End-stage renal disease on hemodialysis. 2. Hypertension. 3. Hyperlipidemia. 4. Left BKA. 5. Right 4th and 5th toe amputations. The patient was initially admitted in August 2018. During that time, he had an angiogram done, which showed he had an atherectomy of the right superficial femoral artery and popliteal artery. He had a balloon angioplasty of the right superficial femoral artery and popliteal artery using the balloon. He was followed by Dr. Millard and Dr. Martinez as an outpatient. He had an amputation of the right 3rd toe and application of a wound VAC. He was discharged home to follow up with Dr. Millard. He went to the dialysis center yesterday. He was told his hemoglobin was low, and he was transferred to [facility]. BUN and creatinine was 36/4.8 and potassium 3.3. White count 7.3 and hemoglobin 6.1. X-rays of the right foot showed osteomyelitis of the 2nd and 3rd metatarsals and 3rd proximal toe. The patient was given IV antibiotics, vancomycin, and Zosyn and transferred to [facility]. The patient has a history of tracheostomy, history of abdominal stents in addition to histo ry of end-stage renal disease, hypertension, peripheral vascular disease with gangrene of the 3rd toe on the right foot, amputation of the 4th and 5th toes, hypertension, diabetes, coronary artery disea se status post stents, and left BKA. HE IS ALLERGIC TO DILAUDID. He had abdominal surgery with fist vivian placements and Perm-A-Cath placement. PAST MEDICAL HISTORY: Operations as outlined. FAMILY HISTORY: Noncontributory. SOCIAL HISTORY: He does not smoke, drink, or abuse drugs. ALLERGIES: NONE TO PENICILLIN, SULFA, OR FOODS. MEDICATIONS: Per chart. REVIEW OF SYSTEMS: Noncontributory. PHYSICAL EXAMINATION: GENERAL: The patient is an elderly-appearing black male who is lethargic but arousable, in no acute distress. VITAL SIGNS: Stable. He is afebrile. SKIN: Without generalized rash. HEENT: Within normal limits. NECK: Supple. LYMPH NODES: None palpable. CHEST: Decreased breath sounds at the bases. HEART: Without murmur or gallop. ABDOMEN: Soft. Surgical scars are present. EXTREMITIES: Left BKA, diffuse skin sloughing of the right foot, and multiple ulcers with gangrenous changes on the sole. He has a left AV fistula with a good bruit and thrill. He has skin changes wi th hyperpigmentation, which is old. I discussed the case with Dr. Millard who feels that the patient will need an amputation of the right foot, probably a BKA since he has severe peripheral vascular disease and has lost most of his toes. He was started on vancomycin and ceftriaxone to which I concur. I will continue him on this regimen. I will dictate my findings to Dr. Maya, Dr. Millard, and Dr. Martinez. Dictated By: LINDA RÍOS MD, JD/JOSE ANTONIO Conf#: [id number] DID#: [id number] CC: RON BRAVO MD; WIL HONG MD; LINDA RÍOS MD; HASEEB MAYA; AZEEM HENNING MD; JOZEF BROWN; TYLOR MARTINEZ MD;*[facility]*
[2018-10-08 19:36] VITALS: BP 162/76; PULSE 88; RESP 18
[2018-10-08] MEDS: ONDANSETRON 4 MG INJ IV PRN (23:03)
--- NOTE | 2018-10-08 23:05 | CONS ---
Assessment/Plan Assessment/Plan Problems: (1) Diabetes, polyneuropathy (2) Toe gangrene (3) Peripheral vascular disease (4) Non-pressure chronic ulcer of other part of right foot with necrosis of muscle (5) Acquired absence of other right toe(s) (6) Acquired absence of left leg below knee (7) Choledocholithiasis Status: Chronic (8) Acute on chronic cholecystitis (9) Non-pressure ulcer of left lower extremity with fat layer exposed (10) Acquired absence of right foot Assessment/Plan (Daily) Dressing change right foot with betadine paint to the gangrenous areas. No foot surgery recommended. Monitor patient while inhouse. Evaluation by vascular surgery. Thank you again for involving me in the care of this patient. If you have any questions regarding this case, please feel free to contact me at pager: [phone] or reach me at mobile: [phone]. Consultation Date/Type/Reason Admit Date/Time October 08, 2018 at 00:02 Date of Consultation: October 08, 2018 Type of Consult Foot and ankle surgery Reason for Consultation Evaluation of right foot gangrene Date/Time of Note DATE: 10/08/18 TIME: 22:58 Hx of Present Illness Thank you very much for your kind consultation. As you very well know, this is a 48-year-old male with multiple medical problems including end-stage renal disease on hemodialysis Monday, and Monday; hypertension, hyperlipidemia, s/p left BKA, s/p right 4th and 5th toe amputations, recently admitted in August 2018 secondary to infection of the third toe on the right foot. S/P angiogram and atherectomy of the right superficial femoral artery, popliteal artery, balloon angioplasty of the right superficial femoral artery and popliteal artery using balloon. The patient went to dialysis center yesterday. After he finished the dialysis, he was told that his hemoglobin was low and was transferred and came to [facility]. Patient was then transferred to [facility]. I was consulted for evaluation of his right foot. Constitutional: no complaints Eyes: no complaints ENT: no complaints Respiratory: no complaints Past Medical History As per history of present illness. Home Meds Reported Medications Hydrocodone/Acetaminophen ([place] 7.5-325 Tablet) 1 Each Tablet, 1 EACH PO BID, TAB 08/09/18 Minoxidil* (Lonitin*) 10 Mg Tab, 10 MG PO BID, TAB 08/09/18 Temazepam* (Temazepam*) 30 Mg Capsule, 30 MG PO HS PRN for INSOMNIA, CAP 08/09/18 Cetirizine Hcl* (Cetirizine Hcl*) 10 Mg Tablet, 10 MG PO DAILY, #30 TAB 08/09/18 Lisinopril* (Lisinopril*) 40 Mg Tablet, 40 MG PO DAILY, #30 TAB 08/09/18 Calcium Acetate* (Calcium Acetate*) 667 Mg Capsule, 1334 MG PO WITH MEALS, #60 CAP 08/09/18 Pentoxifylline* (Pentoxifylline*) 400 Mg Tablet.sa, 400 MG PO WITH MEALS, TAB 08/09/18 Clonidine Hcl* (Clonidine Hcl*) 0.3 Mg Tablet, 0.3 MG PO Q6H PRN for HTN, TAB 08/09/18 Docusate Sodium (Col-Rite) 100 Mg Capsule, 100 MG PO BID, CAP 08/09/18 Medications Current Medications Acetaminophen (Tylenol Tab) 650 mg Q6H PRN PO MILD PAIN(1-3)OR ELEVATED TEMP; Start 10/08/18 at 01:30 Albuterol (Proventil 0.083% (Neb)) 2.5 mg Q6H RESP THERAPY PRN HHN SHORTNESS OF BREATH; Start 10/08/18 at 01:30 Docusate Sodium (Colace) 100 mg BID PRN PO CONSTIPATION; Start 10/08/18 at 01:30 Diagnostic Test (Pha) (Accu-Chek) 1 ea 02 XX ; Start 10/08/18 at 02:00 Insulin Aspart (Novolog Insulin Pen) NOVOLOG *MODERATE* ALGORITHM WITH MEALS BEDTIME SC ; Start 10/08/18 at 08:00 Ceftriaxone Sodium 50 ml @ 100 mls/hr Q24H IVPB Last administered on 10/08/18at 08:40; Admin Dose 100 MLS/HR; Start 10/08/18 at 09:00 Miscellaneous Information 1 ea NOTE XX ; Start 10/08/18 at 05:30 Glucose (Glutose) 15 gm Q15M PRN PO DECREASED GLUCOSE; Start 10/08/18 at 05:30 Glucose (Glutose) 22.5 gm Q15M PRN PO DECREASED GLUCOSE; Start 10/08/18 at 05:30 Dextrose (D50w Syringe) 25 ml Q15M PRN IV DECREASED GLUCOSE; Start 10/08/18 at 05:30 Dextrose (D50w Syringe) 50 ml Q15M PRN IV DECREASED GLUCOSE; Start 10/08/18 at 05:30 Glucagon (Glucagen) 1 mg Q15M PRN IM DECREASED GLUCOSE; Start 10/08/18 at 05:30 Glucose (Glutose) 15 gm Q15M PRN BUCCAL DECREASED GLUCOSE; Start 10/08/18 at 05:30 Morphine Sulfate (morphine) 2 mg Q4H PRN IV SEVERE PAIN LEVEL 7-10 Last administered on 10/08/18at 20:24; Admin Dose 2 MG; Start 10/08/18 at 15:00 Vancomycin HCl (Vanco Iv Per Pharmacy) VANCOMYCIN PER PHARMACY PER PROTOCOL XX ; Start 10/08/18 at 15:00 Pentoxifylline (Trental) 400 mg WITH MEALS PO Last administered on 10/08/18at 18:12; Admin Dose 400 MG; Start 10/08/18 at 17:35 Pantoprazole (Protonix Tab) 40 mg DAILY@06 PO ; Start 10/09/18 at 06:00 Hydralazine HCl (Apresoline) 10 mg Q6H PRN PO ELEVATED BLOOD PRESSURE Last administered on 10/08/18at 21:56; Admin Dose 10 MG; Start 10/08/18 at 21:30 Ondansetron HCl (Zofran Inj) 4 mg Q6H PRN IV NAUSEA AND/OR VOMITING; Start 10/08/18 at 23:00 Allergies: Coded Allergies: hydromorphone (Verified Allergy, Unknown, 10/08/18) MD Hitchcock aware @ 10/08 0015 Past Surgical History As per history of present illness. Past Surgical Hx: angioplasty, other Exam/Review of Systems Exam Vitals Vital Signs Date Temp Pulse Resp B/P (MAP) Pulse Ox O2 O2 Flow FiO2 Time Delivery Rate 10/08/18 98.3 88 18 162/76 95 19:36 (104) 10/08/18 Room Air 15:45 Exam Patient is laying supine in bed in no acute distress. S/P LEFT BKA. S/P right 3rd to 5th toe amputation with gangrene of second toe, heel and lateral foot. Severe dry skin of the foot noted. Non palpable DP and PT. (+) malodor. No bleeding and no pus noted on exam. Labs reviewed; imaging reviewed. Results Results 24hrs Laboratory Tests Test 10/08/18 08:12 10/08/18 12:24 10/08/18 14:44 10/08/18 17:30 Bedside Glucose 86 84 80 71 Test 10/08/18 20:19 Bedside Glucose 84 Medications Medication Current Medications Acetaminophen (Tylenol Tab) 650 mg Q6H PRN PO MILD PAIN(1-3)OR ELEVATED TEMP; Start 10/08/18 at 01:30 Albuterol (Proventil 0.083% (Neb)) 2.5 mg Q6H RESP THERAPY PRN HHN SHORTNESS OF BREATH; Start 10/08/18 at 01:30 Docusate Sodium (Colace) 100 mg BID PRN PO CONSTIPATION; Start 10/08/18 at 01:30 Diagnostic Test (Pha) (Accu-Chek) 1 ea 02 XX ; Start 10/08/18 at 02:00 Insulin Aspart (Novolog Insulin Pen) NOVOLOG *MODERATE* ALGORITHM WITH MEALS BEDTIME SC ; Start 10/08/18 at 08:00 Ceftriaxone Sodium 50 ml @ 100 mls/hr Q24H IVPB Last administered on 10/08/18at 08:40; Admin Dose 100 MLS/HR; Start 10/08/18 at 09:00 Miscellaneous Information 1 ea NOTE XX ; Start 10/08/18 at 05:30 Glucose (Glutose) 15 gm Q15M PRN PO DECREASED GLUCOSE; Start 10/08/18 at 05:30 Glucose (Glutose) 22.5 gm Q15M PRN PO DECREASED GLUCOSE; Start 10/08/18 at 05:30 Dextrose (D50w Syringe) 25 ml Q15M PRN IV DECREASED GLUCOSE; Start 10/08/18 at 05:30 Dextrose (D50w Syringe) 50 ml Q15M PRN IV DECREASED GLUCOSE; Start 10/08/18 at 05:30 Glucagon (Glucagen) 1 mg Q15M PRN IM DECREASED GLUCOSE; Start 10/08/18 at 05:30 Glucose (Glutose) 15 gm Q15M PRN BUCCAL DECREASED GLUCOSE; Start 10/08/18 at 05:30 Morphine Sulfate (morphine) 2 mg Q4H PRN IV SEVERE PAIN LEVEL 7-10 Last admin istered on 10/08/18at 20:24; Admin Dose 2 MG; Start 10/08/18 at 15:00 Vancomycin HCl (Vanco Iv Per Pharmacy) VANCOMYCIN PER PHARMACY PER PROTOCOL XX ; Start 10/08/18 at 15:00 Pentoxifylline (Trental) 400 mg WITH MEALS PO Last administered on 10/08/18at 18:12; Admin Dose 400 MG; Start 10/08/18 at 17:35 Pantoprazole (Protonix Tab) 40 mg DAILY@06 PO ; Start 10/09/18 at 06:00 Hydralazine HCl (Apresoline) 10 mg Q6H PRN PO ELEVATED BLOOD PRESSURE Last administered on 10/08/18at 21:56; Admin Dose 10 MG; Start 10/08/18 at 21:30 Ondansetron HCl (Zofran Inj) 4 mg Q6H PRN IV NAUSEA AND/OR VOMITING; Start 10/08/18 at 23:00 SHEYLA IZAGUIRRE DPM October 08, 2018 23:05
[2018-10-08 23:07] VITALS: BP 133/64; PULSE 84
[2018-10-09] VITALS (17 sets, daily range): BP systolic 147–197; BP diastolic 73–100; PULSE 78–93; RESP 17–20
[2018-10-09] MEDS: morphine 2 MG INJ IV PRN ×3 (00:50→09:44)
[2018-10-09] MEDS: ACCU-CHEK XX SCH (02:00)
[2018-10-09] MEDS: PANTOPRAZOLE (EC) 40 MG TAB PO SCH (05:33)
[2018-10-09] MEDS: INSULIN ASPART [NOVOLOG] 3 ML PEN SC SCH ×4 (08:00→20:45)
[2018-10-09] MEDS: PENTOXIFYLLINE (SR) 400 MG TAB PO SCH ×3 (09:03→17:37)
[2018-10-09] MEDS: CEFTRIAXONE 1 GM/NS 50 ML IVPB SCH (09:04)
[2018-10-09] MEDS ORDERED: LIDOCAINE 2% JELLY 5 ML TOP ONE (12:30)
--- NOTE | 2018-10-09 13:24 | CONS ---
Assessment/Plan Assessment/Plan Hospital Course (Demo Recall) Patient is in hemodialysis. No fevers overnight. WBC 8.7 platelets 156 neutrophils 82.7. Indwelling's left upper extremity AV fistula. Antimicrobials: Vancomycin, ceftriaxone PHYSICAL EXAMINATION: GENERAL: Well-developed, ill-appearing, middle-aged man in no distress. HEENT: Head is atraumatic, normocephalic. NECK: Supple. CHEST: Rise symmetrical. Breath sounds diminished to bases. HEART: S1, S2. ABDOMEN: Soft. Bowel tones are present. EXTREMITIES: Right foot gangrene Assessment: 1. Right foot gangrene, s/p amputation of right third toe 2. End-stage renal disease, hemodialysis dependent 3. Chronic diffuse rash==> neg scabies 4. Severe peripheral arterial disease status post left below-knee amputation==s/p balloon angioplasty 08/15/18 5. Coronary artery disease status post cardiac stent 6. Hypertension Plan: Clinically stable, continue present care, abx, consider repeat MRI of the foot, podiatry recommendations Consultation Date/Type/Reason Admit Date/Time October 08, 2018 at 00:02 Initial Consult Date 10/08/18 Type of Consult id Date/Time of Note DATE: 10/09/18 TIME: 13:23 Exam/Review of Systems Exam Vitals Vital Signs Date Temp Pulse Resp B/P (MAP) Pulse Ox O2 O2 Flow FiO2 Time Delivery Rate 10/09/18 84 151/73 10:30 (99) 10/09/18 98.0 20 98 Room Air 08:20 Intake and Output 10/08/18 10/08/18 10/09/18 1515:00 23:00 07:00 IntakeIntake Total 340 ml 550 ml 240 ml OutputOutput Total 150 ml 200 ml BalanceBalance 190 ml 550 ml 40 ml Results Result Diagram: 10/09/18 1045 10/09/18 1045 Results 24hrs Laboratory Tests Test 10/08/18 14:44 10/08/18 17:30 10/08/18 20:19 10/09/18 08:17 Bedside Glucose 80 71 84 69 L Test 10/09/18 09:16 10/09/18 09:39 10/09/18 09:58 10/09/18 10:23 Bedside Glucose 78 77 81 79 Test 10/09/18 10:44 10/09/18 10:45 10/09/18 11:04 10/09/18 11:28 Bedside Glucose 78 72 83 White Blood Count 8.7 Red Blood Count 2.66 L Hemoglobin 7.1 L Hematocrit 23.2 L Mean Corpuscular Volume 87.2 Mean Corpuscular 26.7 L Hemoglobin Mean Corpuscular 30.6 L Hemoglobin Concent Red Cell Distribution 13.2 Width Platelet Count 156 Mean Platelet Volume 10.3 Immature Granulocytes % 0.500 H Neutrophils % 82.7 H Lymphocytes % 6.6 L Monocytes % 5.9 Eosinophils % 4.1 Basophils % 0.2 Nucleated Red Blood 0.0 Cells % Immature Granulocytes # 0.040 H Neutrophils # 7.2 Lymphocytes # 0.6 L Monocytes # 0.5 Eosinophils # 0.4 Basophils # 0.0 Nucleated Red Blood 0.0 Cells # Sodium Level 145 H Potassium Level 3.2 L Chloride Level 103 Carbon Dioxide Level 27 Anion Gap 15 H Blood Urea Nitrogen 51 H Creatinine 8.33 H Est Glomerular Filtrat 8 L Rate mL/min Glucose Level 77 Calcium Level 9.1 Hepatitis B Surface NEGATIVE Antigen Medications Medication Current Medications Acetaminophen (Tylenol Tab) 650 mg Q6H PRN PO MILD PAIN(1-3)OR ELEVATED TEMP; Start 10/08/18 at 01:30 Albuterol (Proventil 0.083% (Neb)) 2.5 mg Q6H RESP THERAPY PRN HHN SHORTNESS OF BREATH; Start 10/08/18 at 01:30 Docusate Sodium (Colace) 100 mg BID PRN PO CONSTIPATION; Start 10/08/18 at 01:30 Diagnostic Test (Pha) (Accu-Chek) 1 ea 02 XX ; Start 10/08/18 at 02:00 Insulin Aspart (Novolog Insulin Pen) NOVOLOG *MODERATE* ALGORITHM WITH MEALS BEDTIME SC ; Start 10/08/18 at 08:00 Ceftriaxone Sodium 50 ml @ 100 mls/hr Q24H IVPB Last administered on 10/09/18at 09:04; Admin Dose 100 MLS/HR; Start 10/08/18 at 09:00 Miscellaneous Information 1 ea NOTE XX ; Start 10/08/18 at 05:30 Glucose (Glutose) 15 gm Q15M PRN PO DECREASED GLUCOSE; Start 10/08/18 at 05:30 Glucose (Glutose) 22.5 gm Q15M PRN PO DECREASED GLUCOSE; Start 10/08/18 at 05:30 Dextrose (D50w Syringe) 25 ml Q15M PRN IV DECREASED GLUCOSE; Start 10/08/18 at 05:30 Dextrose (D50w Syringe) 50 ml Q15M PRN IV DECREASED GLUCOSE; Start 10/08/18 at 05:30 Glucagon (Glucagen) 1 mg Q15M PRN IM DECREASED GLUCOSE; Start 10/08/18 at 05:30 Glucose (Glutose) 15 gm Q15M PRN BUCCAL DECREASED GLUCOSE; Start 10/08/18 at 05:30 Morphine Sulfate (morphine) 2 mg Q4H PRN IV SEVERE PAIN LEVEL 7-10 Last administered on 10/09/18at 09:44; Admin Dose 2 MG; Start 10/08/18 at 15:00 Vancomycin HCl (Vanco Iv Per Pharmacy) VANCOMYCIN PER PHARMACY PER PROTOCOL XX ; Start 10/08/18 at 15:00 Pentoxifylline (Trental) 400 mg WITH MEALS PO Last administered on 10/09/18at 12:05; Admin Dose 400 MG; Start 10/08/18 at 17:35 Pantoprazole (Protonix Tab) 40 mg DAILY@06 PO Last administered on 10/09/18at 05:33; Admin Dose 40 MG; Start 10/09/18 at 06:00 Hydralazine HCl (Apresoline) 10 mg Q6H PRN PO ELEVATED BLOOD PRESSURE Last administered on 10/09/18at 09:04; Admin Dose 10 MG; Start 10/08/18 at 21:30 Ondansetron HCl (Zofran Inj) 4 mg Q6H PRN IV NAUSEA AND/OR VOMITING Last administered on 10/08/18at 23:03; Admin Dose 4 MG; Start 10/08/18 at 23:00 DAYSI BHATIA NP October 09, 2018 13:24
--- NOTE | 2018-10-09 13:39 | PN ---
Date/Time of Note Date/Time of Note DATE: 10/09/18 TIME: 13:39 Assessment/Plan VTE Prophylaxis Risk score (from Ns)>0 risk: 4 SCD applied (from Ns): No SCD contraindicated: low risk/ambulating Pharmacological prophylaxis: NA/contraindicated Pharm contraindication: low risk/ambulating Lines/Catheters IV [facility] [place] [facility] Assessment/Plan Assessment/Plan 48-year-old male with: 1. Right diabetic foot ulcer with osteomyelitis evident on the x-ray. 2. With peripheral vascular disease status post angioplasty. 3. Some vomiting, some right rib pain status post fall. 4. Hypertension. 5. End-stage renal disease on hemodialysis. 6. Anemia. 7. Hyperlipidemia. 8. Diabetes. 9. End-stage renal disease on hemodialysis. 10. Coronary artery disease, status post stents. 11. History of tracheostomy. PLAN - Per dr gotti cll dr zimmerman for possible amputation - hd today - pain control - iv abx per id Result Diagram: 10/09/18 1045 10/09/18 1045 Results 24hrs Laboratory Tests Test 10/08/18 14:44 10/08/18 17:30 10/08/18 20:19 10/09/18 08:17 Bedside Glucose 80 71 84 69 L Test 10/09/18 09:16 10/09/18 09:39 10/09/18 09:58 10/09/18 10:23 Bedside Glucose 78 77 81 79 Test 10/09/18 10:44 10/09/18 10:45 10/09/18 11:04 10/09/18 11:28 Bedside Glucose 78 72 83 White Blood Count 8.7 Red Blood Count 2.66 L Hemoglobin 7.1 L Hematocrit 23.2 L Mean Corpuscular Volume 87.2 Mean Corpuscular 26.7 L Hemoglobin Mean Corpuscular 30.6 L Hemoglobin Concent Red Cell Distribution 13.2 Width Platelet Count 156 Mean Platelet Volume 10.3 Immature Granulocytes % 0.500 H Neutrophils % 82.7 H Lymphocytes % 6.6 L Monocytes % 5.9 Eosinophils % 4.1 Basophils % 0.2 Nucleated Red Blood 0.0 Cells % Immature Granulocytes # 0.040 H Neutrophils # 7.2 Lymphocytes # 0.6 L Monocytes # 0.5 Eosinophils # 0.4 Basophils # 0.0 Nucleated Red Blood 0.0 Cells # Sodium Level 145 H Potassium Level 3.2 L Chloride Level 103 Carbon Dioxide Level 27 Anion Gap 15 H Blood Urea Nitrogen 51 H Creatinine 8.33 H Est Glomerular Filtrat 8 L Rate mL/min Glucose Level 77 Calcium Level 9.1 Hepatitis B Surface NEGATIVE Antigen Hepatitis B Surface NEGATIVE Antibody Subjective 24 Hr Interval Summary Free Text/Dictation pain in rt leg Exam/Review of Systems Exam Vitals Vital Signs Date Temp Pulse Resp B/P (MAP) Pulse Ox O2 O2 Flow FiO2 Time Delivery Rate 10/09/18 84 151/73 10:30 (99) 10/09/18 98.0 20 98 Room Air 08:20 Intake and Output 10/08/18 10/08/18 10/09/18 1515:00 23:00 07:00 IntakeIntake Total 340 ml 550 ml 240 ml OutputOutput Total 150 ml 200 ml BalanceBalance 190 ml 550 ml 40 ml Exam GENERAL: The patient is awake, alert and oriented, does not appear to be in any acute distress. HEENT: Pupils are equal, round and reactive to light. NECK: Supple, no JVD. HEART: Regular rate and rhythm. LUNGS: Clear to auscultate bilaterally. ABDOMEN: Surgical scar present. EXTREMITIES: The patient has left BKA, right. S/P right 3rd to 5th toe amputation with gangrene of second toe, heel and lateral foot. Severe dry skin of the foot noted. Non palpable DP and PT. (+) malodor. No bleeding and no pus noted on exam The patient has a left AV fistula with good bruit and thrill. The patient a lso has skin changes with a hyperpigmented rash, which has been old. Results Results 24hrs Laboratory Tests Test 10/08/18 14:44 10/08/18 17:30 10/08/18 20:19 10/09/18 08:17 Bedside Glucose 80 71 84 69 L Test 10/09/18 09:16 10/09/18 09:39 10/09/18 09:58 10/09/18 10:23 Bedside Glucose 78 77 81 79 Test 10/09/18 10:44 10/09/18 10:45 10/09/18 11:04 10/09/18 11:28 Bedside Glucose 78 72 83 White Blood Count 8.7 Red Blood Count 2.66 L Hemoglobin 7.1 L Hematocrit 23.2 L Mean Corpuscular Volume 87.2 Mean Corpuscular 26.7 L Hemoglobin Mean Corpuscular 30.6 L Hemoglobin Concent Red Cell Distribution 13.2 Width Platelet Count 156 Mean Platelet Volume 10.3 Immature Granulocytes % 0.500 H Neutrophils % 82.7 H Lymphocytes % 6.6 L Monocytes % 5.9 Eosinophils % 4.1 Basophils % 0.2 Nucleated Red Blood 0.0 Cells % Immature Granulocytes # 0.040 H Neutrophils # 7.2 Lymphocytes # 0.6 L Monocytes # 0.5 Eosinophils # 0.4 Basophils # 0.0 Nucleated Red Blood 0.0 Cells # Sodium Level 145 H Potassium Level 3.2 L Chloride Level 103 Carbon Dioxide Level 27 Anion Gap 15 H Blood Urea Nitrogen 51 H Creatinine 8.33 H Est Glomerular Filtrat 8 L Rate mL/min Glucose Level 77 Calcium Level 9.1 Hepatitis B Surface NEGATIVE Antigen Hepatitis B Surface NEGATIVE Antibody Medications Medication Current Medications Acetaminophen (Tylenol Tab) 650 mg Q6H PRN PO MILD PAIN(1-3)OR ELEVATED TEMP; Start 10/08/18 at 01:30 Albuterol (Proventil 0.083% (Neb)) 2.5 mg Q6H RESP THERAPY PRN HHN SHORTNESS OF BREATH; Start 10/08/18 at 01:30 Docusate Sodium (Colace) 100 mg BID PRN PO CONSTIPATION; Start 10/08/18 at 01:30 Diagnostic Test (Pha) (Accu-Chek) 1 ea 02 XX ; Start 10/08/18 at 02:00 Insulin Aspart (Novolog Insulin Pen) NOVOLOG *MODERATE* ALGORITHM WITH MEALS BEDTIME SC ; Start 10/08/18 at 08:00 Ceftriaxone Sodium 50 ml @ 100 mls/hr Q24H IVPB Last administered on 10/09/18at 09:04; Admin Dose 100 MLS/HR; Start 10/08/18 at 09:00 Miscellaneous Information 1 ea NOTE XX ; Start 10/08/18 at 05:30 Glucose (Glutose) 15 gm Q15M PRN PO DECREASED GLUCOSE; Start 10/08/18 at 05:30 Glucose (Glutose) 22.5 gm Q15M PRN PO DECREASED GLUCOSE; Start 10/08/18 at 05:30 Dextrose (D50w Syringe) 25 ml Q15M PRN IV DECREASED GLUCOSE; Start 10/08/18 at 05:30 Dextrose (D50w Syringe) 50 ml Q15M PRN IV DECREASED GLUCOSE; Start 10/08/18 at 05:30 Glucagon (Glucagen) 1 mg Q15M PRN IM DECREASED GLUCOSE; Start 10/08/18 at 05:30 Glucose (Glutose) 15 gm Q15M PRN BUCCAL DECREASED GLUCOSE; Start 10/08/18 at 05:30 Morphine Sulfate (morphine) 2 mg Q4H PRN IV SEVERE PAIN LEVEL 7-10 Last administered on 10/09/18at 09:44; Admin Dose 2 MG; Start 10/08/18 at 15:00 Vancomycin HCl (Vanco Iv Per Pharmacy) VANCOMYCIN PER PHARMACY PER PROTOCOL XX ; Start 10/08/18 at 15:00 Pentoxifylline (Trental) 400 mg WITH MEALS PO Last administered on 10/09/18at 12:05; Admin Dose 400 MG; Start 10/08/18 at 17:35 Pantoprazole (Protonix Tab) 40 mg DAILY@06 PO Last administered on 10/09/18at 05:33; Admin Dose 40 MG; Start 10/09/18 at 06:00 Hydralazine HCl (Apresoline) 10 mg Q6H PRN PO ELEVATED BLOOD PRESSURE Last administered on 10/09/18 09:04; Admin Dose 10 MG; Start 10/08/18 at 21:30 Ondansetron HCl (Zofran Inj) 4 mg Q6H PRN IV NAUSEA AND/OR VOMITING Last administered on 10/08/18at 23:03; Admin Dose 4 MG; Start 10/08/18 at 23:00 HASEEB MAYA MD October 09, 2018 13:39
[2018-10-09] MEDS ORDERED: TRIAMCINOLONE ACET 0.1% 15 GM CR TOP PRN (16:30)
[2018-10-09] MEDS ORDERED: COLLAGENASE 5 GM (UD JAR) TOP ONE (16:55)
[2018-10-09] MEDS: EPOETIN ALFA-EPBX (ESRD) 3,000 UNIT/ML VIAL SC SCH (17:17)
--- NOTE | 2018-10-09 17:26 | PSY ---
Date/Time of Note Date/Time of Note DATE: 10/09/18 TIME: 17:20 Psychiatric Subjective Eval Consent Pt consented to telemedicine: No Subjective Evaluation Patient location: inpatient History of present illness Patient is a 48-year-old male with a past medical history of hyperlipidemia, left BKA, right 4th and 5th toe amputations, end-stage renal disease on hemodialysis and hypertension. Kawv-gh-lyhe evaluation, patient states he does not have clinical depression, and that he has never seen a psychiatrist and does not wish to one. He denies suicidal ideation, he denies feeling of hopelessness and helplessness, states is normal for him to be sad but that he has gotten over the sadness and his appetite is better. And also denies suicidal ideation and c ontracted for safety Past psychiatric history Denies Hospitalization: other Medical history Problems Medical Problems: (1) Anemia Status: Acute (2) Choledocholithiasis Status: Chronic (3) Chronic renal failure Status: Acute (4) Complication of vascular access for dialysis Status: Acute (5) Complication of vascular access for dialysis Status: Acute (6) Diabetic infection of right foot Status: Acute (7) End stage renal disease on dialysis Status: Acute (8) Hand abscess Status: Acute (9) Hypertension Status: Acute (10) Right foot pain Status: Acute Allergies: Coded Allergies: hydromorphone (Verified Allergy, Unknown, 10/08/18) MD Hitchcock aware @ 10/08 0015 Substance Abuse Substance abuse history: No Prior substance abuse treatmen: No Social History Marital status: other DPA/Conservatorship: No Psychiatric Objective Eval Review of Systems: Review of Systems: Not Applicable Physical Examination: Physical Examination: Not Applicable Mental Status Examination: Appearance: Disheveled Eye Contact: Good Psychomotor Activity: Slow Behavior: Cooperative Speech: Clear AFFECT: Appropriate Mood: Appropriate/Full Though Process: Linear Thought Content: Normal Orientation: x4 Insight: Intact Judgement: Intact Attention Span: Intact Laboratory Results Laboratory Tests Test 10/08/18 08:12 10/08/18 12:24 10/08/18 14:44 10/08/18 17:30 Bedside Glucose 86 mg/dL 84 mg/dL 80 mg/dL 71 mg/dL Test 10/08/18 20:19 10/09/18 08:17 10/09/18 09:16 10/09/18 09:39 Bedside Glucose 84 mg/dL 69 mg/dL 78 mg/dL 77 mg/dL Test 10/09/18 09:58 10/09/18 10:23 10/09/18 10:44 10/09/18 10:45 Bedside Glucose 81 mg/dL 79 mg/dL 78 mg/dL White Blood Count 8.7 10^3/ul Red Blood Count 2.66 10^6/ul Hemoglobin 7.1 g/dl Hematocrit 23.2 % Mean Corpuscular 87.2 fl Volume Mean Corpuscular 26.7 pg Hemoglobin Mean Corpuscular 30.6 g/dl Hemoglobin Concent Red Cell Distribution 13.2 % Width Platelet Count 156 10^3/UL Mean Platelet Volume 10.3 fl Immature Granulocytes 0.500 % % Neutrophils % 82.7 % Lymphocytes % 6.6 % Monocytes % 5.9 % Eosinophils % 4.1 % Basophils % 0.2 % Nucleated Red Blood 0.0 /100WBC Cells % Immature Granulocytes 0.040 10^3/ul # Neutrophils # 7.2 10^3/ul Lymphocytes # 0.6 10^3/ul Monocytes # 0.5 10^3/ul Eosinophils # 0.4 10^3/ul Basophils # 0.0 10^3/ul Nucleated Red Blood 0.0 10^3/ul Cells # Sodium Level 145 mmol/L Potassium Level 3.2 mmol/L Chloride Level 103 mmol/L Carbon Dioxide Level 27 mmol/L Anion Gap 15 Blood Urea Nitrogen 51 mg/dl Creatinine 8.33 mg/dl Est Glomerular Filtrat 8 mL/min Rate mL/min Glucose Level 77 mg/dl Calcium Level 9.1 mg/dl Hepatitis B Surface NEGATIVE Antigen Hepatitis B Surface NEGATIVE Antibody Test 10/09/18 11:04 10/09/18 11:28 10/09/18 15:51 Bedside Glucose 72 mg/dL 83 mg/dL 84 mg/dL Assessment and Plan Assessment/Diagnosis Diagnosis Depression NOS Recommendation/Plan Medication Management Declined Multiple antipsychotics: No Discharge Disposition: Other Legal Status: Voluntary (Does not meet criteria for 5150 hold) HILDA CORTEZ NP October 09, 2018 17:26
[2018-10-09] MEDS: COLLAGENASE 5 GM (UD JAR) TOP SCH (17:37)
[2018-10-10] VITALS (7 sets, daily range): BP systolic 139–184; BP diastolic 64–84; PULSE 84–93; RESP 16–18
[2018-10-10] MEDS: ZOLPIDEM 5 MG TAB PO PRN (00:47)
[2018-10-10] MEDS: ACCU-CHEK XX SCH (02:00)
[2018-10-10] MEDS: PANTOPRAZOLE (EC) 40 MG TAB PO SCH (08:34)
[2018-10-10] MEDS: PENTOXIFYLLINE (SR) 400 MG TAB PO SCH ×3 (08:34→17:34)
[2018-10-10] MEDS: CEFTRIAXONE 1 GM/NS 50 ML IVPB SCH (08:35)
[2018-10-10] MEDS: COLLAGENASE 5 GM (UD JAR) TOP SCH (08:35)
[2018-10-10] MEDS: INSULIN ASPART [NOVOLOG] 3 ML PEN SC SCH ×4 (08:35→21:00)
[2018-10-10] MEDS: morphine 2 MG INJ IV PRN ×3 (09:28→21:48)
--- NOTE | 2018-10-10 11:22 | PN ---
Date/Time of Note Date/Time of Note DATE: 10/10/18 TIME: 11:21 Assessment/Plan Lines/Catheters IV Catheter Type (from Nrs): Peripheral IV Assessment/Plan Problems: (1) Diabetes, polyneuropathy (2) Peripheral vascular disease (3) Toe gangrene (4) Non-pressure chronic ulcer of other part of right foot with necrosis of muscle (5) Acquired absence of other right toe(s) (6) Acquired absence of left leg below knee (7) Non-pressure ulcer of left lower extremity with fat layer exposed Assessment/Plan Patient's right foot is nonsalvageable with the current vascular status. I recommend a below the knee amputation of the right lower extremity, however, patient is not amenable to that. He wants "just the second toe to be removed". I have had a detailed discussion with the patient about his poor outcomes with just a toe amputation. Patient will think about the discussion. I will follow patient inhouse. Subjective 24 Hr Interval Summary Patient seen and examined. Denies fever and chills. Denies overnight adverse events. Constitutional: no complaints Pain Control: well controlled Exam/Review of Systems Vital Signs Vitals Vital Signs Date Temp Pulse Resp B/P (MAP) Pulse Ox O2 O2 Flow FiO2 Time Delivery Rate 10/25/18 97.6 86 18 142/67 98 20:00 (92) 10/24/18 Room Air 14:28 Intake and Output 10/24/18 10/24/18 10/25/18 1515:00 23:00 07:00 IntakeIntake Total 850 ml 250 ml 250 ml OutputOutput Total 30 ml 10 ml BalanceBalance 850 ml 220 ml 240 ml Exam Free Text/Dictation Patient is laying supine in bed in no acute distress. Dressings were removed from the right foot. Patient is s/p amputation of his 3rd, 4th and 5th toes. He has gangrene of his second toe and multiple chronic open wounds of the right foot. He is s/p LEFT BKA. There is also posterior heel decubitus ulceration. Patient does not have palpable DP or PT pulses. His temperature gradient is increased and the CFT is significantly delayed. Labs reviewed. Results Result Diagram: 10/24/18 1011 10/24/18 1011 SEHYLA IZAGUIRRE DPM October 10, 2018 11:22
--- NOTE | 2018-10-10 14:34 | CONS ---
Assessment/Plan Assessment/Plan Hospital Course (Demo Recall) No acute changes Indwelling's left upper extremity AV fistula. Antimicrobials: Vancomycin, ceftriaxone PHYSICAL EXAMINATION: GENERAL: Well-developed, ill-appearing, middle-aged man in no distress. HEENT: Head is atraumatic, normocephalic. NECK: Supple. CHEST: Rise symmetrical. Breath sounds diminished to bases. HEART: S1, S2. ABDOMEN: Soft. Bowel tones are present. EXTREMITIES: Right foot gangrene Assessment: 1. Right foot gangrene, s/p amputation of right third toe 2. End-stage renal disease, hemodialysis dependent 3. Chronic diffuse rash==> neg scabies 4. Severe peripheral arterial disease status post left below-knee amputation==s/p balloon angioplasty 08/15/18 5. Coronary artery disease status post cardiac stent 6. Hypertension Plan: Clinically stable, continue abx, f/u podiatry recommendations Consultation Date/Type/Reason Admit Date/Time October 08, 2018 at 00:02 Initial Consult Date 10/08/18 Type of Consult id Date/Time of Note DATE: 10/10/18 TIME: 14:34 Exam/Review of Systems Exam Vitals Vital Signs Date Temp Pulse Resp B/P (MAP) Pulse Ox O2 O2 Flow FiO2 Time Delivery Rate 10/10/18 97.8 89 16 156/75 95 Room Air 07:51 (102) Intake and Output 10/09/18 10/09/18 10/10/18 1414:59 22:59 06:59 IntakeIntake Total 850 ml 200 ml OutputOutput Total 2900 ml BalanceBalance 850 ml -2700 ml Results Result Diagram: 10/10/18 0834 10/10/18 0834 Results 24hrs Laboratory Tests Test 10/09/18 15:51 10/09/18 17:34 10/09/18 20:41 10/10/18 07:49 Bedside Glucose 84 85 79 142 Test 10/10/18 08:34 10/10/18 12:06 White Blood Count 8.5 Red Blood Count 2.84 L Hemoglobin 7.6 L Hematocrit 24.7 L Mean Corpuscular Volume 87.0 Mean Corpuscular 26.8 L Hemoglobin Mean Corpuscular 30.8 L Hemoglobin Concent Red Cell Distribution 13.1 Width Platelet Count 185 Mean Platelet Volume 10.5 H Immature Granulocytes % 0.600 H Neutrophils % 84.0 H Lymphocytes % 6.1 L Monocytes % 5.2 Eosinophils % 3.9 Basophils % 0.2 Nucleated Red Blood 0.0 Cells % Immature Granulocytes # 0.050 H Neutrophils # 7.2 Lymphocytes # 0.5 L Monocytes # 0.4 Eosinophils # 0.3 Basophils # 0.0 Nucleated Red Blood 0.0 Cells # Sodium Level 144 Potassium Level 3.6 Chloride Level 104 Carbon Dioxide Level 31 Anion Gap 9 # Blood Urea Nitrogen 30 #H Creatinine 5.74 #H Est Glomerular Filtrat 13 L Rate mL/min Glucose Level 120 # Calcium Level 9.0 Random Vancomycin Level 22.9 Bedside Glucose 85 Medications Medication Current Medications Acetaminophen (Tylenol Tab) 650 mg Q6H PRN PO MILD PAIN(1-3)OR ELEVATED TEMP; Start 10/08/18 at 01:30 Albuterol (Proventil 0.083% (Neb)) 2.5 mg Q6H RESP THERAPY PRN HHN SHORTNESS OF BREATH; Start 10/08/18 at 01:30 Docusate Sodium (Colace) 100 mg BID PRN PO CONSTIPATION; Start 10/08/18 at 01:30 Diagnostic Test (Pha) (Accu-Chek) 1 ea 02 XX ; Start 10/08/18 at 02:00 Insulin Aspart (Novolog Insulin Pen) NOVOLOG *MODERATE* ALGORITHM WITH MEALS BEDTIME SC Last administered on 10/10/18at 08:35; Admin Dose 2 UNIT; Start at 08:00 Ceftriaxone Sodium 50 ml @ 100 mls/hr Q24H IVPB Last administered on 10/10/18at 08:35; Admin Dose 100 MLS/HR; Start 10/08/18 at 09:00 Miscellaneous Information 1 ea NOTE XX ; Start 10/08/18 at 05:30 Glucose (Glutose) 15 gm Q15M PRN PO DECREASED GLUCOSE; Start 10/08/18 at 05:30 Glucose (Glutose) 22.5 gm Q15M PRN PO DECREASED GLUCOSE; Start 10/08/18 at 05:30 Dextrose (D50w Syringe) 25 ml Q15M PRN IV DECREASED GLUCOSE; Start 10/08/18 at 05:30 Dextrose (D50w Syringe) 50 ml Q15M PRN IV DECREASED GLUCOSE; Start 10/08/18 at 05:30 Glucagon (Glucagen) 1 mg Q15M PRN IM DECREASED GLUCOSE; Start 10/08/18 at 05:30 Glucose (Glutose) 15 gm Q15M PRN BUCCAL DECREASED GLUCOSE; Start 10/08/18 at 05:30 Morphine Sulfate (morphine) 2 mg Q4H PRN IV SEVERE PAIN LEVEL 7-10 Last administered on 10/10/18 09:28; Admin Dose 2 MG; Start 10/08/18 at 15:00 Vancomycin HCl (Vanco Iv Per Pharmacy) VANCOMYCIN PER PHARMACY PER PROTOCOL XX ; Start 10/08/18 at 15:00 Pentoxifylline (Trental) 400 mg WITH MEALS PO Last administered on 10/10/18 12:10; Admin Dose 400 MG; Start 10/08/18 at 17:35 Pantoprazole (Protonix Tab) 40 mg DAILY@06 PO Last administered on 10/10/18 08:34; Admin Dose 40 MG; Start 10/09/18 at 06:00 Hydralazine HCl (Apresoline) 10 mg Q6H PRN PO ELEVATED BLOOD PRESSURE Last administered on 10/09/18 17:15; Admin Dose 10 MG; Start 10/08/18 at 21:30 Ondansetron HCl (Zofran Inj) 4 mg Q6H PRN IV NAUSEA AND/OR VOMITING Last administered on 10/08/18 23:03; Admin Dose 4 MG; Start 10/08/18 at 23:00 Epoetin Adi-epbx (Retacrit) 6,000 unit TuThSa@1700 SC Last administered on 10/09/18 17:17; Admin Dose 6,000 UNIT; Start 10/09/18 at 17:00 Triamcinolone Acetonide (Kenalog 0.1% Cr) 1 applic BID PRN TOP itching; Start 10/09/18 at 16:30 Collagenase (Santyl) 1 applic DAILY TOP Last administered on 10/10/18 08:35; Admin Dose 1 APPLIC; Start 10/09/18 at 17:30 Zolpidem Tartrate (Ambien) 5 mg HS PRN PO INSOMNIA Last administered on 10/10/18 00:47; Admin Dose 5 MG; Start 10/10/18 at 00:30 DAYSI BHATIA NP October 10, 2018 14:34
--- NOTE | 2018-10-10 17:20 | PN ---
Date/Time of Note Date/Time of Note DATE: 10/10/18 TIME: 17:16 Assessment/Plan VTE Prophylaxis Risk score (from Nsg)>0 risk: 4 SCD applied (from Ns): No SCD contraindicated: low risk/ambulating Pharmacological prophylaxis: NA/contraindicated Pharm contraindication: low risk/ambulating Lines/Catheters IV Catheter Type (from Nrs): Peripheral IV Assessment/Plan Assessment/Plan 48-year-old male with: 1. Right diabetic foot ulcer with osteomyelitis evident on the x-ray. 2. With peripheral vascular disease status post angioplasty. 3. Some vomiting, some right rib pain status post fall. 4. Hypertension. 5. End-stage renal disease on hemodialysis. 6. Anemia. 7. Hyperlipidemia. 8. Diabetes. 9. End-stage renal disease on hemodialysis. 10. Coronary artery disease, status post stents. 11. History of tracheostomy. PLAN - Per dr gotti cll dr zimmerman for possible amputation howver wants amputation of toe > not BKA - [address] Cook> spoke to him - HD TTS - cw Vancomycin/rocephin - pain control with morphine - GI/DVT prophylaxsis Result Diagram: 10/10/18 0834 10/10/18 0834 Results 24hrs Laboratory Tests Test 10/09/18 17:34 10/09/18 20:41 10/10/18 07:49 10/10/18 08:34 Bedside Glucose 85 79 142 White Blood Count 8.5 Red Blood Count 2.84 L Hemoglobin 7.6 L Hematocrit 24.7 L Mean Corpuscular Volume 87.0 Mean Corpuscular 26.8 L Hemoglobin Mean Corpuscular 30.8 L Hemoglobin Concent Red Cell Distribution 13.1 Width Platelet Count 185 Mean Platelet Volume 10.5 H Immature Granulocytes % 0.600 H Neutrophils % 84.0 H Lymphocytes % 6.1 L Monocytes % 5.2 Eosinophils % 3.9 Basophils % 0.2 Nucleated Red Blood 0.0 Cells % Immature Granulocytes # 0.050 H Neutrophils # 7.2 Lymphocytes # 0.5 L Monocytes # 0.4 Eosinophils # 0.3 Basophils # 0.0 Nucleated Red Blood 0.0 Cells # Sodium Level 144 Potassium Level 3.6 Chloride Level 104 Carbon Dioxide Level 31 Anion Gap 9 # Blood Urea Nitrogen 30 #H Creatinine 5.74 #H Est Glomerular Filtrat 13 L Rate mL/min Glucose Level 120 # Calcium Level 9.0 Random Vancomycin Level 22.9 Test 10/10/18 12:06 Bedside Glucose 85 Subjective 24 Hr Interval Summary Free Text/Dictation PER Dr Millard pt needs BKA, Pt refusing BKA, requesting 2mnd opinion ruq pain Exam/Review of Systems Exam Vitals Vital Signs Date Temp Pulse Resp B/P (MAP) Pulse Ox O2 O2 Flow FiO2 Time Delivery Rate 10/10/18 172/79 15:47 (110) 10/10/18 97.4 84 16 97 Room Air 14:25 Intake and Output 10/09/18 10/09/18 10/10/18 1515:00 23:00 07:00 IntakeIntake Total 850 ml 200 ml OutputOutput Total 2900 ml BalanceBalance 850 ml -2700 ml Exam ENERAL: The patient is awake, alert and oriented, does not appear to be in any acute distress. HEENT: Pupils are equal, round and reactive to light. NECK: Supple, no JVD. HEART: Regular rate and rhythm. LUNGS: Clear to auscultate bilaterally. ABDOMEN: Surgical scar present. EXTREMITIES: The patient has left BKA, right. S/P right 3rd to 5th toe amputation with gangrene of second toe, heel and lateral foot. Severe dry skin of the foot noted. Non palpable DP and PT. (+) malodor. No bleeding and no pus noted on exam The patient has a left AV fistula with good bruit and thrill. The patient also has skin changes with a hyperpigmented rash, which has been old. Results Results 24hrs Laboratory Tests Test 10/09/18 17:34 10/09/18 20:41 10/10/18 07:49 10/10/18 08:34 Bedside Glucose 85 79 142 White Blood Count 8.5 Red Blood Count 2.84 L Hemoglobin 7.6 L Hematocrit 24.7 L Mean Corpuscular Volume 87.0 Mean Corpuscular 26.8 L Hemoglobin Mean Corpuscular 30.8 L Hemoglobin Concent Red Cell Distribution 13.1 Width Platelet Count 185 Mean Platelet Volume 10.5 H Immature Granulocytes % 0.600 H Neutrophils % 84.0 H Lymphocytes % 6.1 L Monocytes % 5.2 Eosinophils % 3.9 Basophils % 0.2 Nucleated Red Blood 0.0 Cells % Immature Granulocytes # 0.050 H Neutrophils # 7.2 Lymphocytes # 0.5 L Monocytes # 0.4 Eosinophils # 0.3 Basophils # 0.0 Nucleated Red Blood 0.0 Cells # Sodium Level 144 Potassium Level 3.6 Chloride Level 104 Carbon Dioxide Level 31 Anion Gap 9 # Blood Urea Nitrogen 30 #H Creatinine 5.74 #H Est Glomerular Filtrat 13 L Rate mL/min Glucose Level 120 # Calcium Level 9.0 Random Vancomycin Level 22.9 Test 10/10/18 12:06 Bedside Glucose 85 Medications Medication Current Medications Acetaminophen (Tylenol Tab) 650 mg Q6H PRN PO MILD PAIN(1-3)OR ELEVATED TEMP; Start 10/08/18 at 01:30 Albuterol (Proventil 0.083% (Neb)) 2.5 mg Q6H RESP THERAPY PRN HHN SHORTNESS OF BREATH; Start 10/08/18 at 01:30 Docusate Sodium (Colace) 100 mg BID PRN PO CONSTIPATION; Start 10/08/18 at 01:30 Diagnostic Test (Pha) (Accu-Chek) 1 ea 02 XX ; Start 10/08/18 at 02:00 Insulin Aspart (Novolog Insulin Pen) NOVOLOG *MODERATE* ALGORITHM WITH MEALS B EDTIME SC Last administered on 10/10/18at 08:35; Admin Dose 2 UNIT; Start 10/08/18 at 08:00 Ceftriaxone Sodium 50 ml @ 100 mls/hr Q24H IVPB Last administered on 10/10/18at 08:35; Admin Dose 100 MLS/HR; Start 10/08/18 at 09:00 Miscellaneous Information 1 ea NOTE XX ; Start 10/08/18 at 05:30 Glucose (Glutose) 15 gm Q15M PRN PO DECREASED GLUCOSE; Start 10/08/18 at 05:30 Glucose (Glutose) 22.5 gm Q15M PRN PO DECREASED GLUCOSE; Start 10/08/18 at 05:30 Dextrose (D50w Syringe) 25 ml Q15M PRN IV DECREASED GLUCOSE; Start 10/08/18 at 05:30 Dextrose (D50w Syringe) 50 ml Q15M PRN IV DECREASED GLUCOSE; Start 10/08/18 at 05:30 Glucagon (Glucagen) 1 mg Q15M PRN IM DECREASED GLUCOSE; Start 10/08/18 at 05:30 Glucose (Glutose) 15 gm Q15M PRN BUCCAL DECREASED GLUCOSE; Start 10/08/18 at 05:30 Morphine Sulfate (morphine) 2 mg Q4H PRN IV SEVERE PAIN LEVEL 7-10 Last administered on 10/10/18 09:28; Admin Dose 2 MG; Start 10/08/18 at 15:00 Vancomycin HCl (Vanco Iv Per Pharmacy) VANCOMYCIN PER PHARMACY PER PROTOCOL XX ; Start 10/08/18 at 15:00 Pentoxifylline (Trental) 400 mg WITH MEALS PO Last administered on 10/10/18 12:10; Admin Dose 400 MG; Start 10/08/18 at 17:35 Pantoprazole (Protonix Tab) 40 mg DAILY@06 PO Last administered on 10/10/18 08:34; Admin Dose 40 MG; Start 10/09/18 at 06:00 Hydralazine HCl (Apresoline) 10 mg Q6H PRN PO ELEVATED BLOOD PRESSURE Last administered on 10/10/18 15:46; Admin Dose 10 MG; Start 10/08/18 at 21:30 Ondansetron HCl (Zofran Inj) 4 mg Q6H PRN IV NAUSEA AND/OR VOMITING Last administered on 10/08/18 23:03; Admin Dose 4 MG; Start 10/08/18 at 23:00 Epoetin Adi-epbx (Retacrit) 6,000 unit TuThSa@1700 SC Last administered on 10/09/18 17:17; Admin Dose 6,000 UNIT; Start 10/09/18 at 17:00 Triamcinolone Acetonide (Kenalog 0.1% Cr) 1 applic BID PRN TOP itching; Start 10/09/18 at 16:30 Collagenase (Santyl) 1 applic DAILY TOP Last administered on 10/10/18 08:35; Admin Dose 1 APPLIC; Start 10/09/18 at 17:30 Zolpidem Tartrate (Ambien) 5 mg HS PRN PO INSOMNIA Last administered on 10/10/18 00:47; Admin Dose 5 MG; Start 10/10/18 at 00:30 HASEEB MAYA MD October 10, 2018 17:20
--- NOTE | 2018-10-10 21:03 | CONS ---
DATE OF ADMISSION: 10/08/2018 DATE OF CONSULTATION: REASON FOR CONSULTATION: Evaluation of a right lower extremity ischemia. The patient is known to me . He is an unfortunate 48-year-old male with a history of severe peripheral vascular disease, hypert ension, diabetes, hyperlipidemia, status post left below knee amputation. Currently on dialysis per left arm AV fistula. The patient has had a right foot ulceration, underwent a right superficial femo ral artery and popliteal artery atherectomy and angioplasty about 2 months ago. The patient has unde rgone amputation of the right third toe and application of wound VAC. Subsequently, now being admitt ed because of gangrene of the right distal foot. PAST MEDICAL HISTORY: Hypertension, hyperlipidemia, diabetes, coronary artery disease, congestive he art failure. PAST SURGICAL HISTORY: Left arm AV fistula, left BKA. MEDICATIONS: List reviewed. ALLERGIES: NONE. SOCIAL HISTORY: No smoking, drinking or drug use. Currently lives at home. PHYSICAL EXAMINATION: VITAL SIGNS: Blood pressure is 168/82, pulse is 86, respirations 18, temperature is 98.2. GENERAL APPEARANCE: The patient is awake, alert, responds appropriately. CARDIOVASCULAR: Normal S1, S2. No murmurs, gallops or rubs. LUNGS: Clear. ABDOMEN: Soft. EXTREMITIES: Warm. There are palpable femoral pulses bilaterally. On the right side, I cannot palp ate popliteal or pedal pulses, but the foot appears to be warm. Capillary refill is about 3 seconds. Right third and fifth toe have been amputated. There is now gangrene of the second toe which exten ds into the heel and the lateral aspect of the foot. LABORATORY VALUES: Significant for a white count of 8.5, hemoglobin 7.6, platelet count 185. IMPRESSION: Severe peripheral vascular disease status post angioplasty and atherectomy right lower e xtremity. The patient is now with extension of the gangrene of the right foot. At this time, the pa tient may need a below knee amputation; however, will discuss the possibility of saving the foot with podiatry and the referring physician discussed with the patient at length. All questions answered. Dictated By: CARLOS SANDOVAL MD FM/NTS Conf#: [id number] DID#: [id number] CC: AZEEM HENNING MD;*EndCC*
[2018-10-11] VITALS (18 sets, daily range): BP systolic 143–184; BP diastolic 69–101; PULSE 68–101; RESP 17–20
[2018-10-11] MEDS: ACCU-CHEK XX SCH (02:00)
[2018-10-11] MEDS: PANTOPRAZOLE (EC) 40 MG TAB PO SCH (06:33)
[2018-10-11] MEDS: INSULIN ASPART [NOVOLOG] 3 ML PEN SC SCH ×4 (08:00→20:35)
[2018-10-11] MEDS: CEFTRIAXONE 1 GM/NS 50 ML IVPB SCH (08:17)
[2018-10-11] MEDS: PENTOXIFYLLINE (SR) 400 MG TAB PO SCH ×3 (08:17→16:58)
[2018-10-11] MEDS: COLLAGENASE 5 GM (UD JAR) TOP SCH (08:57)
[2018-10-11] MEDS: morphine 2 MG INJ IV PRN ×3 (08:57→22:01)
[2018-10-11] MEDS ORDERED: DIPHENHYDRAMINE 25 MG CAP PO PRN (09:00)
[2018-10-11] MEDS ORDERED: VANCOMYCIN 1 GM 250 ML IVPB SCH (10:00)
[2018-10-11] MEDS ORDERED: LIDOCAINE 1% (MDV) 20 ML INJ SC ONE (11:30)
[2018-10-11] MEDS ORDERED: LIDOCAINE 2% JELLY 5 ML TOP ONE (11:30)
--- NOTE | 2018-10-11 11:48 | CONS ---
DATE OF ADMISSION: 10/08/2018 DATE OF CONSULTATION: 10/11/2018 TYPE OF CONSULTATION: Pulmonary. REFERRING PHYSICIAN: Nette Moscoso M.D. REASON FOR CONSULTATION: Second opinion right foot infection. HISTORY OF PRESENT ILLNESS: This is a 48-year-old male with multiple comorbidities and had been padilla sferred from [place], the patient with infected diabetic foot infection and anemia. He has had pr ior treatment. He has had amputation of third, fourth and fifth toes on the right foot with a nail u lceration and gangrene to the second toe at the level of the metatarsophalangeal joint and osteomyeli tis. The patient has a contralateral below knee amputation. He has had prior balloon angioplasty of the right SFA and popliteal artery. Currently on hemodialysis and had been offered major limb amput ation and the patient is adamantly refusing. PAST MEDICAL HISTORY: 1. Diabetes type 2. 2. Peripheral neuropathy. 3. History of left below knee amputation. 4. End-stage renal disease on hemodialysis. 5. PVD. 6. Coronary artery disease status post stents. 7. Peripheral arterial disease status post arterectomy of the right SFA and popliteal artery. 8. Diastolic congestive heart failure. 9. Normocytic anemia. 10. Hypertension. PAST SURGICAL HISTORY: 1. Abdominal surgery. 2. History of fistula placement. 3. Perm-A-Cath placement. 4. History of tracheostomy. MEDICATIONS: Includes vancomycin and ceftriaxone. SOCIAL HISTORY: He denies any smoking, alcohol, or illicit drug use. The patient currently resides at home. FAMILY HISTORY: Noncontributory. REVIEW OF SYSTEMS: He denies any fever, nausea, or vomiting. OBJECTIVE FINDINGS: VITAL SIGNS: Temperature is 98, pulse is 99, respiratory rate 18, blood pressure is 159/95, pulse ox is 100 on room air. GENERAL: The patient is alert, oriented, no acute distress. HEAD: Normocephalic. Trachea is midline. CHEST: Regular respiration. EXTREMITIES: Left below knee amputation, right foot with gangrenous second toe, skin subcutaneously and bone necrosis at the second metatarsophalangeal joints, callus present to the periphery. Multipl e ulcerations located on the lateral aspect of the foot at the base of the 5th metatarsal with necrot ic skin unstageable at the 5th metatarsal base. Ulceration measures approximately 4 x 3 cm superfici al wound to the right lateral malleolus, unstageable right posterior heel ulceration 3 x 3 cm. Extre mities are warm. Pedal pulses, nonpalpable. Has a 2+ popliteal pulse. No ascending cellulitis but there is severe malodor from tissue necrosis. No capillary refill to the hallux. LABORATORIES: WBC 8.5, hemoglobin 7.6, hematocrit 24.7, platelets 185. Sodium 144, potassium 3.6, c hloride 104, CO2 31, BUN 30, creatinine 5.7. ASSESSMENT: 1. Right foot and ankle diabetic ulcerations. 2. Gangrene. 3. History of 3rd, 4th, 5th toes amputations. 4. Peripheral arterial disease status post arterectomy, angioplasty per documentation of the right S FA and popliteal. 5. Diabetes type 2 with peripheral neuropathy. 6. History of right below knee amputation. PLAN: History and physical performed and reviewed labs. He would benefit from obtaining diagnostic imaging studies of the foot and ankle. I had lengthy discussion with the patient. He is adamant abo ut refusing major limb amputation. The patient is seen by vascular. Prognosis is poor to guarded. Also discussed with prior treating physician and have additional discussion with the patient. He wou ld benefit from debridement type amputation to reduce bacterial bioburden and wound care if he is ref using below knee amputation. If further services required please reconsult. We will defer care to Ab Millard at this time. Dictated By: YARI PAREKH DPM RB/JOSE ANTONIO Conf#: [id number] DID#: [id number] CC: AZEEM HENNING MD; YARI PAREKH DPM;*End*
--- NOTE | 2018-10-11 11:53 | CONS ---
Assessment/Plan Assessment/Plan Hospital Course (Demo Recall) All noted. No acute changes Indwelling's left upper extremity AV fistula. Antimicrobials: Vancomycin, ceftriaxone PHYSICAL EXAMINATION: GENERAL: Well-developed, ill-appearing, middle-aged man in no distress. HEENT: Head is atraumatic, normocephalic. NECK: Supple. CHEST: Rise symmetrical. Breath sounds diminished to bases. HEART: S1, S2. ABDOMEN: Soft. Bowel tones are present. EXTREMITIES: Right foot gangrene Assessment: 1. Right foot gangrene, s/p amputation of right third toe 2. End-stage renal disease, hemodialysis dependent 3. Chronic diffuse rash==> neg scabies 4. Severe peripheral arterial disease status post left below-knee amputation==s/p balloon angioplasty 08/15/18 5. Coronary artery disease status post cardiac stent 6. Hypertension Plan: Clinically unchanged, vascular surgery rec-s noted, may need BKA, continue abx Consultation Date/Type/Reason Admit Date/Time October 08, 2018 at 00:02 Initial Consult Date 10/08/18 Type of Consult id Date/Time of Note DATE: 10/11/18 TIME: 11:52 Exam/Review of Systems Exam Vitals Vital Signs Date Temp Pulse Resp B/P (MAP) Pulse Ox O2 O2 Flow FiO2 Time Delivery Rate 10/11/18 98.0 99 18 159/95 100 Room Air 08:00 (116) Intake and Output 10/10/18 10/10/18 10/11/18 1515:00 23:00 07:00 IntakeIntake Total 50 ml 240 ml BalanceBalance 50 ml 240 ml Results Result Diagram: 10/10/18 0834 10/10/18 0834 Results 24hrs Laboratory Tests Test 10/10/18 12:06 10/10/18 17:17 10/10/18 21:47 10/11/18 07:50 Bedside Glucose 85 96 98 82 Medications Medication Current Medications Acetaminophen (Tylenol Tab) 650 mg Q6H PRN PO MILD PAIN(1-3)OR ELEVATED TEMP; Start 10/08/18 at 01:30 Albuterol (Proventil 0.083% (Neb)) 2.5 mg Q6H RESP THERAPY PRN HHN SHORTNESS OF BREATH; Start 10/08/18 at 01:30 Docusate Sodium (Colace) 100 mg BID PRN PO CONSTIPATION; Start 10/08/18 at 01:30 Diagnostic Test (Pha) (Accu-Chek) 1 ea 02 XX ; Start 10/08/18 at 02:00 Insulin Aspart (Novolog Insulin Pen) NOVOLOG *MODERATE* ALGORITHM WITH MEALS B EDTIME SC Last administered on 10/10/18 08:35; Admin Dose 2 UNIT; Start 10/08/18 at 08:00 Ceftriaxone Sodium 50 ml @ 100 mls/hr Q24H IVPB Last administered on 10/11/18at 08:17; Admin Dose 100 MLS/HR; Start 10/08/18 at 09:00 Miscellaneous Information 1 ea NOTE XX ; Start 10/08/18 at 05:30 Glucose (Glutose) 15 gm Q15M PRN PO DECREASED GLUCOSE; Start 10/08/18 at 05:30 Glucose (Glutose) 22.5 gm Q15M PRN PO DECREASED GLUCOSE; Start 10/08/18 at 05:30 Dextrose (D50w Syringe) 25 ml Q15M PRN IV DECREASED GLUCOSE; Start 10/08/18 at 05:30 Dextrose (D50w Syringe) 50 ml Q15M PRN IV DECREASED GLUCOSE; Start 10/08/18 at 05:30 Glucagon (Glucagen) 1 mg Q15M PRN IM DECREASED GLUCOSE; Start 10/08/18 at 05:30 Glucose (Glutose) 15 gm Q15M PRN BUCCAL DECREASED GLUCOSE; Start 10/08/18 at 05:30 Morphine Sulfate (morphine) 2 mg Q4H PRN IV SEVERE PAIN LEVEL 7-10 Last administered on 10/11/18at 08:57; Admin Dose 2 MG; Start 10/08/18 at 15:00 Vancomycin HCl (Vanco Iv Per Pharmacy) VANCOMYCIN PER PHARMACY PER PROTOCOL XX ; Start 10/08/18 at 15:00 Pentoxifylline (Trental) 400 mg WITH MEALS PO Last administered on 10/11/18at 08:17; Admin Dose 400 MG; Start 10/08/18 at 17:35 Pantoprazole (Protonix Tab) 40 mg DAILY@06 PO Last administered on 10/11/18 06:33; Admin Dose 40 MG; Start 10/09/18 at 06:00 Hydralazine HCl (Apresoline) 10 mg Q6H PRN PO ELEVATED BLOOD PRESSURE Last administered on 10/10/18 15:46; Admin Dose 10 MG; Start 10/08/18 at 21:30 Ondansetron HCl (Zofran Inj) 4 mg Q6H PRN IV NAUSEA AND/OR VOMITING Last administered on 10/08/18 23:03; Admin Dose 4 MG; Start 10/08/18 at 23:00 Epoetin Adi-epbx (Retacrit) 6,000 unit TuThSa@1700 SC Last administered on 10/09/18 17:17; Admin Dose 6,000 UNIT; Start 10/09/18 at 17:00 Triamcinolone Acetonide (Kenalog 0.1% Cr) 1 applic BID PRN TOP itching; Start 10/09/18 at 16:30 Collagenase (Santyl) 1 applic DAILY TOP Last administered on 10/11/18 08:57; Admin Dose 1 APPLIC; Start 10/09/18 at 17:30 Zolpidem Tartrate (Ambien) 5 mg HS PRN PO INSOMNIA Last administered on 10/10/18 00:47; Admin Dose 5 MG; Start 10/10/18 at 00:30 Vancomycin HCl 250 ml @ 125 mls/hr 1000 IVPB Last administered on 10/11/18 10:12; Admin Dose 125 MLS/HR; Start 10/11/18 at 10:00; Stop 10/11/18 at 11:59 Hydralazine HCl (Apresoline) 50 mg Q8 PO Last administered on 10/11/18 06:33; Admin Dose 50 MG; Start 10/10/18 at 22:00 Diphenhydramine HCl (Benadryl) 25 mg Q12 PRN PO ITCHING Last administered on 10/11/18 08:56; Admin Dose 25 MG; Start 10/11/18 at 09:00 DAYSI BHATIA NP October 11, 2018 11:53
--- NOTE | 2018-10-11 16:15 | PN ---
Date/Time of Note Date/Time of Note DATE: 10/11/18 TIME: 16:13 Assessment/Plan VTE Prophylaxis Risk score (from Nsg)>0 risk: 4 SCD applied (from Ns): No SCD contraindicated: low risk/ambulating Pharmacological prophylaxis: NA/contraindicated Pharm contraindication: low risk/ambulating Lines/Catheters IV [facility] [place] Assessment/Plan Hospital Course 48-year-old male with: 1. Right diabetic foot ulcer with osteomyelitis evident on the x-ray. 2. With peripheral vascular disease status post angioplasty. 3. Some vomiting, some right rib pain status post fall. 4. Hypertension. 5. End-stage renal disease on hemodialysis. 6. Anemia. 7. Hyperlipidemia. 8. Diabetes. 9. End-stage renal disease on hemodialysis. 10. Coronary artery disease, status post stents. 11. History of tracheostomy. PLAN - Per dr gotti cll dr zimmerman for possible amputation howver wants amputation of toe > not BKA - surgery tmw with Dr Millard - HD TTS - cw Vancomycin/rocephin - pain control with morphine - GI/DVT prophylaxsis Result Diagram: 10/10/18 0834 10/10/18 0834 Results 24hrs Laboratory Tests Test 10/10/18 17:17 10/10/18 21:47 10/11/18 07:50 10/11/18 11:54 Bedside Glucose 96 98 82 122 Subjective 24 Hr Interval Summary Free Text/Dictation Spoke to Dr Millard will schedule for surgery tmw hd today Exam/Review of Systems Exam Vitals Vital Signs Date Temp Pulse Resp B/P (MAP) Pulse Ox O2 O2 Flow FiO2 Time Delivery Rate 10/11/18 100 15:22 10/11/18 98.0 18 163/94 98 Room Air 14:00 (117) Intake and Output 10/10/18 10/10/18 10/11/18 1515:00 23:00 07:00 IntakeIntake Total 50 ml 240 ml BalanceBalance 50 ml 240 ml Exam ENERAL: The patient is awake, alert and oriented, does not appear to be in any acute distress. HEENT: Pupils are equal, round and reactive to light. NECK: Supple, no JVD. HEART: Regular rate and rhythm. LUNGS: Clear to auscultate bilaterally. ABDOMEN: Surgical scar present. EXTREMITIES: The patient has left BKA, right. S/P right 3rd to 5th toe amputation with gangrene of second toe, heel and lateral foot. Severe dry skin of the foot noted. Non palpable DP and PT. (+) malodor. No bleeding and no pus noted on exam The patient has a left AV fistula with good bruit and thrill. The patient also has skin changes with a hyperpigmented rash, which has been old. Results Results 24hrs Laboratory Tests Test 10/10/18 17:17 10/10/18 21:47 10/11/18 07:50 10/11/18 11:54 Bedside Glucose 96 98 82 122 Medications Medication Current Medications Acetaminophen (Tylenol Tab) 650 mg Q6H PRN PO MILD PAIN(1-3)OR ELEVATED TEMP; Start 10/08/18 at 01:30 Albuterol (Proventil 0.083% (Neb)) 2.5 mg Q6H RESP THERAPY PRN HHN SHORTNESS OF BREATH; Start 10/08/18 at 01:30 Docusate Sodium (Colace) 100 mg BID PRN PO CONSTIPATION; Start 10/08/18 at 01:30 Diagnostic Test (Pha) (Accu-Chek) 1 ea 02 XX ; Start 10/08/18 at 02:00 Insulin Aspart (Novolog Insulin Pen) NOVOLOG *MODERATE* ALGORITHM WITH MEALS BEDTIME SC Last administered on 10/10/18at 08:35; Admin Dose 2 UNIT; Start 9 at 08:00 Ceftriaxone Sodium 50 ml @ 100 mls/hr Q24H IVPB Last administered on 10/11/18at 08:17; Admin Dose 100 MLS/HR; Start 10/08/18 at 09:00 Miscellaneous Information 1 ea NOTE XX ; Start 10/08/18 at 05:30 Glucose (Glutose) 15 gm Q15M PRN PO DECREASED GLUCOSE; Start 10/08/18 at 05:30 Glucose (Glutose) 22.5 gm Q15M PRN PO DECREASED GLUCOSE; Start 10/08/18 at 05:30 Dextrose (D50w Syringe) 25 ml Q15M PRN IV DECREASED GLUCOSE; Start 10/08/18 at 05:30 Dextrose (D50w Syringe) 50 ml Q15M PRN IV DECREASED GLUCOSE; Start 10/08/18 at 05:30 Glucagon (Glucagen) 1 mg Q15M PRN IM DECREASED GLUCOSE; Start 10/08/18 at 05:30 Glucose (Glutose) 15 gm Q15M PRN BUCCAL DECREASED GLUCOSE; Start 10/08/18 at 05:30 Morphine Sulfate (morphine) 2 mg Q4H PRN IV SEVERE PAIN LEVEL 7-10 Last administered on 10/11/18 08:57; Admin Dose 2 MG; Start 10/08/18 at 15:00 Vancomycin HCl (Vanco Iv Per Pharmacy) VANCOMYCIN PER PHARMACY PER PROTOCOL XX ; Start 10/08/18 at 15:00 Pentoxifylline (Trental) 400 mg WITH MEALS PO Last administered on 10/11/18 12:00; Admin Dose 400 MG; Start 10/08/18 at 17:35 Pantoprazole (Protonix Tab) 40 mg DAILY@06 PO Last administered on 10/11/18 06:33; Admin Dose 40 MG; Start 10/09/18 at 06:00 Hydralazine HCl (Apresoline) 10 mg Q6H PRN PO ELEVATED BLOOD PRESSURE Last administered on 10/10/18 15:46; Admin Dose 10 MG; Start 10/08/18 at 21:30 Ondansetron HCl (Zofran Inj) 4 mg Q6H PRN IV NAUSEA AND/OR VOMITING Last administered on 10/08/18 23:03; Admin Dose 4 MG; Start 10/08/18 at 23:00 Epoetin Adi-epbx (Retacrit) 6,000 unit TuThSa@1700 SC Last administered on 10/09/18 17:17; Admin Dose 6,000 UNIT; Start 10/09/18 at 17:00 Triamcinolone Acetonide (Kenalog 0.1% Cr) 1 applic BID PRN TOP itching; Start 10/09/18 at 16:30 Collagenase (Santyl) 1 applic DAILY TOP Last administered on 10/11/18 08:57; Admin Dose 1 APPLIC; Start 10/09/18 at 17:30 Zolpidem Tartrate (Ambien) 5 mg HS PRN PO INSOMNIA Last administered on 10/10/18 00:47; Admin Dose 5 MG; Start 10/10/18 at 00:30 Hydralazine HCl (Apresoline) 50 mg Q8 PO Last administered on 5/9/19at 06:33; Admin Dose 50 MG; Start 10/10/18 at 22:00 Diphenhydramine HCl (Benadryl) 25 mg Q12 PRN PO ITCHING Last administered on 10/11/18at 08:56; Admin Dose 25 MG; Start 10/11/18 at 09:00 HASEEB MAYA MD October 11, 2018 16:15
[2018-10-11] MEDS: EPOETIN ALFA-EPBX (ESRD) 3,000 UNIT/ML VIAL SC SCH (17:07)
--- NOTE | 2018-10-11 23:17 | PN ---
Date/Time of Note Date/Time of Note DATE: 10/11/18 TIME: 23:13 Assessment/Plan Lines/Catheters IV Catheter Type (from [facility]): Saline Lock Assessment/Plan Problems: (1) Peripheral vascular disease (2) Toe gangrene (3) Non-pressure chronic ulcer of other part of right foot with necrosis of muscle (4) Acquired absence of other right toe(s) (5) Acquired absence of left leg below knee (6) Diabetes, polyneuropathy Assessment/Plan I had a detailed discussion with the patient in regards to his current condition with his right foot. He has gangrene of his right second toe and part of the hallux along with an open wound on the lateral foot which also is gangrenous. I have recommended and advised patient that the best course of action for him would be a below the knee amputation, however, patient is refusing this and would to have a transmetatarsal amputation instead. I have advised him that most likely a TMA will fail and he will need the BKA if that occurs. He stated that he is OK with that possible outcome but he wants to have a TMA at this time. Patient was scheduled for Monday at 4:30 pm as an add-on case and I will see the patient tomorrow. Orders were placed in the chart. Subjective 24 Hr Interval Summary Patient was seen at bedside. Patient is in no acute distress. Denies overnight adverse events. Denies fever, chills, nausea or vomiting. Denies recent trauma. Constitutional: no complaints Pain Control: well controlled Exam/Review of Systems Vital Signs Vitals Vital Signs Date Temp Pulse Resp B/P (MAP) Pulse Ox O2 O2 Flow FiO2 Time Delivery Rate 10/25/18 97.6 86 18 142/67 98 20:00 (92) 10/24/18 Room Air 14:28 Intake and Output 10/24/18 10/24/18 10/25/18 1515:00 23:00 07:00 IntakeIntake Total 850 ml 250 ml 250 ml OutputOutput Total 30 ml 10 ml BalanceBalance 850 ml 220 ml 240 ml Exam Free Text/Dictation Patient is laying supine in bed in no acute distress. Dressings were removed from the right foot. Patient is s/p amputation of his 3rd, 4th and 5th toes. He has gangrene of his second toe and multiple chronic open wounds of the right foot. He is s/p LEFT BKA. There is also posterior heel decubitus ulceration. Patient does not have palpable DP or PT pulses. His temperature gradient is increased and the CFT is significantly delayed. Labs reviewed. Results Result Diagram: 10/24/18 1011 10/24/18 1011 SHEYLA IZAGUIRRE DPM October 11, 2018 23:17
[2018-10-12 02:00] VITALS: BP 172/79; PULSE 89; RESP 18
[2018-10-12] MEDS: ACCU-CHEK XX SCH (02:00)
[2018-10-12] MEDS: morphine 2 MG INJ IV PRN ×3 (02:48→11:05)
[2018-10-12 02:51] VITALS: BP 163/81; PULSE 87; RESP 19
[2018-10-12] MEDS: PANTOPRAZOLE (EC) 40 MG TAB PO SCH (06:00)
[2018-10-12 08:00] VITALS: BP 153/70; PULSE 82; RESP 16
[2018-10-12] MEDS: INSULIN ASPART [NOVOLOG] 3 ML PEN SC SCH ×4 (08:00→20:37)
[2018-10-12] MEDS: CEFTRIAXONE 1 GM/NS 50 ML IVPB SCH (08:31)
[2018-10-12] MEDS: PENTOXIFYLLINE (SR) 400 MG TAB PO SCH ×4 (08:31→17:48)
[2018-10-12] MEDS: COLLAGENASE 5 GM (UD JAR) TOP SCH (08:43)
[2018-10-12] MEDS: DEXTROSE 5%-0.45% NACL 1,000 ML IV SCH (11:06)
[2018-10-12] MEDS: ONDANSETRON 4 MG INJ IV PRN (11:19)
--- NOTE | 2018-10-12 12:17 | CONS ---
Assessment/Plan Assessment/Plan Hospital Course (Demo Recall) All noted. No acute changes, no fevers Indwelling's left upper extremity AV fistula. Antimicrobials: Vancomycin, ceftriaxone PHYSICAL EXAMINATION: GENERAL: Well-developed, ill-appearing, middle-aged man in no distress. HEENT: Head is atraumatic, normocephalic. NECK: Supple. CHEST: Rise symmetrical. Breath sounds diminished to bases. HEART: S1, S2. ABDOMEN: Soft. Bowel tones are present. EXTREMITIES: Right foot gangrene Assessment: 1. Right foot gangrene, s/p amputation of right third toe 2. End-stage renal disease, hemodialysis dependent 3. Chronic diffuse rash==> neg scabies 4. Severe peripheral arterial disease status post left below-knee amputation==s/p balloon angioplasty 08/15/18 5. Coronary artery disease status post cardiac stent 6. Hypertension Plan: Clinically unchanged, podiatry rec-s noted, continue present care, abx Consultation Date/Type/Reason Admit Date/Time October 08, 2018 at 00:02 Initial Consult Date 10/08/18 Type of Consult id Date/Time of Note DATE: 10/12/18 TIME: 12:14 Exam/Review of Systems Exam Vitals Vital Signs Date Temp Pulse Resp B/P (MAP) Pulse Ox O2 O2 Flow FiO2 Time Delivery Rate 10/12/18 98.2 82 16 153/70 100 Room Air 08:00 (97) Intake and Output 10/11/18 10/11/18 10/12/18 1515:00 23:00 07:00 IntakeIntake Total 300 ml 800 ml OutputOutput Total 200 ml 3000 ml BalanceBalance 100 ml -2200 ml Results Result Diagram: 10/12/18 1032 10/10/18 0834 Results 24hrs Laboratory Tests Test 10/11/18 16:47 10/11/18 17:01 10/11/18 17:33 10/11/18 20:34 Bedside Glucose 74 75 91 87 Test 10/12/18 08:24 10/12/18 10:32 Bedside Glucose 74 White Blood Count 7.6 Red Blood Count 3.09 L Hemoglobin 8.2 L Hematocrit 26.4 L Mean Corpuscular 85.4 Volume Mean Corpuscular 26.5 L Hemoglobin Mean Corpuscular 31.1 L Hemoglobin Concent Red Cell Distribution 13.1 Width Platelet Count 165 Mean Platelet Volume 10.8 H Immature Granulocytes 0.500 H % Neutrophils % 81.7 H Lymphocytes % 8.9 L Monocytes % 4.7 Eosinophils % 4.1 Basophils % 0.1 Nucleated Red Blood 0.0 Cells % Immature Granulocytes 0.040 H # Neutrophils # 6.2 Lymphocytes # 0.7 L Monocytes # 0.4 Eosinophils # 0.3 Basophils # 0.0 Nucleated Red Blood 0.0 Cells # Medications Medication Current Medications Acetaminophen (Tylenol Tab) 650 mg Q6H PRN PO MILD PAIN(1-3)OR ELEVATED TEMP; Start 10/08/18 at 01:30 Albuterol (Proventil 0.083% (Neb)) 2.5 mg Q6H RESP THERAPY PRN HHN SHORTNESS OF BREATH; Start 10/08/18 at 01:30 Docusate Sodium (Colace) 100 mg BID PRN PO CONSTIPATION; Start 10/08/18 at 01:30 Diagnostic Test (Pha) (Accu-Chek) 1 ea 02 XX ; Start 10/08/18 at 02:00 Insulin Aspart (Novolog Insulin Pen) NOVOLOG *MODERATE* ALGORITHM WITH MEALS BEDTIME SC Last administered on 10/10/18at 08:35; Admin Dose 2 UNIT; Start 10/08/18 at 08:00 Ceftriaxone Sodium 50 ml @ 100 mls/hr Q24H IVPB Last administered on 10/12/18at 08:31; Admin Dose 100 MLS/HR; Start 10/08/18 at 09:00 Miscellaneous Information 1 ea NOTE XX ; Start 10/08/18 at 05:30 Glucose (Glutose) 15 gm Q15M PRN PO DECREASED GLUCOSE; Start 10/08/18 at 05:30 Glucose (Glutose) 22.5 gm Q15M PRN PO DECREASED GLUCOSE; Start 10/08/18 at 05:30 Dextrose (D50w Syringe) 25 ml Q15M PRN IV DECREASED GLUCOSE; Start 10/08/18 at 05:30 Dextrose (D50w Syringe) 50 ml Q15M PRN IV DECREASED GLUCOSE; Start 10/08/18 at 05:30 Glucagon (Glucagen) 1 mg Q15M PRN IM DECREASED GLUCOSE; Start 10/08/18 at 05:30 Glucose (Glutose) 15 gm Q15M PRN BUCCAL DECREASED GLUCOSE; Start 10/08/18 at 05:30 Morphine Sulfate (morphine) 2 mg Q4H PRN IV SEVERE PAIN LEVEL 7-10 Last admi nistered on 10/12/18at 11:05; Admin Dose 2 MG; Start 10/08/18 at 15:00 Vancomycin HCl (Vanco Iv Per Pharmacy) VANCOMYCIN PER PHARMACY PER PROTOCOL XX ; Start 10/08/18 at 15:00 Pentoxifylline (Trental) 400 mg WITH MEALS PO Last administered on 10/12/18 08:31; Admin Dose 400 MG; Start 10/08/18 at 17:35 Pantoprazole (Protonix Tab) 40 mg DAILY@06 PO Last administered on 10/11/18 06:33; Admin Dose 40 MG; Start 10/09/18 at 06:00 Hydralazine HCl (Apresoline) 10 mg Q6H PRN PO ELEVATED BLOOD PRESSURE Last administered on 10/11/18 22:01; Admin Dose 10 MG; Start 10/08/18 at 21:30 Ondansetron HCl (Zofran Inj) 4 mg Q6H PRN IV NAUSEA AND/OR VOMITING Last administered on 10/12/18 11:19; Admin Dose 4 MG; Start 10/08/18 at 23:00 Epoetin Adi-epbx (Retacrit) 6,000 unit TuThSa@1700 SC Last administered on 17:07; Admin Dose 6,000 UNIT; Start 10/09/18 at 17:00 Triamcinolone Acetonide (Kenalog 0.1% Cr) 1 applic BID PRN TOP itching; Start 10/09/18 at 16:30 Collagenase (Santyl) 1 applic DAILY TOP Last administered on 10/11/18 08:57; Admin Dose 1 APPLIC; Start 10/09/18 at 17:30 Zolpidem Tartrate (Ambien) 5 mg HS PRN PO INSOMNIA Last administered on 10/10/18 00:47; Admin Dose 5 MG; Start 10/10/18 at 00:30 Diphenhydramine HCl (Benadryl) 25 mg Q12 PRN PO ITCHING Last administered on 10/11/18 08:56; Admin Dose 25 MG; Start 10/11/18 at 09:00 Hydralazine HCl (Apresoline) 75 mg Q8 PO ; Start 10/12/18 at 14:00 Dextrose/Sodium Chloride 1,000 ml @ 30 mls/hr Q24H IV Last administered on 10/12/18at 11:06; Admin Dose 30 MLS/HR; Start 10/12/18 at 10:00 DAYSI BHATIA NP October 12, 2018 12:17
--- NOTE | 2018-10-12 13:15 | PN ---
Date/Time of Note Date/Time of Note DATE: 10/12/18 TIME: 13:14 Assessment/Plan VTE Prophylaxis Risk score (from [facility])>0 risk: 3 SCD applied (from [facility]): No SCD contraindicated: other Pharmacological prophylaxis: NA/contraindicated Pharm contraindication: surgical contra Lines/Catheters IV C[facility] Saline Lock Assessment/Plan Hospital Course 1. Right diabetic foot ulcer with osteomyelitis evident on the x-ray. 2. With peripheral vascular disease status post angioplasty. 3. Some vomiting, some right rib pain status post fall. 4. Hypertension. 5. End-stage renal disease on hemodialysis. 6. Anemia. 7. Hyperlipidemia. 8. Diabetes. 9. End-stage renal disease on hemodialysis. 10. Coronary artery disease, status post stents. 11. History of tracheostomy. 11. Left arm AV fistula Assessment/Plan - surgery today with Dr Millard - HD TTS -bowel regime - cw Vancomycin/Rocephin - pain control with morphine - GIproph. Protonix -DVT prophylaxis surg. precaution Result Diagram: 10/12/18 1032 10/10/18 0834 Results 24hrs Laboratory Tests Test 10/11/18 16:47 10/11/18 17:01 10/11/18 17:33 10/11/18 20:34 Bedside Glucose 74 75 91 87 Test 10/12/18 08:24 10/12/18 10:32 10/12/18 12:27 Bedside Glucose 74 71 White Blood Count 7.6 Red Blood Count 3.09 L Hemoglobin 8.2 L Hematocrit 26.4 L Mean Corpuscular 85.4 Volume Mean Corpuscular 26.5 L Hemoglobin Mean Corpuscular 31.1 L Hemoglobin Concent Red Cell Distribution 13.1 Width Platelet Count 165 Mean Platelet Volume 10.8 H Immature Granulocytes 0.500 H % Neutrophils % 81.7 H Lymphocytes % 8.9 L Monocytes % 4.7 Eosinophils % 4.1 Basophils % 0.1 Nucleated Red Blood 0.0 Cells % Immature Granulocytes 0.040 H # Neutrophils # 6.2 Lymphocytes # 0.7 L Monocytes # 0.4 Eosinophils # 0.3 Basophils # 0.0 Nucleated Red Blood 0.0 Cells # Subjective 24 Hr Interval Summary Gastrointestinal: constipation Exam/Review of Systems Exam Vitals Vital Signs Date Temp Pulse Resp B/P (MAP) Pulse Ox O2 O2 Flow FiO2 Time Delivery Rate 10/12/18 98.2 82 16 153/70 100 Room Air 08:00 (97) Intake and Output 10/11/18 10/11/18 10/12/18 1515:00 23:00 07:00 IntakeIntake Total 300 ml 800 ml OutputOutput Total 200 ml 3000 ml BalanceBalance 100 ml -2200 ml Exam left arm AV fistula Constitutional: alert, oriented Respiratory: clear to auscultation Cardiovascular: regular rate and rhythm Gastrointestinal: soft Musculoskeletal: other (left BKA, right foot wound, missing, 3-5 fingers) Results Results 24hrs Laboratory Tests Test 10/11/18 16:47 10/11/18 17:01 10/11/18 17:33 10/11/18 20:34 Bedside Glucose 74 75 91 87 Test 10/12/18 08:24 10/12/18 10:32 10/12/18 12:27 Bedside Glucose 74 71 White Blood Count 7.6 Red Blood Count 3.09 L Hemoglobin 8.2 L Hematocrit 26.4 L Mean Corpuscular 85.4 Volume Mean Corpuscular 26.5 L Hemoglobin Mean Corpuscular 31.1 L Hemoglobin Concent Red Cell Distribution 13.1 Width Platelet Count 165 Mean Platelet Volume 10.8 H Immature Granulocytes 0.500 H % Neutrophils % 81.7 H Lymphocytes % 8.9 L Monocytes % 4.7 Eosinophils % 4.1 Basophils % 0.1 Nucleated Red Blood 0.0 Cells % Immature Granulocytes 0.040 H # Neutrophils # 6.2 Lymphocytes # 0.7 L Monocytes # 0.4 Eosinophils # 0.3 Basophils # 0.0 Nucleated Red Blood 0.0 Cells # Medications Medication Current Medications Acetaminophen (Tylenol Tab) 650 mg Q6H PRN PO MILD PAIN(1-3)OR ELEVATED TEMP; Start 10/08/18 at 01:30 Albuterol (Proventil 0.083% (Neb)) 2.5 mg Q6H RESP THERAPY PRN HHN SHORTNESS OF BREATH; Start 10/08/18 at 01:30 Docusate Sodium (Colace) 100 mg BID PRN PO CONSTIPATION; Start 10/08/18 at 01:30 Diagnostic Test (Pha) (Accu-Chek) 1 ea 02 XX ; Start 10/08/18 at 02:00 Insulin Aspart (Novolog Insulin Pen) NOVOLOG *MODERATE* ALGORITHM WITH MEALS BEDTIME SC Last administered on 10/10/18 08:35; Admin Dose 2 UNIT; Start 10/08/18 at 08:00 Ceftriaxone Sodium 50 ml @ 100 mls/hr Q24H IVPB Last administered on 10/12/18 08:31; Admin Dose 100 MLS/HR; Start 10/08/18 at 09:00 Miscellaneous Information 1 ea NOTE XX ; Start 10/08/18 at 05:30 Glucose (Glutose) 15 gm Q15M PRN PO DECREASED GLUCOSE; Start 10/08/18 at 05:30 Glucose (Glutose) 22.5 gm Q15M PRN PO DECREASED GLUCOSE; Start 10/08/18 at 05:30 Dextrose (D50w Syringe) 25 ml Q15M PRN IV DECREASED GLUCOSE; Start 10/08/18 at 05:30 Dextrose (D50w Syringe) 50 ml Q15M PRN IV DECREASED GLUCOSE; Start 10/08/18 at 05:30 Glucagon (Glucagen) 1 mg Q15M PRN IM DECREASED GLUCOSE; Start 10/08/18 at 05:30 Glucose (Glutose) 15 gm Q15M PRN BUCCAL DECREASED GLUCOSE; Start 10/08/18 at 05:30 Morphine Sulfate (morphine) 2 mg Q4H PRN IV SEVERE PAIN LEVEL 7-10 Last administered on 10/12/18 11:05; Admin Dose 2 MG; Start 10/08/18 at 15:00 Vancomycin HCl (Vanco Iv Per Pharmacy) VANCOMYCIN PER PHARMACY PER PROTOCOL XX ; Start 10/08/18 at 15:00 Pentoxifylline (Trental) 400 mg WITH MEALS PO Last administered on 10/12/18 08:31; Admin Dose 400 MG; Start 10/08/18 at 17:35 Pantoprazole (Protonix Tab) 40 mg DAILY@06 PO Last administered on 10/11/18 06:33; Admin Dose 40 MG; Start 10/09/18 at 06:00 Hydralazine HCl (Apresoline) 10 mg Q6H PRN PO ELEVATED BLOOD PRESSURE Last ad ministered on 10/11/18 22:01; Admin Dose 10 MG; Start 10/08/18 at 21:30 Ondansetron HCl (Zofran Inj) 4 mg Q6H PRN IV NAUSEA AND/OR VOMITING Last administered on 10/12/18 11:19; Admin Dose 4 MG; Start 10/08/18 at 23:00 Epoetin Adi-epbx (Retacrit) 6,000 unit TuThSa@1700 SC Last administered on 10/11/18 17:07; Admin Dose 6,000 UNIT; Start 10/09/18 at 17:00 Triamcinolone Acetonide (Kenalog 0.1% Cr) 1 applic BID PRN TOP itching; Start 10/09/18 at 16:30 Collagenase (Santyl) 1 applic DAILY TOP Last administered on 10/11/18 08:57; Admin Dose 1 APPLIC; Start 10/09/18 at 17:30 Zolpidem Tartrate (Ambien) 5 mg HS PRN PO INSOMNIA Last administered on 10/10/18 00:47; Admin Dose 5 MG; Start 10/10/18 at 00:30 Diphenhydramine HCl (Benadryl) 25 mg Q12 PRN PO ITCHING Last administered on 10/11/18 08:56; Admin Dose 25 MG; Start 10/11/18 at 09:00 Hydralazine HCl (Apresoline) 75 mg Q8 PO ; Start 10/12/18 at 14:00 Dextrose/Sodium Chloride 1,000 ml @ 30 mls/hr Q24H IV Last administered on 10/12/18 11:06; Admin Dose 30 MLS/HR; Start 10/12/18 at 10:00 PATRICIA RIVAS October 12, 2018 13:15
[2018-10-12 14:44] VITALS: BP 153/73; PULSE 80; RESP 16
--- NOTE | 2018-10-12 14:45 | PREAC ---
Date/Time of Note Date/Time of Note DATE: 10/12/18 TIME: 14:42 Anesthesia Eval and Record Evaluation Time Pre-Procedure Interview DATE: 10/12/18 TIME: 14:42 Age 48 Sex male NPO: 8 hrs Preoperative diagnosis Right Foot Osteomyelitis Planned procedure Right Foot Transmetatarsal Amputation Past Medical History Past Medical History: Includes Cardio: HTN, CAD, Other (EF in 2018 shows EF 60%, Severe PVD, s/p Left BKA. Multiple Right toe amputations) Endo: Diabetes Renal: ESRD on dialysis Surgery & Anesthesia Issues No known issue Meds Anticoagulation: No Beta Ramsey within 24 hr: No Reason Beta Ramsey not given: Pt. not on B-Ramsey Reported Medications Hydrocodone/Acetaminophen ([place] 7.5-325 Tablet) 1 Each Tablet, 1 EACH PO BID, TAB 08/09/18 Minoxidil* (Lonitin*) 10 Mg Tab, 10 MG PO BID, TAB 08/09/18 Temazepam* (Temazepam*) 30 Mg Capsule, 30 MG PO HS PRN for INSOMNIA, CAP 08/09/18 Cetirizine Hcl* (Cetirizine Hcl*) 10 Mg Tablet, 10 MG PO DAILY, #30 TAB 08/09/18 Lisinopril* (Lisinopril*) 40 Mg Tablet, 40 MG PO DAILY, #30 TAB 08/09/18 Calcium Acetate* (Calcium Acetate*) 667 Mg Capsule, 1334 MG PO WITH MEALS, #60 CAP 08/09/18 Pentoxifylline* (Pentoxifylline*) 400 Mg Tablet.sa, 400 MG PO WITH MEALS, TAB 08/09/18 Clonidine Hcl* (Clonidine Hcl*) 0.3 Mg Tablet, 0.3 MG PO Q6H PRN for HTN, TAB 08/09/18 Docusate Sodium (Col-Rite) 100 Mg Capsule, 100 MG PO BID, CAP 08/09/18 Current Medications Acetaminophen (Tylenol Tab) 650 mg Q6H PRN PO MILD PAIN(1-3)OR ELEVATED TEMP; Start 10/08/18 at 01:30 Albuterol (Proventil 0.083% (Neb)) 2.5 mg Q6H RESP THERAPY PRN HHN SHORTNESS OF BREATH; Start 10/08/18 at 01:30 Docusate Sodium (Colace) 100 mg BID PRN PO CONSTIPATION; Start 10/08/18 at 01:30 Diagnostic Test (Pha) (Accu-Chek) 1 ea 02 XX ; Start 10/08/18 at 02:00 Insulin Aspart (Novolog Insulin Pen) NOVOLOG *MODERATE* ALGORITHM WITH MEALS BEDTIME SC Last administered on 10/10/18 08:35; Admin Dose 2 UNIT; Start 10/08/18 at 08:00 Ceftriaxone Sodium 50 ml @ 100 mls/hr Q24H IVPB Last administered on 10/12/18at 08:31; Admin Dose 100 MLS/HR; Start 10/08/18 at 09:00 Miscellaneous Information 1 ea NOTE XX ; Start 10/08/18 at 05:30 Glucose (Glutose) 15 gm Q15M PRN PO DECREASED GLUCOSE; Start 10/08/18 at 05:30 Glucose (Glutose) 22.5 gm Q15M PRN PO DECREASED GLUCOSE; Start 10/08/18 at 05:30 Dextrose (D50w Syringe) 25 ml Q15M PRN IV DECREASED GLUCOSE; Start 10/08/18 at 05:30 Dextrose (D50w Syringe) 50 ml Q15M PRN IV DECREASED GLUCOSE; Start 10/08/18 at 05:30 Glucagon (Glucagen) 1 mg Q15M PRN IM DECREASED GLUCOSE; Start 10/08/18 at 05:30 Glucose (Glutose) 15 gm Q15M PRN BUCCAL DECREASED GLUCOSE; Start 10/08/18 at 05:30 Morphine Sulfate (morphine) 2 mg Q4H PRN IV SEVERE PAIN LEVEL 7-10 Last administered on 10/12/18at 11:05; Admin Dose 2 MG; Start 10/08/18 at 15:00 Vancomycin HCl (Vanco Iv Per Pharmacy) VANCOMYCIN PER PHARMACY PER PROTOCOL XX ; Start 10/08/18 at 15:00 Pentoxifylline (Trental) 400 mg WITH MEALS PO Last administered on 10/12/18at 13:33; Admin Dose 400 MG; Start 10/08/18 at 17:35 Pantoprazole (Protonix Tab) 40 mg DAILY@06 PO Last administered on 10/11/18 06:33; Admin Dose 40 MG; Start 10/09/18 at 06:00 Hydralazine HCl (Apresoline) 10 mg Q6H PRN PO ELEVATED BLOOD PRESSURE Last adm inistered on 10/11/18at 22:01; Admin Dose 10 MG; Start 10/08/18 at 21:30 Ondansetron HCl (Zofran Inj) 4 mg Q6H PRN IV NAUSEA AND/OR VOMITING Last administered on 10/12/18 11:19; Admin Dose 4 MG; Start 10/08/18 at 23:00 Epoetin Adi-epbx (Retacrit) 6,000 unit TuThSa@1700 SC Last administered on 10/11/18 17:07; Admin Dose 6,000 UNIT; Start 10/09/18 at 17:00 Triamcinolone Acetonide (Kenalog 0.1% Cr) 1 applic BID PRN TOP itching; Start 10/09/18 at 16:30 Collagenase (Santyl) 1 applic DAILY TOP Last administered on 10/11/18 08:57; Admin Dose 1 APPLIC; Start 10/09/18 at 17:30 Zolpidem Tartrate (Ambien) 5 mg HS PRN PO INSOMNIA Last administered on 10/10/18 00:47; Admin Dose 5 MG; Start 10/10/18 at 00:30 Diphenhydramine HCl (Benadryl) 25 mg Q12 PRN PO ITCHING Last administered on 10/11/18 08:56; Admin Dose 25 MG; Start 10/11/18 at 09:00 Hydralazine HCl (Apresoline) 75 mg Q8 PO Last administered on 10/12/18 13:34; Admin Dose 75 MG; Start 10/12/18 at 14:00 Dextrose/Sodium Chloride 1,000 ml @ 30 mls/hr Q24H IV Last administered on 10/12/18 11:06; Admin Dose 30 MLS/HR; Start 10/12/18 at 10:00 Lubiprostone (Amitiza) 16 mcg BID PO ; Start 10/12/18 at 21:00 Meds reviewed: Yes Allergies Coded Allergies: hydromorphone (Verified Allergy, Unknown, 10/08/18) MD Hitchcock aware @ 10/08 0015 Allergies Reviewed: Yes Labs/Studies Labs Reviewed: Reviewed by anesthesiologist Result Diagram: 10/12/18 1032 10/10/18 0834 Laboratory Tests 10/12/18 10:32 Blood Bank Test 10/11/18 19:09 Antibody Screen NEGATIVE Blood Product Summary Counts Blood Type O POSITIVE Crossmatch Red Blood Cells test: N/A Pre-procedure Exam Last vitals Vital Signs Date Temp Pulse Resp B/P (MAP) Pulse Ox O2 O2 Flow FiO2 Time Delivery Rate 10/12/18 98.2 82 16 153/70 100 Room Air 08:00 (97) Airway: Adequate mouth opening Mallampati: Mallampati II Teeth: Abnormal (Poor dentition) Lung: Normal Heart: Normal ASA Physical Status ASA physical status: 3 Emergency: None Planned Anesthetic General/MAC: LMA, MAC Pre-operative Attestations Prior to commencing anesthesia and surgery, the patient was re-evaluated, there was verification of: *The patient's identity *The results of appropriate recent lab work and preoperative vital signs *The above evaluation not changing prior to induction *Anesthetic plan, risk benefits, alternative and complications discussed with patient/family; questions answered; patient/family understands, accepts and wishes to proceed. CRISTOFER HAUSER MD October 12, 2018 14:45
[2018-10-12] MEDS ORDERED: BUPIVACAINE 0.5% (SDV) 30 ML INJ ONE (15:14)
--- NOTE | 2018-10-12 15:23 | PN ---
Date/Time of Note Date/Time of Note DATE: 10/12/18 TIME: 15:23 Assessment/Plan Lines/Catheters IV Catheter Type (from [facility]): Saline Lock Assessment/Plan Problems: (1) Choledocholithiasis Status: Chronic (2) Diabetes, polyneuropathy (3) Peripheral vascular disease (4) Toe gangrene (5) Acute on chronic cholecystitis (6) Non-pressure chronic ulcer of other part of right foot with necrosis of muscle (7) Acquired absence of other right toe(s) (8) Acquired absence of left leg below knee (9) Non-pressure ulcer of left lower extremity with fat layer exposed (10) Acquired absence of right foot Assessment/Plan Surgery is scheduled for today. Procedure is TMA of the right foot. Orders in the chart. Subjective 24 Hr Interval Summary Patient is scheduled for surgery today. Pain Control: well controlled Exam/Review of Systems Vital Signs Vitals Vital Signs Date Temp Pulse Resp B/P (MAP) Pulse Ox O2 O2 Flow FiO2 Time Delivery Rate 10/25/18 97.6 86 18 142/67 98 20:00 (92) 10/24/18 Room Air 14:28 Intake and Output 10/24/18 10/24/18 10/25/18 1515:00 23:00 07:00 IntakeIntake Total 850 ml 250 ml 250 ml OutputOutput Total 30 ml 10 ml BalanceBalance 850 ml 220 ml 240 ml Exam Free Text/Dictation Patient is laying supine in bed in no acute distress. Dressings were removed from the right foot. Patient is s/p amputation of his 3rd, 4th and 5th toes. He has gangrene of his second toe and multiple chronic open wounds of the right foot. He is s/p LEFT BKA. There is also posterior heel decubitus ulceration. Patient does not have palpable DP or PT pulses. His temperature gradient is increased and the CFT is significantly delayed. Labs reviewed. Results Result Diagram: 10/24/18 1011 10/24/18 1011 SHEYLA IZAGUIRRE DPM October 12, 2018 15:23
--- NOTE | 2018-10-12 15:23 | HPN ---
Date/Time of Note Date/Time of Note DATE: 10/12/18 TIME: 15:23 Interval H&P Admission Note Pt. seen H&P reviewed: No system changes SHEYLA IZAGUIRRE DPM October 12, 2018 15:23
[2018-10-12] MEDS ORDERED: PROPOFOL 0 ML ONE (15:24)
[2018-10-12] MEDS ORDERED: LIDOCAINE 2% (SDV) 5 ML INJ ONE (15:24)
[2018-10-12] MEDS ORDERED: MIDAZOLAM 1 MG/ML 2 ML INJ ONE (15:24)
[2018-10-12] MEDS ORDERED: FENTAnyl 50 MCG/ML VIAL ONE (15:25)
--- NOTE | 2018-10-12 17:40 | OPPN ---
Date/Time of Note Date/Time of Note DATE: 10/12/18 TIME: 17:34 Anesthesia Follow up Anesthesia Follow up Last documented vital signs Vital Signs Date Temp Pulse Resp B/P (MAP) Pulse Ox O2 O2 Flow FiO2 Time Delivery Rate 10/12/18 98.0 80 16 153/73 98 Room Air 14:44 (99) Respiratory function: WNL Cardiovascular function: WNL Comments On entry into OR, Patient connected to standard ASA monitors. IV connected to NS bag. 2mg Midazolam for premedication attempted to be given, however not good flow. IV interrogated an appeared blown. Not good spontaneous flow. Attempted other IV placements- multiple attempts. B/L External Jugular attempted with 20ga Angiocath, able to get blood return, but unable to thread catheter, with guidewire and ultrasound assist. Decision made to attempt Right IJ. Multiple successful identification of right Internal Jugular with + drawback, all unable to advance guidewire. aborted after [address] Millard notified. Case cancelled= plan to get picc line and reschedule case. CXR shows no pneumothorax CRISTOFER HAUSER MD October 12, 2018 17:40
[2018-10-12] MEDS ORDERED: LUBIPROSTONE 8 MCG CAPSULE ONE (19:53)
[2018-10-12 20:00] VITALS: BP 120/72; PULSE 86; RESP 17
[2018-10-12] MEDS: morphine 2 MG INJ IM PRN (20:34)
[2018-10-12] MEDS: LUBIPROSTONE 8 MCG CAPSULE PO SCH (20:39)
[2018-10-12] MEDS: ZOLPIDEM 5 MG TAB PO PRN (21:40)
[2018-10-13] VITALS (18 sets, daily range): BP systolic 90–155; BP diastolic 53–97; PULSE 80–87; RESP 17–20
[2018-10-13] MEDS: ACCU-CHEK XX SCH (01:47)
[2018-10-13] MEDS: PANTOPRAZOLE (EC) 40 MG TAB PO SCH (06:19)
[2018-10-13] MEDS: morphine 2 MG INJ IM PRN ×3 (06:31→21:32)
[2018-10-13] MEDS ORDERED: LIDOCAINE 1% (MDV) 20 ML INJ SC PRN (07:00)
[2018-10-13] MEDS ORDERED: LIDOCAINE 1% (MDV) 20 ML INJ ONE (07:30)
[2018-10-13] MEDS: PENTOXIFYLLINE (SR) 400 MG TAB PO SCH ×3 (07:35→17:32)
[2018-10-13] MEDS: INSULIN ASPART [NOVOLOG] 3 ML PEN SC SCH ×4 (07:46→21:00)
[2018-10-13] MEDS: ONDANSETRON 4 MG INJ IV PRN (08:05)
[2018-10-13] MEDS ORDERED: ONDANSETRON 4 MG TAB PO PRN (08:30)
--- NOTE | 2018-10-13 09:56 | CONS ---
Assessment/Plan Assessment/Plan Hospital Course (Demo Recall) ID PROGRESS NOTE CURRENT ABX: DAY # Vanco IV + Ceftriaxone 10/12/18 1032 10/10/18 0834 24H INTERVAL SUMMARY * Patient has lost IV access -- waiting for PICC, s/p failed attempt at TLC placement * Surgical procedure cancelled due to no IV access -- will be R/S for Right TMA * No fevers/chills, VSS, labs, chart reviewed DIAGNOSTIC IMAGING * 10/12/18 CXR: IMPRESSION:No evidence of acute cardiopulmonary process. Im proved aeration of the right basilar lung. Mild cardiomegaly, allowing for overly lordotic view. * 08/18/18 RIGHT FOOT CX: IMPRESSION: * 1. Lateral skin ulceration at the midfoot near probable osteomyelitis of a slightly fragmented residual fifth metatarsal base. * 2. Suspect erosion along the lateral margin of the second metatarsal head that may reflect osteomyelitis. * 3. Amputation of the third, fourth, and fifth digits as well as the distal metatarsals. * 4. Consider MRI for more sensitive evaluation as clinically warranted. MICRO/OTHER * 08/10/18 (-)MRSA nares * 08/09/18 BCX (-) PHYSICAL EXAMINATION: GENERAL: VSS HEENT: AT, NC, anicteric NECK: Supple, CHEST: Equal chest rise bilaterally, without dyspnea on observation HEART: Pulse RRR ABDOMEN: Soft / NT EXTREMITIES: Warm, dry / right foot DSG C/D/I * left below-knee amputation with dry scalp on the knee as well as on the stump itself. SKIN: No rash, no diaphoresis ID ASSESSMENT 47 yo M admit with: 1. Right foot diabetic ulceration, possible osteomyelitis * PENDING RIGHT FOOT TMA 2. Severe peripheral arterial disease status post left below-knee amputation==s/p balloon angioplasty 08/15/18 3. Diabetes w/complications of DM neuropathy, vasculopathy, avascular necrosis 4. End-stage renal disease, hemodialysis dependent 5. Coronary artery disease status post cardiac stent 6. Hypertension 7. Chronic rash==> (-)Scabies ABX ALLERGIES: None to ABX INVASIVES: PIV CURRENT ABX: DAY # Vanco IV + Ceftriaxone ID RECOMMENDATIONS/PLAN: 1. Continue Vanco IV with HD 2. DC Ceftriaxone -> change to Augmentin PO for now 3. Pending new PICC access then plan is to r/S for R-Foot TMA Consultation Date/Type/Reason Admit Date/Time October 08, 2018 at 00:02 Initial Consult Date 10/08/18 Date/Time of Note DATE: 10/13/18 TIME: 09:36 Exam/Review of Systems Exam Vitals Vital Signs Date Temp Pulse Resp B/P (MAP) Pulse Ox O2 O2 Flow FiO2 Time Delivery Rate 10/13/18 81 09:15 10/13/18 155/56 09:10 (89) 10/13/18 20 Room Air 07:30 10/12/18 98.0 100 20:00 Intake and Output 10/12/18 10/12/18 10/13/18 1515:00 23:00 07:00 IntakeIntake Total 50 ml 320 ml BalanceBalance 50 ml 320 ml Results Result Diagram: 10/12/18 1032 10/10/18 0834 Results 24hrs Laboratory Tests Test 10/12/18 10:32 10/12/18 12:27 10/12/18 15:15 10/12/18 17:41 White Blood Count 7.6 Red Blood Count 3.09 L Hemoglobin 8.2 L Hematocrit 26.4 L Mean Corpuscular 85.4 Volume Mean Corpuscular 26.5 L Hemoglobin Mean Corpuscular 31.1 L Hemoglobin Concent Red Cell 13.1 Distribution Width Platelet Count 165 Mean Platelet Volume 10.8 H Immature 0.500 H Granulocytes % Neutrophils % 81.7 H Lymphocytes % 8.9 L Monocytes % 4.7 Eosinophils % 4.1 Basophils % 0.1 Nucleated Red Blood 0.0 Cells % Immature 0.040 H Granulocytes # Neutrophils # 6.2 Lymphocytes # 0.7 L Monocytes # 0.4 Eosinophils # 0.3 Basophils # 0.0 Nucleated Red Blood 0.0 Cells # Bedside Glucose 71 84 79 Test 10/12/18 20:31 10/13/18 07:45 Bedside Glucose 93 80 Medications Medication Current Medications Acetaminophen (Tylenol Tab) 650 mg Q6H PRN PO MILD PAIN(1-3)OR ELEVATED TEMP; Start 10/08/18 at 01:30 Albuterol (Proventil 0.083% (Neb)) 2.5 mg Q6H RESP THERAPY PRN HHN SHORTNESS OF BREATH; Start 10/08/18 at 01:30 Docusate Sodium (Colace) 100 mg BID PRN PO CONSTIPATION; Start 10/08/18 at 01:30 Diagnostic Test (Pha) (Accu-Chek) 1 ea 02 XX ; Start 10/08/18 at 02:00 Insulin Aspart (Novolog Insulin Pen) NOVOLOG *MODERATE* ALGORITHM WITH MEALS BEDTIME SC Last administered on 10/10/18at 08:35; Admin Dose 2 UNIT; Start 10/08/18 at 08:00 Ceftriaxone Sodium 50 ml @ 100 mls/hr Q24H IVPB Last administered on 10/12/18at 08:31; Admin Dose 100 MLS/HR; Start 10/08/18 at 09:00 Miscellaneous Information 1 ea NOTE XX ; Start 10/08/18 at 05:30 Glucose (Glutose) 15 gm Q15M PRN PO DECREASED GLUCOSE; Start 10/08/18 at 05:30 Glucose (Glutose) 22.5 gm Q15M PRN PO DECREASED GLUCOSE; Start 10/08/18 at 05:30 Dextrose (D50w Syringe) 25 ml Q15M PRN IV DECREASED GLUCOSE; Start 10/08/18 at 05:30 Dextrose (D50w Syringe) 50 ml Q15M PRN IV DECREASED GLUCOSE; Start 10/08/18 at 05:30 Glucagon (Glucagen) 1 mg Q15M PRN IM DECREASED GLUCOSE; Start 10/08/18 at 05:30 Glucose (Glutose) 15 gm Q15M PRN BUCCAL DECREASED GLUCOSE; Start 10/08/18 at 05:30 Morphine Sulfate (morphine) 2 mg Q4H PRN IV SEVERE PAIN LEVEL 7-10 Last administered on 10/12/18at 11:05; Admin Dose 2 MG; Start 10/08/18 at 15:00 Vancomycin HCl (Vanco Iv Per Pharmacy) VANCOMYCIN PER PHARMACY PER PROTOCOL XX ; Start 10/08/18 at 15:00 Pentoxifylline (Trental) 400 mg WITH MEALS PO Last administered on 10/12/18at 17:48; Admin Dose 400 MG; Start 10/08/18 at 17:35 Pantoprazole (Protonix Tab) 40 mg DAILY@06 PO Last administered on 10/13/18at 06:19; Admin Dose 40 MG; Start 10/09/18 at 06:00 Hydralazine HCl (Apresoline) 10 mg Q6H PRN PO ELEVATED BLOOD PRESSURE Last administered on 10/11/18 22:01; Admin Dose 10 MG; Start 10/08/18 at 21:30 Ondansetron HCl (Zofran Inj) 4 mg Q6H PRN IV NAUSEA AND/OR VOMITING Last administered on 10/13/18 08:05; Admin Dose 4 MG; Start 10/08/18 at 23:00 Epoetin Adi-epbx (Retacrit) 6,000 unit TuThSa@1700 SC Last administered on 10/11/18 17:07; Admin Dose 6,000 UNIT; Start 10/09/18 at 17:00 Triamcinolone Acetonide (Kenalog 0.1% Cr) 1 applic BID PRN TOP itching; Start 10/09/18 at 16:30 Collagenase (Santyl) 1 applic DAILY TOP Last administered on 10/11/18 08:57; Admin Dose 1 APPLIC; Start 10/09/18 at 17:30 Zolpidem Tartrate (Ambien) 5 mg HS PRN PO INSOMNIA Last administered on 10/12/18 21:40; Admin Dose 5 MG; Start 10/10/18 at 00:30 Diphenhydramine HCl (Benadryl) 25 mg Q12 PRN PO ITCHING Last administered on 10/11/18 08:56; Admin Dose 25 MG; Start 10/11/18 at 09:00 Hydralazine HCl (Apresoline) 75 mg Q8 PO Last administered on 10/13/18 06:18; Admin Dose 75 MG; Start 10/12/18 at 14:00 Dextrose/Sodium Chloride 1,000 ml @ 30 mls/hr Q24H IV Last administered on 10/12/18 11:06; Admin Dose 30 MLS/HR; Start 10/12/18 at 10:00 Lubiprostone (Amitiza) 16 mcg BID PO ; Start 10/12/18 at 21:00 Morphine Sulfate (morphine) 2 mg Q4H PRN IM SEVERE PAIN LEVEL 7-10 Last administered on 10/13/18 06:31; Admin Dose 2 MG; Start 10/12/18 at 20:00 Lidocaine (Xylocaine 1% (Mdv) 20 ml) 20 ml ONCE PRN SC BEFORE CANNULATION ON HD; Start 10/14/18 at 07:00; Stop 10/14/18 at 11:00 Ondansetron HCl (Zofran Tab) 4 mg Q6H PRN PO NAUSEA AND/OR VOMITING; Start 10/13/18 at 08:30 PORSCHE SUÁREZ NP October 13, 2018 09:51
[2018-10-13] MEDS: DEXTROSE 5%-0.45% NACL 1,000 ML IV SCH (10:00)
--- NOTE | 2018-10-13 11:17 | PN ---
Date/Time of Note Date/Time of Note DATE: 10/13/18 TIME: 11:15 Assessment/Plan VTE Prophylaxis Risk score (from [facility])>0 risk: 2 SCD applied (from [facility]): No SCD contraindicated: bilateral amputee Pharmacological prophylaxis: NA/contraindicated Pharm contraindication: surgical contra Lines/Catheters IV Catheter Type (from [facility]): Saline Lock Assessment/Plan Hospital Course 1. Right diabetic foot ulcer with osteomyelitis evident on the x-ray. 2. With peripheral vascular disease status post angioplasty. 3. Some vomiting, some right rib pain status post fall. 4. Hypertension. 5. End-stage renal disease on hemodialysis. 6. Anemia. 7. Hyperlipidemia. 8. Diabetes. 9. End-stage renal disease on hemodialysis. 10. Coronary artery disease, status post stents. 11. History of tracheostomy. 11. Left arm AV fistula Assessment/Plan -central line -bowel regime - surgery was not performed due to poor venous access with Dr Millard - HD TTS, one today -bowel regime - cw Vancomycin/Rocephin - pain control with morphine - GI proph. Protonix -DVT prophylaxis surg. precaution Result Diagram: 10/13/18 1000 10/13/18 1000 Results 24hrs Laboratory Tests Test 10/12/18 12:27 10/12/18 15:15 10/12/18 17:41 10/12/18 20:31 Bedside Glucose 71 84 79 93 Test 10/13/18 07:45 10/13/18 10:00 Bedside Glucose 80 White Blood Count 7.8 Red Blood Count 3.16 L Hemoglobin 8.5 L Hematocrit 27.0 L Mean Corpuscular 85.4 Volume Mean Corpuscular 26.9 L Hemoglobin Mean Corpuscular 31.5 L Hemoglobin Concent Red Cell 13.0 Distribution Width Platelet Count 180 Mean Platelet Volume 9.9 Immature 0.500 H Granulocytes % Neutrophils % 79.8 H Lymphocytes % 9.7 L Monocytes % 5.7 Eosinophils % 4.0 Basophils % 0.3 Nucleated Red Blood 0.0 Cells % Immature 0.040 H Granulocytes # Neutrophils # 6.2 Lymphocytes # 0.8 Monocytes # 0.4 Eosinophils # 0.3 Basophils # 0.0 Nucleated Red Blood 0.0 Cells # Sodium Level 144 Potassium Level 3.9 Chloride Level 104 Carbon Dioxide Level 30 Anion Gap 10 Blood Urea Nitrogen 16 Creatinine 3.50 H Est Glomerular 23 L Filtrat Rate mL/min Glucose Level 92 Calcium Level 9.4 Total Bilirubin 0.0 L Direct Bilirubin 0.00 Indirect Bilirubin 0.0 Aspartate Amino 15 Transf (AST/SGOT) Alanine < 6 L Aminotransferase (AL T/SGPT) Alkaline Phosphatase 400 H Total Protein 10.5 H Albumin 3.9 Globulin 6.60 H Albumin/Globulin 0.59 Ratio Subjective 24 Hr Interval Summary Constitutional: no complaints, improved Exam/Review of Systems Exam Vitals Vital Signs Date Temp Pulse Resp B/P (MAP) Pulse Ox O2 O2 Flow FiO2 Time Delivery Rate 10/13/18 84 10:45 10/13/18 155/56 09:10 (89) 10/13/18 20 Room Air 07:30 10/12/18 98.0 100 20:00 Intake and Output 10/12/18 10/12/18 10/13/18 1515:00 23:00 07:00 IntakeIntake Total 50 ml 320 ml BalanceBalance 50 ml 320 ml Exam left arm av fistula Neck: supple Respiratory: clear to auscultation Cardiovascular: regular rate and rhythm Musculoskeletal: other (left knee BKA, righ foot 3-5 toes amputation) Neurological: CONTINUITY EDITOR II-XII intact Results Results 24hrs Laboratory Tests Test 10/12/18 12:27 10/12/18 15:15 10/12/18 17:41 10/12/18 20:31 Bedside Glucose 71 84 79 93 Test 10/13/18 07:45 10/13/18 10:00 Bedside Glucose 80 White Blood Count 7.8 Red Blood Count 3.16 L Hemoglobin 8.5 L Hematocrit 27.0 L Mean Corpuscular 85.4 Volume Mean Corpuscular 26.9 L Hemoglobin Mean Corpuscular 31.5 L Hemoglobin Concent Red Cell 13.0 Distribution Width Platelet Count 180 Mean Platelet Volume 9.9 Immature 0.500 H Granulocytes % Neutrophils % 79.8 H Lymphocytes % 9.7 L Monocytes % 5.7 Eosinophils % 4.0 Basophils % 0.3 Nucleated Red Blood 0.0 Cells % Immature 0.040 H Granulocytes # Neutrophils # 6.2 Lymphocytes # 0.8 Monocytes # 0.4 Eosinophils # 0.3 Basophils # 0.0 Nucleated Red Blood 0.0 Cells # Sodium Level 144 Potassium Level 3.9 Chloride Level 104 Carbon Dioxide Level 30 Anion Gap 10 Blood Urea Nitrogen 16 Creatinine 3.50 H Est Glomerular 23 L Filtrat Rate mL/min Glucose Level 92 Calcium Level 9.4 Total Bilirubin 0.0 L Direct Bilirubin 0.00 Indirect Bilirubin 0.0 Aspartate Amino 15 Transf (AST/SGOT) Alanine < 6 L Aminotransferase (AL T/SGPT) Alkaline Phosphatase 400 H Total Protein 10.5 H Albumin 3.9 Globulin 6.60 H Albumin/Globulin 0.59 Ratio Medications Medication Current Medications Acetaminophen (Tylenol Tab) 650 mg Q6H PRN PO MILD PAIN(1-3)OR ELEVATED TEMP; Start 10/08/18 at 01:30 Albuterol (Proventil 0.083% (Neb)) 2.5 mg Q6H RESP THERAPY PRN HHN SHORTNESS OF BREATH; Start 10/08/18 at 01:30 Docusate Sodium (Colace) 100 mg BID PRN PO CONSTIPATION; Start 10/08/18 at 01:30 Diagnostic Test (Pha) (Accu-Chek) 1 ea 02 XX ; Start 10/08/18 at 02:00 Insulin Aspart (Novolog Insulin Pen) NOVOLOG *MODERATE* ALGORITHM WITH MEALS BEDTIME SC Last administered on 10/10/18at 08:35; Admin Dose 2 UNIT; Start 10/08/18 at 08:00 Miscellaneous Information 1 ea NOTE XX ; Start 10/08/18 at 05:30 Glucose (Glutose) 15 gm Q15M PRN PO DECREASED GLUCOSE; Start 10/08/18 at 05:30 Glucose (Glutose) 22.5 gm Q15M PRN PO DECREASED GLUCOSE; Start 10/08/18 at 05:30 Dextrose (D50w Syringe) 25 ml Q15M PRN IV DECREASED GLUCOSE; Start 10/08/18 at 05:30 Dextrose (D50w Syringe) 50 ml Q15M PRN IV DECREASED GLUCOSE; Start 10/08/18 at 05:30 Glucagon (Glucagen) 1 mg Q15M PRN IM DECREASED GLUCOSE; Start 10/08/18 at 05:30 Glucose (Glutose) 15 gm Q15M PRN BUCCAL DECREASED GLUCOSE; Start 10/08/18 at 05:30 Morphine Sulfate (morphine) 2 mg Q4H PRN IV SEVERE PAIN LEVEL 7-10 Last administered on 10/12/18at 11:05; Admin Dose 2 MG; Start 10/08/18 at 15:00 Vancomycin HCl (Vanco Iv Per Pharmacy) VANCOMYCIN PER PHARMACY PER PROTOCOL XX ; Start 10/08/18 at 15:00 Pentoxifylline (Trental) 400 mg WITH MEALS PO Last administered on 10/12/18 17:48; Admin Dose 400 MG; Start 10/08/18 at 17:35 Pantoprazole (Protonix Tab) 40 mg DAILY@06 PO Last administered on 10/13/18 06:19; Admin Dose 40 MG; Start 10/09/18 at 06:00 Hydralazine HCl (Apresoline) 10 mg Q6H PRN PO ELEVATED BLOOD PRESSURE Last administered on 10/11/18 22:01; Admin Dose 10 MG; Start 10/08/18 at 21:30 Ondansetron HCl (Zofran Inj) 4 mg Q6H PRN IV NAUSEA AND/OR VOMITING Last administered on 10/13/18 08:05; Admin Dose 4 MG; Start 10/08/18 at 23:00 Epoetin Adi-epbx (Retacrit) 6,000 unit TuThSa@1700 SC Last administered on 10/11/18 17:07; Admin Dose 6,000 UNIT; Start 10/09/18 at 17:00 Triamcinolone Acetonide (Kenalog 0.1% Cr) 1 applic BID PRN TOP itching; Start 10/09/18 at 16:30 Collagenase (Santyl) 1 applic DAILY TOP Last administered on 10/11/18 08:57; Admin Dose 1 APPLIC; Start 10/09/18 at 17:30 Zolpidem Tartrate (Ambien) 5 mg HS PRN PO INSOMNIA Last administered on 10/12/18 21:40; Admin Dose 5 MG; Start 10/10/18 at 00:30 Diphenhydramine HCl (Benadryl) 25 mg Q12 PRN PO ITCHING Last administered on 10/11/18 08:56; Admin Dose 25 MG; Start 10/11/18 at 09:00 Hydralazine HCl (Apresoline) 75 mg Q8 PO Last administered on 10/13/18 06:18; Admin Dose 75 MG; Start 10/12/18 at 14:00 Dextrose/Sodium Chloride 1,000 ml @ 30 mls/hr Q24H IV Last administered on 10/12/18 11:06; Admin Dose 30 MLS/HR; Start 10/12/18 at 10:00 Lubiprostone (Amitiza) 16 mcg BID PO ; Start 10/12/18 at 21:00 Morphine Sulfate (morphine) 2 mg Q4H PRN IM SEVERE PAIN LEVEL 7-10 Last administered on 10/13/18at 06:31; Admin Dose 2 MG; Start 10/12/18 at 20:00 Lidocaine (Xylocaine 1% (Mdv) 20 ml) 20 ml ONCE PRN SC BEFORE CANNULATION ON HD Last administered on 10/13/18at 09:57; Admin Dose 20 ML; Start 10/14/18 at 07:00; Stop 10/14/18 at 11:00 Ondansetron HCl (Zofran Tab) 4 mg Q6H PRN PO NAUSEA AND/OR VOMITING; Start 10/13/18 at 08:30 Amoxicillin/ Clavulanate Potassium (Augmentin) 500 mg DAILY PO ; Start 10/13/18 at 12:00 PATRICIA RIVAS October 13, 2018 11:17
[2018-10-13] MEDS: LUBIPROSTONE 8 MCG CAPSULE PO SCH ×2 (11:54→21:31)
[2018-10-13] MEDS: COLLAGENASE 5 GM (UD JAR) TOP SCH (11:56)
[2018-10-13] MEDS: AMOXICILLIN/CLAV 500 MG TAB PO SCH (12:30)
[2018-10-13] MEDS: EPOETIN ALFA-EPBX (ESRD) 3,000 UNIT/ML VIAL SC SCH (17:33)
[2018-10-14] MEDS: ACCU-CHEK XX SCH ×2 (01:40→21:05)
[2018-10-14] MEDS: morphine 2 MG INJ IM PRN ×2 (02:17→15:35)
[2018-10-14] MEDS: PANTOPRAZOLE (EC) 40 MG TAB PO SCH (06:16)
[2018-10-14] MEDS ORDERED: LIDOCAINE 1% (MDV) 20 ML INJ SC PRN (07:00)
[2018-10-14] MEDS: INSULIN ASPART [NOVOLOG] 3 ML PEN SC SCH ×4 (08:00→21:00)
[2018-10-14] MEDS: AMOXICILLIN/CLAV 500 MG TAB PO SCH (09:19)
[2018-10-14] MEDS: COLLAGENASE 5 GM (UD JAR) TOP SCH (09:20)
[2018-10-14] MEDS: PENTOXIFYLLINE (SR) 400 MG TAB PO SCH ×3 (09:20→17:58)
[2018-10-14] MEDS: DEXTROSE 5%-0.45% NACL 1,000 ML IV SCH (09:24)
--- NOTE | 2018-10-14 09:48 | PN ---
Date/Time of Note Date/Time of Note DATE: 10/14/18 TIME: 09:47 Assessment/Plan VTE Prophylaxis Risk score (from [facility])>0 risk: 2 SCD applied (from [facility]): No SCD contraindicated: bilateral amputee Pharmacological prophylaxis: NA/contraindicated Pharm contraindication: surgical contra Lines/Catheters IV Catheter Type (from [facility]): Saline Lock Assessment/Plan Hospital Course 1. Right diabetic foot ulcer with osteomyelitis evident on the x-ray. 2. With peripheral vascular disease status post angioplasty. 3. Some vomiting, some right rib pain status post fall. 4. Hypertension. 5. End-stage renal disease on hemodialysis. 6. Anemia. 7. Hyperlipidemia. 8. Diabetes. 9. End-stage renal disease on hemodialysis. 10. Coronary artery disease, status post stents. 11. History of tracheostomy. 11. Left arm AV fistula Assessment/Plan -called Dr Guerin for central line -bowel regime - surgery was not performed due to poor venous access with Dr Millard - HD TTS, -bowel regime - cw Vancomycin/Rocephin - pain control with morphine - GI proph. Protonix -DVT prophylaxis surg. precaution Result Diagram: 10/13/18 1000 10/13/18 1000 Results 24hrs Laboratory Tests Test 10/13/18 10:00 10/13/18 12:41 10/13/18 17:31 10/13/18 21:30 White Blood Count 7.8 Red Blood Count 3.16 L Hemoglobin 8.5 L Hematocrit 27.0 L Mean Corpuscular 85.4 Volume Mean Corpuscular 26.9 L Hemoglobin Mean Corpuscular 31.5 L Hemoglobin Concent Red Cell 13.0 Distribution Width Platelet Count 180 Mean Platelet Volume 9.9 Immature 0.500 H Granulocytes % Neutrophils % 79.8 H Lymphocytes % 9.7 L Monocytes % 5.7 Eosinophils % 4.0 Basophils % 0.3 Nucleated Red Blood 0.0 Cells % Immature 0.040 H Granulocytes # Neutrophils # 6.2 Lymphocytes # 0.8 Monocytes # 0.4 Eosinophils # 0.3 Basophils # 0.0 Nucleated Red Blood 0.0 Cells # Sodium Level 144 Potassium Level 3.9 Chloride Level 104 Carbon Dioxide Level 30 Anion Gap 10 Blood Urea Nitrogen 16 Creatinine 3.50 H Est Glomerular 23 L Filtrat Rate mL/min Glucose Level 92 Calcium Level 9.4 Total Bilirubin 0.0 L Direct Bilirubin 0.00 Indirect Bilirubin 0.0 Aspartate Amino 15 Transf (AST/SGOT) Alanine < 6 L Aminotransferase (AL T/SGPT) Alkaline Phosphatase 400 H Total Protein 10.5 H Albumin 3.9 Globulin 6.60 H Albumin/Globulin 0.59 Ratio Bedside Glucose 89 86 87 Test 10/14/18 08:12 Bedside Glucose 89 Subjective 24 Hr Interval Summary Constitutional: no complaints Exam/Review of Systems Exam Vitals Vital Signs Date Temp Pulse Resp B/P (MAP) Pulse Ox O2 O2 Flow FiO2 Time Delivery Rate 10/13/18 98.3 85 18 150/72 97 20:00 (98) 10/13/18 Room Air 07:30 Intake and Output 10/13/18 10/13/18 10/14/18 1515:00 23:00 07:00 IntakeIntake Total 180 ml 500 ml 480 ml OutputOutput Total 2800 ml BalanceBalance -2620 ml 500 ml 480 ml Exam left rm Av fistula Constitutional: alert Head: normocephalic Neck: supple Respiratory: clear to auscultation Cardiovascular: regular rate and rhythm Gastrointestinal: soft Musculoskeletal: swelling (right foot. left BKA) Results Results 24hrs Laboratory Tests Test 10/13/18 10:00 10/13/18 12:41 10/13/18 17:31 10/13/18 21:30 White Blood Count 7.8 Red Blood Count 3.16 L Hemoglobin 8.5 L Hematocrit 27.0 L Mean Corpuscular 85.4 Volume Mean Corpuscular 26.9 L Hemoglobin Mean Corpuscular 31.5 L Hemoglobin Concent Red Cell 13.0 Distribution Width Platelet Count 180 Mean Platelet Volume 9.9 Immature 0.500 H Granulocytes % Neutrophils % 79.8 H Lymphocytes % 9.7 L Monocytes % 5.7 Eosinophils % 4.0 Basophils % 0.3 Nucleated Red Blood 0.0 Cells % Immature 0.040 H Granulocytes # Neutrophils # 6.2 Lymphocytes # 0.8 Monocytes # 0.4 Eosinophils # 0.3 Basophils # 0.0 Nucleated Red Blood 0.0 Cells # Sodium Level 144 Potassium Level 3.9 Chloride Level 104 Carbon Dioxide Level 30 Anion Gap 10 Blood Urea Nitrogen 16 Creatinine 3.50 H Est Glomerular 23 L Filtrat Rate mL/min Glucose Level 92 Calcium Level 9.4 Total Bilirubin 0.0 L Direct Bilirubin 0.00 Indirect Bilirubin 0.0 Aspartate Amino 15 Transf (AST/SGOT) Alanine < 6 L Aminotransferase (AL T/SGPT) Alkaline Phosphatase 400 H Total Protein 10.5 H Albumin 3.9 Globulin 6.60 H Albumin/Globulin 0.59 Ratio Bedside Glucose 89 86 87 Test 10/14/18 08:12 Bedside Glucose 89 Medications Medication Current Medications Acetaminophen (Tylenol Tab) 650 mg Q6H PRN PO MILD PAIN(1-3)OR ELEVATED TEMP; Start 10/08/18 at 01:30 Albuterol (Proventil 0.083% (Neb)) 2.5 mg Q6H RESP THERAPY PRN HHN SHORTNESS OF BREATH; Start 10/08/18 at 01:30 Docusate Sodium (Colace) 100 mg BID PRN PO CONSTIPATION; Start 10/08/18 at 01:30 Diagnostic Test (Pha) (Accu-Chek) 1 ea 02 XX ; Start 10/08/18 at 02:00 Insulin Aspart (Novolog Insulin Pen) NOVOLOG *MODERATE* ALGORITHM WITH MEALS BEDTIME SC Last administered on 10/10/18at 08:35; Admin Dose 2 UNIT; Start 10/08/18 at 08:00 Miscellaneous Information 1 ea NOTE XX ; Start 10/08/18 at 05:30 Glucose (Glutose) 15 gm Q15M PRN PO DECREASED GLUCOSE; Start 10/08/18 at 05:30 Glucose (Glutose) 22.5 gm Q15M PRN PO DECREASED GLUCOSE; Start 10/08/18 at 05:30 Dextrose (D50w Syringe) 25 ml Q15M PRN IV DECREASED GLUCOSE; Start 10/08/18 at 05:30 Dextrose (D50w Syringe) 50 ml Q15M PRN IV DECREASED GLUCOSE; Start 10/08/18 at 05:30 Glucagon (Glucagen) 1 mg Q15M PRN IM DECREASED GLUCOSE; Start 10/08/18 at 05:30 Glucose (Glutose) 15 gm Q15M PRN BUCCAL DECREASED GLUCOSE; Start 10/08/18 at 05:30 Morphine Sulfate (morphine) 2 mg Q4H PRN IV SEVERE PAIN LEVEL 7-10 Last administered on 10/12/18at 11:05; Admin Dose 2 MG; Start 10/08/18 at 15:00 Vancomycin HCl (Vanco Iv Per Pharmacy) VANCOMYCIN PER PHARMACY PER PROTOCOL XX ; Start 10/08/18 at 15:00 Pentoxifylline (Trental) 400 mg WITH MEALS PO Last administered on 10/14/18 09:20; Admin Dose 400 MG; Start 10/08/18 at 17:35 Pantoprazole (Protonix Tab) 40 mg DAILY@06 PO Last administered on 10/14/18 06:16; Admin Dose 40 MG; Start 10/09/18 at 06:00 Hydralazine HCl (Apresoline) 10 mg Q6H PRN PO ELEVATED BLOOD PRESSURE Last administered on 10/11/18 22:01; Admin Dose 10 MG; Start 10/08/18 at 21:30 Ondansetron HCl (Zofran Inj) 4 mg Q6H PRN IV NAUSEA AND/OR VOMITING Last administered on 10/13/18 08:05; Admin Dose 4 MG; Start 10/08/18 at 23:00 Epoetin Adi-epbx (Retacrit) 6,000 unit TuThSa@1700 SC Last administered on 10/13/18 17:33; Admin Dose 6,000 UNIT; Start 10/09/18 at 17:00 Triamcinolone Acetonide (Kenalog 0.1% Cr) 1 applic BID PRN TOP itching; Start 10/09/18 at 16:30 Collagenase (Santyl) 1 applic DAILY TOP Last administered on 10/14/18 09:20; Admin Dose 1 APPLIC; Start 10/09/18 at 17:30 Zolpidem Tartrate (Ambien) 5 mg HS PRN PO INSOMNIA Last administered on 10/12/18 21:40; Admin Dose 5 MG; Start 10/10/18 at 00:30 Diphenhydramine HCl (Benadryl) 25 mg Q12 PRN PO ITCHING Last administered on 10/11/18 08:56; Admin Dose 25 MG; Start 10/11/18 at 09:00 Hydralazine HCl (Apresoline) 75 mg Q8 PO Last administered on 10/14/18 06:17; Admin Dose 75 MG; Start 10/12/18 at 14:00 Dextrose/Sodium Chloride 1,000 ml @ 30 mls/hr Q24H IV Last administered on 10/12/18 11:06; Admin Dose 30 MLS/HR; Start 10/12/18 at 10:00 Lubiprostone (Amitiza) 16 mcg BID PO Last administered on 10/13/18at 21:31; Admin Dose 16 MCG; Start 10/12/18 at 21:00 Morphine Sulfate (morphine) 2 mg Q4H PRN IM SEVERE PAIN LEVEL 7-10 Last administered on 10/14/18at 02:17; Admin Dose 2 MG; Start 10/12/18 at 20:00 Lidocaine (Xylocaine 1% (Mdv) 20 ml) 20 ml ONCE PRN SC BEFORE CANNULATION ON HD Last administered on 10/13/18at 09:57; Admin Dose 20 ML; Start 10/14/18 at 07:00; Stop 10/14/18 at 11:00 Ondansetron HCl (Zofran Tab) 4 mg Q6H PRN PO NAUSEA AND/OR VOMITING; Start 10/13/18 at 08:30 Amoxicillin/ Clavulanate Potassium (Augmentin) 500 mg DAILY PO Last administered on 10/14/18at 09:19; Admin Dose 500 MG; Start 10/13/18 at 12:00 PATRICIA RIVAS October 14, 2018 09:48
[2018-10-14] MEDS: LUBIPROSTONE 8 MCG CAPSULE PO SCH ×2 (12:08→21:00)
--- NOTE | 2018-10-14 15:43 | CONS ---
Assessment/Plan Assessment/Plan Hospital Course (Demo Recall) ID PROGRESS NOTE CURRENT ABX: DAY # Vanco IV + Augmentin s/p Ceftriaxone 24H INTERVAL SUMMARY * Clinically stable --- resting without complaints * Patient has lost IV access -- waiting for PICC, s/p failed attempt at TLC placement == changed to Augmentin PO * Surgical procedure cancelled due to no IV access -- will be R/S for Right T MA * No fevers/chills, VSS, labs, chart reviewed DIAGNOSTIC IMAGING * 10/12/18 CXR: IMPRESSION:No evidence of acute cardiopulmonary process. Improved aeration of the right basilar lung. Mild cardiomegaly, allowing for overly lordotic view. * 08/18/18 RIGHT FOOT CX: IMPRESSION: * 1. Lateral skin ulceration at the midfoot near probable osteomyelitis of a slightly fragmented residual fifth metatarsal base. * 2. Suspect erosion along the lateral margin of the second metatarsal head that may reflect osteomyelitis. * 3. Amputation of the third, fourth, and fifth digits as well as the distal metatarsals. * 4. Consider MRI for more sensitive evaluation as clinically warranted. MICRO/OTHER * 08/10/18 (-)MRSA nares * 08/09/18 BCX (-) PHYSICAL EXAMINATION: GENERAL: VSS HEENT: AT, NC, anicteric NECK: Supple, CHEST: Equal chest rise bilaterally, without dyspnea on observation HEART: Pulse RRR ABDOMEN: Soft / NT EXTREMITIES: Warm, dry / right foot DSG C/D/I * left below-knee amputation with dry scalp on the knee as well as on the stump itself. SKIN: No rash, no diaphoresis ID ASSESSMENT 47 yo M admit with: 1. Right foot diabetic ulceration, possible osteomyelitis * PENDING RIGHT FOOT TMA 2. Severe peripheral arterial disease status post left below-knee amputation==s/p balloon angioplasty 08/15/18 3. Diabetes w/complications of DM neuropathy, vasculopathy, avascular necrosis 4. End-stage renal disease, hemodialysis dependent 5. Coronary artery disease status post cardiac stent 6. Hypertension 7. Chronic rash==> (-)Scabies ABX ALLERGIES: None to ABX INVASIVES: PIV CURRENT ABX: DAY # Vanco IV + Augmentin s/p Ceftriaxone ID RECOMMENDATIONS/PLAN: 1. Continue Vanco IV with HD 2. DC Ceftriaxone -> change to Augmentin PO for now 3. Pending new PICC access then plan is to r/S for R-Foot TMA Consultation Date/Type/Reason Admit Date/Time October 08, 2018 at 00:02 Initial Consult Date 10/08/18 Date/Time of Note DATE: 10/14/18 TIME: 15:41 Exam/Review of Systems Exam Vitals Vital Signs Date Temp Pulse Resp B/P (MAP) Pulse Ox O2 O2 Flow FiO2 Time Delivery Rate 10/13/18 98.3 85 18 150/72 97 20:00 (98) 10/13/18 Room Air 07:30 Intake and Output 10/13/18 10/13/18 10/14/18 1515:00 23:00 07:00 IntakeIntake Total 180 ml 500 ml 480 ml OutputOutput Total 2800 ml BalanceBalance -2620 ml 500 ml 480 ml Results Result Diagram: 10/13/18 1000 10/13/18 1000 Results 24hrs Laboratory Tests Test 10/13/18 17:31 10/13/18 21:30 10/14/18 08:12 10/14/18 12:12 Bedside Glucose 86 87 89 99 Medications Medication Current Medications Acetaminophen (Tylenol Tab) 650 mg Q6H PRN PO MILD PAIN(1-3)OR ELEVATED TEMP; Start 10/08/18 at 01:30 Albuterol (Proventil 0.083% (Neb)) 2.5 mg Q6H RESP THERAPY PRN HHN SHORTNESS OF BREATH; Start 10/08/18 at 01:30 Docusate Sodium (Colace) 100 mg BID PRN PO CONSTIPATION; Start 10/08/18 at 01:30 Diagnostic Test (Pha) (Accu-Chek) 1 ea 02 XX ; Start 10/08/18 at 02:00 Insulin Aspart (Novolog Insulin Pen) NOVOLOG *MODERATE* ALGORITHM WITH MEALS BEDTIME SC Last administered on 10/10/18at 08:35; Admin Dose 2 UNIT; Start 10/08/18 at 08:00 Miscellaneous Information 1 ea NOTE XX ; Start 10/08/18 at 05:30 Glucose (Glutose) 15 gm Q15M PRN PO DECREASED GLUCOSE; Start 10/08/18 at 05:30 Glucose (Glutose) 22.5 gm Q15M PRN PO DECREASED GLUCOSE; Start 10/08/18 at 05:30 Dextrose (D50w Syringe) 25 ml Q15M PRN IV DECREASED GLUCOSE; Start 10/08/18 at 05:30 Dextrose (D50w Syringe) 50 ml Q15M PRN IV DECREASED GLUCOSE; Start 10/08/18 at 05:30 Glucagon (Glucagen) 1 mg Q15M PRN IM DECREASED GLUCOSE; Start 10/08/18 at 05:30 Glucose (Glutose) 15 gm Q15M PRN BUCCAL DECREASED GLUCOSE; Start 10/08/18 at 05:30 Morphine Sulfate (morphine) 2 mg Q4H PRN IV SEVERE PAIN LEVEL 7-10 Last administered on 10/12/18at 11:05; Admin Dose 2 MG; Start 10/08/18 at 15:00 Vancomycin HCl (Vanco Iv Per Pharmacy) VANCOMYCIN PER PHARMACY PER PROTOCOL XX ; Start 10/08/18 at 15:00 Pentoxifylline (Trental) 400 mg WITH MEALS PO Last administered on 10/14/18at 12:09; Admin Dose 400 MG; Start 10/08/18 at 17:35 Pantoprazole (Protonix Tab) 40 mg DAILY@06 PO Last administered on 10/14/18 06:16; Admin Dose 40 MG; Start 10/09/18 at 06:00 Hydralazine HCl (Apresoline) 10 mg Q6H PRN PO ELEVATED BLOOD PRESSURE Last administered on 10/11/18at 22:01; Admin Dose 10 MG; Start 10/08/18 at 21:30 Ondansetron HCl (Zofran Inj) 4 mg Q6H PRN IV NAUSEA AND/OR VOMITING Last administered on 10/13/18at 08:05; Admin Dose 4 MG; Start 10/08/18 at 23:00 Epoetin Adi-epbx (Retacrit) 6,000 unit TuThSa@1700 SC Last administered on 10/13/18at 17:33; Admin Dose 6,000 UNIT; Start 10/09/18 at 17:00 Triamcinolone Acetonide (Kenalog 0.1% Cr) 1 applic BID PRN TOP itching; Start 10/09/18 at 16:30 Collagenase (Santyl) 1 applic DAILY TOP Last administered on 10/14/18 09:20; Admin Dose 1 APPLIC; Start 10/09/18 at 17:30 Zolpidem Tartrate (Ambien) 5 mg HS PRN PO INSOMNIA Last administered on 10/12/18 21:40; Admin Dose 5 MG; Start 10/10/18 at 00:30 Diphenhydramine HCl (Benadryl) 25 mg Q12 PRN PO ITCHING Last administered on 10/11/18 08:56; Admin Dose 25 MG; Start 10/11/18 at 09:00 Hydralazine HCl (Apresoline) 75 mg Q8 PO Last administered on 10/14/18 15:32; Admin Dose 75 MG; Start 10/12/18 at 14:00 Dextrose/Sodium Chloride 1,000 ml @ 30 mls/hr Q24H IV Last administered on 10/12/18 11:06; Admin Dose 30 MLS/HR; Start 10/12/18 at 10:00 Lubiprostone (Amitiza) 16 mcg BID PO Last administered on 10/14/18 12:08; Admin Dose 16 MCG; Start 10/12/18 at 21:00 Morphine Sulfate (morphine) 2 mg Q4H PRN IM SEVERE PAIN LEVEL 7-10 Last administered on 10/14/18 15:35; Admin Dose 2 MG; Start 10/12/18 at 20:00 Ondansetron HCl (Zofran Tab) 4 mg Q6H PRN PO NAUSEA AND/OR VOMITING; Start 10/13/18 at 08:30 Amoxicillin/ Clavulanate Potassium (Augmentin) 500 mg DAILY PO Last administered on 10/14/18 09:19; Admin Dose 500 MG; Start 10/13/18 at 12:00 Miscellaneous Information (*Rx Drug Level Order Reminder*) RANDOM VANCO ON 10/03... 0500 ONCE XX ; Start 10/15/18 at 05:00; Stop 10/15/18 at 05:01 PORSCHE SUÁREZ NP October 14, 2018 15:43
[2018-10-14 20:00] VITALS: BP 104/56; PULSE 71; RESP 17
[2018-10-15] MEDS: morphine 2 MG INJ IM PRN (01:03)
[2018-10-15 02:00] VITALS: BP 125/76; PULSE 80; RESP 17
[2018-10-15] MEDS: PANTOPRAZOLE (EC) 40 MG TAB PO SCH ×2 (05:03→05:07)
[2018-10-15] MEDS: PENTOXIFYLLINE (SR) 400 MG TAB PO SCH ×3 (07:35→17:17)
[2018-10-15] MEDS: INSULIN ASPART [NOVOLOG] 3 ML PEN SC SCH ×4 (08:00→20:50)
[2018-10-15 08:38] VITALS: BP 154/75; PULSE 78; RESP 17
[2018-10-15] MEDS: AMOXICILLIN/CLAV 500 MG TAB PO SCH (09:00)
[2018-10-15] MEDS: LUBIPROSTONE 8 MCG CAPSULE PO SCH ×2 (09:00→20:51)
[2018-10-15] MEDS: COLLAGENASE 5 GM (UD JAR) TOP SCH (09:00)
[2018-10-15] MEDS: DEXTROSE 5%-0.45% NACL 1,000 ML IV SCH (09:50)
--- NOTE | 2018-10-15 14:30 | CONS ---
Assessment/Plan Assessment/Plan Hospital Course (Demo Recall) All noted. No acute changes, no fevers Indwelling's left upper extremity AV fistula. Antimicrobials: Vancomycin, ceftriaxone PHYSICAL EXAMINATION: GENERAL: Well-developed, ill-appearing, middle-aged man in no distress. HEENT: Head is atraumatic, normocephalic. NECK: Supple. CHEST: Rise symmetrical. Breath sounds diminished to bases. HEART: S1, S2. ABDOMEN: Soft. Bowel tones are present. EXTREMITIES: Right foot gangrene Assessment: 1. Right foot gangrene, s/p amputation of right third toe 2. End-stage renal disease, hemodialysis dependent 3. Chronic diffuse rash==> neg scabies 4. Severe peripheral arterial disease status post left below-knee amputation==s/p balloon angioplasty 08/15/18 5. Coronary artery disease status post cardiac stent 6. Hypertension Plan: Clinically unchanged, pending surgery Consultation Date/Type/Reason Admit Date/Time October 08, 2018 at 00:02 Initial Consult Date 10/08/18 Type of Consult id Date/Time of Note DATE: 10/15/18 TIME: 14:30 Exam/Review of Systems Exam Vitals Vital Signs Date Temp Pulse Resp B/P (MAP) Pulse Ox O2 O2 Flow FiO2 Time Delivery Rate 10/15/18 97.8 78 17 154/75 98 08:38 (101) 10/13/18 Room Air 07:30 Intake and Output 10/14/18 10/14/18 10/15/18 1515:00 23:00 07:00 IntakeIntake Total 240 ml 200 ml 220 ml BalanceBalance 240 ml 200 ml 220 ml Results Result Diagram: 10/14/18 2303 10/14/18 2303 Results 24hrs Laboratory Tests Test 10/14/18 17:56 10/14/18 21:01 10/14/18 23:03 10/15/18 08:05 Bedside Glucose 111 85 74 White Blood Count 8.4 Red Blood Count 3.14 L Hemoglobin 8.3 L Hematocrit 27.2 L Mean Corpuscular 86.6 Volume Mean Corpuscular 26.4 L Hemoglobin Mean Corpuscular 30.5 L Hemoglobin Concent Red Cell 13.1 Distribution Width Platelet Count 175 Mean Platelet Volume 10.1 Immature 0.600 H Granulocytes % Neutrophils % 75.2 Lymphocytes % 13.0 L Monocytes % 6.7 Eosinophils % 4.3 Basophils % 0.2 Nucleated Red Blood 0.0 Cells % Immature 0.050 H Granulocytes # Neutrophils # 6.3 Lymphocytes # 1.1 Monocytes # 0.6 Eosinophils # 0.4 Basophils # 0.0 Nucleated Red Blood 0.0 Cells # Sodium Level 143 Potassium Level 4.4 Chloride Level 104 Carbon Dioxide Level 27 Anion Gap 12 Blood Urea Nitrogen 35 #H Creatinine 6.20 #H Est Glomerular 12 L Filtrat Rate mL/min Glucose Level 87 Calcium Level 10.0 Test 10/15/18 11:50 Bedside Glucose 108 Medications Medication Current Medications Acetaminophen (Tylenol Tab) 650 mg Q6H PRN PO MILD PAIN(1-3)OR ELEVATED TEMP; Start 10/08/18 at 01:30 Albuterol (Proventil 0.083% (Neb)) 2.5 mg Q6H RESP THERAPY PRN HHN SHORTNESS OF BREATH; Start 10/08/18 at 01:30 Docusate Sodium (Colace) 100 mg BID PRN PO CONSTIPATION; Start 10/08/18 at 01:30 Diagnostic Test (Pha) (Accu-Chek) 1 ea 02 XX ; Start 10/08/18 at 02:00 Insulin Aspart (Novolog Insulin Pen) NOVOLOG *MODERATE* ALGORITHM WITH MEALS BEDTIME SC Last administered on 10/10/18at 08:35; Admin Dose 2 UNIT; Start 10/08/18 at 08:00 Miscellaneous Information 1 ea NOTE XX ; Start 10/08/18 at 05:30 Glucose (Glutose) 15 gm Q15M PRN PO DECREASED GLUCOSE; Start 10/08/18 at 05:30 Glucose (Glutose) 22.5 gm Q15M PRN PO DECREASED GLUCOSE; Start 10/08/18 at 05:30 Dextrose (D50w Syringe) 25 ml Q15M PRN IV DECREASED GLUCOSE; Start 10/08/18 at 05:30 Dextrose (D50w Syringe) 50 ml Q15M PRN IV DECREASED GLUCOSE; Start 10/08/18 at 05:30 Glucagon (Glucagen) 1 mg Q15M PRN IM DECREASED GLUCOSE; Start 10/08/18 at 05:30 Glucose (Glutose) 15 gm Q15M PRN BUCCAL DECREASED GLUCOSE; Start 10/08/18 at 05:30 Morphine Sulfate (morphine) 2 mg Q4H PRN IV SEVERE PAIN LEVEL 7-10 Last administered on 10/12/18 11:05; Admin Dose 2 MG; Start 10/08/18 at 15:00 Vancomycin HCl (Vanco Iv Per Pharmacy) VANCOMYCIN PER PHARMACY PER PROTOCOL XX ; Start 10/08/18 at 15:00 Pentoxifylline (Trental) 400 mg WITH MEALS PO Last administered on 10/14/18 17:58; Admin Dose 400 MG; Start 10/08/18 at 17:35 Pantoprazole (Protonix Tab) 40 mg DAILY@06 PO Last administered on 10/14/18 06:16; Admin Dose 40 MG; Start 10/09/18 at 06:00 Hydralazine HCl (Apresoline) 10 mg Q6H PRN PO ELEVATED BLOOD PRESSURE Last administered on 10/11/18 22:01; Admin Dose 10 MG; Start 10/08/18 at 21:30 Ondansetron HCl (Zofran Inj) 4 mg Q6H PRN IV NAUSEA AND/OR VOMITING Last administered on 10/13/18 08:05; Admin Dose 4 MG; Start 10/08/18 at 23:00 Epoetin Adi-epbx (Retacrit) 6,000 unit TuThSa@1700 SC Last administered on 10/13/18 17:33; Admin Dose 6,000 UNIT; Start 10/09/18 at 17:00 Triamcinolone Acetonide (Kenalog 0.1% Cr) 1 applic BID PRN TOP itching; Start 10/09/18 at 16:30 Collagenase (Santyl) 1 applic DAILY TOP Last administered on 10/14/18 09:20; Admin Dose 1 APPLIC; Start 10/09/18 at 17:30 Zolpidem Tartrate (Ambien) 5 mg HS PRN PO INSOMNIA Last administered on 10/12/18 21:40; Admin Dose 5 MG; Start 10/10/18 at 00:30 Diphenhydramine HCl (Benadryl) 25 mg Q12 PRN PO ITCHING Last administered on 10/11/18 08:56; Admin Dose 25 MG; Start 10/11/18 at 09:00 Hydralazine HCl (Apresoline) 75 mg Q8 PO Last administered on 10/14/18 15:32; Admin Dose 75 MG; Start 10/12/18 at 14:00 Lubiprostone (Amitiza) 16 mcg BID PO Last administered on 10/14/18at 12:08; Admin Dose 16 MCG; Start 10/12/18 at 21:00 Morphine Sulfate (morphine) 2 mg Q4H PRN IM SEVERE PAIN LEVEL 7-10 Last administered on 10/15/18at 01:03; Admin Dose 2 MG; Start 10/12/18 at 20:00 Ondansetron HCl (Zofran Tab) 4 mg Q6H PRN PO NAUSEA AND/OR VOMITING; Start 10/13/18 at 08:30 Amoxicillin/ Clavulanate Potassium (Augmentin) 500 mg DAILY PO Last administered on 10/14/18at 09:19; Admin Dose 500 MG; Start 10/13/18 at 12:00 DAYSI BHATIA NP October 15, 2018 14:30
--- NOTE | 2018-10-15 15:03 | PN ---
Date/Time of Note Date/Time of Note DATE: 10/15/18 TIME: 15:03 Assessment/Plan VTE Prophylaxis Risk score (from Ns)>0 risk: 4 [place]CD applied [place]from [facility] [place] SCD contraindicated: low risk/ambulating Pharmacological prophylaxis: NA/contraindicated Pharm contraindication: low risk/ambulating Lines/Catheters IV Catheter Type (from [facility]): [facility] Urinary Cath still in place: No Assessment/Plan Hospital Course 48-year-old male with: 1. Right diabetic foot ulcer with osteomyelitis evident on the x-ray. 2. With peripheral vascular disease status post angioplasty. 3. Some vomiting, some right rib pain status post fall. 4. Hypertension. 5. End-stage renal disease on hemodialysis. 6. Anemia. 7. Hyperlipidemia. 8. Diabetes. 9. End-stage renal disease on hemodialysis. 10. Coronary artery disease, status post stents. 11. History of tracheostomy. PLAN - central line - surgery with Dr Millard once lien is done - HD TTS - cw Vancomycin/rocephin - pain control with morphine - GI/DVT prophylaxsis Result Diagram: 10/14/18 2303 10/14/18 2303 Results 24hrs Laboratory Tests Test 10/14/18 17:56 10/14/18 21:01 10/14/18 23:03 10/15/18 08:05 Bedside Glucose 111 85 74 White Blood Count 8.4 Red Blood Count 3.14 L Hemoglobin 8.3 L Hematocrit 27.2 L Mean Corpuscular 86.6 Volume Mean Corpuscular 26.4 L Hemoglobin Mean Corpuscular 30.5 L Hemoglobin Concent Red Cell 13.1 Distribution Width Platelet Count 175 Mean Platelet Volume 10.1 Immature 0.600 H Granulocytes % Neutrophils % 75.2 Lymphocytes % 13.0 L Monocytes % 6.7 Eosinophils % 4.3 Basophils % 0.2 Nucleated Red Blood 0.0 Cells % Immature 0.050 H Granulocytes # Neutrophils # 6.3 Lymphocytes # 1.1 Monocytes # 0.6 Eosinophils # 0.4 Basophils # 0.0 Nucleated Red Blood 0.0 Cells # Sodium Level 143 Potassium Level 4.4 Chloride Level 104 Carbon Dioxide Level 27 Anion Gap 12 Blood Urea Nitrogen 35 #H Creatinine 6.20 #H Est Glomerular 12 L Filtrat Rate mL/min Glucose Level 87 Calcium Level 10.0 Test 10/15/18 11:50 Bedside Glucose 108 Subjective 24 Hr Interval Summary Free Text/Dictation Pt is supposed to have central line before surgery Exam/Review of Systems Exam Vitals Vital Signs Date Temp Pulse Resp B/P (MAP) Pulse Ox O2 O2 Flow FiO2 Time Delivery Rate 10/15/18 97.8 78 17 154/75 98 08:38 (101) 10/13/18 Room Air 07:30 Intake and Output 10/14/18 10/14/18 10/15/18 1515:00 23:00 07:00 IntakeIntake Total 240 ml 200 ml 220 ml BalanceBalance 240 ml 200 ml 220 ml Exam Exam ENERAL: The patient is awake, alert and oriented, does not appear to be in any acute distress. HEENT: Pupils are equal, round and reactive to light. NECK: Supple, no JVD. HEART: Regular rate and rhythm. LUNGS: Clear to auscultate bilaterally. ABDOMEN: Surgical scar present. EXTREMITIES: The patient has left BKA, right. S/P right 3rd to 5th toe amputation with gangrene of second toe, heel and lateral foot. Severe dry skin of the foot noted. Non palpable DP and PT. (+) malodor. No bleeding and no pus noted on exam The patient has a left AV fistula with good bruit and thrill. The patient also has skin changes with a hyperpigmented rash, which has been old. Results Results 24hrs Laboratory Tests Test 10/14/18 17:56 10/14/18 21:01 10/14/18 23:03 10/15/18 08:05 Bedside Glucose 111 85 74 White Blood Count 8.4 Red Blood Count 3.14 L Hemoglobin 8.3 L Hematocrit 27.2 L Mean Corpuscular 86.6 Volume Mean Corpuscular 26.4 L Hemoglobin Mean Corpuscular 30.5 L Hemoglobin Concent Red Cell 13.1 Distribution Width Platelet Count 175 Mean Platelet Volume 10.1 Immature 0.600 H Granulocytes % Neutrophils % 75.2 Lymphocytes % 13.0 L Monocytes % 6.7 Eosinophils % 4.3 Basophils % 0.2 Nucleated Red Blood 0.0 Cells % Immature 0.050 H Granulocytes # Neutrophils # 6.3 Lymphocytes # 1.1 Monocytes # 0.6 Eosinophils # 0.4 Basophils # 0.0 Nucleated Red Blood 0.0 Cells # Sodium Level 143 Potassium Level 4.4 Chloride Level 104 Carbon Dioxide Level 27 Anion Gap 12 Blood Urea Nitrogen 35 #H Creatinine 6.20 #H Est Glomerular 12 L Filtrat Rate mL/min Glucose Level 87 Calcium Level 10.0 Test 10/15/18 11:50 Bedside Glucose 108 Medications Medication Current Medications Acetaminophen (Tylenol Tab) 650 mg Q6H PRN PO MILD PAIN(1-3)OR ELEVATED TEMP; Start 10/08/18 at 01:30 Albuterol (Proventil 0.083% (Neb)) 2.5 mg Q6H RESP THERAPY PRN HHN SHORTNESS OF BREATH; Start 10/08/18 at 01:30 Docusate Sodium (Colace) 100 mg BID PRN PO CONSTIPATION; Start 10/08/18 at 01:30 Diagnostic Test (Pha) (Accu-Chek) 1 ea 02 XX ; Start 10/08/18 at 02:00 Insulin Aspart (Novolog Insulin Pen) NOVOLOG *MODERATE* ALGORITHM WITH MEALS BEDTIME SC Last administered on 10/10/18at 08:35; Admin Dose 2 UNIT; Start 10/08/18 at 08:00 Miscellaneous Information 1 ea NOTE XX ; Start 10/08/18 at 05:30 Glucose (Glutose) 15 gm Q15M PRN PO DECREASED GLUCOSE; Start 10/08/18 at 05:30 Glucose (Glutose) 22.5 gm Q15M PRN PO DECREASED GLUCOSE; Start 10/08/18 at 05:30 Dextrose (D50w Syringe) 25 ml Q15M PRN IV DECREASED GLUCOSE; Start 10/08/18 at 05:30 Dextrose (D50w Syringe) 50 ml Q15M PRN IV DECREASED GLUCOSE; Start 10/08/18 at 05:30 Glucagon (Glucagen) 1 mg Q15M PRN IM DECREASED GLUCOSE; Start 10/08/18 at 05:30 Glucose (Glutose) 15 gm Q15M PRN BUCCAL DECREASED GLUCOSE; Start 10/08/18 at 05:30 Morphine Sulfate (morphine) 2 mg Q4H PRN IV SEVERE PAIN LEVEL 7-10 Last adminis tered on 10/12/18at 11:05; Admin Dose 2 MG; Start 10/08/18 at 15:00 Vancomycin HCl (Vanco Iv Per Pharmacy) VANCOMYCIN PER PHARMACY PER PROTOCOL XX ; Start 10/08/18 at 15:00 Pentoxifylline (Trental) 400 mg WITH MEALS PO Last administered on 10/14/18 17:58; Admin Dose 400 MG; Start 10/08/18 at 17:35 Pantoprazole (Protonix Tab) 40 mg DAILY@06 PO Last administered on 10/14/18 06:16; Admin Dose 40 MG; Start 10/09/18 at 06:00 Hydralazine HCl (Apresoline) 10 mg Q6H PRN PO ELEVATED BLOOD PRESSURE Last administered on 10/11/18 22:01; Admin Dose 10 MG; Start 10/08/18 at 21:30 Ondansetron HCl (Zofran Inj) 4 mg Q6H PRN IV NAUSEA AND/OR VOMITING Last administered on 10/13/18 08:05; Admin Dose 4 MG; Start 10/08/18 at 23:00 Epoetin Adi-epbx (Retacrit) 6,000 unit TuThSa@1700 SC Last administered on 10/03 17:33; Admin Dose 6,000 UNIT; Start 10/09/18 at 17:00 Triamcinolone Acetonide (Kenalog 0.1% Cr) 1 applic BID PRN TOP itching; Start 10/09/18 at 16:30 Collagenase (Santyl) 1 applic DAILY TOP Last administered on 10/14/18 09:20; Admin Dose 1 APPLIC; Start 10/09/18 at 17:30 Zolpidem Tartrate (Ambien) 5 mg HS PRN PO INSOMNIA Last administered on 10/12/18 21:40; Admin Dose 5 MG; Start 10/10/18 at 00:30 Diphenhydramine HCl (Benadryl) 25 mg Q12 PRN PO ITCHING Last administered on 10/11/18 08:56; Admin Dose 25 MG; Start 10/11/18 at 09:00 Hydralazine HCl (Apresoline) 75 mg Q8 PO Last administered on 10/15/18 14:43; Admin Dose 75 MG; Start 10/12/18 at 14:00 Lubiprostone (Amitiza) 16 mcg BID PO Last administered on 10/14/18 12:08; Admin Dose 16 MCG; Start 10/12/18 at 21:00 Morphine Sulfate (morphine) 2 mg Q4H PRN IM SEVERE PAIN LEVEL 7-10 Last administered on 10/15/18at 01:03; Admin Dose 2 MG; Start 10/12/18 at 20:00 Ondansetron HCl (Zofran Tab) 4 mg Q6H PRN PO NAUSEA AND/OR VOMITING; Start 10/13/18 at 08:30 Amoxicillin/ Clavulanate Potassium (Augmentin) 500 mg DAILY PO Last admin istered on 10/14/18at 09:19; Admin Dose 500 MG; Start 10/13/18 at 12:00 HASEEB MAYA MD October 15, 2018 15:03
[2018-10-15] MEDS: morphine 2 MG INJ IV PRN (18:11)
--- NOTE | 2018-10-15 19:07 | OPR ---
DATE OF OPERATION: PREOPERATIVE DIAGNOSIS: Foot osteomyelitis. POSTOPERATIVE DIAGNOSIS: Foot osteomyelitis. PROCEDURE: 1. Right internal jugular vein central line placement. 2. Ultrasound guidance into the central vein. SURGEON: Carlos Guerin MD ANESTHESIA: Local. CONSENT: Risks, benefits, complications, alternative therapies explained to the patient, consent obt ained. OPERATIVE TECHNIQUE: The patient was placed in supine position, prepped and draped in usual sterile fashion, 1% lidocaine was used throughout the operation for local anesthesia. Under ultrasonic magnus nce, access was gained in the right internal jugular vein. Guidewire was advanced through without an y difficulty. Subcutaneous tissues were dilated. Central line advanced over guidewire, secured to s kin using silk sutures. Both ports of the catheter were aspirated and injected using saline solution . The patient tolerated procedure well. Dictated By: CARLOS VALLES/JOSE ANTONIO Conf#: [id number] DID#: [id number]
[2018-10-15 20:15] VITALS: BP 142/80; PULSE 74; RESP 18
[2018-10-15] MEDS: ACCU-CHEK XX SCH (20:51)
[2018-10-16] VITALS (17 sets, daily range): BP systolic 85–155; BP diastolic 56–89; PULSE 73–80; RESP 16–18
[2018-10-16] MEDS: morphine 2 MG INJ IM PRN (02:31)
[2018-10-16] MEDS: PANTOPRAZOLE (EC) 40 MG TAB PO SCH (05:51)
[2018-10-16] MEDS: INSULIN ASPART [NOVOLOG] 3 ML PEN SC SCH ×4 (08:00→21:00)
[2018-10-16] MEDS: AMOXICILLIN/CLAV 500 MG TAB PO SCH (08:36)
[2018-10-16] MEDS: PENTOXIFYLLINE (SR) 400 MG TAB PO SCH ×3 (08:37→18:50)
[2018-10-16] MEDS: LUBIPROSTONE 8 MCG CAPSULE PO SCH (08:37)
[2018-10-16] MEDS: COLLAGENASE 5 GM (UD JAR) TOP SCH (09:00)
--- NOTE | 2018-10-16 15:01 | CONS ---
Assessment/Plan Assessment/Plan Hospital Course (Demo Recall) Awake, looks comfortable, no fevers Indwelling's left upper extremity AV fistula, RIJ TLC. Antimicrobials: Vancomycin, ceftriaxone PHYSICAL EXAMINATION: GENERAL: Well-developed, ill-appearing, middle-aged man in no distress. HEENT: Head is atraumatic, normocephalic. NECK: Supple. CHEST: Rise symmetrical. Breath sounds diminished to bases. HEART: S1, S2. ABDOMEN: Soft. Bowel tones are present. EXTREMITIES: Right foot gangrene Assessment: 1. Right foot gangrene, s/p amputation of right third toe 2. End-stage renal disease, hemodialysis dependent 3. Chronic diffuse rash==> neg scabies 4. Severe peripheral arterial disease status post left below-knee amputation==s/p balloon angioplasty 08/15/18 5. Coronary artery disease status post cardiac stent 6. Hypertension Plan: Clinically unchanged, continue abx, management per podiatry and vascular Consultation Date/Type/Reason Admit Date/Time October 08, 2018 at 00:02 Initial Consult Date 10/08/18 Type of Consult id Date/Time of Note DATE: 10/16/18 TIME: 15:00 Exam/Review of Systems Exam Vitals Vital Signs Date Temp Pulse Resp B/P (MAP) Pulse Ox O2 O2 Flow FiO2 Time Delivery Rate 10/16/18 97.6 78 16 140/72 95 08:00 (94) 10/13/18 Room Air 07:30 Intake and Output 10/15/18 10/15/18 10/16/18 1515:00 23:00 07:00 IntakeIntake Total 360 ml 120 ml 1200 ml BalanceBalance 360 ml 120 ml 1200 ml Results Result Diagram: 10/14/18 2303 10/14/18 2303 Results 24hrs Laboratory Tests Test 10/15/18 20:49 10/16/18 08:24 10/16/18 12:14 Bedside Glucose 131 115 128 Medications Medication Current Medications Acetaminophen (Tylenol Tab) 650 mg Q6H PRN PO MILD PAIN(1-3)OR ELEVATED TEMP; Start 10/08/18 at 01:30 Albuterol (Proventil 0.083% (Neb)) 2.5 mg Q6H RESP THERAPY PRN HHN SHORTNESS OF BREATH; Start 10/08/18 at 01:30 Docusate Sodium (Colace) 100 mg BID PRN PO CONSTIPATION; Start 10/08/18 at 01:30 Diagnostic Test (Pha) (Accu-Chek) 1 ea 02 XX ; Start 10/08/18 at 02:00 Insulin Aspart (Novolog Insulin Pen) NOVOLOG *MODERATE* ALGORITHM WITH MEALS BEDTIME SC Last administered on 10/10/18at 08:35; Admin Dose 2 UNIT; Start 10/08/18 at 08:00 Miscellaneous Information 1 ea NOTE XX ; Start 10/08/18 at 05:30 Glucose (Glutose) 15 gm Q15M PRN PO DECREASED GLUCOSE; Start 10/08/18 at 05:30 Glucose (Glutose) 22.5 gm Q15M PRN PO DECREASED GLUCOSE; Start 10/08/18 at 05:30 Dextrose (D50w Syringe) 25 ml Q15M PRN IV DECREASED GLUCOSE; Start 10/08/18 at 05:30 Dextrose (D50w Syringe) 50 ml Q15M PRN IV DECREASED GLUCOSE; Start 10/08/18 at 05:30 Glucagon (Glucagen) 1 mg Q15M PRN IM DECREASED GLUCOSE; Start 10/08/18 at 05:30 Glucose (Glutose) 15 gm Q15M PRN BUCCAL DECREASED GLUCOSE; Start 10/08/18 at 05:30 Morphine Sulfate (morphine) 2 mg Q4H PRN IV SEVERE PAIN LEVEL 7-10 Last administered on 10/15/18at 18:11; Admin Dose 2 MG; Start 10/08/18 at 15:00 Vancomycin HCl (Vanco Iv Per Pharmacy) VANCOMYCIN PER PHARMACY PER PROTOCOL XX ; Start 10/08/18 at 15:00 Pentoxifylline (Trental) 400 mg WITH MEALS PO Last administered on 10/16/18at 12:24; Admin Dose 400 MG; Start 10/08/18 at 17:35 Pantoprazole (Protonix Tab) 40 mg DAILY@06 PO Last administered on 10/14/18at 06:16; Admin Dose 40 MG; Start 10/09/18 at 06:00 Hydralazine HCl (Apresoline) 10 mg Q6H PRN PO ELEVATED BLOOD PRESSURE Last administered on 10/11/18at 22:01; Admin Dose 10 MG; Start 10/08/18 at 21:30 Ondansetron HCl (Zofran Inj) 4 mg Q6H PRN IV NAUSEA AND/OR VOMITING Last administered on 10/13/18 08:05; Admin Dose 4 MG; Start 10/08/18 at 23:00 Epoetin Adi-epbx (Retacrit) 6,000 unit TuThSa@1700 SC Last administered on 10/13/18 17:33; Admin Dose 6,000 UNIT; Start 10/09/18 at 17:00 Triamcinolone Acetonide (Kenalog 0.1% Cr) 1 applic BID PRN TOP itching; Start 10/09/18 at 16:30 Collagenase (Santyl) 1 applic DAILY TOP Last administered on 10/14/18 09:20; Admin Dose 1 APPLIC; Start 10/09/18 at 17:30 Zolpidem Tartrate (Ambien) 5 mg HS PRN PO INSOMNIA Last administered on 10/12/18 21:40; Admin Dose 5 MG; Start 10/10/18 at 00:30 Diphenhydramine HCl (Benadryl) 25 mg Q12 PRN PO ITCHING Last administered on 10/11/18 08:56; Admin Dose 25 MG; Start 10/11/18 at 09:00 Hydralazine HCl (Apresoline) 75 mg Q8 PO Last administered on 10/15/18 20:50; Admin Dose 75 MG; Start 10/12/18 at 14:00 Lubiprostone (Amitiza) 16 mcg BID PO Last administered on 10/16/18 08:37; Admin Dose 16 MCG; Start 10/12/18 at 21:00 Morphine Sulfate (morphine) 2 mg Q4H PRN IM SEVERE PAIN LEVEL 7-10 Last administered on 10/16/18 02:31; Admin Dose 2 MG; Start 10/12/18 at 20:00 Ondansetron HCl (Zofran Tab) 4 mg Q6H PRN PO NAUSEA AND/OR VOMITING; Start 10/13/18 at 08:30 Amoxicillin/ Clavulanate Potassium (Augmentin) 500 mg DAILY PO Last administered on 10/16/18 08:36; Admin Dose 500 MG; Start 10/13/18 at 12:00 DAYSI BHATIA NP October 16, 2018 15:01
--- NOTE | 2018-10-16 16:20 | PN ---
Date/Time of Note Date/Time of Note DATE: 10/16/18 TIME: 16:18 Assessment/Plan VTE Prophylaxis Risk score (from Nsg)>0 risk: 4 SCD applied (from Ns): No SCD contraindicated: low risk/ambulating Pharmacological prophylaxis: NA/contraindicated Pharm contraindication: low risk/ambulating Lines/Catheters IV Catheter Type (from Nrsg): Central Line Central line still needed: Yes Urinary Cath still in place: No Assessment/Plan Hospital Course 48-year-old male with: 1. Right diabetic foot ulcer with osteomyelitis evident on the x-ray. 2. With peripheral vascular disease status post angioplasty. 3. Some vomiting, some right rib pain status post fall. 4. Hypertension. 5. End-stage renal disease on hemodialysis. 6. Anemia. 7. Hyperlipidemia. 8. Diabetes. 9. End-stage renal disease on hemodialysis. 10. Coronary artery disease, status post stents. 11. History of tracheostomy. PLAN - surgery with Dr Millard , spoke to him will schedule it tmw - hd TTS - cw Vancomycin/rocephin - pain control with morphine - CW AUGMENTIN PER ID - GI/DVT prophylaxsis Result Diagram: 10/14/18 2303 10/14/18 2303 Results 24hrs Laboratory Tests Test 10/15/18 20:49 10/16/18 08:24 10/16/18 12:14 Bedside Glucose 131 115 128 Subjective 24 Hr Interval Summary Free Text/Dictation Pt had central line placed hd in progress Exam/Review of Systems Exam Vitals Vital Signs Date Temp Pulse Resp B/P (MAP) Pulse Ox O2 O2 Flow FiO2 Time Delivery Rate 10/16/18 78 15:45 10/16/18 16 155/82 96 Room Air 14:45 (106) 10/16/18 97.6 08:00 Intake and Output 10/15/18 10/15/18 10/16/18 1515:00 23:00 07:00 IntakeIntake Total 360 ml 120 ml 1200 ml BalanceBalance 360 ml 120 ml 1200 ml Exam ERAL: The patient is awake, alert and oriented, does not appear to be in any acute distress. HEENT: Pupils are equal, round and reactive to light. NECK: Supple, no JVD. HEART: Regular rate and rhythm. LUNGS: Clear to auscultate bilaterally. ABDOMEN: Surgical scar present. EXTREMITIES: The patient has left BKA, right. S/P right 3rd to 5th toe amputation with gangrene of second toe, heel and lateral foot. Severe dry skin of the foot noted. Non palpable DP and PT. (+) malodor. No bleeding and no pus noted on exam The patient has a left AV fistula with good bruit and thrill. The patient also has skin changes with a hyperpigmented rash, which has been old. Results Results 24hrs Laboratory Tests Test 10/15/18 20:49 10/16/18 08:24 10/16/18 12:14 Bedside Glucose 131 115 128 Medications Medication Current Medications Acetaminophen (Tylenol Tab) 650 mg Q6H PRN PO MILD PAIN(1-3)OR ELEVATED TEMP; Start 10/08/18 at 01:30 Albuterol (Proventil 0.083% (Neb)) 2.5 mg Q6H RESP THERAPY PRN HHN SHORTNESS OF BREATH; Start 10/08/18 at 01:30 Docusate Sodium (Colace) 100 mg BID PRN PO CONSTIPATION; Start 10/08/18 at 01:30 Diagnostic Test (Pha) (Accu-Chek) 1 ea 02 XX ; Start 10/08/18 at 02:00 Insulin Aspart (Novolog Insulin Pen) NOVOLOG *MODERATE* ALGORITHM WITH MEALS BEDTIME SC Last administered on 10/10/18at 08:35; Admin Dose 2 UNIT; Start 10/08/18 at 08:00 Miscellaneous Information 1 ea NOTE XX ; Start 10/08/18 at 05:30 Glucose (Glutose) 15 gm Q15M PRN PO DECREASED GLUCOSE; Start 10/08/18 at 05:30 Glucose (Glutose) 22.5 gm Q15M PRN PO DECREASED GLUCOSE; Start 10/08/18 at 05:30 Dextrose (D50w Syringe) 25 ml Q15M PRN IV DECREASED GLUCOSE; Start 10/08/18 at 05:30 Dextrose (D50w Syringe) 50 ml Q15M PRN IV DECREASED GLUCOSE; Start 10/08/18 at 05:30 Glucagon (Glucagen) 1 mg Q15M PRN IM DECREASED GLUCOSE; Start 10/08/18 at 05:30 Glucose (Glutose) 15 gm Q15M PRN BUCCAL DECREASED GLUCOSE; Start 10/08/18 at 05:30 Morphine Sulfate (morphine) 2 mg Q4H PRN IV SEVERE PAIN LEVEL 7-10 Last administered on 10/15/18 18:11; Admin Dose 2 MG; Start 10/08/18 at 15:00 Vancomycin HCl (Vanco Iv Per Pharmacy) VANCOMYCIN PER PHARMACY PER PROTOCOL XX ; Start 10/08/18 at 15:00 Pentoxifylline (Trental) 400 mg WITH MEALS PO Last administered on 10/16/18 12:24; Admin Dose 400 MG; Start 10/08/18 at 17:35 Pantoprazole (Protonix Tab) 40 mg DAILY@06 PO Last administered on 10/14/18 06:16; Admin Dose 40 MG; Start 10/09/18 at 06:00 Hydralazine HCl (Apresoline) 10 mg Q6H PRN PO ELEVATED BLOOD PRESSURE Last administered on 10/11/18 22:01; Admin Dose 10 MG; Start 10/08/18 at 21:30 Ondansetron HCl (Zofran Inj) 4 mg Q6H PRN IV NAUSEA AND/OR VOMITING Last administered on 10/13/18 08:05; Admin Dose 4 MG; Start 10/08/18 at 23:00 Epoetin Adi-epbx (Retacrit) 6,000 unit TuThSa@1700 SC Last administered on 10/13/18 17:33; Admin Dose 6,000 UNIT; Start 10/09/18 at 17:00 Triamcinolone Acetonide (Kenalog 0.1% Cr) 1 applic BID PRN TOP itching; Start 10/09/18 at 16:30 Collagenase (Santyl) 1 applic DAILY TOP Last administered on 10/14/18 09:20; Admin Dose 1 APPLIC; Start 10/09/18 at 17:30 Zolpidem Tartrate (Ambien) 5 mg HS PRN PO INSOMNIA Last administered on 10/12/18 21:40; Admin Dose 5 MG; Start 10/10/18 at 00:30 Diphenhydramine HCl (Benadryl) 25 mg Q12 PRN PO ITCHING Last administered on 10/11/18 08:56; Admin Dose 25 MG; Start 10/11/18 at 09:00 Hydralazine HCl (Apresoline) 75 mg Q8 PO Last administered on 10/15/18 20:50; Admin Dose 75 MG; Start 10/12/18 at 14:00 Lubiprostone (Amitiza) 16 mcg BID PO Last administered on 10/16/18at 08:37; Admin Dose 16 MCG; Start 10/12/18 at 21:00 Morphine Sulfate (morphine) 2 mg Q4H PRN IM SEVERE PAIN LEVEL 7-10 Last administered on 10/16/18at 02:31; Admin Dose 2 MG; Start 10/12/18 at 20:00 Ondansetron HCl (Zofran Tab) 4 mg Q6H PRN PO NAUSEA AND/OR VOMITING; Start 10/13/18 at 08:30 Amoxicillin/ Clavulanate Potassium (Augmentin) 500 mg DAILY PO Last administered on 10/16/18at 08:36; Admin Dose 500 MG; Start 10/13/18 at 12:00 HASEEB MAYA MD October 16, 2018 16:20
[2018-10-16] MEDS ORDERED: LUBIPROSTONE 8 MCG CAPSULE PO PRN (16:30)
[2018-10-16] MEDS: EPOETIN ALFA-EPBX (ESRD) 3,000 UNIT/ML VIAL SC SCH (19:03)
[2018-10-16] MEDS ORDERED: VANCOMYCIN 1 GM 250 ML IVPB SCH (22:00)
[2018-10-16] MEDS: ONDANSETRON 4 MG INJ IV PRN (22:27)
[2018-10-16] MEDS: morphine 2 MG INJ IV PRN (22:28)
[2018-10-17 01:50] VITALS: BP 150/68; PULSE 77; RESP 18
[2018-10-17] MEDS: ACCU-CHEK XX SCH (02:00)
[2018-10-17] MEDS: PANTOPRAZOLE (EC) 40 MG TAB PO SCH (06:06)
[2018-10-17] MEDS: morphine 2 MG INJ IV PRN ×3 (06:07→19:25)
[2018-10-17] MEDS: INSULIN ASPART [NOVOLOG] 3 ML PEN SC SCH ×4 (08:00→21:00)
[2018-10-17 09:56] VITALS: BP 167/78; PULSE 81; RESP 18
[2018-10-17] MEDS: COLLAGENASE 5 GM (UD JAR) TOP SCH (09:57)
[2018-10-17] MEDS: PENTOXIFYLLINE (SR) 400 MG TAB PO SCH ×3 (09:57→17:17)
[2018-10-17] MEDS: AMOXICILLIN/CLAV 500 MG TAB PO SCH (09:58)
--- NOTE | 2018-10-17 14:22 | CONS ---
Assessment/Plan Assessment/Plan Hospital Course (Demo Recall) Awake, looks comfortable, no fevers Indwelling's left upper extremity AV fistula, RIJ TLC. Antimicrobials: Augmentin PHYSICAL EXAMINATION: GENERAL: Well-developed, ill-appearing, middle-aged man in no distress. HEENT: Head is atraumatic, normocephalic. NECK: Supple. CHEST: Rise symmetrical. Breath sounds diminished to bases. HEART: S1, S2. ABDOMEN: Soft. Bowel tones are present. EXTREMITIES: Right foot gangrene Assessment: 1. Right foot gangrene, s/p amputation of right third toe 2. End-stage renal disease, hemodialysis dependent 3. Chronic diffuse rash==> neg scabies 4. Severe peripheral arterial disease status post left below-knee amputation==s/p balloon angioplasty 08/15/18 5. Coronary artery disease status post cardiac stent 6. Hypertension Plan: Clinically unchanged, continue abx, management per podiatry, pending surgical intervention Consultation Date/Type/Reason Admit Date/Time October 08, 2018 at 00:02 Initial Consult Date 10/08/18 Type of Consult id Date/Time of Note DATE: 10/17/18 TIME: 14:21 Exam/Review of Systems Exam Vitals Vital Signs Date Temp Pulse Resp B/P (MAP) Pulse Ox O2 O2 Flow FiO2 Time Delivery Rate 10/17/18 97.6 81 18 167/78 98 09:56 (107) 10/16/18 Room Air 18:07 Intake and Output 10/16/18 10/16/18 10/17/18 1515:00 23:00 07:00 IntakeIntake Total 1400 ml 1150 ml OutputOutput Total 1400 ml BalanceBalance 0 ml 1150 ml Results Result Diagram: 10/14/18 2303 10/14/18 2303 Results 24hrs Laboratory Tests Test 10/16/18 18:28 10/16/18 18:36 10/16/18 18:37 10/16/18 19:08 Random Vancomycin 12.3 Level Bedside Glucose 76 77 87 Test 10/16/18 19:38 10/16/18 21:13 10/17/18 09:48 10/17/18 11:51 Bedside Glucose 94 164 81 87 Medications Medication Current Medications Acetaminophen (Tylenol Tab) 650 mg Q6H PRN PO MILD PAIN(1-3)OR ELEVATED TEMP; Start 10/08/18 at 01:30 Albuterol (Proventil 0.083% (Neb)) 2.5 mg Q6H RESP THERAPY PRN HHN SHORTNESS OF BREATH; Start 10/08/18 at 01:30 Docusate Sodium (Colace) 100 mg BID PRN PO CONSTIPATION; Start 10/08/18 at 01:30 Diagnostic Test (Pha) (Accu-Chek) 1 ea 02 XX ; Start 10/08/18 at 02:00 Insulin Aspart (Novolog Insulin Pen) NOVOLOG *MODERATE* ALGORITHM WITH MEALS BEDTIME SC Last administered on 10/10/18at 08:35; Admin Dose 2 UNIT; Start 10/08/18 at 08:00 Miscellaneous Information 1 ea NOTE XX ; Start 10/08/18 at 05:30 Glucose (Glutose) 15 gm Q15M PRN PO DECREASED GLUCOSE; Start 10/08/18 at 05:30 Glucose (Glutose) 22.5 gm Q15M PRN PO DECREASED GLUCOSE; Start 10/08/18 at 05:30 Dextrose (D50w Syringe) 25 ml Q15M PRN IV DECREASED GLUCOSE; Start 10/08/18 at 05:30 Dextrose (D50w Syringe) 50 ml Q15M PRN IV DECREASED GLUCOSE; Start 10/08/18 at 05:30 Glucagon (Glucagen) 1 mg Q15M PRN IM DECREASED GLUCOSE; Start 10/08/18 at 05:30 Glucose (Glutose) 15 gm Q15M PRN BUCCAL DECREASED GLUCOSE; Start 10/08/18 at 05:30 Morphine Sulfate (morphine) 2 mg Q4H PRN IV SEVERE PAIN LEVEL 7-10 Last administered on 10/17/18at 11:35; Admin Dose 2 MG; Start 10/08/18 at 15:00 Vancomycin HCl (Vanco Iv Per Pharmacy) VANCOMYCIN PER PHARMACY PER PROTOCOL XX ; Start 10/08/18 at 15:00 Pentoxifylline (Trental) 400 mg WITH MEALS PO Last administered on 10/17/18at 11:35; Admin Dose 400 MG; Start 10/08/18 at 17:35 Pantoprazole (Protonix Tab) 40 mg DAILY@06 PO Last administered on 10/17/18at 06:06; Admin Dose 40 MG; Start 10/09/18 at 06:00 Hydralazine HCl (Apresoline) 10 mg Q6H PRN PO ELEVATED BLOOD PRESSURE Last administered on 10/11/18 22:01; Admin Dose 10 MG; Start 10/08/18 at 21:30 Ondansetron HCl (Zofran Inj) 4 mg Q6H PRN IV NAUSEA AND/OR VOMITING Last administered on 10/16/18 22:27; Admin Dose 4 MG; Start 10/08/18 at 23:00 Epoetin Adi-epbx (Retacrit) 6,000 unit TuThSa@1700 SC Last administered on 10/16/18 19:03; Admin Dose 6,000 UNIT; Start 10/09/18 at 17:00 Triamcinolone Acetonide (Kenalog 0.1% Cr) 1 applic BID PRN TOP itching; Start 10/09/18 at 16:30 Collagenase (Santyl) 1 applic DAILY TOP Last administered on 10/17/18 09:57; Admin Dose 1 APPLIC; Start 10/09/18 at 17:30 Zolpidem Tartrate (Ambien) 5 mg HS PRN PO INSOMNIA Last administered on 10/12/18 21:40; Admin Dose 5 MG; Start 10/10/18 at 00:30 Diphenhydramine HCl (Benadryl) 25 mg Q12 PRN PO ITCHING Last administered on 10/11/18 08:56; Admin Dose 25 MG; Start 10/11/18 at 09:00 Hydralazine HCl (Apresoline) 75 mg Q8 PO Last administered on 10/17/18 06:06; Admin Dose 75 MG; Start 10/12/18 at 14:00 Ondansetron HCl (Zofran Tab) 4 mg Q6H PRN PO NAUSEA AND/OR VOMITING; Start 10/13/18 at 08:30 Amoxicillin/ Clavulanate Potassium (Augmentin) 500 mg DAILY PO Last administered on 10/17/18 09:58; Admin Dose 500 MG; Start 10/13/18 at 12:00 Lubiprostone (Amitiza) 16 mcg BID PRN PO CONSTIPTION; Start 10/16/18 at 16:30 Morphine Sulfate (morphine) 2 mg Q4H PRN IV SEVERE PAIN LEVEL 7-10; Start at 18:52 DAYSI BHATIA NP October 17, 2018 14:22
[2018-10-17 14:27] VITALS: BP 157/72; PULSE 78; RESP 18
--- NOTE | 2018-10-17 14:47 | PN ---
Date/Time of Note Date/Time of Note DATE: 10/17/18 TIME: 14:44 Assessment/Plan VTE Prophylaxis Risk score (from Nsg)>0 risk: 7 SCD applied (from Ns): No SCD contraindicated: low risk/ambulating Pharmacological prophylaxis: NA/contraindicated Pharm contraindication: low risk/ambulating Lines/Catheters IV Catheter Type (from Nrsg): Central Line Central line still needed: Yes Urinary Cath still in place: No Assessment/Plan Hospital Course 48-year-old male with: 1. Right diabetic foot ulcer with osteomyelitis evident on the x-ray. 2. With peripheral vascular disease status post angioplasty. 3. Some vomiting, some right rib pain status post fall. 4. Hypertension. 5. End-stage renal disease on hemodialysis. 6. Anemia. 7. Hyperlipidemia. 8. Diabetes. 9. End-stage renal disease on hemodialysis. 10. Coronary artery disease, status post stents. 11. History of tracheostomy. 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> awaiting> called him again - hd TTS,1 unit prbc along with HD tmw - pain control with morphine - cw hydralzine 75 q8, add home linsopril - CW AUGMENTIN PER ID cw epogen - GI/DVT prophylaxsis Result Diagram: 10/14/18 2303 10/14/18 2303 Results 24hrs Laboratory Tests Test 10/16/18 18:28 10/16/18 18:36 10/16/18 18:37 10/16/18 19:08 Random Vancomycin 12.3 Level Bedside Glucose 76 77 87 Test 10/16/18 19:38 10/16/18 21:13 10/17/18 09:48 10/17/18 11:51 Bedside Glucose 94 164 81 87 Subjective 24 Hr Interval Summary Free Text/Dictation PENDING SURGERY, spoke to Dr Millard who will schedule Exam/Review of Systems Exam Vitals Vital Signs Date Temp Pulse Resp B/P (MAP) Pulse Ox O2 O2 Flow FiO2 Time Delivery Rate 10/17/18 97.7 78 18 157/72 95 14:27 (100) 10/16/18 Room Air 18:07 Intake and Output 10/16/18 10/16/18 10/17/18 1515:00 23:00 07:00 IntakeIntake Total 1400 ml 1150 ml OutputOutput Total 1400 ml BalanceBalance 0 ml 1150 ml Exam ERAL: The patient is awake, alert and oriented, does not appear to be in any acute distress. HEENT: Pupils are equal, round and reactive to light. NECK: Supple, no JVD. HEART: Regular rate and rhythm. LUNGS: Clear to auscultate bilaterally. ABDOMEN: Surgical scar present. EXTREMITIES: The patient has left BKA, right. S/P right 3rd to 5th toe amputation with gangrene of second toe, heel and lateral foot. Severe dry skin of the foot noted. Non palpable DP and PT. (+) malodor. No bleeding and no pus noted on exam The patient has a left AV fistula with good bruit and thrill. The patient also has skin changes with a hyperpigmented rash, which has been old. Results Results 24hrs Laboratory Tests Test 10/16/18 18:28 10/16/18 18:36 10/16/18 18:37 10/16/18 19:08 Random Vancomycin 12.3 Level Bedside Glucose 76 77 87 Test 10/16/18 19:38 10/16/18 21:13 10/17/18 09:48 10/17/18 11:51 Bedside Glucose 94 164 81 87 Medications Medication Current Medications Acetaminophen (Tylenol Tab) 650 mg Q6H PRN PO MILD PAIN(1-3)OR ELEVATED TEMP; Start 10/08/18 at 01:30 Albuterol (Proventil 0.083% (Neb)) 2.5 mg Q6H RESP THERAPY PRN HHN SHORTNESS OF BREATH; Start 10/08/18 at 01:30 Docusate Sodium (Colace) 100 mg BID PRN PO CONSTIPATION; Start 10/08/18 at 01:30 Diagnostic Test (Pha) (Accu-Chek) 1 ea 02 XX ; Start 10/08/18 at 02:00 Insulin Aspart (Novolog Insulin Pen) NOVOLOG *MODERATE* ALGORITHM WITH MEALS BEDTIME SC Last administered on 10/10/18at 08:35; Admin Dose 2 UNIT; Start 10/08/18 at 08:00 Miscellaneous Information 1 ea NOTE XX ; Start 10/08/18 at 05:30 Glucose (Glutose) 15 gm Q15M PRN PO DECREASED GLUCOSE; Start 10/08/18 at 05:30 Glucose (Glutose) 22.5 gm Q15M PRN PO DECREASED GLUCOSE; Start 10/08/18 at 05:30 Dextrose (D50w Syringe) 25 ml Q15M PRN IV DECREASED GLUCOSE; Start 10/08/18 at 05:30 Dextrose (D50w Syringe) 50 ml Q15M PRN IV DECREASED GLUCOSE; Start 10/08/18 at 05:30 Glucagon (Glucagen) 1 mg Q15M PRN IM DECREASED GLUCOSE; Start 10/08/18 at 05:30 Glucose (Glutose) 15 gm Q15M PRN BUCCAL DECREASED GLUCOSE; Start 10/08/18 at 05:30 Morphine Sulfate (morphine) 2 mg Q4H PRN IV SEVERE PAIN LEVEL 7-10 Last administered on 10/17/18 11:35; Admin Dose 2 MG; Start 10/08/18 at 15:00 Vancomycin HCl (Vanco Iv Per Pharmacy) VANCOMYCIN PER PHARMACY PER PROTOCOL XX ; Start 10/08/18 at 15:00 Pentoxifylline (Trental) 400 mg WITH MEALS PO Last administered on 10/17/18 11:35; Admin Dose 400 MG; Start 10/08/18 at 17:35 Pantoprazole (Protonix Tab) 40 mg DAILY@06 PO Last administered on 10/17/18 06:06; Admin Dose 40 MG; Start 10/09/18 at 06:00 Hydralazine HCl (Apresoline) 10 mg Q6H PRN PO ELEVATED BLOOD PRESSURE Last administered on 10/11/18 22:01; Admin Dose 10 MG; Start 10/08/18 at 21:30 Ondansetron HCl (Zofran Inj) 4 mg Q6H PRN IV NAUSEA AND/OR VOMITING Last administered on 10/16/18 22:27; Admin Dose 4 MG; Start 10/08/18 at 23:00 Epoetin Adi-epbx (Retacrit) 6,000 unit TuThSa@1700 SC Last administered on 10/16/18 19:03; Admin Dose 6,000 UNIT; Start 10/09/18 at 17:00 Triamcinolone Acetonide (Kenalog 0.1% Cr) 1 applic BID PRN TOP itching; Start 10/09/18 at 16:30 Collagenase (Santyl) 1 applic DAILY TOP Last administered on 10/17/18 09:57; Admin Dose 1 APPLIC; Start 10/09/18 at 17:30 Zolpidem Tartrate (Ambien) 5 mg HS PRN PO INSOMNIA Last administered on 10/12/18at 21:40; Admin Dose 5 MG; Start 10/10/18 at 00:30 Diphenhydramine HCl (Benadryl) 25 mg Q12 PRN PO ITCHING Last administered on 10/11/18at 08:56; Admin Dose 25 MG; Start 10/11/18 at 09:00 Hydralazine HCl (Apresoline) 75 mg Q8 PO Last administered on 10/17/18at 14:19; Admin Dose 75 MG; Start 10/12/18 at 14:00 Ondansetron HCl (Zofran Tab) 4 mg Q6H PRN PO NAUSEA AND/OR VOMITING; Start 10/13/18 at 08:30 Amoxicillin/ Clavulanate Potassium (Augmentin) 500 mg DAILY PO Last administered on 10/17/18at 09:58; Admin Dose 500 MG; Start 10/13/18 at 12:00 Lubiprostone (Amitiza) 16 mcg BID PRN PO CONSTIPTION; Start 10/16/18 at 16:30 Morphine Sulfate (morphine) 2 mg Q4H PRN IV SEVERE PAIN LEVEL 7-10; Start 10/16/18 at 18:52 HASEEB MAYA MD October 17, 2018 14:47
[2018-10-17] MEDS: LISINOPRIL 20 MG TAB PO SCH (17:18)
[2018-10-17 20:11] VITALS: BP 142/69; PULSE 75; RESP 18
[2018-10-18] VITALS (19 sets, daily range): BP systolic 108–188; BP diastolic 58–111; PULSE 73–84; RESP 16–20
[2018-10-18] MEDS: ACCU-CHEK XX SCH (01:54)
[2018-10-18] MEDS: morphine 2 MG INJ IV PRN ×5 (03:53→22:11)
[2018-10-18] MEDS: PANTOPRAZOLE (EC) 40 MG TAB PO SCH ×2 (05:59→06:00)
[2018-10-18] MEDS: INSULIN ASPART [NOVOLOG] 3 ML PEN SC SCH ×4 (08:00→20:24)
[2018-10-18] MEDS: AMOXICILLIN/CLAV 500 MG TAB PO SCH (08:18)
[2018-10-18] MEDS: PENTOXIFYLLINE (SR) 400 MG TAB PO SCH ×3 (08:19→17:35)
[2018-10-18] MEDS: LISINOPRIL 20 MG TAB PO SCH (11:11)
[2018-10-18] MEDS: COLLAGENASE 5 GM (UD JAR) TOP SCH (11:12)
--- NOTE | 2018-10-18 13:17 | CONS ---
Assessment/Plan Assessment/Plan Hospital Course (Demo Recall) Awake, looks comfortable, no fevers. He is upset about the fact that no surgery had been done yet Indwelling's left upper extremity AV fistula, RIJ TLC. Antimicrobials: Augmentin PHYSICAL EXAMINATION: GENERAL: Well-developed, ill-appearing, middle-aged man in no distress. HEENT: Head is atraumatic, normocephalic. NECK: Supple. CHEST: Rise symmetrical. Breath sounds diminished to bases. HEART: S1, S2. ABDOMEN: Soft. Bowel tones are present. EXTREMITIES: Right foot gangrene Assessment: 1. Right foot gangrene, s/p amputation of right third toe 2. End-stage renal disease, hemodialysis dependent 3. Chronic diffuse rash==> neg scabies 4. Severe peripheral arterial disease status post left below-knee amputation==s/p balloon angioplasty 08/15/18 5. Coronary artery disease status post cardiac stent 6. Hypertension Plan: Stable, awaiting for surgical intervention Consultation Date/Type/Reason Admit Date/Time October 08, 2018 at 00:02 Initial Consult Date 10/08/18 Type of Consult id Date/Time of Note DATE: 10/18/18 TIME: 13:16 Exam/Review of Systems Exam Vitals Vital Signs Date Temp Pulse Resp B/P (MAP) Pulse Ox O2 O2 Flow FiO2 Time Delivery Rate 10/18/18 96.8 78 18 163/84 99 09:13 (110) 10/16/18 Room Air 18:07 Intake and Output 10/17/18 10/17/18 10/18/18 1515:00 23:00 07:00 IntakeIntake Total 360 ml 240 ml 250 ml BalanceBalance 360 ml 240 ml 250 ml Results Result Diagram: 10/18/18 0557 10/18/18 0558 Results 24hrs Laboratory Tests Test 10/17/18 17:16 10/17/18 21:03 10/18/18 05:57 10/18/18 05:58 Bedside Glucose 94 100 Hemoglobin 7.5 L Sodium Level 144 Potassium Level 4.7 Chloride Level 107 Carbon Dioxide Level 25 Anion Gap 12 Blood Urea Nitrogen 56 H Creatinine 6.42 H Est Glomerular 11 L Filtrat Rate mL/min Glucose Level 78 Calcium Level 9.2 Test 10/18/18 08:17 10/18/18 12:29 Bedside Glucose 91 92 Medications Medication Current Medications Acetaminophen (Tylenol Tab) 650 mg Q6H PRN PO MILD PAIN(1-3)OR ELEVATED TEMP; Start 10/08/18 at 01:30 Albuterol (Proventil 0.083% (Neb)) 2.5 mg Q6H RESP THERAPY PRN HHN SHORTNESS OF BREATH; Start 10/08/18 at 01:30 Docusate Sodium (Colace) 100 mg BID PRN PO CONSTIPATION; Start 10/08/18 at 01:30 Diagnostic Test (Pha) (Accu-Chek) 1 ea 02 XX ; Start 10/08/18 at 02:00 Insulin Aspart (Novolog Insulin Pen) NOVOLOG *MODERATE* ALGORITHM WITH MEALS BEDTIME SC Last administered on 10/10/18at 08:35; Admin Dose 2 UNIT; Start 10/08/18 at 08:00 Miscellaneous Information 1 ea NOTE XX ; Start 10/08/18 at 05:30 Glucose (Glutose) 15 gm Q15M PRN PO DECREASED GLUCOSE; Start 10/08/18 at 05:30 Glucose (Glutose) 22.5 gm Q15M PRN PO DECREASED GLUCOSE; Start 10/08/18 at 05:30 Dextrose (D50w Syringe) 25 ml Q15M PRN IV DECREASED GLUCOSE; Start 10/08/18 at 05:30 Dextrose (D50w Syringe) 50 ml Q15M PRN IV DECREASED GLUCOSE; Start 10/08/18 at 05:30 Glucagon (Glucagen) 1 mg Q15M PRN IM DECREASED GLUCOSE; Start 10/08/18 at 05:30 Glucose (Glutose) 15 gm Q15M PRN BUCCAL DECREASED GLUCOSE; Start 10/08/18 at 05:30 Morphine Sulfate (morphine) 2 mg Q4H PRN IV SEVERE PAIN LEVEL 7-10 Last administered on 10/18/18at 12:36; Admin Dose 2 MG; Start 10/08/18 at 15:00 Vancomycin HCl (Vanco Iv Per Pharmacy) VANCOMYCIN PER PHARMACY PER PROTOCOL XX ; Start 10/08/18 at 15:00 Pentoxifylline (Trental) 400 mg WITH MEALS PO Last administered on 10/18/18at 12:35; Admin Dose 400 MG; Start 10/08/18 at 17:35 Pantoprazole (Protonix Tab) 40 mg DAILY@06 PO Last administered on 10/17/18at 06:06; Admin Dose 40 MG; Start 10/09/18 at 06:00 Hydralazine HCl (Apresoline) 10 mg Q6H PRN PO ELEVATED BLOOD PRESSURE Last administered on 10/11/18 22:01; Admin Dose 10 MG; Start 10/08/18 at 21:30 Ondansetron HCl (Zofran Inj) 4 mg Q6H PRN IV NAUSEA AND/OR VOMITING Last administered on 10/16/18 22:27; Admin Dose 4 MG; Start 10/08/18 at 23:00 Epoetin Adi-epbx (Retacrit) 6,000 unit TuThSa@1700 SC Last administered on 10/16/18 19:03; Admin Dose 6,000 UNIT; Start 10/09/18 at 17:00 Triamcinolone Acetonide (Kenalog 0.1% Cr) 1 applic BID PRN TOP itching Last administered on 10/18/18 03:53; Admin Dose 1 APPLIC; Start 10/09/18 at 16:30 Collagenase (Santyl) 1 applic DAILY TOP Last administered on 10/18/18 11:12; Admin Dose 1 APPLIC; Start 10/09/18 at 17:30 Zolpidem Tartrate (Ambien) 5 mg HS PRN PO INSOMNIA Last administered on 10/12/18 21:40; Admin Dose 5 MG; Start 10/10/18 at 00:30 Diphenhydramine HCl (Benadryl) 25 mg Q12 PRN PO ITCHING Last administered on 10/11/18 08:56; Admin Dose 25 MG; Start 10/11/18 at 09:00 Hydralazine HCl (Apresoline) 75 mg Q8 PO Last administered on 10/17/18 21:04; Admin Dose 75 MG; Start 10/12/18 at 14:00 Ondansetron HCl (Zofran Tab) 4 mg Q6H PRN PO NAUSEA AND/OR VOMITING; Start 10/13/18 at 08:30 Amoxicillin/ Clavulanate Potassium (Augmentin) 500 mg DAILY PO Last administered on 10/18/18 08:18; Admin Dose 500 MG; Start 10/13/18 at 12:00 Lubiprostone (Amitiza) 16 mcg BID PRN PO CONSTIPTION; Start 10/16/18 at 16:30 Morphine Sulfate (morphine) 2 mg Q4H PRN IV SEVERE PAIN LEVEL 7-10; Start 10/16/18 at 18:52 Lisinopril (Zestril) 40 mg DAILY PO Last administered on 10/18/18at 11:11; Admin Dose 40 MG; Start 10/17/18 at 15:00 DAYSI BHATIA NP October 18, 2018 13:17
[2018-10-18] MEDS ORDERED: LIDOCAINE 2% (MDV) 20 ML INJ INJ PRN (15:00)
--- NOTE | 2018-10-18 15:17 | PN ---
Date/Time of Note Date/Time of Note DATE: 10/18/18 TIME: 15:17 Assessment/Plan VTE Prophylaxis Risk score (from Nsg)>0 risk: 7 SCD applied (from Ns): No SCD contraindicated: low risk/ambulating Pharmacological prophylaxis: NA/contraindicated Pharm contraindication: low risk/ambulating Lines/Catheters IV Catheter Type (from Nrsg): Central Line Central line still needed: Yes Urinary Cath still in place: No Assessment/Plan Hospital Course 48-year-old male with: 1. Right diabetic foot ulcer with osteomyelitis evident on the x-ray. 2. With peripheral vascular disease status post angioplasty. 3. Some vomiting, some right rib pain status post fall. 4. Hypertension. 5. End-stage renal disease on hemodialysis. 6. Anemia. 7. Hyperlipidemia. 8. Diabetes. 9. End-stage renal disease on hemodialysis. 10. Coronary artery disease, status post stents. 11. History of tracheostomy. PLAN - surgery with Dr Millard , spoke to him will schedule H tomorrow - hd TTS,1 unit prbc along with HD today - pain control with morphine - cw hydralzine 75 q8, cw lisnopril, add minoxidil - CW AUGMENTIN PER ID cw epogen - GI/DVT prophylaxsis Result Diagram: 10/18/18 0557 10/18/18 0558 Results 24hrs Laboratory Tests Test 10/17/18 17:16 10/17/18 21:03 10/18/18 05:57 10/18/18 05:58 Bedside Glucose 94 100 Hemoglobin 7.5 L Sodium Level 144 Potassium Level 4.7 Chloride Level 107 Carbon Dioxide Level 25 Anion Gap 12 Blood Urea Nitrogen 56 H Creatinine 6.42 H Est Glomerular 11 L Filtrat Rate mL/min Glucose Level 78 Calcium Level 9.2 Test 10/18/18 08:17 10/18/18 12:29 Bedside Glucose 91 92 Subjective 24 Hr Interval Summary Free Text/Dictation HD in progress. To receive 1 unit of blood along with hemodialysis surgery planned tomorrow Exam/Review of Systems Exam Vitals Vital Signs Date Temp Pulse Resp B/P (MAP) Pulse Ox O2 O2 Flow FiO2 Time Delivery Rate 10/18/18 97.1 76 18 173/79 99 14:55 (110) 10/16/18 Room Air 18:07 Intake and Output 10/17/18 10/17/1810/18/19 1414:59 22:59 06:59 IntakeIntake Total 360 ml 240 ml 250 ml BalanceBalance 360 ml 240 ml 250 ml Exam ERAL: The patient is awake, alert and oriented, does not appear to be in any acute distress. HEENT: Pupils are equal, round and reactive to light. NECK: Supple, no JVD. HEART: Regular rate and rhythm. LUNGS: Clear to auscultate bilaterally. ABDOMEN: Surgical scar present. EXTREMITIES: The patient has left BKA, right. S/P right 3rd to 5th toe amputation with gangrene of second toe, heel and lateral foot. Severe dry skin of the foot noted. Non palpable DP and PT. (+) malodor. No bleeding and no pus noted on exam The patient has a left AV fistula with good bruit and thrill. The patient also has skin changes with a hyperpigmented rash, which has been old. Results Results 24hrs Laboratory Tests Test 10/17/18 17:16 10/17/18 21:03 10/18/18 05:57 10/18/18 05:58 Bedside Glucose 94 100 Hemoglobin 7.5 L Sodium Level 144 Potassium Level 4.7 Chloride Level 107 Carbon Dioxide Level 25 Anion Gap 12 Blood Urea Nitrogen 56 H Creatinine 6.42 H Est Glomerular 11 L Filtrat Rate mL/min Glucose Level 78 Calcium Level 9.2 Test 10/18/18 08:17 10/18/18 12:29 Bedside Glucose 91 92 Medications Medication Current Medications Acetaminophen (Tylenol Tab) 650 mg Q6H PRN PO MILD PAIN(1-3)OR ELEVATED TEMP; Start 10/08/18 at 01:30 Albuterol (Proventil 0.083% (Neb)) 2.5 mg Q6H RESP THERAPY PRN HHN SHORTNESS OF BREATH; Start 10/08/18 at 01:30 Docusate Sodium (Colace) 100 mg BID PRN PO CONSTIPATION; Start 10/08/18 at 01:30 Diagnostic Test (Pha) (Accu-Chek) 1 ea 02 XX ; Start 10/08/18 at 02:00 Insulin Aspart (Novolog Insulin Pen) NOVOLOG *MODERATE* ALGORITHM WITH MEALS BEDTIME SC Last administered on 10/10/18at 08:35; Admin Dose 2 UNIT; Start 10/08/18 at 08:00 Miscellaneous Information 1 ea NOTE XX ; Start 10/08/18 at 05:30 Glucose (Glutose) 15 gm Q15M PRN PO DECREASED GLUCOSE; Start 10/08/18 at 05:30 Glucose (Glutose) 22.5 gm Q15M PRN PO DECREASED GLUCOSE; Start 10/08/18 at 05:30 Dextrose (D50w Syringe) 25 ml Q15M PRN IV DECREASED GLUCOSE; Start 10/08/18 at 05:30 Dextrose (D50w Syringe) 50 ml Q15M PRN IV DECREASED GLUCOSE; Start 10/08/18 at 05:30 Glucagon (Glucagen) 1 mg Q15M PRN IM DECREASED GLUCOSE; Start 10/08/18 at 05:30 Glucose (Glutose) 15 gm Q15M PRN BUCCAL DECREASED GLUCOSE; Start 10/08/18 at 05:30 Vancomycin HCl (Vanco Iv Per Pharmacy) VANCOMYCIN PER PHARMACY PER PROTOCOL XX ; Start 10/08/18 at 15:00 Pentoxifylline (Trental) 400 mg WITH MEALS PO Last administered on 10/18/18at 12:35; Admin Dose 400 MG; Start 10/08/18 at 17:35 Pantoprazole (Protonix Tab) 40 mg DAILY@06 PO Last administered on 10/17/18at 06:06; Admin Dose 40 MG; Start 10/09/18 at 06:00 Hydralazine HCl (Apresoline) 10 mg Q6H PRN PO ELEVATED BLOOD PRESSURE Last administered on 10/11/18at 22:01; Admin Dose 10 MG; Start 10/08/18 at 21:30 Ondansetron HCl (Zofran Inj) 4 mg Q6H PRN IV NAUSEA AND/OR VOMITING Last administered on 10/16/18at 22:27; Admin Dose 4 MG; Start 10/08/18 at 23:00 Epoetin Adi-epbx (Retacrit) 6,000 unit TuThSa@1700 SC Last administered on 10/16/18at 19:03; Admin Dose 6,000 UNIT; Start 10/09/18 at 17:00 Triamcinolone Acetonide (Kenalog 0.1% Cr) 1 applic BID PRN TOP itching Last administered on 10/18/18at 03:53; Admin Dose 1 APPLIC; Start 10/09/18 at 16:30 Collagenase (Santyl) 1 applic DAILY TOP Last administered on 10/18/18 11:12; Admin Dose 1 APPLIC; Start 10/09/18 at 17:30 Zolpidem Tartrate (Ambien) 5 mg HS PRN PO INSOMNIA Last administered on 10/12/18at 21:40; Admin Dose 5 MG; Start 10/10/18 at 00:30 Diphenhydramine HCl (Benadryl) 25 mg Q12 PRN PO ITCHING Last administered on 10/11/18at 08:56; Admin Dose 25 MG; Start 10/11/18 at 09:00 Hydralazine HCl (Apresoline) 75 mg Q8 PO Last administered on 10/17/18 21:04; Admin Dose 75 MG; Start 10/12/18 at 14:00 Ondansetron HCl (Zofran Tab) 4 mg Q6H PRN PO NAUSEA AND/OR VOMITING; Start 10/13/18 at 08:30 Amoxicillin/ Clavulanate Potassium (Augmentin) 500 mg DAILY PO Last administered on 10/18/18at 08:18; Admin Dose 500 MG; Start 10/13/18 at 12:00 Lubiprostone (Amitiza) 16 mcg BID PRN PO CONSTIPTION; Start 10/16/18 at 16:30 Morphine Sulfate (morphine) 2 mg Q4H PRN IV SEVERE PAIN LEVEL 7-10; Start 10/16/18 at 18:52 Lisinopril (Zestril) 40 mg DAILY PO Last administered on 10/18/18at 11:11; Admin Dose 40 MG; Start 10/17/18 at 15:00 Lidocaine (Xylocaine 2% (Mdv) 20 ml) 20 ml ONCE PRN INJ Dialysis; Start 10/18/18 at 15:00; Stop 10/19/18 at 14:59 HASEEB MAYA MD October 18, 2018 15:17
--- NOTE | 2018-10-18 17:30 | PREAC ---
Date/Time of Note Date/Time of Note DATE: 10/18/18 TIME: 17:30 Anesthesia Eval and Record Evaluation Time Pre-Procedure Interview DATE: 10/18/18 TIME: 17:30 Age 48 Sex male NPO: 8 hrs Preoperative diagnosis Right foot gangrene, Planned procedure RIGHT FOOT TRANSMETATARSAL AMPUTATION Past Medical History Past Medical History: Includes Cardio: HTN, CAD, Other (EF in 2018 shows EF 60%, Severe PVD, s/p Left BKA. Multiple Right toe amputations)) Endo: Diabetes Renal: ESRD on dialysis (last dialsys 10/18/18) Surgery & Anesthesia Issues No known issue Meds Anticoagulation: No Beta Ramsey within 24 hr: No Reason Beta Ramsey not given: Pt. not on B-Ramsey Reported Medications Hydrocodone/Acetaminophen (Munson 7.5-325 Tablet) 1 Each Tablet, 1 EACH PO BID, TAB 08/09/18 Minoxidil* (Lonitin*) 10 Mg Tab, 10 MG PO BID, TAB 08/09/18 Temazepam* (Temazepam*) 30 Mg Capsule, 30 MG PO HS PRN for INSOMNIA, CAP 08/09/18 Cetirizine Hcl* (Cetirizine Hcl*) 10 Mg Tablet, 10 MG PO DAILY, #30 TAB 08/09/18 Lisinopril* (Lisinopril*) 40 Mg Tablet, 40 MG PO DAILY, #30 TAB 08/09/18 Calcium Acetate* (Calcium Acetate*) 667 Mg Capsule, 1334 MG PO WITH MEALS, #60 CAP 08/09/18 Pentoxifylline* (Pentoxifylline*) 400 Mg Tablet.sa, 400 MG PO WITH MEALS, TAB 08/09/18 Clonidine Hcl* (Clonidine Hcl*) 0.3 Mg Tablet, 0.3 MG PO Q6H PRN for HTN, TAB 08/09/18 Docusate Sodium (Col-Rite) 100 Mg Capsule, 100 MG PO BID, CAP 08/09/18 Current Medications Acetaminophen (Tylenol Tab) 650 mg Q6H PRN PO MILD PAIN(1-3)OR ELEVATED TEMP; Start 10/08/18 at 01:30 Albuterol (Proventil 0.083% (Neb)) 2.5 mg Q6H RESP THERAPY PRN HHN SHORTNESS OF BREATH; Start 10/08/18 at 01:30 Docusate Sodium (Colace) 100 mg BID PRN PO CONSTIPATION; Start 10/08/18 at 01:30 Diagnostic Test (Pha) (Accu-Chek) 1 ea 02 XX ; Start 10/08/18 at 02:00 Insulin Aspart (Novolog Insulin Pen) NOVOLOG *MODERATE* ALGORITHM WITH MEALS BEDTIME SC Last administered on 10/10/18at 08:35; Admin Dose 2 UNIT; Start 10/08/18 at 08:00 Miscellaneous Information 1 ea NOTE XX ; Start 10/08/18 at 05:30 Glucose (Glutose) 15 gm Q15M PRN PO DECREASED GLUCOSE; Start 10/08/18 at 05:30 Glucose (Glutose) 22.5 gm Q15M PRN PO DECREASED GLUCOSE; Start 10/08/18 at 05:30 Dextrose (D50w Syringe) 25 ml Q15M PRN IV DECREASED GLUCOSE; Start 10/08/18 at 05:30 Dextrose (D50w Syringe) 50 ml Q15M PRN IV DECREASED GLUCOSE; Start 10/08/18 at 05:30 Glucagon (Glucagen) 1 mg Q15M PRN IM DECREASED GLUCOSE; Start 10/08/18 at 05:30 Glucose (Glutose) 15 gm Q15M PRN BUCCAL DECREASED GLUCOSE; Start 10/08/18 at 05 :30 Vancomycin HCl (Vanco Iv Per Pharmacy) VANCOMYCIN PER PHARMACY PER PROTOCOL XX ; Start 10/08/18 at 15:00 Pentoxifylline (Trental) 400 mg WITH MEALS PO Last administered on 10/18/18at 12:35; Admin Dose 400 MG; Start 10/08/18 at 17:35 Pantoprazole (Protonix Tab) 40 mg DAILY@06 PO Last administered on 10/17/18at 06:06; Admin Dose 40 MG; Start 10/09/18 at 06:00 Hydralazine HCl (Apresoline) 10 mg Q6H PRN PO ELEVATED BLOOD PRESSURE Last administered on 10/11/18at 22:01; Admin Dose 10 MG; Start 10/08/18 at 21:30 Ondansetron HCl (Zofran Inj) 4 mg Q6H PRN IV NAUSEA AND/OR VOMITING Last administered on 10/16/18at 22:27; Admin Dose 4 MG; Start 10/08/18 at 23:00 Epoetin Adi-epbx (Retacrit) 6,000 unit TuThSa@1700 SC Last administered on 10/16/18 19:03; Admin Dose 6,000 UNIT; Start 10/09/18 at 17:00 Triamcinolone Acetonide (Kenalog 0.1% Cr) 1 applic BID PRN TOP itching Last administered on 10/18/18 03:53; Admin Dose 1 APPLIC; Start 10/09/18 at 16:30 Collagenase (Santyl) 1 applic DAILY TOP Last administered on 10/18/18 11:12; Admin Dose 1 APPLIC; Start 10/09/18 at 17:30 Zolpidem Tartrate (Ambien) 5 mg HS PRN PO INSOMNIA Last administered on 10/12/18 21:40; Admin Dose 5 MG; Start 10/10/18 at 00:30 Diphenhydramine HCl (Benadryl) 25 mg Q12 PRN PO ITCHING Last administered on 10/11/18 08:56; Admin Dose 25 MG; Start 10/11/18 at 09:00 Hydralazine HCl (Apresoline) 75 mg Q8 PO Last administered on 10/17/18 21:04; Admin Dose 75 MG; Start 10/12/18 at 14:00 Ondansetron HCl (Zofran Tab) 4 mg Q6H PRN PO NAUSEA AND/OR VOMITING; Start 10/13/18 at 08:30 Amoxicillin/ Clavulanate Potassium (Augmentin) 500 mg DAILY PO Last administered on 10/18/18 08:18; Admin Dose 500 MG; Start 10/13/18 at 12:00 Lubiprostone (Amitiza) 16 mcg BID PRN PO CONSTIPTION; Start 10/16/18 at 16:30 Morphine Sulfate (morphine) 2 mg Q4H PRN IV SEVERE PAIN LEVEL 7-10; Start 10/16/18 at 18:52 Lisinopril (Zestril) 40 mg DAILY PO Last administered on 10/18/18 11:11; Admin Dose 40 MG; Start 10/17/18 at 15:00 Lidocaine (Xylocaine 2% (Mdv) 20 ml) 20 ml ONCE PRN INJ Dialysis Last administered on 10/18/18 15:45; Admin Dose 20 ML; Start 10/18/18 at 15:00; Stop 10/19/18 at 14:59 Meds reviewed: Yes Allergies Coded Allergies: hydromorphone (Verified Allergy, Unknown, 10/08/18) MD Hitchcock aware @ 10/08 001 Allergies Reviewed: Yes Labs/Studies Labs Reviewed: Reviewed by anesthesiologist Result Diagram: 10/18/18 0557 10/18/18 0558 Laboratory Tests 10/18/18 05:57 10/18/18 05:58 Blood Bank Test 10/18/18 14:45 Antibody Screen NEGATIVE Blood Product Summary Counts Blood Type O POSITIVE Crossmatch Red Blood Cells test: N/A Studies: CXR Pre-procedure Exam Last vitals Vital Signs Date Temp Pulse Resp B/P (MAP) Pulse Ox O2 O2 Flow FiO2 Time Delivery Rate 10/18/18 97.1 76 18 173/79 99 14:55 (110) 10/16/18 Room Air 18:07 Airway: Adequate mouth opening Mallampati: Mallampati II Teeth: Normal Lung: Normal Heart: Normal ASA Physical Status ASA physical status: 3 Emergency: None Planned Anesthetic General/MAC: ETT Pre-operative Attestations Prior to commencing anesthesia and surgery, the patient was re-evaluated, there was verification of: *The patient's identity *The results of appropriate recent lab work and preoperative vital signs *The above evaluation not changing prior to induction *Anesthetic plan, risk benefits, alternative and complications discussed with patient/family; questions answered; patient/family understands, accepts and wishes to proceed. SHARI BUENO October 18, 2018 17:30
[2018-10-18] MEDS: EPOETIN ALFA-EPBX (ESRD) 3,000 UNIT/ML VIAL SC SCH (20:26)
[2018-10-18] MEDS: MINOXIDIL 10 MG TAB PO SCH (22:09)
--- NOTE | 2018-10-18 22:32 | PN ---
Date/Time of Note Date/Time of Note DATE: 10/18/18 TIME: 22:31 Assessment/Plan Lines/Catheters IV Catheter Type (from Nrs): Central Line [place] in Place (from Nrs): No Assessment/Plan Problems: (1) Toe gangrene (2) Peripheral vascular disease (3) Diabetes, polyneuropathy (4) Non-pressure ulcer of left lower extremity with fat layer exposed (5) Acquired absence of left leg below knee (6) Acquired absence of other right toe(s) (7) Non-pressure chronic ulcer of other part of right foot with necrosis of muscle Assessment/Plan Patient is scheduled for TMA of the right foot tomorrow afternoon. Patient has a PICC line. Subjective 24 Hr Interval Summary Patient has not had his surgery yet since NO IV access available and an attempt for a central line by the anesthesiologist failed to gain access. Patient denies overnight adverse events. Pain Control: well controlled Exam/Review of Systems Vital Signs Vitals Vital Signs Date Temp Pulse Resp B/P (MAP) Pulse Ox O2 O2 Flow FiO2 Time Delivery Rate 10/25/18 97.6 86 18 142/67 98 20:00 (92) 10/24/18 Room Air 14:28 Intake and Output 10/24/18 10/24/18 10/25/18 1515:00 23:00 07:00 IntakeIntake Total 850 ml 250 ml 250 ml OutputOutput Total 30 ml 10 ml BalanceBalance 850 ml 220 ml 240 ml Exam Free Text/Dictation Patient is laying supine in bed in no acute distress. Dressings were removed from the right foot. Patient is s/p amputation of his 3rd, 4th and 5th toes. He has gangrene of his second toe and multiple chronic open wounds of the right foot. He is s/p LEFT BKA. There is also posterior heel decubitus ulceration. Patient does not have palpable DP or PT pulses. His temperature gradient is increased and the CFT is significantly delayed. Labs reviewed. Results Result Diagram: 10/24/18 1011 10/24/18 1011 SHEYLA IZAGUIRRE DPM October 18, 2018 22:32
[2018-10-19] VITALS (45 sets, daily range): BP systolic 63–135; BP diastolic 35–64; PULSE 80–102; RESP 14–20
[2018-10-19] MEDS: INSULIN ASPART [NOVOLOG] 3 ML PEN SC SCH ×6 (01:00→21:00)
[2018-10-19] MEDS: morphine 2 MG INJ IV PRN ×4 (02:16→20:21)
[2018-10-19] MEDS: ACCU-CHEK XX SCH (02:19)
[2018-10-19] MEDS: PANTOPRAZOLE (EC) 40 MG TAB PO SCH (06:00)
[2018-10-19] MEDS ORDERED: CEFAZOLIN 1 GM INJ ONE (07:00)
[2018-10-19] MEDS: PENTOXIFYLLINE (SR) 400 MG TAB PO SCH ×3 (07:35→17:09)
[2018-10-19] MEDS ORDERED: DEXTROSE 5%-0.9% NACL 1,000 ML IV SCH (10:00)
[2018-10-19] MEDS: LISINOPRIL 20 MG TAB PO SCH (10:06)
[2018-10-19] MEDS: AMOXICILLIN/CLAV 500 MG TAB PO SCH (10:06)
[2018-10-19] MEDS: MINOXIDIL 10 MG TAB PO SCH ×2 (10:06→20:21)
[2018-10-19] MEDS: COLLAGENASE 5 GM (UD JAR) TOP SCH (10:08)
--- NOTE | 2018-10-19 11:17 | PN ---
Date/Time of Note Date/Time of Note DATE: 10/19/18 TIME: 11:17 Assessment/Plan VTE Prophylaxis Risk score (from [facility])>0 risk: 7 SCD applied (from [facility]): No SCD contraindicated: bilateral amputee Pharmacological prophylaxis: NA/contraindicated Pharm contraindication: surgical contra Lines/Catheters IV [facility] Type (from [facility]): Central Line Central line still needed: Yes Urinary Cath still in place: No Assessment/Plan Hospital Course 1. Right diabetic foot ulcer with osteomyelitis evident on the x-ray. 2. With peripheral vascular disease status post angioplasty. 3. Some vomiting, some right rib pain status post fall. 4. Hypertension. 5. End-stage renal disease on hemodialysis. 6. Anemia. 7. Hyperlipidemia. 8. Diabetes. 9. End-stage renal disease on hemodialysis. 10. Coronary artery disease, status post stents. 11. History of tracheostomy. 11. Left arm AV fistula Assessment/Plan - for wound care -c/w HD -- today surgery with Dr Millard - hd TTS, - pain control with morphine - cw hydralazine 75 q8, cw lisinopril, add minoxidil - CW AUGMENTIN PER ID -cw epogen - GI/DVT prophylaxis Result Diagram: 10/19/18 0442 10/18/18 0558 Results 24hrs Laboratory Tests Test 10/18/18 12:29 10/18/18 20:23 10/19/18 02:18 10/19/18 04:42 Bedside Glucose 92 84 84 White Blood Count 6.6 # Red Blood Count 3.05 L Hemoglobin 8.1 L Hematocrit 25.8 L Mean Corpuscular 84.6 Volume Mean Corpuscular 26.6 L Hemoglobin Mean Corpuscular 31.4 L Hemoglobin Concent Red Cell 14.0 Distribution Width Platelet Count 115 #L Mean Platelet Volume 10.2 Immature 1.100 H Granulocytes % Neutrophils % 73.9 Lymphocytes % 14.5 L Monocytes % 4.5 Eosinophils % 5.7 Basophils % 0.3 Nucleated Red Blood 0.0 Cells % Immature 0.070 H Granulocytes # Neutrophils # 4.9 Lymphocytes # 1.0 Monocytes # 0.3 Eosinophils # 0.4 Basophils # 0.0 Nucleated Red Blood 0.0 Cells # Test 10/19/18 04:46 10/19/18 08:38 Bedside Glucose 87 72 Subjective 24 Hr Interval Summary Constitutional: no complaints Musculoskeletal: restricted range of motion Exam/Review of Systems Exam Vitals Vital Signs Date Temp Pulse Resp B/P (MAP) Pulse Ox O2 O2 Flow FiO2 Time Delivery Rate 10/19/18 98.2 84 18 114/57 100 Room Air 07:25 (76) Intake and Output 10/18/18 10/18/18 10/19/18 1515:00 23:00 07:00 IntakeIntake Total 240 ml 120 ml 240 ml OutputOutput Total 3300 ml BalanceBalance 240 ml -3180 ml 240 ml Exam left arm AV fistula Constitutional: alert, oriented Neck: supple Respiratory: clear to auscultation Cardiovascular: regular rate and rhythm Gastrointestinal: soft Musculoskeletal: muscle weakness, other (left BKA) Extremities: other (right foot amp and dressing) Results Results 24hrs Laboratory Tests Test 10/18/18 12:29 10/18/18 20:23 10/19/18 02:18 10/19/18 04:42 Bedside Glucose 92 84 84 White Blood Count 6.6 # Red Blood Count 3.05 L Hemoglobin 8.1 L Hematocrit 25.8 L Mean Corpuscular 84.6 Volume Mean Corpuscular 26.6 L Hemoglobin Mean Corpuscular 31.4 L Hemoglobin Concent Red Cell 14.0 Distribution Width Platelet Count 115 #L Mean Platelet Volume 10.2 Immature 1.100 H Granulocytes % Neutrophils % 73.9 Lymphocytes % 14.5 L Monocytes % 4.5 Eosinophils % 5.7 Basophils % 0.3 Nucleated Red Blood 0.0 Cells % Immature 0.070 H Granulocytes # Neutrophils # 4.9 Lymphocytes # 1.0 Monocytes # 0.3 Eosinophils # 0.4 Basophils # 0.0 Nucleated Red Blood 0.0 Cells # Test 10/19/18 04:46 10/19/18 08:38 Bedside Glucose 87 72 Medications Medication Current Medications Acetaminophen (Tylenol Tab) 650 mg Q6H PRN PO MILD PAIN(1-3)OR ELEVATED TEMP; Start 10/08/18 at 01:30 Albuterol (Proventil 0.083% (Neb)) 2.5 mg Q6H RESP THERAPY PRN HHN SHORTNESS OF BREATH; Start 10/08/18 at 01:30 Docusate Sodium (Colace) 100 mg BID PRN PO CONSTIPATION; Start 10/08/18 at 01:30 Diagnostic Test (Pha) (Accu-Chek) 1 ea 02 XX Last administered on 10/19/18at 02:19; Admin Dose 1 EA; Start 10/08/18 at 02:00 Miscellaneous Information 1 ea NOTE XX ; Start 10/08/18 at 05:30 Glucose (Glutose) 15 gm Q15M PRN PO DECREASED GLUCOSE; Start 10/08/18 at 05:30 Glucose (Glutose) 22.5 gm Q15M PRN PO DECREASED GLUCOSE; Start 10/08/18 at 05:30 Dextrose (D50w Syringe) 25 ml Q15M PRN IV DECREASED GLUCOSE; Start 10/08/18 at 05:30 Dextrose (D50w Syringe) 50 ml Q15M PRN IV DECREASED GLUCOSE; Start 10/08/18 at 05:30 Glucagon (Glucagen) 1 mg Q15M PRN IM DECREASED GLUCOSE; Start 10/08/18 at 05:30 Glucose (Glutose) 15 gm Q15M PRN BUCCAL DECREASED GLUCOSE; Start 10/08/18 at 05:30 Vancomycin HCl (Vanco Iv Per Pharmacy) VANCOMYCIN PER PHARMACY PER PROTOCOL XX ; Start 10/08/18 at 15:00 Pentoxifylline (Trental) 400 mg WITH MEALS PO Last administered on 10/18/18at 12:35; Admin Dose 400 MG; Start 10/08/18 at 17:35 Pantoprazole (Protonix Tab) 40 mg DAILY@06 PO Last administered on 10/17/18at 06:06; Admin Dose 40 MG; Start 10/09/18 at 06:00 Hydralazine HCl (Apresoline) 10 mg Q6H PRN PO ELEVATED BLOOD PRESSURE Last administered on 10/11/18at 22:01; Admin Dose 10 MG; Start 10/08/18 at 21:30 Ondansetron HCl (Zofran Inj) 4 mg Q6H PRN IV NAUSEA AND/OR VOMITING Last administered on 10/16/18at 22:27; Admin Dose 4 MG; Start 10/08/18 at 23:00 Epoetin Adi-epbx (Retacrit) 6,000 unit TuThSa@1700 SC Last administered on 10/18/18at 20:26; Admin Dose 6,000 UNIT; Start 10/09/18 at 17:00 Triamcinolone Acetonide (Kenalog 0.1% Cr) 1 applic BID PRN TOP itching Last administered on 10/18/18 03:53; Admin Dose 1 APPLIC; Start 10/09/18 at 16:30 Collagenase (Santyl) 1 applic DAILY TOP Last administered on 10/19/18 10:08; Admin Dose 1 APPLIC; Start 10/09/18 at 17:30 Zolpidem Tartrate (Ambien) 5 mg HS PRN PO INSOMNIA Last administered on 10/12/18 21:40; Admin Dose 5 MG; Start 10/10/18 at 00:30 Diphenhydramine HCl (Benadryl) 25 mg Q12 PRN PO ITCHING Last administered on 10/11/18 08:56; Admin Dose 25 MG; Start 10/11/18 at 09:00 Hydralazine HCl (Apresoline) 75 mg Q8 PO Last administered on 10/18/18 22:10; Admin Dose 75 MG; Start 10/12/18 at 14:00 Ondansetron HCl (Zofran Tab) 4 mg Q6H PRN PO NAUSEA AND/OR VOMITING; Start 10/13/18 at 08:30 Amoxicillin/ Clavulanate Potassium (Augmentin) 500 mg DAILY PO Last administe red on 10/19/18 10:06; Admin Dose 500 MG; Start 10/13/18 at 12:00 Lubiprostone (Amitiza) 16 mcg BID PRN PO CONSTIPTION; Start 10/16/18 at 16:30 Morphine Sulfate (morphine) 2 mg Q4H PRN IV SEVERE PAIN LEVEL 7-10 Last administered on 10/19/18 06:17; Admin Dose 2 MG; Start 10/16/18 at 18:52 Lisinopril (Zestril) 40 mg DAILY PO Last administered on 10/19/18 10:06; Admin Dose 40 MG; Start 10/17/18 at 15:00 Lidocaine (Xylocaine 2% (Mdv) 20 ml) 20 ml ONCE PRN INJ Dialysis Last administered on 10/18/18 15:45; Admin Dose 20 ML; Start 10/18/18 at 15:00; Stop 10/19/18 at 14:59 Minoxidil (Loniten) 10 mg BID PO Last administered on 10/19/18 10:06; Admin Dose 10 MG; Start 10/18/18 at 21:00 Insulin Aspart (Novolog Insulin Pen) NOVOLOG *MODERATE* ALGORI... Q4 SC ; Start 10/19/18 at 01:00 Dextrose/Sodium Chloride 1,000 ml @ 40 mls/hr Q24H IV Last administered on 10/19/18at 10:05; Admin Dose 40 MLS/HR; Start 10/19/18 at 10:00 Vancomycin HCl 250 ml @ 125 mls/hr Q96H IVPB ; Start 10/20/18 at 06:00 PATRICIA RIVAS October 19, 2018 11:17
--- NOTE | 2018-10-19 12:56 | CONS ---
Assessment/Plan Assessment/Plan Hospital Course (Demo Recall) Awake, looks comfortable, no fevers Indwelling's left upper extremity AV fistula, RIJ TLC. Antimicrobials: Augmentin PHYSICAL EXAMINATION: GENERAL: Well-developed, ill-appearing, middle-aged man in no distress. HEENT: Head is atraumatic, normocephalic. NECK: Supple. CHEST: Rise symmetrical. Breath sounds diminished to bases. HEART: S1, S2. ABDOMEN: Soft. Bowel tones are present. EXTREMITIES: Right foot gangrene Assessment: 1. Right foot gangrene, s/p amputation of right third toe 2. End-stage renal disease, hemodialysis dependent 3. Chronic diffuse rash==> neg scabies 4. Severe peripheral arterial disease status post left below-knee amputation==s/p balloon angioplasty 08/15/18 5. Coronary artery disease status post cardiac stent 6. Hypertension Plan: Clinically unchanged, continue abx, pending TMA. Pt will likely need to be on abx after surgery Consultation Date/Type/Reason Admit Date/Time October 08, 2018 at 00:02 Initial Consult Date 10/08/18 Type of Consult id Date/Time of Note DATE: 10/19/18 TIME: 12:55 Exam/Review of Systems Exam Vitals Vital Signs Date Temp Pulse Resp B/P (MAP) Pulse Ox O2 O2 Flow FiO2 Time Delivery Rate 10/19/18 98.2 84 18 114/57 100 Room Air 07:25 (76) Intake and Output 10/18/18 10/18/18 10/19/18 1414:59 22:59 06:59 IntakeIntake Total 240 ml 120 ml 240 ml OutputOutput Total 3300 ml BalanceBalance 240 ml -3180 ml 240 ml Results Result Diagram: 10/19/18 0442 10/18/18 0558 Results 24hrs Laboratory Tests Test 10/18/18 20:23 10/19/18 02:18 10/19/18 04:42 10/19/18 04:46 Bedside Glucose 84 84 87 White Blood Count 6.6 # Red Blood Count 3.05 L Hemoglobin 8.1 L Hematocrit 25.8 L Mean Corpuscular 84.6 Volume Mean Corpuscular 26.6 L Hemoglobin Mean Corpuscular 31.4 L Hemoglobin Concent Red Cell 14.0 Distribution Width Platelet Count 115 #L Mean Platelet Volume 10.2 Immature 1.100 H Granulocytes % Neutrophils % 73.9 Lymphocytes % 14.5 L Monocytes % 4.5 Eosinophils % 5.7 Basophils % 0.3 Nucleated Red Blood 0.0 Cells % Immature 0.070 H Granulocytes # Neutrophils # 4.9 Lymphocytes # 1.0 Monocytes # 0.3 Eosinophils # 0.4 Basophils # 0.0 Nucleated Red Blood 0.0 Cells # Test 10/19/18 08:38 Bedside Glucose 72 Medications Medication Current Medications Acetaminophen (Tylenol Tab) 650 mg Q6H PRN PO MILD PAIN(1-3)OR ELEVATED TEMP; Start 10/08/18 at 01:30 Albuterol (Proventil 0.083% (Neb)) 2.5 mg Q6H RESP THERAPY PRN HHN SHORTNESS OF BREATH; Start 10/08/18 at 01:30 Docusate Sodium (Colace) 100 mg BID PRN PO CONSTIPATION; Start 10/08/18 at 01:30 Diagnostic Test (Pha) (Accu-Chek) 1 ea 02 XX Last administered on 10/19/18at 02:19; Admin Dose 1 EA; Start 10/08/18 at 02:00 Miscellaneous Information 1 ea NOTE XX ; Start 10/08/18 at 05:30 Glucose (Glutose) 15 gm Q15M PRN PO DECREASED GLUCOSE; Start 10/08/18 at 05:30 Glucose (Glutose) 22.5 gm Q15M PRN PO DECREASED GLUCOSE; Start 10/08/18 at 05:30 Dextrose (D50w Syringe) 25 ml Q15M PRN IV DECREASED GLUCOSE; Start 10/08/18 at 05:30 Dextrose (D50w Syringe) 50 ml Q15M PRN IV DECREASED GLUCOSE; Start 10/08/18 at 05:30 Glucagon (Glucagen) 1 mg Q15M PRN IM DECREASED GLUCOSE; Start 10/08/18 at 05:30 Glucose (Glutose) 15 gm Q15M PRN BUCCAL DECREASED GLUCOSE; Start 10/08/18 at 05:30 Vancomycin HCl (Vanco Iv Per Pharmacy) VANCOMYCIN PER PHARMACY PER PROTOCOL XX ; Start 10/08/18 at 15:00 Pentoxifylline (Trental) 400 mg WITH MEALS PO Last administered on 10/18/18at 12:35; Admin Dose 400 MG; Start 10/08/18 at 17:35 Pantoprazole (Protonix Tab) 40 mg DAILY@06 PO Last administered on 10/17/18 0 6:06; Admin Dose 40 MG; Start 10/09/18 at 06:00 Hydralazine HCl (Apresoline) 10 mg Q6H PRN PO ELEVATED BLOOD PRESSURE Last administered on 10/11/18 22:01; Admin Dose 10 MG; Start 10/08/18 at 21:30 Ondansetron HCl (Zofran Inj) 4 mg Q6H PRN IV NAUSEA AND/OR VOMITING Last administered on 10/16/18 22:27; Admin Dose 4 MG; Start 10/08/18 at 23:00 Epoetin Adi-epbx (Retacrit) 6,000 unit TuThSa@1700 SC Last administered on 10/18/18 20:26; Admin Dose 6,000 UNIT; Start 10/09/18 at 17:00 Triamcinolone Acetonide (Kenalog 0.1% Cr) 1 applic BID PRN TOP itching Last administered on 10/18/18 03:53; Admin Dose 1 APPLIC; Start 10/09/18 at 16:30 Collagenase (Santyl) 1 applic DAILY TOP Last administered on 10/19/18 10:08; Admin Dose 1 APPLIC; Start 10/09/18 at 17:30 Zolpidem Tartrate (Ambien) 5 mg HS PRN PO INSOMNIA Last administered on 10/12/18 21:40; Admin Dose 5 MG; Start 10/10/18 at 00:30 Diphenhydramine HCl (Benadryl) 25 mg Q12 PRN PO ITCHING Last administered on 10/11/18 08:56; Admin Dose 25 MG; Start 10/11/18 at 09:00 Hydralazine HCl (Apresoline) 75 mg Q8 PO Last administered on 10/18/18 22:10; Admin Dose 75 MG; Start 10/12/18 at 14:00 Ondansetron HCl (Zofran Tab) 4 mg Q6H PRN PO NAUSEA AND/OR VOMITING; Start 10/13/18 at 08:30 Amoxicillin/ Clavulanate Potassium (Augmentin) 500 mg DAILY PO Last administered on 10/19/18 10:06; Admin Dose 500 MG; Start 10/13/18 at 12:00 Lubiprostone (Amitiza) 16 mcg BID PRN PO CONSTIPTION; Start 10/16/18 at 16:30 Morphine Sulfate (morphine) 2 mg Q4H PRN IV SEVERE PAIN LEVEL 7-10 Last administered on 10/19/18at 11:41; Admin Dose 2 MG; Start 10/16/18 at 18:52 Lisinopril (Zestril) 40 mg DAILY PO Last administered on 10/19/18at 10:06; Admin Dose 40 MG; Start 10/17/18 at 15:00 Lidocaine (Xylocaine 2% (Mdv) 20 ml) 20 ml ONCE PRN INJ Dialysis Last administered on 10/18/18at 15:45; Admin Dose 20 ML; Start 10/18/18 at 15:00; Stop 10/19/18 at 14:59 Minoxidil (Loniten) 10 mg BID PO Last administered on 10/19/18at 10:06; Admin Dose 10 MG; Start 10/18/18 at 21:00 Insulin Aspart (Novolog Insulin Pen) NOVOLOG *MODERATE* ALGORI... Q4 SC ; Start 10/19/18 at 01:00 Dextrose/Sodium Chloride 1,000 ml @ 40 mls/hr Q24H IV Last administered on 10/19/18at 10:05; Admin Dose 40 MLS/HR; Start 10/19/18 at 10:00 Vancomycin HCl 250 ml @ 125 mls/hr Q96H IVPB ; Start 10/20/18 at 06:00 DAYSI BHATIA NP October 19, 2018 12:56
[2018-10-19] MEDS ORDERED: PROPOFOL 20 ML ONE (15:57)
[2018-10-19] MEDS ORDERED: EPHEDrine 25 MG/5 ML SYG ONE ×2 (15:57→17:56)
[2018-10-19] MEDS ORDERED: ROCURONIUM 50 MG INJ ONE (15:57)
[2018-10-19] MEDS ORDERED: LIDOCAINE 2% (SDV) 5 ML INJ ONE (15:57)
[2018-10-19] MEDS ORDERED: FENTAnyl 50 MCG/ML VIAL ONE (15:58)
--- NOTE | 2018-10-19 16:24 | HPN ---
Date/Time of Note Date/Time of Note DATE: 10/19/18 TIME: 16:24 Interval H&P Admission Note Pt. seen H&P reviewed: No system changes SHEYLA IZAGUIRRE DPM October 19, 2018 16:24
--- NOTE | 2018-10-19 16:24 | PN ---
Date/Time of Note Date/Time of Note DATE: 10/19/18 TIME: 16:24 Assessment/Plan Lines/Catheters IV Catheter Type (from [facility]): Central Line [place] in Place (from [facility]): No Assessment/Plan Problems: (1) Choledocholithiasis Status: Chronic (2) Diabetes, polyneuropathy (3) Peripheral vascular disease (4) Toe gangrene (5) Acute on chronic cholecystitis (6) Non-pressure chronic ulcer of other part of right foot with necrosis of musc le (7) Acquired absence of other right toe(s) (8) Acquired absence of left leg below knee (9) Non-pressure ulcer of left lower extremity with fat layer exposed (10) Acquired absence of right foot Assessment/Plan Patient is scheduled for surgery today. Orders in the chart. Subjective 24 Hr Interval Summary Patient to surgery today. Pain Control: well controlled Exam/Review of Systems Vital Signs Vitals Vital Signs Date Temp Pulse Resp B/P (MAP) Pulse Ox O2 O2 Flow FiO2 Time Delivery Rate 10/25/18 97.6 86 18 142/67 98 20:00 (92) 10/24/18 Room Air 14:28 Intake and Output 10/24/18 10/24/18 10/25/18 1515:00 23:00 07:00 IntakeIntake Total 850 ml 250 ml 250 ml OutputOutput Total 30 ml 10 ml BalanceBalance 850 ml 220 ml 240 ml Exam Free Text/Dictation Patient is laying supine in bed in no acute distress. Dressings were removed from the right foot. Patient is s/p amputation of his 3rd, 4th and 5th toes. He has gangrene of his second toe and multiple chronic open wounds of the right foot. He is s/p LEFT BKA. There is also posterior heel decubitus ulceration. Patient does not have palpable DP or PT pulses. His temperature gradient is increased and the CFT is significantly delayed. Labs reviewed. Results Result Diagram: 10/24/18 1011 10/24/18 1011 SHEYLA IZAGUIRRE DPM October 19, 2018 16:24
[2018-10-19] MEDS ORDERED: POLYMYXIN/BACITRACIN 1L IRRIG IRR ONE ×2 (17:03→17:47)
[2018-10-19] MEDS ORDERED: BUPIVACAINE 0.5% (SDV) 30 ML INJ ONE (17:30)
--- NOTE | 2018-10-19 17:43 | PAC ---
Date/Time of Note Date/Time of Note DATE: 10/19/18 TIME: 17:43 Post-Anesthesia Notes Post-Anesthesia Note Last documented vital signs Vital Signs Date Temp Pulse Resp B/P (MAP) Pulse Ox O2 O2 Flow FiO2 Time Delivery Rate 10/19/18 97.5 80 16 99/57 (71) 93 Room Air 1747 Activity: WNL Respiratory function: WNL Cardiovascular function: WNL Mental status: Baseline Pain reasonably controlled: Yes Hydration appropriate: Yes Nausea/Vomiting absent: Yes BECCA DAMON October 19, 2018 17:43
[2018-10-19] MEDS ORDERED: KETOROLAC 30 MG INJ IV PRN (18:00)
[2018-10-19] MEDS ORDERED: ALBUTEROL 0.083% (NEB) 2.5 MG/3 ML AMP HHN PRN (18:00)
[2018-10-19] MEDS ORDERED: hydrALAzine 20 MG INJ IV PRN (18:00)
[2018-10-19] MEDS ORDERED: DIPHENHYDRAMINE 50 MG INJ IV PRN (18:00)
[2018-10-19] MEDS ORDERED: FENTAnyl 50 MCG/ML VIAL IV PRN ×3 (18:00)
[2018-10-19] MEDS ORDERED: ONDANSETRON 4 MG INJ IV PRN (18:00)
[2018-10-19] MEDS ORDERED: MEPERIDINE 25 MG INJ IV PRN (18:00)
[2018-10-19] MEDS ORDERED: LABETALOL HCL 20MG INJ IV PRN (18:00)
[2018-10-19] MEDS: EPHEDrine 25 MG/5 ML SYG IV PRN ×2 (18:02→18:11)
--- NOTE | 2018-10-19 18:02 | SIPON ---
Date/Time of Note Date/Time of Note DATE: 10/19/18 TIME: 17:58 Operative Report Preoperative Diagnosis Gangrene of right foot Chronic open wound of the right foot Peripheral vascular disease S/P prior amputation of right 3rd, 4th and 5th toes Gangrene of right second toe Diabetes mellitus Peripheral neuropathy S/P left below the knee amputation Postoperative Diagnosis Gangrene of right foot Chronic open wound of the right foot Peripheral vascular disease S/P prior amputation of right 3rd, 4th and 5th toes Gangrene of right second toe Diabetes mellitus Peripheral neuropathy S/P left below the knee amputation Operation/Procedure Performed Transmetatarsal amputation of the right foot Sharp excisional debridement of chronic open wound of the right foot Application of wound VAC to the right foot Surgeon see signature line vector control assistant None Anesthesia: general Estimated blood loss: 10 - 50 ml's Transfusion Required none Specimen Right forefoot Grafts/Implants none Complications none SHEYLA IZAGUIRRE DPM October 19, 2018 18:02
--- NOTE | 2018-10-19 18:02 | OPR ---
Date/Time of Note Date/Time of Note DATE: 10/19/18 TIME: 18:02 Operative Report Procedure Date: October 19, 2018 Preoperative Diagnosis Gangrene of right foot Chronic open wound of the right foot Peripheral vascular disease S/P prior amputation of right 3rd, 4th and 5th toes Gangrene of right second toe Diabetes mellitus Peripheral neuropathy S/P left below the knee amputation Postoperative Diagnosis Gangrene of right foot Chronic open wound of the right foot Peripheral vascular disease S/P prior amputation of right 3rd, 4th and 5th toes Gangrene of right second toe Diabetes mellitus Peripheral neuropathy S/P left below the knee amputation Operation/Procedure Performed Transmetatarsal amputation of the right foot Excisional debridement of chronic open wound of the right foot Excisional debridement of severe hyperkeratotic skin the right foot Surgeon see signature line Neurophysiology Tech None Anesthesia Type: general Estimated Blood Loss: 0 - 10 ml's Transfusion none Specimen RIGHT gangrenous forefoot Grafts/Implants none Complications none Pt Condition Post Procedure: stable Disposition: PACU Indications This is a 48-year-old male patient who unfortunately has suffered from severe peripheral vascular disease causing significant gangrenous changes in his right foot. He has undergone previous dictation of the third through fifth toes and currently has significant chronic multiple wounds on the right foot. He is also status post below-knee amputation on the left lower extremity secondary to ischemic and gangrenous conditions. Patient has a poor protoplasm and previous attempt at obtaining an IV access prior to surgery on October 12, where all not successful along with an attempt by anesthesia to place a central line. Patient was rescheduled for surgery and a PICC line was ordered and placed. Risks and complications of transmetatarsal amputation of his right foot has been discussed with the patient in great detail. I have expressed my concerns about possible need for further proximal amputation if the current amputation fails. He is at significant high risk for limb loss. Patient acknowledges understanding of the discussion and agrees to the procedure. An informed consent was obtained, signed and placed in the chart. Procedure Description The patient was taken to the operating room and was placed on the operating table in the supine position. Patient was placed under general anesthesia. No tourniquet was used for this case. The right lower extremity was scrubbed, prepped and draped in the usual aseptic manner. Attention was directed to the right foot. I marked my incision on both the dorsal and plantar aspect of the forefoot using a sterile skin marker. A #10 blade was then used to make my incision on the dorsal aspect all the way down to bone. There was no significant bleeding noted throughout the procedure. The small bleeders were cauterized as needed. Next, a #10 blade was used for making an incision on the plantar aspect of the foot all the way down to bone. Again very little bleeding was noted. The small bleeders were cauterized as needed. The metatarsals where cut using a Ricks in the natural parabola approximately to the mid portion of the metatarsal bones. Rough edges were smoothed using a power rasp. All necrotic soft tissue and ligamentous structures were sharply debrided. The amputated forefoot was then passed to the back table. Next, copious months of sterile normal saline was used to irrigate the wound. The wound was then prepped for closure. The deep subcutaneous tissue was closed usi ng 3-0 Vicryl suture. Skin was closed without tension using 0 Prolene in simple suture technique. Next, attention was directed to the chronic lateral wound. Using a #10 blade, the bulk of the necrotic soft tissue and hyperkeratosis was sharply debrided. A versa jet was utilized for fine debridement to bleeding subcutaneous tissue. The posterior heel wound was also debrided in similar manner. Next, all wounds were flushed with copious muscle sterile normal saline. Wound VAC was applied to the chronic lateral wound of the right foot and set to 125 mmHg pressure. The remaining incisions were then closed with sterile dressing. I injected the right ankle with 20 cc of Marcaine plain 0.5% postoperatively. The patient tolerated the procedure and anesthesia well. He was transferred to recovery with vital signs stable and vascular status intact to the remaining right foot. Patient will be sent back to the floor after postoperative monitoring. Patient is to remain nonweightbearing on the right foot. The wound VAC is to be changed every 48 hours. SHEYLA IZAGUIRRE DPM October 19, 2018 18:02
[2018-10-19] MEDS ORDERED: ALBUMIN HUMAN 5% 250 ML ONE (18:22)
[2018-10-19] MEDS ORDERED: ALBUMIN HUMAN 5% 250 ML IV ONE (19:00)
[2018-10-20] MEDS: ACCU-CHEK XX SCH (02:00)
[2018-10-20] MEDS: morphine 2 MG INJ IV PRN ×4 (02:13→21:05)
[2018-10-20 02:18] VITALS: BP 125/95; PULSE 88; RESP 18
[2018-10-20] MEDS ORDERED: VANCOMYCIN 1 GM 250 ML IVPB SCH (06:00)
[2018-10-20] MEDS: PANTOPRAZOLE (EC) 40 MG TAB PO SCH (06:00)
[2018-10-20] MEDS: PENTOXIFYLLINE (SR) 400 MG TAB PO SCH ×3 (07:35→18:39)
--- NOTE | 2018-10-20 08:57 | PN ---
Date/Time of Note Date/Time of Note DATE: 10/20/18 TIME: 08:56 Assessment/Plan VTE Prophylaxis Risk score (from Ns)>0 risk: 6 SCD applied (from [facility] [place] No SCD contraindicated: bilateral amputee Pharmacological prophylaxis: NA/contraindicated Pharm contraindication: surgical contra Lines/Catheters IV Catheter Type (from [facility]): Central Line Central line still needed: Yes Urinary Cath still in place: No Assessment/Plan Hospital Course 1. Right diabetic foot ulcer with osteomyelitis evident on the x-ray. S/p metatarsal amputation 10/[address] Millard 2. Peripheral vascular disease status post angioplasty. 3. Some vomiting, some right rib pain status post fall, resolved. 4. Hypertension. 5. End-stage renal disease on hemodialysis. 6. Anemia. 7. Hyperlipidemia. 8. Diabetes mellitus type II. 9. End-stage renal disease on hemodialysis. 10. Coronary artery disease, status post stents. 11. History of tracheostomy. 11. Left arm AV fistula Assessment/Plan - for wound care for case management -c/w HD, one today - hd TTS, 1 unit transfusion with HD - pain control with morphine - cw hydralazine 75 q 8, cw lisinopril, add minoxidil - ID to determine a/b for D/C -cw Epogen - GI/DVT prophylaxis Result Diagram: 10/20/18 0542 10/20/18 0542 Results 24hrs Laboratory Tests Test 10/19/18 13:15 10/19/18 15:35 10/19/18 20:26 10/20/18 05:42 Bedside Glucose 75 80 Prothrombin Time 15.2 H Prothrombin Time 1.2 Ratio INR International 1.19 Normalized Ratio Activated 68.5 H Partial Thromboplast Time White Blood Count 6.7 Red Blood Count 2.89 L Hemoglobin 7.7 L Hematocrit 24.8 L Mean Corpuscular 85.8 Volume Mean Corpuscular 26.6 L Hemoglobin Mean Corpuscular 31.0 L Hemoglobin Concent Red Cell 14.2 Distribution Width Platelet Count 82 #L Mean Platelet Volume 9.9 Immature 0.800 H Granulocytes % Neutrophils % 79.2 H Lymphocytes % 11.1 L Monocytes % 5.0 Eosinophils % 3.6 Basophils % 0.3 Nucleated Red Blood 0.0 Cells % Immature 0.050 H Granulocytes # Neutrophils # 5.3 Lymphocytes # 0.7 L Monocytes # 0.3 Eosinophils # 0.2 Basophils # 0.0 Nucleated Red Blood 0.0 Cells # Sodium Level 141 Potassium Level 4.8 Chloride Level 103 Carbon Dioxide Level 25 Anion Gap 13 Blood Urea Nitrogen 52 H Creatinine 5.70 H Est Glomerular 13 L Filtrat Rate mL/min Glucose Level 83 Calcium Level 8.8 Subjective 24 Hr Interval Summary Free Text/Dictation sleeping Constitutional: no complaints Exam/Review of Systems Exam Vitals Vital Signs Date Temp Pulse Resp B/P (MAP) Pulse Ox O2 O2 Flow FiO2 Time Delivery Rate 10/20/18 97.6 88 18 125/95 99 02:18 (105) 10/19/18 Room Air 18:08 Intake and Output 10/19/18 10/19/18 10/20/18 1515:00 23:00 07:00 IntakeIntake Total 500 ml 240 ml OutputOutput Total 52 ml BalanceBalance 448 ml 240 ml Exam left arm AV fistula Constitutional: alert, oriented Head: normocephalic ENMT: nl external ears & nose Neck: supple Respiratory: clear to auscultation Cardiovascular: regular rate and rhythm Gastrointestinal: soft Musculoskeletal: other (left BKA, right foot partial amputation surgical dressing with wound vac) Results Results 24hrs Laboratory Tests Test 10/19/18 13:15 10/19/18 15:35 10/19/18 20:26 10/20/18 05:42 Bedside Glucose 75 80 Prothrombin Time 15.2 H Prothrombin Time 1.2 Ratio INR International 1.19 Normalized Ratio Activated 68.5 H Partial Thromboplast Time White Blood Count 6.7 Red Blood Count 2.89 L Hemoglobin 7.7 L Hematocrit 24.8 L Mean Corpuscular 85.8 Volume Mean Corpuscular 26.6 L Hemoglobin Mean Corpuscular 31.0 L Hemoglobin Concent Red Cell 14.2 Distribution Width Platelet Count 82 #L Mean Platelet Volume 9.9 Immature 0.800 H Granulocytes % Neutrophils % 79.2 H Lymphocytes % 11.1 L Monocytes % 5.0 Eosinophils % 3.6 Basophils % 0.3 Nucleated Red Blood 0.0 Cells % Immature 0.050 H Granulocytes # Neutrophils # 5.3 Lymphocytes # 0.7 L Monocytes # 0.3 Eosinophils # 0.2 Basophils # 0.0 Nucleated Red Blood 0.0 Cells # Sodium Level 141 Potassium Level 4.8 Chloride Level 103 Carbon Dioxide Level 25 Anion Gap 13 Blood Urea Nitrogen 52 H Creatinine 5.70 H Est Glomerular 13 L Filtrat Rate mL/min Glucose Level 83 Calcium Level 8.8 Medications Medication Current Medications Acetaminophen (Tylenol Tab) 650 mg Q6H PRN PO MILD PAIN(1-3)OR ELEVATED TEMP; Start 10/08/18 at 01:30 Albuterol (Proventil 0.083% (Neb)) 2.5 mg Q6H RESP THERAPY PRN HHN SHORTNESS OF BREATH; Start 10/08/18 at 01:30 Docusate Sodium (Colace) 100 mg BID PRN PO CONSTIPATION; Start 10/08/18 at 01:30 Diagnostic Test (Pha) (Accu-Chek) 1 ea 02 XX Last administered on 10/19/18at 02:19; Admin Dose 1 EA; Start 10/08/18 at 02:00 Miscellaneous Information 1 ea NOTE XX ; Start 10/08/18 at 05:30 Glucose (Glutose) 15 gm Q15M PRN PO DECREASED GLUCOSE; Start 10/08/18 at 05:30 Glucose (Glutose) 22.5 gm Q15M PRN PO DECREASED GLUCOSE; Start 10/08/18 at 05:30 Dextrose (D50w Syringe) 25 ml Q15M PRN IV DECREASED GLUCOSE; Start 10/08/18 at 05:30 Dextrose (D50w Syringe) 50 ml Q15M PRN IV DECREASED GLUCOSE; Start 10/08/18 at 05:30 Glucagon (Glucagen) 1 mg Q15M PRN IM DECREASED GLUCOSE; Start 10/08/18 at 05:30 Glucose (Glutose) 15 gm Q15M PRN BUCCAL DECREASED GLUCOSE; Start 10/08/18 at 05:30 Vancomycin HCl (Vanco Iv Per Pharmacy) VANCOMYCIN PER PHARMACY PER PROTOCOL XX ; Start 10/08/18 at 15:00 Pentoxifylline (Trental) 400 mg WITH MEALS PO Last administered on 10/18/18at 12:35; Admin Dose 400 MG; Start 10/08/18 at 17:35 Pantoprazole (Protonix Tab) 40 mg DAILY@06 PO Last administered on 10/17/18at 06:06; Admin Dose 40 MG; Start 10/09/18 at 06:00 Hydralazine HCl (Apresoline) 10 mg Q6H PRN PO ELEVATED BLOOD PRESSURE Last administered on 10/11/18 22:01; Admin Dose 10 MG; Start 10/08/18 at 21:30 Ondansetron HCl (Zofran Inj) 4 mg Q6H PRN IV NAUSEA AND/OR VOMITING Last administered on 10/16/18 22:27; Admin Dose 4 MG; Start 10/08/18 at 23:00 Epoetin Adi-epbx (Retacrit) 6,000 unit TuThSa@1700 SC Last administered on 10/18/18 20:26; Admin Dose 6,000 UNIT; Start 10/09/18 at 17:00 Triamcinolone Acetonide (Kenalog 0.1% Cr) 1 applic BID PRN TOP itching Last administered on 10/18/18 03:53; Admin Dose 1 APPLIC; Start 10/09/18 at 16:30 Collagenase (Santyl) 1 applic DAILY TOP Last administered on 10/19/18 10:08; Admin Dose 1 APPLIC; Start 10/09/18 at 17:30 Zolpidem Tartrate (Ambien) 5 mg HS PRN PO INSOMNIA Last administered on 10/12/18 21:40; Admin Dose 5 MG; Start 10/10/18 at 00:30 Diphenhydramine HCl (Benadryl) 25 mg Q12 PRN PO ITCHING Last administered on 10/11/18 08:56; Admin Dose 25 MG; Start 10/11/18 at 09:00 Hydralazine HCl (Apresoline) 75 mg Q8 PO Last administered on 10/18/18 22:10; Admin Dose 75 MG; Start 10/12/18 at 14:00 Ondansetron HCl (Zofran Tab) 4 mg Q6H PRN PO NAUSEA AND/OR VOMITING; Start 10/13/18 at 08:30 Amoxicillin/ Clavulanate Potassium (Augmentin) 500 mg DAILY PO Last administered on 10/19/18 10:06; Admin Dose 500 MG; Start 10/13/18 at 12:00 Lubiprostone (Amitiza) 16 mcg BID PRN PO CONSTIPTION; Start 10/16/18 at 16:30 Morphine Sulfate (morphine) 2 mg Q4H PRN IV SEVERE PAIN LEVEL 7-10 Last administered on 5/18/19at 06:15; Admin Dose 2 MG; Start 10/16/18 at 18:52 Lisinopril (Zestril) 40 mg DAILY PO Last administered on 10/19/18at 10:06; Admin Dose 40 MG; Start 10/17/18 at 15:00 Minoxidil (Loniten) 10 mg BID PO Last administered on 10/19/18at 20:21; Admin Dose 10 MG; Start 10/18/18 at 21:00 Vancomycin HCl 250 ml @ 125 mls/hr Q96H IVPB Last administered on 10/20/18at 05:31; Admin Dose 125 MLS/HR; Start 10/20/18 at 06:00 Ketorolac Tromethamine (Toradol) 30 mg PACU ORDER PRN IV FOR PAIN AFTER IV NARCOTIC MED; Start 10/19/18 at 18:00 PATRICIA RIVAS October 20, 2018 08:57
[2018-10-20] MEDS: LISINOPRIL 20 MG TAB PO SCH (09:00)
[2018-10-20] MEDS: COLLAGENASE 5 GM (UD JAR) TOP SCH (09:00)
[2018-10-20] MEDS: AMOXICILLIN/CLAV 500 MG TAB PO SCH (09:00)
[2018-10-20] MEDS: MINOXIDIL 10 MG TAB PO SCH (09:00)
--- NOTE | 2018-10-20 14:27 | CONS ---
Consultation Date/Type/Reason Admit Date/Time October 08, 2018 at 00:02 Initial Consult Date 10/08/18 Type of Consult SUBJECTIVE: Pt is awake, looks comfortable, no fevers. ==S/P Rt foot TMA yesterday. VS: stable T: 97.6 LABS: Reviewed. WBC- 6.7 Indwelling's left upper extremity AV fistula, RIJ TLC. Antimicrobials: Augmentin, Vanco PHYSICAL EXAMINATION: GENERAL: Well-developed, ill-appearing, middle-aged man in no distress. HEENT: Head is atraumatic, normocephalic. NECK: Supple. CHEST: Rise symmetrical. Breath sounds diminished to bases. HEART: S1, S2. ABDOMEN: Soft. Bowel tones are present. EXTREMITIES: Right foot gangrene Assessment: 1. Right foot gangrene, s/p amputation of right third toe 2. End-stage renal disease, hemodialysis dependent 3. Chronic diffuse rash==> neg scabies 4. Severe peripheral arterial disease status post left below-knee amputation==s/p balloon angioplasty 08/15/18 5. Coronary artery disease status post cardiac stent 6. Hypertension Plan: Clinically unchanged. Continue current abx,. Local wound care per podiatry. Pain management S/P TMA Rt foot. Date/Time of Note DATE: 10/20/18 TIME: 14:24 Exam/Review of Systems Exam Vitals Vital Signs Date Temp Pulse Resp B/P (MAP) Pulse Ox O2 O2 Flow FiO2 Time Delivery Rate 10/20/18 97.6 88 18 125/95 99 02:18 (105) 10/19/18 Room Air 18:08 Intake and Output 10/19/18 10/19/18 10/20/18 1515:00 23:00 07:00 IntakeIntake Total 500 ml 240 ml OutputOutput Total 52 ml BalanceBalance 448 ml 240 ml Results Result Diagram: 10/20/18 0542 10/20/18 0542 Results 24hrs Laboratory Tests Test 10/19/18 15:35 10/19/18 20:26 10/20/18 05:42 Prothrombin Time 15.2 H Prothrombin Time Ratio 1.2 INR International Normalized Ratio 1.19 Activated Partial Thromboplast Time 68.5 H Bedside Glucose 80 White Blood Count 6.7 Red Blood Count 2.89 L Hemoglobin 7.7 L Hematocrit 24.8 L Mean Corpuscular Volume 85.8 Mean Corpuscular Hemoglobin 26.6 L Mean Corpuscular Hemoglobin Concent 31.0 L Red Cell Distribution Width 14.2 Platelet Count 82 #L Mean Platelet Volume 9.9 Immature Granulocytes % 0.800 H Neutrophils % 79.2 H Lymphocytes % 11.1 L Monocytes % 5.0 Eosinophils % 3.6 Basophils % 0.3 Nucleated Red Blood Cells % 0.0 Immature Granulocytes # 0.050 H Neutrophils # 5.3 Lymphocytes # 0.7 L Monocytes # 0.3 Eosinophils # 0.2 Basophils # 0.0 Nucleated Red Blood Cells # 0.0 Sodium Level 141 Potassium Level 4.8 Chloride Level 103 Carbon Dioxide Level 25 Anion Gap 13 Blood Urea Nitrogen 52 H Creatinine 5.70 H Est Glomerular Filtrat Rate mL/min 13 L Glucose Level 83 Calcium Level 8.8 Medications Medication Current Medications Acetaminophen (Tylenol Tab) 650 mg Q6H PRN PO MILD PAIN(1-3)OR ELEVATED TEMP; Start 10/08/18 at 01:30 Albuterol (Proventil 0.083% (Neb)) 2.5 mg Q6H RESP THERAPY PRN HHN SHORTNESS OF BREATH; Start 10/08/18 at 01:30 Docusate Sodium (Colace) 100 mg BID PRN PO CONSTIPATION; Start 10/08/18 at 01:30 Diagnostic Test (Pha) (Accu-Chek) 1 ea 02 XX Last administered on 10/19/18at 02:19; Admin Dose 1 EA; Start 10/08/18 at 02:00 Miscellaneous Information 1 ea NOTE XX ; Start 10/08/18 at 05:30 Glucose (Glutose) 15 gm Q15M PRN PO DECREASED GLUCOSE; Start 10/08/18 at 05:30 Glucose (Glutose) 22.5 gm Q15M PRN PO DECREASED GLUCOSE; Start 10/08/18 at 05:30 Dextrose (D50w Syringe) 25 ml Q15M PRN IV DECREASED GLUCOSE; Start 10/08/18 at 05:30 Dextrose (D50w Syringe) 50 ml Q15M PRN IV DECREASED GLUCOSE; Start 10/08/18 at 05:30 Glucagon (Glucagen) 1 mg Q15M PRN IM DECREASED GLUCOSE; Start 10/08/18 at 05:30 Glucose (Glutose) 15 gm Q15M PRN BUCCAL DECREASED GLUCOSE; Start 10/08/18 at 05:30 Vancomycin HCl (Vanco Iv Per Pharmacy) VANCOMYCIN PER PHARMACY PER PROTOCOL XX ; Start 10/08/18 at 15:00 Pentoxifylline (Trental) 400 mg WITH MEALS PO Last administered on 10/18/18 12:35; Admin Dose 400 MG; Start 10/08/18 at 17:35 Pantoprazole (Protonix Tab) 40 mg DAILY@06 PO Last administered on 10/17/18 06:06; Admin Dose 40 MG; Start 10/09/18 at 06:00 Hydralazine HCl (Apresoline) 10 mg Q6H PRN PO ELEVATED BLOOD PRESSURE Last administered on 10/11/18 22:01; Admin Dose 10 MG; Start 10/08/18 at 21:30 Ondansetron HCl (Zofran Inj) 4 mg Q6H PRN IV NAUSEA AND/OR VOMITING Last administered on 10/16/18 22:27; Admin Dose 4 MG; Start 10/08/18 at 23:00 Epoetin Adi-epbx (Retacrit) 6,000 unit TuThSa@1700 SC Last administered on 10/18/18 20:26; Admin Dose 6,000 UNIT; Start 10/09/18 at 17:00 Triamcinolone Acetonide (Kenalog 0.1% Cr) 1 applic BID PRN TOP itching Last administered on 10/18/18 03:53; Admin Dose 1 APPLIC; Start 10/09/18 at 16:30 Collagenase (Santyl) 1 applic DAILY TOP Last administered on 10/19/18 10:08; Admin Dose 1 APPLIC; Start 10/09/18 at 17:30 Zolpidem Tartrate (Ambien) 5 mg HS PRN PO INSOMNIA Last administered on 10/12/18 21:40; Admin Dose 5 MG; Start 10/10/18 at 00:30 Diphenhydramine HCl (Benadryl) 25 mg Q12 PRN PO ITCHING Last administered on 10/11/18 08:56; Admin Dose 25 MG; Start 10/11/18 at 09:00 Hydralazine HCl (Apresoline) 75 mg Q8 PO Last administered on 10/18/18 22:10; Admin Dose 75 MG; Start 10/12/18 at 14:00 Ondansetron HCl (Zofran Tab) 4 mg Q6H PRN PO NAUSEA AND/OR VOMITING; Start 10/13/18 at 08:30 Amoxicillin/ Clavulanate Potassium (Augmentin) 500 mg DAILY PO Last administered on 10/19/18at 10:06; Admin Dose 500 MG; Start 10/13/18 at 12:00 Lubiprostone (Amitiza) 16 mcg BID PRN PO CONSTIPTION; Start 10/16/18 at 16:30 Morphine Sulfate (morphine) 2 mg Q4H PRN IV SEVERE PAIN LEVEL 7-10 Last administered on 10/20/18at 13:19; Admin Dose 2 MG; Start 10/16/18 at 18:52 Lisinopril (Zestril) 40 mg DAILY PO Last administered on 10/19/18at 10:06; Admin Dose 40 MG; Start 10/17/18 at 15:00 Minoxidil (Loniten) 10 mg BID PO Last administered on 10/19/18at 20:21; Admin Dose 10 MG; Start 10/18/18 at 21:00 Vancomycin HCl 250 ml @ 125 mls/hr Q96H IVPB Last administered on 10/20/18at 05:31; Admin Dose 125 MLS/HR; Start 10/20/18 at 06:00 Ketorolac Tromethamine (Toradol) 30 mg PACU ORDER PRN IV FOR PAIN AFTER IV NARCOTIC MED; Start 10/19/18 at 18:00 CHELA ENCARNACION October 20, 2018 14:27
[2018-10-20 14:52] VITALS: BP 100/53; PULSE 95; RESP 16
[2018-10-20 20:00] VITALS: BP 94/52; PULSE 94; RESP 17
[2018-10-20] MEDS: INSULIN ASPART [NOVOLOG] 3 ML PEN SC SCH (21:00)
[2018-10-20 23:40] VITALS: BP 106/49; PULSE 94
[2018-10-20 23:55] VITALS: BP 90/48; PULSE 95
[2018-10-21] VITALS (16 sets, daily range): BP systolic 87–137; BP diastolic 46–62; PULSE 89–108; RESP 16–18
[2018-10-21] MEDS: ACCU-CHEK XX SCH (02:00)
[2018-10-21] MEDS: EPOETIN ALFA-EPBX (ESRD) 3,000 UNIT/ML VIAL SC SCH (02:56)
[2018-10-21] MEDS: MINOXIDIL 10 MG TAB PO SCH ×3 (03:02→20:51)
[2018-10-21] MEDS: PANTOPRAZOLE (EC) 40 MG TAB PO SCH (05:48)
[2018-10-21] MEDS: morphine 2 MG INJ IV PRN ×2 (07:24→15:35)
[2018-10-21] MEDS: COLLAGENASE 5 GM (UD JAR) TOP SCH (07:50)
[2018-10-21] MEDS: INSULIN ASPART [NOVOLOG] 3 ML PEN SC SCH ×4 (08:00→20:54)
[2018-10-21] MEDS: LISINOPRIL 20 MG TAB PO SCH (08:47)
[2018-10-21] MEDS: AMOXICILLIN/CLAV 500 MG TAB PO SCH (08:47)
[2018-10-21] MEDS: PENTOXIFYLLINE (SR) 400 MG TAB PO SCH ×3 (08:47→17:41)
--- NOTE | 2018-10-21 09:03 | CONS ---
Assessment/Plan Assessment/Plan Hospital Course (Demo Recall) Pt is s/p R TMA, per dw Dr Millard will need 4 weeks abx, will f/u wound cx Consultation Date/Type/Reason Admit Date/Time October 08, 2018 at 00:02 Initial Consult Date 10/08/18 Type of Consult id Date/Time of Note DATE: 10/21/18 TIME: 09:02 Exam/Review of Systems Exam Vitals Vital Signs Date Temp Pulse Resp B/P (MAP) Pulse Ox O2 O2 Flow FiO2 Time Delivery Rate 10/21/18 99.1 108 16 137/62 98 08:37 (87) 10/21/18 Room Air 00:59 Intake and Output 10/20/18 10/20/18 10/21/18 1515:00 23:00 07:00 IntakeIntake Total 250 ml 1600 ml OutputOutput Total 3500 ml BalanceBalance 250 ml 1600 ml -3500 ml Results Result Diagram: 10/20/18 0542 10/20/18 0542 Results 24hrs Laboratory Tests Test 10/20/18 20:10 10/21/18 06:51 10/21/18 08:17 Bedside Glucose 81 72 Lab Scanned Report BLOOD TRANSFUSION Medications Medication Current Medications Acetaminophen (Tylenol Tab) 650 mg Q6H PRN PO MILD PAIN(1-3)OR ELEVATED TEMP; Start 10/08/18 at 01:30 Albuterol (Proventil 0.083% (Neb)) 2.5 mg Q6H RESP THERAPY PRN HHN SHORTNESS OF BREATH; Start 10/08/18 at 01:30 Docusate Sodium (Colace) 100 mg BID PRN PO CONSTIPATION; Start 10/08/18 at 01:30 Diagnostic Test (Pha) (Accu-Chek) 1 ea 02 XX Last administered on 10/19/18at 02:19; Admin Dose 1 EA; Start 10/08/18 at 02:00 Miscellaneous Information 1 ea NOTE XX ; Start 10/08/18 at 05:30 Glucose (Glutose) 15 gm Q15M PRN PO DECREASED GLUCOSE; Start 10/08/18 at 05:30 Glucose (Glutose) 22.5 gm Q15M PRN PO DECREASED GLUCOSE; Start 10/08/18 at 05:30 Dextrose (D50w Syringe) 25 ml Q15M PRN IV DECREASED GLUCOSE; Start 10/08/18 at 05:30 Dextrose (D50w Syringe) 50 ml Q15M PRN IV DECREASED GLUCOSE; Start 10/08/18 at 05:30 Glucagon (Glucagen) 1 mg Q15M PRN IM DECREASED GLUCOSE; Start 10/08/18 at 05:30 Glucose (Glutose) 15 gm Q15M PRN BUCCAL DECREASED GLUCOSE; Start 10/08/18 at 05:30 Vancomycin HCl (Vanco Iv Per Pharmacy) VANCOMYCIN PER PHARMACY PER PROTOCOL XX ; Start 10/08/18 at 15:00 Pentoxifylline (Trental) 400 mg WITH MEALS PO Last administered on 10/21/18 08:47; Admin Dose 400 MG; Start 10/08/18 at 17:35 Pantoprazole (Protonix Tab) 40 mg DAILY@06 PO Last administered on 10/17/18 06:06; Admin Dose 40 MG; Start 10/09/18 at 06:00 Hydralazine HCl (Apresoline) 10 mg Q6H PRN PO ELEVATED BLOOD PRESSURE Last administered on 10/11/18 22:01; Admin Dose 10 MG; Start 10/08/18 at 21:30 Ondansetron HCl (Zofran Inj) 4 mg Q6H PRN IV NAUSEA AND/OR VOMITING Last administered on 10/16/18 22:27; Admin Dose 4 MG; Start 10/08/18 at 23:00 Triamcinolone Acetonide (Kenalog 0.1% Cr) 1 applic BID PRN TOP itching Last administered on 10/18/18 03:53; Admin Dose 1 APPLIC; Start 10/09/18 at 16:30 Collagenase (Santyl) 1 applic DAILY TOP Last administered on 10/19/18 10:08; Admin Dose 1 APPLIC; Start 10/09/18 at 17:30 Zolpidem Tartrate (Ambien) 5 mg HS PRN PO INSOMNIA Last administered on 10/12/18 21:40; Admin Dose 5 MG; Start 10/10/18 at 00:30 Diphenhydramine HCl (Benadryl) 25 mg Q12 PRN PO ITCHING Last administered on 10/11/18 08:56; Admin Dose 25 MG; Start 10/11/18 at 09:00 Hydralazine HCl (Apresoline) 75 mg Q8 PO Last administered on 10/18/18 22:10; Admin Dose 75 MG; Start 10/12/18 at 14:00 Ondansetron HCl (Zofran Tab) 4 mg Q6H PRN PO NAUSEA AND/OR VOMITING; Start 10/13/18 at 08:30 Amoxicillin/ Clavulanate Potassium (Augmentin) 500 mg DAILY PO Last administered on 10/21/18 08:47; Admin Dose 500 MG; Start 10/13/18 at 12:00 Lubiprostone (Amitiza) 16 mcg BID PRN PO CONSTIPTION; Start 10/16/18 at 16:30 Morphine Sulfate (morphine) 2 mg Q4H PRN IV SEVERE PAIN LEVEL 7-10 Last administered on 10/21/18 07:24; Admin Dose 2 MG; Start 10/16/18 at 18:52 Lisinopril (Zestril) 40 mg DAILY PO Last administered on 10/21/18 08:47; Admin Dose 40 MG; Start 10/17/18 at 15:00 Minoxidil (Loniten) 10 mg BID PO Last administered on 10/21/18 08:47; Admin Dose 10 MG; Start 10/18/18 at 21:00 Vancomycin HCl 250 ml @ 125 mls/hr Q96H IVPB Last administered on 10/20/18 05:31; Admin Dose 125 MLS/HR; Start 10/20/18 at 06:00 Ketorolac Tromethamine (Toradol) 30 mg PACU ORDER PRN IV FOR PAIN AFTER IV NARCOTIC MED; Start 10/19/18 at 18:00 Epoetin Adi-epbx (Retacrit (Esrd)) 6,000 unit TuThSa@1700 SC Last administered on 10/21/18 02:56; Admin Dose 6,000 UNIT; Start 10/20/18 at 18:36 Insulin Aspart (Novolog Insulin Pen) NOVOLOG *MILD* ALGORITHM WITH MEALS BEDTIME SC ; Start 10/20/18 at 21:00 DAYSI BHATIA NP October 21, 2018 09:03
--- NOTE | 2018-10-21 11:25 | PN ---
Date/Time of Note Date/Time of Note DATE: 10/21/18 TIME: 11:23 Assessment/Plan VTE Prophylaxis Risk score (from Nsg)>0 risk: 8 SCD applied (from Ns): No SCD contraindicated: low risk/ambulating Pharmacological prophylaxis: NA/contraindicated Pharm contraindication: surgical contra Lines/Catheters IV Catheter Type (from Nrsg): Central Line Central line still needed: Yes Urinary Cath still in place: No Assessment/Plan Hospital Course 1. Right diabetic foot ulcer with osteomyelitis evident on the x-ray. S/p metatarsal amputation 10/[address] Millard 2. Peripheral vascular disease status post angioplasty. 3. Some vomiting, some right rib pain status post fall, resolved. 4. Hypertension. 5. End-stage renal disease on hemodialysis. 6. Anemia. 7. Hyperlipidemia. 8. Diabetes mellitus type II. 9. End-stage renal disease on hemodialysis. 10. Coronary artery disease, status post stents. 11. History of tracheostomy. 11. Left arm AV fistula Assessment/Plan - for wound care for case management, 4 weeks IV in HD center -c/w HD, -s/p blood transfusion - hd TTS, -wound vac - pain control with morphine - cw hydralazine 75 q 8, cw lisinopril, add minoxidil - ID to determine a/b for D/C -cw Epogen - GI/DVT prophylaxis Result Diagram: 10/20/18 0542 10/20/18 0542 Results 24hrs Laboratory Tests Test 10/20/18 20:10 10/21/18 06:51 10/21/18 08:17 Bedside Glucose 81 72 Lab Scanned Report BLOOD TRANSFUSION Subjective 24 Hr Interval Summary Constitutional: no complaints, improved Exam/Review of Systems Exam Vitals Vital Signs Date Temp Pulse Resp B/P (MAP) Pulse Ox O2 O2 Flow FiO2 Time Delivery Rate 10/21/18 99.1 108 16 137/62 98 08:37 (87) 10/21/18 Room Air 00:59 Intake and Output 10/20/18 10/20/18 10/21/18 1515:00 23:00 07:00 IntakeIntake Total 250 ml 1600 ml OutputOutput Total 3500 ml BalanceBalance 250 ml 1600 ml -3500 ml Exam left arm AV fistula Constitutional: alert, oriented Neck: supple Respiratory: clear to auscultation, normal air movement Cardiovascular: regular rate and rhythm Gastrointestinal: soft Extremities: other (left leg BKA, right foot metatarsal amp. wound vak) Results Results 24hrs Laboratory Tests Test 10/20/18 20:10 10/21/18 06:51 10/21/18 08:17 Bedside Glucose 81 72 Lab Scanned Report BLOOD TRANSFUSION Medications Medication Current Medications Acetaminophen (Tylenol Tab) 650 mg Q6H PRN PO MILD PAIN(1-3)OR ELEVATED TEMP; Start 10/08/18 at 01:30 Albuterol (Proventil 0.083% (Neb)) 2.5 mg Q6H RESP THERAPY PRN HHN SHORTNESS OF BREATH; Start 10/08/18 at 01:30 Docusate Sodium (Colace) 100 mg BID PRN PO CONSTIPATION; Start 10/08/18 at 01:30 Diagnostic Test (Pha) (Accu-Chek) 1 ea 02 XX Last administered on 10/19/18at 02:19; Admin Dose 1 EA; Start 10/08/18 at 02:00 Miscellaneous Information 1 ea NOTE XX ; Start 10/08/18 at 05:30 Glucose (Glutose) 15 gm Q15M PRN PO DECREASED GLUCOSE; Start 10/08/18 at 05:30 Glucose (Glutose) 22.5 gm Q15M PRN PO DECREASED GLUCOSE; Start 10/08/18 at 05:30 Dextrose (D50w Syringe) 25 ml Q15M PRN IV DECREASED GLUCOSE; Start 10/08/18 at 05:30 Dextrose (D50w Syringe) 50 ml Q15M PRN IV DECREASED GLUCOSE; Start 10/08/18 at 05:30 Glucagon (Glucagen) 1 mg Q15M PRN IM DECREASED GLUCOSE; Start 10/08/18 at 05:30 Glucose (Glutose) 15 gm Q15M PRN BUCCAL DECREASED GLUCOSE; Start 10/08/18 at 05:30 Vancomycin HCl (Vanco Iv Per Pharmacy) VANCOMYCIN PER PHARMACY PER PROTOCOL XX ; Start 10/08/18 at 15:00 Pentoxifylline (Trental) 400 mg WITH MEALS PO Last administered on 10/21/18at 08:47; Admin Dose 400 MG; Start 10/08/18 at 17:35 Pantoprazole (Protonix Tab) 40 mg DAILY@06 PO Last administered on 10/17/18at 06:06; Admin Dose 40 MG; Start 10/09/18 at 06:00 Hydralazine HCl (Apresoline) 10 mg Q6H PRN PO ELEVATED BLOOD PRESSURE Last administered on 10/11/18 22:01; Admin Dose 10 MG; Start 10/08/18 at 21:30 Ondansetron HCl (Zofran Inj) 4 mg Q6H PRN IV NAUSEA AND/OR VOMITING Last administered on 10/16/18 22:27; Admin Dose 4 MG; Start 10/08/18 at 23:00 Triamcinolone Acetonide (Kenalog 0.1% Cr) 1 applic BID PRN TOP itching Last administered on 10/18/18 03:53; Admin Dose 1 APPLIC; Start 10/09/18 at 16:30 Collagenase (Santyl) 1 applic DAILY TOP Last administered on 10/19/18 10:08; Admin Dose 1 APPLIC; Start 10/09/18 at 17:30 Zolpidem Tartrate (Ambien) 5 mg HS PRN PO INSOMNIA Last administered on 10/12/18 21:40; Admin Dose 5 MG; Start 10/10/18 at 00:30 Diphenhydramine HCl (Benadryl) 25 mg Q12 PRN PO ITCHING Last administered on 10/11/18 08:56; Admin Dose 25 MG; Start 10/11/18 at 09:00 Hydralazine HCl (Apresoline) 75 mg Q8 PO Last administered on 10/18/18 22:10; Admin Dose 75 MG; Start 10/12/18 at 14:00 Ondansetron HCl (Zofran Tab) 4 mg Q6H PRN PO NAUSEA AND/OR VOMITING; Start 10/13/18 at 08:30 Amoxicillin/ Clavulanate Potassium (Augmentin) 500 mg DAILY PO Last administered on 10/21/18 08:47; Admin Dose 500 MG; Start 10/13/18 at 12:00 Lubiprostone (Amitiza) 16 mcg BID PRN PO CONSTIPTION; Start 10/16/18 at 16:30 Morphine Sulfate (morphine) 2 mg Q4H PRN IV SEVERE PAIN LEVEL 7-10 Last administered on 10/21/18 07:24; Admin Dose 2 MG; Start 10/16/18 at 18:52 Lisinopril (Zestril) 40 mg DAILY PO Last administered on 10/21/18at 08:47; Admin Dose 40 MG; Start 10/17/18 at 15:00 Minoxidil (Loniten) 10 mg BID PO Last administered on 10/21/18 08:47; Admin Dose 10 MG; Start 10/18/18 at 21:00 Vancomycin HCl 250 ml @ 125 mls/hr Q96H IVPB Last administered on 10/20/18at 05:31; Admin Dose 125 MLS/HR; Start 10/20/18 at 06:00 Ketorolac Tromethamine (Toradol) 30 mg PACU ORDER PRN IV FOR PAIN AFTER IV NARCOTIC MED; Start 10/19/18 at 18:00 Epoetin Adi-epbx (Retacrit (Esrd)) 6,000 unit TuThSa@1700 SC Last administered on 10/21/18at 02:56; Admin Dose 6,000 UNIT; Start 10/20/18 at 18:36 Insulin Aspart (Novolog Insulin Pen) NOVOLOG *MILD* ALGORITHM WITH MEALS BEDTIME SC ; Start 10/20/18 at 21:00 PATRICIA RIVAS October 21, 2018 11:25
--- NOTE | 2018-10-21 12:05 | CONS ---
Consultation Date/Type/Reason Admit Date/Time October 08, 2018 at 00:02 Initial Consult Date 10/08/18 Type of Consult SUBJECTIVE: Pt is awake, looks comfortable, no fevers. ==S/P Rt foot TMA 10/20/18. VS: stable T: 99.1 LABS: Reviewed. Indwelling's left upper extremity AV fistula, RIJ TLC. Antimicrobials: Augmentin, Vanco, Diflucan PHYSICAL EXAMINATION: GENERAL: Well-developed, ill-appearing, middle-aged man in no distress. HEENT: Head is atraumatic, normocephalic. NECK: Supple. CHEST: Rise symmetrical. Breath sounds diminished to bases. HEART: S1, S2. ABDOMEN: Soft. Bowel tones are present. EXTREMITIES: Right foot gangrene Assessment: 1. Right foot gangrene, s/p amputation of right third toe 2. End-stage renal disease, hemodialysis dependent 3. Chronic diffuse rash==> neg scabies 4. Severe peripheral arterial disease status post left below-knee amputation==s/p balloon angioplasty 08/15/18 5. Coronary artery disease status post cardiac stent 6. Hypertension Plan: Clinically unchanged. Continue current abx,. Local wound care per podiatry. Pain management S/P TMA Rt foot. Per d/w Dr Millard, pt will need 4 weeks of abx,. Will f/u wound cx Date/Time of Note DATE: 10/21/18 TIME: 12:03 Exam/Review of Systems Exam Vitals Vital Signs Date Temp Pulse Resp B/P (MAP) Pulse Ox O2 O2 Flow FiO2 Time Delivery Rate 10/21/18 99.1 108 16 137/62 98 08:37 (87) 10/21/18 Room Air 00:59 Intake and Output 10/20/18 10/20/18 10/21/18 1515:00 23:00 07:00 IntakeIntake Total 250 ml 1600 ml OutputOutput Total 3500 ml BalanceBalance 250 ml 1600 ml -3500 ml Results Result Diagram: 10/20/18 0542 10/20/18 0542 Results 24hrs Laboratory Tests Test 10/20/18 20:10 10/21/18 06:51 10/21/18 08:17 Bedside Glucose 81 72 Lab Scanned Report BLOOD TRANSFUSION Medications Medication Current Medications Acetaminophen (Tylenol Tab) 650 mg Q6H PRN PO MILD PAIN(1-3)OR ELEVATED TEMP; Start 10/08/18 at 01:30 Albuterol (Proventil 0.083% (Neb)) 2.5 mg Q6H RESP THERAPY PRN HHN SHORTNESS OF BREATH; Start 10/08/18 at 01:30 Docusate Sodium (Colace) 100 mg BID PRN PO CONSTIPATION; Start 10/08/18 at 01:30 Diagnostic Test (Pha) (Accu-Chek) 1 ea 02 XX Last administered on 10/19/18at 02:19; Admin Dose 1 EA; Start 10/08/18 at 02:00 Miscellaneous Information 1 ea NOTE XX ; Start 10/08/18 at 05:30 Glucose (Glutose) 15 gm Q15M PRN PO DECREASED GLUCOSE; Start 10/08/18 at 05:30 Glucose (Glutose) 22.5 gm Q15M PRN PO DECREASED GLUCOSE; Start 10/08/18 at 05:30 Dextrose (D50w Syringe) 25 ml Q15M PRN IV DECREASED GLUCOSE; Start 10/08/18 at 05:30 Dextrose (D50w Syringe) 50 ml Q15M PRN IV DECREASED GLUCOSE; Start 10/08/18 at 05:30 Glucagon (Glucagen) 1 mg Q15M PRN IM DECREASED GLUCOSE; Start 10/08/18 at 05:30 Glucose (Glutose) 15 gm Q15M PRN BUCCAL DECREASED GLUCOSE; Start 10/08/18 at 05:30 Vancomycin HCl (Vanco Iv Per Pharmacy) VANCOMYCIN PER PHARMACY PER PROTOCOL XX ; Start 10/08/18 at 15:00 Pentoxifylline (Trental) 400 mg WITH MEALS PO Last administered on 10/21/18at 08:47; Admin Dose 400 MG; Start 10/08/18 at 17:35 Pantoprazole (Protonix Tab) 40 mg DAILY@06 PO Last administered on 10/17/18at 06:06; Admin Dose 40 MG; Start 10/09/18 at 06:00 Hydralazine HCl (Apresoline) 10 mg Q6H PRN PO ELEVATED BLOOD PRESSURE Last administered on 10/11/18at 22:01; Admin Dose 10 MG; Start 10/08/18 at 21:30 Ondansetron HCl (Zofran Inj) 4 mg Q6H PRN IV NAUSEA AND/OR VOMITING Last admi nistered on 10/16/18 22:27; Admin Dose 4 MG; Start 10/08/18 at 23:00 Triamcinolone Acetonide (Kenalog 0.1% Cr) 1 applic BID PRN TOP itching Last administered on 10/18/18 03:53; Admin Dose 1 APPLIC; Start 10/09/18 at 16:30 Collagenase (Santyl) 1 applic DAILY TOP Last administered on 10/19/18 10:08; Admin Dose 1 APPLIC; Start 10/09/18 at 17:30 Zolpidem Tartrate (Ambien) 5 mg HS PRN PO INSOMNIA Last administered on 10/12/18 21:40; Admin Dose 5 MG; Start 10/10/18 at 00:30 Diphenhydramine HCl (Benadryl) 25 mg Q12 PRN PO ITCHING Last administered on 10/11/18 08:56; Admin Dose 25 MG; Start 10/11/18 at 09:00 Hydralazine HCl (Apresoline) 75 mg Q8 PO Last administered on 10/18/18 22:10; Admin Dose 75 MG; Start 10/12/18 at 14:00 Ondansetron HCl (Zofran Tab) 4 mg Q6H PRN PO NAUSEA AND/OR VOMITING; Start 10/13/18 at 08:30 Amoxicillin/ Clavulanate Potassium (Augmentin) 500 mg DAILY PO Last admi nistered on 10/21/18 08:47; Admin Dose 500 MG; Start 10/13/18 at 12:00 Lubiprostone (Amitiza) 16 mcg BID PRN PO CONSTIPTION; Start 10/16/18 at 16:30 Morphine Sulfate (morphine) 2 mg Q4H PRN IV SEVERE PAIN LEVEL 7-10 Last administered on 10/21/18 07:24; Admin Dose 2 MG; Start 10/16/18 at 18:52 Lisinopril (Zestril) 40 mg DAILY PO Last administered on 10/21/18 08:47; Admin Dose 40 MG; Start 10/17/18 at 15:00 Minoxidil (Loniten) 10 mg BID PO Last administered on 10/21/18 08:47; Admin Dose 10 MG; Start 10/18/18 at 21:00 Vancomycin HCl 250 ml @ 125 mls/hr Q96H IVPB Last administered on 10/20/18at 05:31; Admin Dose 125 MLS/HR; Start 10/20/18 at 06:00 Ketorolac Tromethamine (Toradol) 30 mg PACU ORDER PRN IV FOR PAIN AFTER IV NARCOTIC MED; Start 10/19/18 at 18:00 Epoetin Adi-epbx (Retacrit (Esrd)) 6,000 unit TuThSa@1700 SC Last administered on 10/21/18at 02:56; Admin Dose 6,000 UNIT; Start 10/20/18 at 18:36 Insulin Aspart (Novolog Insulin Pen) NOVOLOG *MILD* ALGORITHM WITH MEALS BEDT PHYLLIS SC ; Start 10/20/18 at 21:00 CHELA ENCARNACION October 21, 2018 12:05
[2018-10-22] MEDS: ACCU-CHEK XX SCH (01:53)
[2018-10-22] MEDS: morphine 2 MG INJ IV PRN ×4 (04:02→20:46)
[2018-10-22] MEDS: PANTOPRAZOLE (EC) 40 MG TAB PO SCH (05:11)
[2018-10-22] MEDS ORDERED: SODIUM POLYSTYRENE 15 GM KIT (POWDER + SORBITOL) PO ONE (07:30)
[2018-10-22 08:00] VITALS: BP 127/60; PULSE 85; RESP 17
[2018-10-22] MEDS: INSULIN ASPART [NOVOLOG] 3 ML PEN SC SCH ×4 (08:00→20:41)
[2018-10-22] MEDS: AMOXICILLIN/CLAV 500 MG TAB PO SCH (08:28)
[2018-10-22] MEDS: PENTOXIFYLLINE (SR) 400 MG TAB PO SCH ×3 (08:28→17:15)
[2018-10-22] MEDS: MINOXIDIL 10 MG TAB PO SCH ×2 (08:29→20:42)
[2018-10-22] MEDS: COLLAGENASE 5 GM (UD JAR) TOP SCH (08:29)
[2018-10-22] MEDS: LISINOPRIL 20 MG TAB PO SCH (08:30)
[2018-10-22] MEDS: LEVOFLOXACIN 250 MG TAB PO SCH (12:05)
[2018-10-22 14:00] VITALS: BP 104/52; PULSE 88; RESP 17
--- NOTE | 2018-10-22 14:03 | CONS ---
Assessment/Plan Assessment/Plan Hospital Course (Demo Recall) Awake, looks comfortable, no fevers Indwelling's: left upper extremity AV fistula, RIJ TLC. Antimicrobials: Vanco Levaquin Intraoperative culture positive for Bacteroides fragilis, Serratia, enterococcus, alpha hemolytic strep species PHYSICAL EXAMINATION: GENERAL: Well-developed, ill-appearing, middle-aged man in no distress. HEENT: Head is atraumatic, normocephalic. NECK: Supple. CHEST: Rise symmetrical. Breath sounds diminished to bases. HEART: S1, S2. ABDOMEN: Soft. Bowel tones are present. EXTREMITIES: Right foot gangrene Assessment: 1. Right foot gangrene, s/p TMA 2. End-stage renal disease, hemodialysis dependent 3. Chronic diffuse rash==> neg scabies 4. Severe peripheral arterial disease status post left below-knee amputation==s/p balloon angioplasty 08/15/18 5. Coronary artery disease status post cardiac stent 6. Hypertension Plan: Stable, will add Flagyl for anaerobic coverage, continue on current antibiotics for [address] [place] Consultation Date/Type/Reason Admit Date/Time October 08, 2018 at 00:02 Initial Consult Date 10/08/18 Type of Consult id Date/Time of Note DATE: 10/22/18 TIME: 14:02 Exam/Review of Systems Exam Vitals Vital Signs Date Temp Pulse Resp B/P (MAP) Pulse Ox O2 O2 Flow FiO2 Time Delivery Rate 10/22/18 98.0 85 17 127/60 99 Room Air 08:00 (82) Intake and Output 10/21/18 10/21/18 10/22/18 1515:00 23:00 07:00 IntakeIntake Total 360 ml 480 ml 300 ml BalanceBalance 360 ml 480 ml 300 ml Results Result Diagram: 10/22/18 0437 10/22/18 0437 Results 24hrs Laboratory Tests Test 10/21/18 17:40 10/21/18 20:49 10/22/18 04:37 10/22/18 08:24 Bedside Glucose 76 95 71 White Blood Count 9.7 # Red Blood Count 2.68 L Hemoglobin 7.2 L Hematocrit 22.9 L Mean Corpuscular 85.4 Volume Mean Corpuscular 26.9 L Hemoglobin Mean Corpuscular 31.4 L Hemoglobin Concent Red Cell 14.6 H Distribution Width Platelet Count 103 #L Mean Platelet Volume 10.8 H Immature 0.500 H Granulocytes % Neutrophils % 79.0 H Lymphocytes % 9.2 L Monocytes % 9.0 Eosinophils % 2.1 Basophils % 0.2 Nucleated Red Blood 0.0 Cells % Immature 0.050 H Granulocytes # Neutrophils # 7.7 H Lymphocytes # 0.9 Monocytes # 0.9 Eosinophils # 0.2 Basophils # 0.0 Nucleated Red Blood 0.0 Cells # Sodium Level 138 Potassium Level 5.4 H Chloride Level 102 Carbon Dioxide Level 23 Anion Gap 13 Blood Urea Nitrogen 52 H Creatinine 5.81 H Est Glomerular 13 L Filtrat Rate mL/min Glucose Level 74 Calcium Level 9.0 Test 10/22/18 12:00 Bedside Glucose 96 Medications Medication Current Medications Acetaminophen (Tylenol Tab) 650 mg Q6H PRN PO MILD PAIN(1-3)OR ELEVATED TEMP; Start 10/08/18 at 01:30 Albuterol (Proventil 0.083% (Neb)) 2.5 mg Q6H RESP THERAPY PRN HHN SHORTNESS OF BREATH; Start 10/08/18 at 01:30 Docusate Sodium (Colace) 100 mg BID PRN PO CONSTIPATION; Start 10/08/18 at 01:30 Diagnostic Test (Pha) (Accu-Chek) 1 ea 02 XX Last administered on 10/19/18at 02:19; Admin Dose 1 EA; Start 10/08/18 at 02:00 Miscellaneous Information 1 ea NOTE XX ; Start 10/08/18 at 05:30 Glucose (Glutose) 15 gm Q15M PRN PO DECREASED GLUCOSE; Start 10/08/18 at 05:30 Glucose (Glutose) 22.5 gm Q15M PRN PO DECREASED GLUCOSE; Start 10/08/18 at 05:30 Dextrose (D50w Syringe) 25 ml Q15M PRN IV DECREASED GLUCOSE; Start 10/08/18 at 05:30 Dextrose (D50w Syringe) 50 ml Q15M PRN IV DECREASED GLUCOSE; Start 10/08/18 at 0 5:30 Glucagon (Glucagen) 1 mg Q15M PRN IM DECREASED GLUCOSE; Start 10/08/18 at 05:30 Glucose (Glutose) 15 gm Q15M PRN BUCCAL DECREASED GLUCOSE; Start 10/08/18 at 05:30 Vancomycin HCl (Vanco Iv Per Pharmacy) VANCOMYCIN PER PHARMACY PER PROTOCOL XX ; Start 10/08/18 at 15:00 Pentoxifylline (Trental) 400 mg WITH MEALS PO Last administered on 10/22/18 12:05; Admin Dose 400 MG; Start 10/08/18 at 17:35 Pantoprazole (Protonix Tab) 40 mg DAILY@06 PO Last administered on 10/17/18 06:06; Admin Dose 40 MG; Start 10/09/18 at 06:00 Hydralazine HCl (Apresoline) 10 mg Q6H PRN PO ELEVATED BLOOD PRESSURE Last administered on 10/11/18 22:01; Admin Dose 10 MG; Start 10/08/18 at 21:30 Ondansetron HCl (Zofran Inj) 4 mg Q6H PRN IV NAUSEA AND/OR VOMITING Last administered on 10/16/18 22:27; Admin Dose 4 MG; Start 10/08/18 at 23:00 Triamcinolone Acetonide (Kenalog 0.1% Cr) 1 applic BID PRN TOP itching Last a dministered on 10/18/18 03:53; Admin Dose 1 APPLIC; Start 10/09/18 at 16:30 Collagenase (Santyl) 1 applic DAILY TOP Last administered on 10/19/18 10:08; Admin Dose 1 APPLIC; Start 10/09/18 at 17:30 Zolpidem Tartrate (Ambien) 5 mg HS PRN PO INSOMNIA Last administered on 10/12/18 21:40; Admin Dose 5 MG; Start 10/10/18 at 00:30 Diphenhydramine HCl (Benadryl) 25 mg Q12 PRN PO ITCHING Last administered on 10/11/18 08:56; Admin Dose 25 MG; Start 10/11/18 at 09:00 Hydralazine HCl (Apresoline) 75 mg Q8 PO Last administered on 10/22/18 13:45; Admin Dose 75 MG; Start 10/12/18 at 14:00 Ondansetron HCl (Zofran Tab) 4 mg Q6H PRN PO NAUSEA AND/OR VOMITING; Start 10/13/18 at 08:30 Lubiprostone (Amitiza) 16 mcg BID PRN PO CONSTIPTION; Start 10/16/18 at 16:30 Morphine Sulfate (morphine) 2 mg Q4H PRN IV SEVERE PAIN LEVEL 7-10 Last administered on 10/22/18at 13:45; Admin Dose 2 MG; Start 10/16/18 at 18:52 Lisinopril (Zestril) 40 mg DAILY PO Last administered on 10/22/18 08:30; Admin Dose 40 MG; Start 10/17/18 at 15:00 Minoxidil (Loniten) 10 mg BID PO Last administered on 10/22/18 08:29; Admin Dose 10 MG; Start 10/18/18 at 21:00 Vancomycin HCl 250 ml @ 125 mls/hr Q96H IVPB Last administered on 10/20/18 05:31; Admin Dose 125 MLS/HR; Start 10/20/18 at 06:00 Ketorolac Tromethamine (Toradol) 30 mg PACU ORDER PRN IV FOR PAIN AFTER IV NARCOTIC MED; Start 10/19/18 at 18:00 Epoetin Adi-epbx (Retacrit (Esrd)) 6,000 unit TuThSa@1700 SC Last administered on 10/21/18at 02:56; Admin Dose 6,000 UNIT; Start 10/20/18 at 18:36 Insulin Aspart (Novolog Insulin Pen) NOVOLOG *MILD* ALGORITHM WITH MEALS BEDTIME SC ; Start 10/20/18 at 21:00 Levofloxacin (Levaquin) 250 mg Q48H PO Last administered on 10/22/18at 12:05; Admin Dose 250 MG; Start 10/22/18 at 11:30 DAYSI BHATIA NP October 22, 2018 14:03
--- NOTE | 2018-10-22 16:27 | PN ---
Date/Time of Note Date/Time of Note DATE: 10/22/18 TIME: 16:26 Assessment/Plan VTE Prophylaxis Risk score (from Ns)>0 risk: 7 SCD applied (from [facility] [place]): No SCD contraindicated: low risk/ambulating Pharmacological prophylaxis: NA/contraindicated Pharm contraindication: low risk/ambulating Lines/Catheters IV [facility] ([facility] Central Line Central line still needed: Yes Urinary Cath still in place: No Assessment/Plan Hospital Course 48-year-old male with: 1. Right diabetic foot ulcer with osteomyelitis evident on the x-ray.sp Transmetatarsal amputation of the right foot Sharp excisional debridement of chronic open wound of the right foot Application of wound VAC to the right foot 2. With peripheral vascular disease status post angioplasty. 3. Some vomiting, some right rib pain status post fall. 4. Hypertension. 5. End-stage renal disease on hemodialysis. 6. Anemia. 7. Hyperlipidemia. 8. Diabetes. 9. End-stage renal disease on hemodialysis. 10. Coronary artery disease, status post stents. 11. History of tracheostomy. PLAN - sp transmetatarsak amputation, left message for Dr Millard to sign wound vac papers -kayexalte - hd TTS, - pain control with morphine - cw hydralzine 75 q8, cw lisnopril, cw minoxidil cw epogen - GI/DVT prophylaxsis dc planning Result Diagram: 10/22/187 10/22/18436 Results 24hrs Laboratory Tests Test 10/21/18 17:40 10/21/18 20:49 10/22/18 04:37 10/22/18 08:24 Bedside Glucose 76 95 71 White Blood Count 9.7 # Red Blood Count 2.68 L Hemoglobin 7.2 L Hematocrit 22.9 L Mean Corpuscular 85.4 Volume Mean Corpuscular 26.9 L Hemoglobin Mean Corpuscular 31.4 L Hemoglobin Concent Red Cell 14.6 H Distribution Width Platelet Count 103 #L Mean Platelet Volume 10.8 H Immature 0.500 H Granulocytes % Neutrophils % 79.0 H Lymphocytes % 9.2 L Monocytes % 9.0 Eosinophils % 2.1 Basophils % 0.2 Nucleated Red Blood 0.0 Cells % Immature 0.050 H Granulocytes # Neutrophils # 7.7 H Lymphocytes # 0.9 Monocytes # 0.9 Eosinophils # 0.2 Basophils # 0.0 Nucleated Red Blood 0.0 Cells # Sodium Level 138 Potassium Level 5.4 H Chloride Level 102 Carbon Dioxide Level 23 Anion Gap 13 Blood Urea Nitrogen 52 H Creatinine 5.81 H Est Glomerular 13 L Filtrat Rate mL/min Glucose Level 74 Calcium Level 9.0 Test 10/22/18 12:00 Bedside Glucose 96 Subjective 24 Hr Interval Summary Free Text/Dictation on wound vac Exam/Review of Systems Exam Vitals Vital Signs Date Temp Pulse Resp B/P (MAP) Pulse Ox O2 O2 Flow FiO2 Time Delivery Rate 10/22/18 98.0 85 17 127/60 99 Room Air 08:00 (82) Intake and Output 10/21/18 10/21/18 10/22/18 1414:59 22:59 06:59 IntakeIntake Total 360 ml 480 ml 300 ml BalanceBalance 360 ml 480 ml 300 ml Exam ft arm AV fistula Constitutional: alert, oriented Neck: supple Respiratory: clear to auscultation, normal air movement Cardiovascular: regular rate and rhythm Gastrointestinal: soft Extremities: other (left leg BKA, right foot metatarsal amp. wound vak) Results Results 24hrs Laboratory Tests Test 10/21/18 17:40 10/21/18 20:49 10/22/18 04:37 10/22/18 08:24 Bedside Glucose 76 95 71 White Blood Count 9.7 # Red Blood Count 2.68 L Hemoglobin 7.2 L Hematocrit 22.9 L Mean Corpuscular 85.4 Volume Mean Corpuscular 26.9 L Hemoglobin Mean Corpuscular 31.4 L Hemoglobin Concent Red Cell 14.6 H Distribution Width Platelet Count 103 #L Mean Platelet Volume 10.8 H Immature 0.500 H Granulocytes % Neutrophils % 79.0 H Lymphocytes % 9.2 L Monocytes % 9.0 Eosinophils % 2.1 Basophils % 0.2 Nucleated Red Blood 0.0 Cells % Immature 0.050 H Granulocytes # Neutrophils # 7.7 H Lymphocytes # 0.9 Monocytes # 0.9 Eosinophils # 0.2 Basophils # 0.0 Nucleated Red Blood 0.0 Cells # Sodium Level 138 Potassium Level 5.4 H Chloride Level 102 Carbon Dioxide Level 23 Anion Gap 13 Blood Urea Nitrogen 52 H Creatinine 5.81 H Est Glomerular 13 L Filtrat Rate mL/min Glucose Level 74 Calcium Level 9.0 Test 10/22/18 12:00 Bedside Glucose 96 Medications Medication Current Medications Acetaminophen (Tylenol Tab) 650 mg Q6H PRN PO MILD PAIN(1-3)OR ELEVATED TEMP; Start 10/08/18 at 01:30 Albuterol (Proventil 0.083% (Neb)) 2.5 mg Q6H RESP THERAPY PRN HHN SHORTNESS OF BREATH; Start 10/08/18 at 01:30 Docusate Sodium (Colace) 100 mg BID PRN PO CONSTIPATION; Start 10/08/18 at 01:30 Diagnostic Test (Pha) (Accu-Chek) 1 ea 02 XX Last administered on 10/19/18at 02:19; Admin Dose 1 EA; Start 10/08/18 at 02:00 Miscellaneous Information 1 ea NOTE XX ; Start 10/08/18 at 05:30 Glucose (Glutose) 15 gm Q15M PRN PO DECREASED GLUCOSE; Start 10/08/18 at 05:30 Glucose (Glutose) 22.5 gm Q15M PRN PO DECREASED GLUCOSE; Start 10/08/18 at 05:30 Dextrose (D50w Syringe) 25 ml Q15M PRN IV DECREASED GLUCOSE; Start 10/08/18 at 05:30 Dextrose (D50w Syringe) 50 ml Q15M PRN IV DECREASED GLUCOSE; Start 10/08/18 at 05:30 Glucagon (Glucagen) 1 mg Q15M PRN IM DECREASED GLUCOSE; Start 10/08/18 at 05:30 Glucose (Glutose) 15 gm Q15M PRN BUCCAL DECREASED GLUCOSE; Start 10/08/18 at 05:30 Vancomycin HCl (Vanco Iv Per Pharmacy) VANCOMYCIN PER PHARMACY PER PROTOCOL XX ; Start 10/08/18 at 15:00 Pentoxifylline (Trental) 400 mg WITH MEALS PO Last administered on 10/22/18at 12:05; Admin Dose 400 MG; Start 10/08/18 at 17:35 Pantoprazole (Protonix Tab) 40 mg DAILY@06 PO Last administered on 10/17/18at 06:06; Admin Dose 40 MG; Start 10/09/18 at 06:00 Hydralazine HCl (Apresoline) 10 mg Q6H PRN PO ELEVATED BLOOD PRESSURE Last administered on 10/11/18at 22:01; Admin Dose 10 MG; Start 10/08/18 at 21:30 Ondansetron HCl (Zofran Inj) 4 mg Q6H PRN IV NAUSEA AND/OR VOMITING Last administered on 10/16/18 22:27; Admin Dose 4 MG; Start 10/08/18 at 23:00 Triamcinolone Acetonide (Kenalog 0.1% Cr) 1 applic BID PRN TOP itching Last administered on 10/18/18 03:53; Admin Dose 1 APPLIC; Start 10/09/18 at 16:30 Collagenase (Santyl) 1 applic DAILY TOP Last administered on 10/19/18 10:08; Admin Dose 1 APPLIC; Start 10/09/18 at 17:30 Zolpidem Tartrate (Ambien) 5 mg HS PRN PO INSOMNIA Last administered on 10/12/18 21:40; Admin Dose 5 MG; Start 10/10/18 at 00:30 Diphenhydramine HCl (Benadryl) 25 mg Q12 PRN PO ITCHING Last administered on 10/11/18 08:56; Admin Dose 25 MG; Start 10/11/18 at 09:00 Hydralazine HCl (Apresoline) 75 mg Q8 PO Last administered on 10/22/18 13:45; Admin Dose 75 MG; Start 10/12/18 at 14:00 Ondansetron HCl (Zofran Tab) 4 mg Q6H PRN PO NAUSEA AND/OR VOMITING; Start 10/13/18 at 08:30 Lubiprostone (Amitiza) 16 mcg BID PRN PO CONSTIPTION; Start 10/16/18 at 16:30 Morphine Sulfate (morphine) 2 mg Q4H PRN IV SEVERE PAIN LEVEL 7-10 Last administered on 10/22/18 13:45; Admin Dose 2 MG; Start 10/16/18 at 18:52 Lisinopril (Zestril) 40 mg DAILY PO Last administered on 10/22/18 08:30; Admin Dose 40 MG; Start 10/17/18 at 15:00 Minoxidil (Loniten) 10 mg BID PO Last administered on 10/22/18 08:29; Admin Dose 10 MG; Start 10/18/18 at 21:00 Vancomycin HCl 250 ml @ 125 mls/hr Q96H IVPB Last administered on 10/20/18 05:31; Admin Dose 125 MLS/HR; Start 10/20/18 at 06:00 Ketorolac Tromethamine (Toradol) 30 mg PACU ORDER PRN IV FOR PAIN AFTER IV NARCOTIC MED; Start 10/19/18 at 18:00 Epoetin Adi-epbx (Retacrit (Esrd)) 6,000 unit TuThSa@1700 SC Last administered on 10/21/18at 02:56; Admin Dose 6,000 UNIT; Start 10/20/18 at 18:36 Insulin Aspart (Novolog Insulin Pen) NOVOLOG *MILD* ALGORITHM WITH MEALS BEDTIME SC ; Start 10/20/18 at 21:00 Levofloxacin (Levaquin) 250 mg Q48H PO Last administered on 10/22/18at 12:05; Admin Dose 250 MG; Start 10/22/18 at 11:30 Metronidazole (Flagyl) 500 mg Q8 PO ; Start 10/22/18 at 22:00 HASEEB MAYA MD October 22, 2018 16:26
[2018-10-22 20:13] VITALS: BP 128/63; PULSE 90; RESP 18
[2018-10-22] MEDS: metroNIDAZOLE 500 MG TAB PO SCH (21:55)
[2018-10-22] MEDS ORDERED: COLLAGENASE 5 GM (UD JAR) TOP ONE (23:00)
[2018-10-23] VITALS (19 sets, daily range): BP systolic 100–177; BP diastolic 53–75; PULSE 78–94; RESP 16–20
[2018-10-23] MEDS: ACCU-CHEK XX SCH (01:40)
[2018-10-23] MEDS: metroNIDAZOLE 500 MG TAB PO SCH ×3 (05:20→21:47)
[2018-10-23] MEDS: PANTOPRAZOLE (EC) 40 MG TAB PO SCH (05:20)
[2018-10-23] MEDS: PENTOXIFYLLINE (SR) 400 MG TAB PO SCH ×3 (07:35→17:35)
[2018-10-23] MEDS: INSULIN ASPART [NOVOLOG] 3 ML PEN SC SCH ×4 (08:00→21:00)
[2018-10-23] MEDS: MINOXIDIL 10 MG TAB PO SCH ×2 (09:00→21:00)
[2018-10-23] MEDS: LISINOPRIL 20 MG TAB PO SCH (09:00)
--- NOTE | 2018-10-23 13:02 | CONS ---
Assessment/Plan Assessment/Plan Hospital Course (Demo Recall) All noted, no acute events Indwelling's: left upper extremity AV fistula, RIJ TLC. Antimicrobials: Vanco Levaquin Flagyl Intraoperative culture positive for Bacteroides fragilis, Serratia, enterococcus, alpha hemolytic strep species PHYSICAL EXAMINATION: GENERAL: Well-developed, ill-appearing, middle-aged man in no distress. HEENT: Head is atraumatic, normocephalic. NECK: Supple. CHEST: Rise symmetrical. Breath sounds diminished to bases. HEART: S1, S2. ABDOMEN: Soft. Bowel tones are present. EXTREMITIES: Right foot gangrene Assessment: 1. Right foot gangrene, s/p TMA 2. End-stage renal disease, hemodialysis dependent 3. Chronic diffuse rash==> neg scabies 4. Severe peripheral arterial disease status post left below-knee amputation==s/p balloon angioplasty 08/15/18 5. Coronary artery disease status post cardiac stent 6. Hypertension Plan: Stable, continue on current antibiotics for 4 weeks, wound care per podiatry. Last dose abx November 18 I Consultation Date/Type/Reason Admit Date/Time October 08, 2018 at 00:02 Initial Consult Date 10/08/18 Type of Consult id Date/Time of Note DATE: 10/23/18 TIME: 13:01 Exam/Review of Systems Exam Vitals Vital Signs Date Temp Pulse Resp B/P (MAP) Pulse Ox O2 O2 Flow FiO2 Time Delivery Rate 10/23/18 97.9 84 18 100/54 97 Room Air 07:30 (69) Intake and Output 10/22/18 10/22/18 10/23/18 1515:00 23:00 07:00 IntakeIntake Total 360 ml 500 ml BalanceBalance 360 ml 500 ml Results Result Diagram: 10/22/18 0437 10/22/18 0437 Results 24hrs Laboratory Tests Test 10/22/18 17:14 10/22/18 20:41 10/23/18 08:26 10/23/18 12:45 Bedside Glucose 97 80 72 63 L Medications Medication Current Medications Acetaminophen (Tylenol Tab) 650 mg Q6H PRN PO MILD PAIN(1-3)OR ELEVATED TEMP; Start 10/08/18 at 01:30 Albuterol (Proventil 0.083% (Neb)) 2.5 mg Q6H RESP THERAPY PRN HHN SHORTNESS OF BREATH; Start 10/08/18 at 01:30 Docusate Sodium (Colace) 100 mg BID PRN PO CONSTIPATION; Start 10/08/18 at 01:30 Diagnostic Test (Pha) (Accu-Chek) 1 ea 02 XX Last administered on 10/19/18at 02:19; Admin Dose 1 EA; Start 10/08/18 at 02:00 Miscellaneous Information 1 ea NOTE XX ; Start 10/08/18 at 05:30 Glucose (Glutose) 15 gm Q15M PRN PO DECREASED GLUCOSE; Start 10/08/18 at 05:30 Glucose (Glutose) 22.5 gm Q15M PRN PO DECREASED GLUCOSE; Start 10/08/18 at 05:30 Dextrose (D50w Syringe) 25 ml Q15M PRN IV DECREASED GLUCOSE; Start 10/08/18 at 05:30 Dextrose (D50w Syringe) 50 ml Q15M PRN IV DECREASED GLUCOSE; Start 10/08/18 at 05:30 Glucagon (Glucagen) 1 mg Q15M PRN IM DECREASED GLUCOSE; Start 10/08/18 at 05:30 Glucose (Glutose) 15 gm Q15M PRN BUCCAL DECREASED GLUCOSE; Start 10/08/18 at 05:30 Vancomycin HCl (Vanco Iv Per Pharmacy) VANCOMYCIN PER PHARMACY PER PROTOCOL XX ; Start 10/08/18 at 15:00 Pentoxifylline (Trental) 400 mg WITH MEALS PO Last administered on 10/22/18at 17:15; Admin Dose 400 MG; Start 10/08/18 at 17:35 Pantoprazole (Protonix Tab) 40 mg DAILY@06 PO Last administered on 10/17/18at 06:06; Admin Dose 40 MG; Start 10/09/18 at 06:00 Hydralazine HCl (Apresoline) 10 mg Q6H PRN PO ELEVATED BLOOD PRESSURE Last administered on 10/11/18at 22:01; Admin Dose 10 MG; Start 10/08/18 at 21:30 Ondansetron HCl (Zofran Inj) 4 mg Q6H PRN IV NAUSEA AND/OR VOMITING Last administered on 10/16/18at 22:27; Admin Dose 4 MG; Start 10/08/18 at 23:00 Triamcinolone Acetonide (Kenalog 0.1% Cr) 1 applic BID PRN TOP itching Last administered on 10/18/18 03:53; Admin Dose 1 APPLIC; Start 10/09/18 at 16:30 Zolpidem Tartrate (Ambien) 5 mg HS PRN PO INSOMNIA Last administered on 10/12/18 21:40; Admin Dose 5 MG; Start 10/10/18 at 00:30 Diphenhydramine HCl (Benadryl) 25 mg Q12 PRN PO ITCHING Last administered on 10/11/18 08:56; Admin Dose 25 MG; Start 10/11/18 at 09:00 Hydralazine HCl (Apresoline) 75 mg Q8 PO Last administered on 10/22/18 21:55; Admin Dose 75 MG; Start 10/12/18 at 14:00 Ondansetron HCl (Zofran Tab) 4 mg Q6H PRN PO NAUSEA AND/OR VOMITING; Start 10/13/18 at 08:30 Lubiprostone (Amitiza) 16 mcg BID PRN PO CONSTIPTION; Start 10/16/18 at 16:30 Morphine Sulfate (morphine) 2 mg Q4H PRN IV SEVERE PAIN LEVEL 7-10 Last administered on 10/22/18 20:46; Admin Dose 2 MG; Start 10/16/18 at 18:52 Lisinopril (Zestril) 40 mg DAILY PO Last administered on 10/22/18 08:30; Admin Dose 40 MG; Start 10/17/18 at 15:00 Minoxidil (Loniten) 10 mg BID PO Last administered on 10/22/18 20:42; Admin Dose 10 MG; Start 10/18/18 at 21:00 Vancomycin HCl 250 ml @ 125 mls/hr Q96H IVPB Last administered on 10/20/18 05:31; Admin Dose 125 MLS/HR; Start 10/20/18 at 06:00 Ketorolac Tromethamine (Toradol) 30 mg PACU ORDER PRN IV FOR PAIN AFTER IV NARCOTIC MED; Start 10/19/18 at 18:00 Epoetin Adi-epbx (Retacrit (Esrd)) 6,000 unit TuThSa@1700 SC Last administered on 10/21/18 02:56; Admin Dose 6,000 UNIT; Start 10/20/18 at 18:36 Insulin Aspart (Novolog Insulin Pen) NOVOLOG *MILD* ALGORITHM WITH MEALS BEDTIME SC ; Start 10/20/18 at 21:00 Levofloxacin (Levaquin) 250 mg Q48H PO Last administered on 10/22/18at 12:05; Ad min Dose 250 MG; Start 10/22/18 at 11:30 Metronidazole (Flagyl) 500 mg Q8 PO Last administered on 10/22/18at 21:55; Admin Dose 500 MG; Start 10/22/18 at 22:00 DAYSI BHATIA NP October 23, 2018 13:02
[2018-10-23] MEDS: morphine 2 MG INJ IV PRN (14:01)
--- NOTE | 2018-10-23 14:54 | PN ---
Date/Time of Note Date/Time of Note DATE: 10/23/18 TIME: 14:51 Assessment/Plan VTE Prophylaxis Risk score (from Nsg)>0 risk: 8 SCD applied (from Ns): No SCD contraindicated: low risk/ambulating Pharmacological prophylaxis: NA/contraindicated Pharm contraindication: low risk/ambulating Lines/Catheters IV Catheter Type (from Nrsg): Central Line Central line still needed: Yes Urinary Cath still in place: No Assessment/Plan Hospital Course 48-year-old male with: 1. Right diabetic foot ulcer with osteomyelitis evident on the x-ray.sp Transmetatarsal amputation of the right foot Sharp excisional debridement of chronic open wound of the right foot Application of wound VAC to the right foot 2. With peripheral vascular disease status post angioplasty. 3. Some vomiting, some right rib pain status post fall. 4. Hypertension. 5. End-stage renal disease on hemodialysis. 6. Anemia. 7. Hyperlipidemia. 8. Diabetes. 9. End-stage renal disease on hemodialysis. 10. Coronary artery disease, status post stents. 11. History of tracheostomy. PLAN - wound vac papers signed, spoke to lázaro singleton to arrange for wound vac - HD TTS, hold bp meds - gente iv fluids with dextrose due to low blood sugars - 1 unit PRBC today along with HD - pain control with morphine - cw hydralzine 75 q8, cw lisnopril, cw minoxidil HOLD today cw epogen - GI/DVT prophylaxsis dc planning Result Diagram: 10/22/18 0437 10/22/18 0437 Results 24hrs Laboratory Tests Test 10/22/18 17:14 10/22/18 20:41 10/23/18 08:26 10/23/18 12:45 Bedside Glucose 97 80 72 63 L Test 10/23/18 13:17 10/23/18 13:40 10/23/18 13:56 Bedside Glucose 63 L 76 79 Subjective 24 Hr Interval Summary Free Text/Dictation pt hypoglycemic, refusing to eat getting HD today Exam/Review of Systems Exam Vitals Vital Signs Date Temp Pulse Resp B/P (MAP) Pulse Ox O2 O2 Flow FiO2 Time Delivery Rate 10/23/18 97.9 78 18 105/53 98 Room Air 14:00 (70) Intake and Output 10/22/18 10/22/18 10/23/18 1515:00 23:00 07:00 IntakeIntake Total 360 ml 500 ml BalanceBalance 360 ml 500 ml Exam ft arm AV fistula Constitutional: alert, oriented Neck: supple Respiratory: clear to auscultation, normal air movement Cardiovascular: regular rate and rhythm Gastrointestinal: soft Extremities: other (left leg BKA, right foot metatarsal amp. wound vak) Results Results 24hrs Laboratory Tests Test 10/22/18 17:14 10/22/18 20:41 10/23/18 08:26 10/23/18 12:45 Bedside Glucose 97 80 72 63 L Test 10/23/18 13:17 10/23/18 13:40 10/23/18 13:56 Bedside Glucose 63 L 76 79 Medications Medication Current Medications Acetaminophen (Tylenol Tab) 650 mg Q6H PRN PO MILD PAIN(1-3)OR ELEVATED TEMP; Start 10/08/18 at 01:30 Albuterol (Proventil 0.083% (Neb)) 2.5 mg Q6H RESP THERAPY PRN HHN SHORTNESS OF BREATH; Start 10/08/18 at 01:30 Docusate Sodium (Colace) 100 mg BID PRN PO CONSTIPATION; Start 10/08/18 at 01:30 Diagnostic Test (Pha) (Accu-Chek) 1 ea 02 XX Last administered on 10/19/18at 02:19; Admin Dose 1 EA; Start 10/08/18 at 02:00 Miscellaneous Information 1 ea NOTE XX ; Start 10/08/18 at 05:30 Glucose (Glutose) 15 gm Q15M PRN PO DECREASED GLUCOSE; Start 10/08/18 at 05:30 Glucose (Glutose) 22.5 gm Q15M PRN PO DECREASED GLUCOSE; Start 10/08/18 at 05:30 Dextrose (D50w Syringe) 25 ml Q15M PRN IV DECREASED GLUCOSE; Start 10/08/18 at 05:30 Dextrose (D50w Syringe) 50 ml Q15M PRN IV DECREASED GLUCOSE; Start 10/08/18 at 05:30 Glucagon (Glucagen) 1 mg Q15M PRN IM DECREASED GLUCOSE; Start 10/08/18 at 05:30 Glucose (Glutose) 15 gm Q15M PRN BUCCAL DECREASED GLUCOSE; Start 10/08/18 at 05:30 Vancomycin HCl (Vanco Iv Per Pharmacy) VANCOMYCIN PER PHARMACY PER PROTOCOL XX ; Start 10/08/18 at 15:00 Pentoxifylline (Trental) 400 mg WITH MEALS PO Last administered on 10/23/18 13:20; Admin Dose 400 MG; Start 10/08/18 at 17:35 Pantoprazole (Protonix Tab) 40 mg DAILY@06 PO Last administered on 10/17/18 06:06; Admin Dose 40 MG; Start 10/09/18 at 06:00 Hydralazine HCl (Apresoline) 10 mg Q6H PRN PO ELEVATED BLOOD PRESSURE Last administered on 10/11/18 22:01; Admin Dose 10 MG; Start 10/08/18 at 21:30 Ondansetron HCl (Zofran Inj) 4 mg Q6H PRN IV NAUSEA AND/OR VOMITING Last administered on 10/16/18 22:27; Admin Dose 4 MG; Start 10/08/18 at 23:00 Triamcinolone Acetonide (Kenalog 0.1% Cr) 1 applic BID PRN TOP itching Last ad ministered on 10/18/18 03:53; Admin Dose 1 APPLIC; Start 10/09/18 at 16:30 Zolpidem Tartrate (Ambien) 5 mg HS PRN PO INSOMNIA Last administered on 10/12/18 21:40; Admin Dose 5 MG; Start 10/10/18 at 00:30 Diphenhydramine HCl (Benadryl) 25 mg Q12 PRN PO ITCHING Last administered on 10/11/18 08:56; Admin Dose 25 MG; Start 10/11/18 at 09:00 Hydralazine HCl (Apresoline) 75 mg Q8 PO Last administered on 10/22/18 21:55; Admin Dose 75 MG; Start 10/12/18 at 14:00 Ondansetron HCl (Zofran Tab) 4 mg Q6H PRN PO NAUSEA AND/OR VOMITING; Start 10/13/18 at 08:30 Lubiprostone (Amitiza) 16 mcg BID PRN PO CONSTIPTION; Start 10/16/18 at 16:30 Morphine Sulfate (morphine) 2 mg Q4H PRN IV SEVERE PAIN LEVEL 7-10 Last administered on 10/23/18at 14:01; Admin Dose 2 MG; Start 10/16/18 at 18:52 Lisinopril (Zestril) 40 mg DAILY PO Last administered on 10/22/18 08:30; Admin Dose 40 MG; Start 10/17/18 at 15:00 Minoxidil (Loniten) 10 mg BID PO Last administered on 10/22/18at 20:42; Admin Dose 10 MG; Start 10/18/18 at 21:00 Vancomycin HCl 250 ml @ 125 mls/hr Q96H IVPB Last administered on 10/20/18 05:31; Admin Dose 125 MLS/HR; Start 10/20/18 at 06:00 Ketorolac Tromethamine (Toradol) 30 mg PACU ORDER PRN IV FOR PAIN AFTER IV NARCOTIC MED; Start 10/19/18 at 18:00 Epoetin Adi-epbx (Retacrit (Esrd)) 6,000 unit TuThSa@1700 SC Last administered on 10/21/18 02:56; Admin Dose 6,000 UNIT; Start 10/20/18 at 18:36 Insulin Aspart (Novolog Insulin Pen) NOVOLOG *MILD* ALGORITHM WITH MEALS BEDTIME SC ; Start 10/20/18 at 21:00 Levofloxacin (Levaquin) 250 mg Q48H PO Last administered on 10/22/18at 12:05; Admin Dose 250 MG; Start 10/22/18 at 11:30 Metronidazole (Flagyl) 500 mg Q8 PO Last administered on 10/23/18at 13:58; Admin Dose 500 MG; Start 10/22/18 at 22:00 HASEEB MAYA MD October 23, 2018 14:54
[2018-10-23] MEDS: DEXTROSE 5%-0.45% NACL 500 ML IV SCH (15:00)
[2018-10-23] MEDS: EPOETIN ALFA-EPBX (ESRD) 3,000 UNIT/ML VIAL SC SCH (17:00)
[2018-10-24] MEDS: morphine 2 MG INJ IV PRN ×4 (00:15→21:08)
[2018-10-24] MEDS: ACCU-CHEK XX SCH (02:00)
[2018-10-24] MEDS: DEXTROSE 5%-0.45% NACL 500 ML IV SCH (03:26)
[2018-10-24] MEDS: PANTOPRAZOLE (EC) 40 MG TAB PO SCH (05:11)
[2018-10-24] MEDS: metroNIDAZOLE 500 MG TAB PO SCH ×3 (05:11→23:00)
[2018-10-24] MEDS ORDERED: VANCOMYCIN 1 GM 250 ML IVPB SCH (07:00)
[2018-10-24 08:00] VITALS: BP 102/52; PULSE 92; RESP 16
[2018-10-24] MEDS: INSULIN ASPART [NOVOLOG] 3 ML PEN SC SCH ×4 (08:00→21:00)
[2018-10-24] MEDS: PENTOXIFYLLINE (SR) 400 MG TAB PO SCH ×3 (08:51→18:33)
[2018-10-24] MEDS: MINOXIDIL 10 MG TAB PO SCH ×2 (09:00→21:09)
[2018-10-24] MEDS: LISINOPRIL 20 MG TAB PO SCH (09:00)
--- NOTE | 2018-10-24 10:26 | PDOCDIS ---
Discharge Instructions DIAGNOSIS Discharge Diagnosis Transmetatarsal amputation of the right foot Sharp excisional debridement of chronic open wound of the right foot Application of wound VAC to the right foot CONDITION [id number] Patient Condition: [id number] Fair HOME CARE INSTRUCTIONS: [id number] Diet Instructions: [id number] Low Fat /Cholesterol [id number] Special Diet: [id number] RENAL ACTIVITY: [id number] Activity Restrictions: [id number] Slowly Increase Activity FOLLOW UP/APPOINTMENTS Follow-up Plan Fu PCP in 1-2 weeks fu HD TTS fu Dr barnett in 1-2 weeks wound vac take abx for 4 weeks keep wounds clean HASEEB MAYA MD October 24, 2018 10:25
[2018-10-24] MEDS ORDERED: LEVO250T9 PO (10:27)
[2018-10-24] MEDS ORDERED: METR500T PO (10:27)
--- NOTE | 2018-10-24 10:32 | PN ---
Date/Time of Note Date/Time of Note DATE: 10/24/18 TIME: 10:31 Assessment/Plan VTE Prophylaxis Risk score (from Ns)>0 risk: 5 SCD applied (from Ns): No SCD contraindicated: low risk/ambulating Pharmacological prophylaxis: NA/contraindicated Pharm contraindication: low risk/ambulating Lines/Catheters [facility] Central Line Central line still needed: No Urinary Cath still in place: No Assessment/Plan Hospital Course 48-year-old male with: 1. Right diabetic foot ulcer with osteomyelitis evident on the x-ray.sp Transmetatarsal amputation of the right foot Sharp excisional debridement of chronic open wound of the right foot Application of wound VAC to the right foot 2. With peripheral vascular disease status post angioplasty. 3. Some vomiting, some right rib pain status post fall. 4. Hypertension. 5. End-stage renal disease on hemodialysis. 6. Anemia. 7. Hyperlipidemia. 8. Diabetes. 9. End-stage renal disease on hemodialysis. 10. Coronary artery disease, status post stents. 11. History of tracheostomy. PLAN - wound vac papers signed, spoke to lázaro singleton to arrange for wound vac - HD TTS, hold bp meds, HD tmw dc planning with wound vac and abx for 4 weeks per ID Result Diagram: 10/22/18 0437 10/22/18436 Results 24hrs Laboratory Tests Test 10/23/18 12:45 10/23/18 13:17 10/23/18 13:40 10/23/18 13:56 Bedside Glucose 63 L 63 L 76 79 Test 10/23/18 18:49 10/24/18 08:07 10/24/18 10:11 Bedside Glucose 79 76 White Blood Count Pending Red Blood Count Pending Hemoglobin Pending Hematocrit Pending Mean Corpuscular Pending Volume Mean Corpuscular Pending Hemoglobin Mean Corpuscular Pending Hemoglobin Concent Red Cell Pending Distribution Width Platelet Count Pending Mean Platelet Volume Pending Subjective 24 Hr Interval Summary Free Text/Dictation pt refusing all meds wound vac orders send Exam/Review of Systems Exam Vitals Vital Signs Date Temp Pulse Resp B/P (MAP) Pulse Ox O2 O2 Flow FiO2 Time Delivery Rate 10/24/18 98.1 92 16 102/52 98 Room Air 08:00 (69) Intake and Output 10/23/18 10/23/18 10/24/18 1515:00 23:00 07:00 OutputOutput Total 2800 ml BalanceBalance -2800 ml Exam t arm AV fistula Constitutional: alert, oriented Neck: supple Respiratory: clear to auscultation, normal air movement Cardiovascular: regular rate and rhythm Gastrointestinal: soft Extremities: other (left leg BKA, right foot metatarsal amp. wound vak) Results Results 24hrs Laboratory Tests Test 10/23/18 12:45 10/23/18 13:17 10/23/18 13:40 10/23/18 13:56 Bedside Glucose 63 L 63 L 76 79 Test 10/23/18 18:49 10/24/18 08:07 10/24/18 10:11 Bedside Glucose 79 76 White Blood Count Pending Red Blood Count Pending Hemoglobin Pending Hematocrit Pending Mean Corpuscular Pending Volume Mean Corpuscular Pending Hemoglobin Mean Corpuscular Pending Hemoglobin Concent Red Cell Pending Distribution Width Platelet Count Pending Mean Platelet Volume Pending Medications Medication Current Medications Acetaminophen (Tylenol Tab) 650 mg Q6H PRN PO MILD PAIN(1-3)OR ELEVATED TEMP; Start 10/08/18 at 01:30 Albuterol (Proventil 0.083% (Neb)) 2.5 mg Q6H RESP THERAPY PRN HHN SHORTNESS OF BREATH; Start 10/08/18 at 01:30 Docusate Sodium (Colace) 100 mg BID PRN PO CONSTIPATION; Start 10/08/18 at 01:30 Diagnostic Test (Pha) (Accu-Chek) 1 ea 02 XX Last administered on 10/19/18at 02:19; Admin Dose 1 EA; Start 10/08/18 at 02:00 Miscellaneous Information 1 ea NOTE XX ; Start 10/08/18 at 05:30 Glucose (Glutose) 15 gm Q15M PRN PO DECREASED GLUCOSE; Start 10/08/18 at 05:30 Glucose (Glutose) 22.5 gm Q15M PRN PO DECREASED GLUCOSE; Start 10/08/18 at 05:30 Dextrose (D50w Syringe) 25 ml Q15M PRN IV DECREASED GLUCOSE; Start 10/08/18 at 05:30 Dextrose (D50w Syringe) 50 ml Q15M PRN IV DECREASED GLUCOSE; Start 10/08/18 at 05:30 Glucagon (Glucagen) 1 mg Q15M PRN IM DECREASED GLUCOSE; Start 10/08/18 at 05:30 Glucose (Glutose) 15 gm Q15M PRN BUCCAL DECREASED GLUCOSE; Start 10/08/18 at 05:30 Vancomycin HCl (Vanco Iv Per Pharmacy) VANCOMYCIN PER PHARMACY PER PROTOCOL XX ; Start 10/08/18 at 15:00 Pentoxifylline (Trental) 400 mg WITH MEALS PO Last administered on 10/24/18at 08:51; Admin Dose 400 MG; Start 10/08/18 at 17:35 Pantoprazole (Protonix Tab) 40 mg DAILY@06 PO Last administered on 10/17/18 06:06; Admin Dose 40 MG; Start 10/09/18 at 06:00 Hydralazine HCl (Apresoline) 10 mg Q6H PRN PO ELEVATED BLOOD PRESSURE Last administered on 10/11/18 22:01; Admin Dose 10 MG; Start 10/08/18 at 21:30 Ondansetron HCl (Zofran Inj) 4 mg Q6H PRN IV NAUSEA AND/OR VOMITING Last administered on 10/16/18 22:27; Admin Dose 4 MG; Start 10/08/18 at 23:00 Triamcinolone Acetonide (Kenalog 0.1% Cr) 1 applic BID PRN TOP itching Last administered on 10/18/18 03:53; Admin Dose 1 APPLIC; Start 10/09/18 at 16:30 Zolpidem Tartrate (Ambien) 5 mg HS PRN PO INSOMNIA Last administered on 10/12/18 21:40; Admin Dose 5 MG; Start 10/10/18 at 00:30 Diphenhydramine HCl (Benadryl) 25 mg Q12 PRN PO ITCHING Last administered on 10/11/18 08:56; Admin Dose 25 MG; Start 10/11/18 at 09:00 Hydralazine HCl (Apresoline) 75 mg Q8 PO Last administered on 10/22/18 21:55; Admin Dose 75 MG; Start 10/12/18 at 14:00 Ondansetron HCl (Zofran Tab) 4 mg Q6H PRN PO NAUSEA AND/OR VOMITING; Start 10/13/18 at 08:30 Lubiprostone (Amitiza) 16 mcg BID PRN PO CONSTIPTION; Start 10/16/18 at 16:30 Morphine Sulfate (morphine) 2 mg Q4H PRN IV SEVERE PAIN LEVEL 7-10 Last administered on 10/24/18 08:52; Admin Dose 2 MG; Start 10/16/18 at 18:52 Lisinopril (Zestril) 40 mg DAILY PO Last administered on 10/22/18 08:30; Admin Dose 40 MG; Start 10/17/18 at 15:00 Minoxidil (Loniten) 10 mg BID PO Last administered on 10/22/18 20:42; Admin Dose 10 MG; Start 10/18/18 at 21:00 Ketorolac Tromethamine (Toradol) 30 mg PACU ORDER PRN IV FOR PAIN AFTER IV NARCOTIC MED; Start 10/19/18 at 18:00 Epoetin Adi-epbx (Retacrit (Esrd)) 6,000 unit TuThSa@1700 SC Last administered on 10/21/18 02:56; Admin Dose 6,000 UNIT; Start 10/20/18 at 18:36 Insulin Aspart (Novolog Insulin Pen) NOVOLOG *MILD* ALGORITHM WITH MEALS BEDTIME SC ; Start 10/20/18 at 21:00 Levofloxacin (Levaquin) 250 mg Q48H PO Last administered on 10/22/18at 12:05; Admin Dose 250 MG; Start 10/22/18 at 11:30 Metronidazole (Flagyl) 500 mg Q8 PO Last administered on 10/23/18at 13:58; Admin Dose 500 MG; Start 10/22/18 at 22:00 Dextrose/Sodium Chloride 500 ml @ 40 mls/hr [id number] IV ; Start 10/23/18 at 15:00 Vancomycin HCl 250 ml @ 125 mls/hr Q96H IVPB Last administered on 10/24/18 08:51; Admin Dose 125 MLS/HR; Start 10/24/18 at 07:00 HASEEB MAYA MD October 24, 2018 10:32
[2018-10-24] MEDS: LEVOFLOXACIN 250 MG TAB PO SCH (12:55)
[2018-10-24 14:28] VITALS: BP 118/55; PULSE 85; RESP 16
--- NOTE | 2018-10-24 15:24 | CONS ---
Assessment/Plan Assessment/Plan Hospital Course (Demo Recall) All noted, no acute events. Patient is alert feels good no fevers overnight Indwelling's: left upper extremity AV fistula, RIJ TLC. Antimicrobials: Vanco Levaquin Flagyl Intraoperative culture positive for Bacteroides fragilis, Serratia, enterococcus, alpha hemolytic strep species PHYSICAL EXAMINATION: GENERAL: Well-developed, ill-appearing, middle-aged man in no distress. HEENT: Head is atraumatic, normocephalic. NECK: Supple. CHEST: Rise symmetrical. Breath sounds diminished to bases. HEART: S1, S2. ABDOMEN: Soft. Bowel tones are present. EXTREMITIES: Right foot gangrene Assessment: 1. Right foot gangrene, s/p TMA 2. End-stage renal disease, hemodialysis dependent 3. Chronic diffuse rash==> neg scabies 4. Severe peripheral arterial disease status post left below-knee amputation==s/p balloon angioplasty 08/15/18 5. Coronary artery disease status post cardiac stent 6. Hypertension Plan: Stable, continue on current antibiotics to complete 4 weeks post TMA, wo und care per podiatry. Last dose abx November 18 I Consultation Date/Type/Reason Admit Date/Time October 08, 2018 at 00:02 Initial Consult Date 10/08/18 Type of Consult id Date/Time of Note DATE: 10/24/18 TIME: 15:23 Exam/Review of Systems Exam Vitals Vital Signs Date Temp Pulse Resp B/P (MAP) Pulse Ox O2 O2 Flow FiO2 Time Delivery Rate 10/24/18 97.7 85 16 118/55 99 Room Air 14:28 (76) Intake and Output 10/23/18 10/23/18 10/24/18 1414:59 22:59 06:59 OutputOutput Total 2800 ml BalanceBalance -2800 ml Results Result Diagram: 10/24/18 1011 10/24/18 1011 Results 24hrs Laboratory Tests Test 10/23/18 18:49 10/24/18 08:07 10/24/18 10:11 10/24/18 12:33 Bedside Glucose 79 76 100 White Blood Count 10.5 Red Blood Count 3.03 L Hemoglobin 8.0 L Hematocrit 25.4 L Mean Corpuscular 83.8 Volume Mean Corpuscular 26.4 L Hemoglobin Mean Corpuscular 31.5 L Hemoglobin Concent Red Cell 14.9 H Distribution Width Platelet Count 133 #L Mean Platelet Volume 11.1 H Immature 0.500 H Granulocytes % Neutrophils % 82.7 H Lymphocytes % 7.2 L Monocytes % 6.6 Eosinophils % 2.7 Basophils % 0.3 Nucleated Red Blood 0.0 Cells % Immature 0.050 H Granulocytes # Neutrophils # 8.7 H Lymphocytes # 0.8 Monocytes # 0.7 Eosinophils # 0.3 Basophils # 0.0 Nucleated Red Blood 0.0 Cells # Sodium Level 140 Potassium Level 4.3 Chloride Level 100 Carbon Dioxide Level 27 Anion Gap 13 Blood Urea Nitrogen 46 H Creatinine 5.95 H Est Glomerular 12 L Filtrat Rate mL/min Glucose Level 126 Calcium Level 9.0 Phosphorus Level 6.9 H Magnesium Level 2.0 Medications Medication Current Medications Acetaminophen (Tylenol Tab) 650 mg Q6H PRN PO MILD PAIN(1-3)OR ELEVATED TEMP; Start 10/08/18 at 01:30 Albuterol (Proventil 0.083% (Neb)) 2.5 mg Q6H RESP THERAPY PRN HHN SHORTNESS OF BREATH; Start 10/08/18 at 01:30 Docusate Sodium (Colace) 100 mg BID PRN PO CONSTIPATION; Start 10/08/18 at 01:30 Diagnostic Test (Pha) (Accu-Chek) 1 ea 02 XX Last administered on 10/19/18at 02 :19; Admin Dose 1 EA; Start 10/08/18 at 02:00 Miscellaneous Information 1 ea NOTE XX ; Start 10/08/18 at 05:30 Glucose (Glutose) 15 gm Q15M PRN PO DECREASED GLUCOSE; Start 10/08/18 at 05:30 Glucose (Glutose) 22.5 gm Q15M PRN PO DECREASED GLUCOSE; Start 10/08/18 at 05:30 Dextrose (D50w Syringe) 25 ml Q15M PRN IV DECREASED GLUCOSE; Start 10/08/18 at 05:30 Dextrose (D50w Syringe) 50 ml Q15M PRN IV DECREASED GLUCOSE; Start 10/08/18 at 05:30 Glucagon (Glucagen) 1 mg Q15M PRN IM DECREASED GLUCOSE; Start 10/08/18 at 05:30 Glucose (Glutose) 15 gm Q15M PRN BUCCAL DECREASED GLUCOSE; Start 10/08/18 at 05:30 Vancomycin HCl (Vanco Iv Per Pharmacy) VANCOMYCIN PER PHARMACY PER PROTOCOL XX ; Start 10/08/18 at 15:00 Pentoxifylline (Trental) 400 mg WITH MEALS PO Last administered on 10/24/18 12:55; Admin Dose 400 MG; Start 10/08/18 at 17:35 Pantoprazole (Protonix Tab) 40 mg DAILY@06 PO Last administered on 10/17/18 06:06; Admin Dose 40 MG; Start 10/09/18 at 06:00 Hydralazine HCl (Apresoline) 10 mg Q6H PRN PO ELEVATED BLOOD PRESSURE Last administered on 10/11/18 22:01; Admin Dose 10 MG; Start 10/08/18 at 21:30 Ondansetron HCl (Zofran Inj) 4 mg Q6H PRN IV NAUSEA AND/OR VOMITING Last administered on 10/16/18 22:27; Admin Dose 4 MG; Start 10/08/18 at 23:00 Triamcinolone Acetonide (Kenalog 0.1% Cr) 1 applic BID PRN TOP itching Last administered on 10/18/18 03:53; Admin Dose 1 APPLIC; Start 10/09/18 at 16:30 Zolpidem Tartrate (Ambien) 5 mg HS PRN PO INSOMNIA Last administered on 10/12/18 21:40; Admin Dose 5 MG; Start 10/10/18 at 00:30 Diphenhydramine HCl (Benadryl) 25 mg Q12 PRN PO ITCHING Last administered on 10/11/18 08:56; Admin Dose 25 MG; Start 10/11/18 at 09:00 Hydralazine HCl (Apresoline) 75 mg Q8 PO Last administered on 10/24/18 12:54; Admin Dose 75 MG; Start 10/12/18 at 14:00 Ondansetron HCl (Zofran Tab) 4 mg Q6H PRN PO NAUSEA AND/OR VOMITING; Start 10/13/18 at 08:30 Lubiprostone (Amitiza) 16 mcg BID PRN PO CONSTIPTION; Start 10/16/18 at 16:30 Morphine Sulfate (morphine) 2 mg Q4H PRN IV SEVERE PAIN LEVEL 7-10 Last administered on 10/24/18 14:22; Admin Dose 2 MG; Start 10/16/18 at 18:52 Lisinopril (Zestril) 40 mg DAILY PO Last administered on 10/22/18 08:30; Admin Dose 40 MG; Start 10/17/18 at 15:00 Minoxidil (Loniten) 10 mg BID PO Last administered on 10/22/18 20:42; Admin Dose 10 MG; Start 10/18/18 at 21:00 Ketorolac Tromethamine (Toradol) 30 mg PACU ORDER PRN IV FOR PAIN AFTER IV NARCOTIC MED; Start 10/19/18 at 18:00 Epoetin Adi-epbx (Retacrit (Esrd)) 6,000 unit TuThSa@1700 SC Last administered on 10/21/18 02:56; Admin Dose 6,000 UNIT; Start 10/20/18 at 18:36 Insulin Aspart (Novolog Insulin Pen) NOVOLOG *MILD* ALGORITHM WITH MEALS BEDTIME SC ; Start 10/20/18 at 21:00 Levofloxacin (Levaquin) 250 mg Q48H PO Last administered on 10/24/18 12:55; Ad min Dose 250 MG; Start 10/22/18 at 11:30 Metronidazole (Flagyl) 500 mg Q8 PO Last administered on 10/24/18 12:56; Admin Dose 500 MG; Start 10/22/18 at 22:00 Vancomycin HCl 250 ml @ 125 mls/hr Q96H IVPB Last administered on 10/24/18 08:51; Admin Dose 125 MLS/HR; Start 10/24/18 at 07:00 DAYSI BHATIA NP October 24, 2018 15:24
[2018-10-24 20:03] VITALS: BP 112/58; PULSE 82; RESP 18
[2018-10-24] MEDS: COLLAGENASE 5 GM (UD JAR) TOP SCH (20:53)
[2018-10-24] MEDS: ZOLPIDEM 5 MG TAB PO PRN (21:08)
--- NOTE | 2018-10-24 21:51 | DS ---
DATE OF ADMISSION: 10/08/2018 DATE OF DISCHARGE: 10/24/2018 HISTORY OF PRESENT ILLNESS AND HOSPITAL COURSE: A 48-year-old male with a past medical history of en d-stage renal disease on hemodialysis Monday, and Monday; history of hypertension, hyperl ipidemia, left BKA, right 4th and 5th toe amputation, who was initially admitted in August secondary t o infection of the third toe on the right toe. The patient had an angiogram done that showed atherec onur of the right superficial femoral artery, popliteal artery was performed, balloon angioplasty of the right superficial artery and popliteal artery was performed. The patient was followed by Dr. Dickson huerta as an outpatient. Amputation of the right third toe and application of wound VAC and was dischar ged. Followed by Dr. Millard in 1 to 2 weeks. The patient had been followed by Dr. Millard, went to d ialysis yesterday and finished the dialysis. He was told his hemoglobin was low and was transferred and came to [facility]. There, hemoglobin was 6.1. X-ray showed osteomyelitis of the secon d and third metatarsal and third proximal toe and given antibiotics, vancomycin and Zosyn, and was tr ansferred due to insurance reasons. The patient was admitted to med/surg unit. Podiatry consultatio n was obtained from Dr. Millard. ID consultation was also obtained. The patient had right foot gangr dasha, status post amputation of right third toe. Initially was started on vancomycin and Rocephin. T he patient also had rib x-rays because of complaining of pain. No acute fractures. Findings were beltre ggestive of pulmonary vascular congestion. The patient was continued on hemodialysis in the hospital . The patient was a very difficult , so had to have a central line placed in for IV access. Th ere were some scheduling issues for surgery with Dr. Millard and Dr. Guerin. Dr. Millard had recomm ended the patient getting a BKA; however, the patient did not want to have a BKA. After multiple dis cussion, according to Dr. Millard, the leg is not salvageable. A second opinion was obtained from Dr. Bearden. According to him, he would benefit from debridement type amputation to reduce bacterial bi oburden and wound care if he is refusing below knee amputation. Dr. Millard was called again. There were some scheduling issues and the patient did not have any access. The patient received a central line by Dr. Guerin and finally on 10/19 had a transmetatarsal amputation of the right foot. Sharp excisional debridement of right open wound of the right foot and application of wound VAC. The kary ent was followed by ID. Cultures were sent that grew out Bacteroides fragilis, Serratia, enterococcu s alpha hemolytic. Per ID, the patient needs to be on IV vancomycin for 4 weeks, Levaquin and Flagyl for 4 weeks. The patient will continue hemodialysis. The patient was intermittently receiving hemo dialysis during the hospitalization course and continued on Epogen. Arrangement was made for a wound VAC and arrangement will be completed with the telephonic case manager. . The patient will be discharged today. FINAL DISCHARGE DIAGNOSES: 1. Right foot gangrene status post TMA. 2. Anemia with anemia of chronic disease. No history of GI bleeding, status post blood transfusion. 3. Chronic diffuse rash, negative for scabies. 4. End-stage renal disease on hemodialysis. 5. Severe peripheral artery disease status post below left knee amputation, status post balloon carina oplasty on 08/21/2018. 6. History of coronary artery disease status post coronary artery stent. 7. Hypertension, currently normotensive. 8. Hyperlipidemia. 9. History of tracheostomy. 10. History left arm fistula. DISCHARGE CONDITION: Stable. DISCHARGE MEDICATIONS: Continue with home medications which were: 1. Calcium acetate. 2. Cetirizine. 3. Clonidine p.r.n. 4. Colace. 5. [place] b.i.d. p.r.n. pain. 6. Lisinopril 40. 7. Minoxidil 10 b.i.d. 8. Pentoxifylline 400 p.o. with meals. 9. Temazepam. DISCHARGE INSTRUCTIONS: New prescriptions arrangement was done with the telephonic case manager for a wound VAC at home with a home health. Levaquin IV at hemodialysis center for 4 weeks. Current prescription w as given for Levaquin 250 mg p.o. q.48 for 28 days and also Flagyl 500 mg p.o. q. 8 for 28 days. The patient was instructed to follow with Dr. Millard, [facility]. Return to the ER if he has severe pain, fevers, chills and discharge. Dictated By: HASEEB AGOSTO/JOSE ANTONIO Conf#: [id number] DID#: [id number] CC: AZEEM HENNING MD;*EndCC*
[2018-10-25] VITALS (17 sets, daily range): BP systolic 82–142; BP diastolic 46–72; PULSE 72–87; RESP 16–18
[2018-10-25] MEDS: ACCU-CHEK XX SCH (02:00)
[2018-10-25] MEDS: morphine 2 MG INJ IV PRN ×4 (04:27→23:15)
[2018-10-25] MEDS: PANTOPRAZOLE (EC) 40 MG TAB PO SCH (06:16)
[2018-10-25] MEDS: metroNIDAZOLE 500 MG TAB PO SCH ×3 (06:16→23:15)
[2018-10-25] MEDS: INSULIN ASPART [NOVOLOG] 3 ML PEN SC SCH ×4 (08:00→21:00)
[2018-10-25] MEDS: COLLAGENASE 5 GM (UD JAR) TOP SCH (10:18)
[2018-10-25] MEDS: LISINOPRIL 20 MG TAB PO SCH (10:18)
[2018-10-25] MEDS: PENTOXIFYLLINE (SR) 400 MG TAB PO SCH ×3 (10:18→17:54)
[2018-10-25] MEDS: MINOXIDIL 10 MG TAB PO SCH ×2 (10:18→21:00)
--- NOTE | 2018-10-25 11:15 | PN ---
Date/Time of Note Date/Time of Note DATE: 10/25/18 TIME: 11:10 Assessment/Plan VTE Prophylaxis Risk score (from Ns)>0 risk: 5 SCD applied (from [facility] [place]): No SCD contraindicated: bilateral amputee Pharmacological prophylaxis: NA/contraindicated Pharm contraindication: surgical contra Lines/Catheters [facility]ter Type (from [facility] Central Line Central line still needed: Yes Urinary Cath still in place: No Assessment/Plan Hospital Course 1. Right diabetic foot ulcer with osteomyelitis evident on the x-ray. S/p metatarsal amputation 10/[address] Millard 2. Peripheral vascular disease status post angioplasty. 3. Some vomiting, some right rib pain status post fall, resolved. 4. Hypertension. 5. End-stage renal disease on hemodialysis. 6. Anemia. 7. Hyperlipidemia. 8. Diabetes mellitus type II. 9. End-stage renal disease on hemodialysis. 10. Coronary artery disease, status post stents. 11. History of tracheostomy. 11. Left arm AV fistula Assessment/Plan -wound vac papers signed, spoke to cm -dr Millard signed all papers - HD TTS, hold bp meds, HD -dc central line prior dc -daily wound dressing changes -dc planning with wound vac and abx for 4 weeks per ID Result Diagram: 10/24/18 1011 10/24/18 1011 Results 24hrs Laboratory Tests Test 10/24/18 12:33 10/24/18 18:34 10/24/18 21:05 10/25/18 07:54 Bedside Glucose 100 132 151 80 Test 10/25/18 08:32 Lab Scanned BLOOD TRANSFUSIO Report N Subjective 24 Hr Interval Summary Musculoskeletal: swelling (right foot) Exam/Review of Systems Exam Vitals Vital Signs Date Temp Pulse Resp B/P (MAP) Pulse Ox O2 O2 Flow FiO2 Time Delivery Rate 10/25/18 98.4 84 18 120/58 96 08:00 (78) 10/24/18 Room Air 14:28 Intake and Output 10/24/18 10/24/18 10/25/18 1515:00 23:00 07:00 IntakeIntake Total 850 ml 250 ml 250 ml OutputOutput Total 30 ml 10 ml BalanceBalance 850 ml 220 ml 240 ml Exam left arm av fistula Constitutional: alert, oriented Respiratory: diminished breath sounds Cardiovascular: regular rate and rhythm Gastrointestinal: soft, other ([facility] foot wounds) Results Results 24hrs Laboratory Tests Test 10/24/18 12:33 10/24/18 18:34 10/24/18 21:05 10/25/18 07:54 Bedside Glucose 100 132 151 80 Test 10/25/18 08:32 Lab Scanned BLOOD TRANSFUSIO Report N Medications Medication Current Medications Acetaminophen (Tylenol Tab) 650 mg Q6H PRN PO MILD PAIN(1-3)OR ELEVATED TEMP; Start 10/08/18 at 01:30 Albuterol (Proventil 0.083% (Neb)) 2.5 mg Q6H RESP THERAPY PRN HHN SHORTNESS OF BREATH; Start 10/08/18 at 01:30 Docusate Sodium (Colace) 100 mg BID PRN PO CONSTIPATION; Start 10/08/18 at 01:30 Diagnostic Test (Pha) (Accu-Chek) 1 ea 02 XX Last administered on 10/19/18at 02:19; Admin Dose 1 EA; Start 10/08/18 at 02:00 Miscellaneous Information 1 ea NOTE XX ; Start 10/08/18 at 05:30 Glucose (Glutose) 15 gm Q15M PRN PO DECREASED GLUCOSE; Start 10/08/18 at 05:30 Glucose (Glutose) 22.5 gm Q15M PRN PO DECREASED GLUCOSE; Start 10/08/18 at 05:30 Dextrose (D50w Syringe) 25 ml Q15M PRN IV DECREASED GLUCOSE; Start 10/08/18 at 05:30 Dextrose (D50w Syringe) 50 ml Q15M PRN IV DECREASED GLUCOSE; Start 10/08/18 at 05:30 Glucagon (Glucagen) 1 mg Q15M PRN IM DECREASED GLUCOSE; Start 10/08/18 at 05:30 Glucose (Glutose) 15 gm Q15M PRN BUCCAL DECREASED GLUCOSE; Start 10/08/18 at 05:30 Vancomycin HCl (Vanco Iv Per Pharmacy) VANCOMYCIN PER PHARMACY PER PROTOCOL XX ; Start 10/08/18 at 15:00 Pentoxifylline (Trental) 400 mg WITH MEALS PO Last administered on 10/25/18at 10:18; Admin Dose 400 MG; Start 10/08/18 at 17:35 Pantoprazole (Protonix Tab) 40 mg DAILY@06 PO Last administered on 10/25/18at 06:16; Admin Dose 40 MG; Start 10/09/18 at 06:00 Hydralazine HCl (Apresoline) 10 mg Q6H PRN PO ELEVATED BLOOD PRESSURE Last administered on 10/11/18 22:01; Admin Dose 10 MG; Start 10/08/18 at 21:30 Ondansetron HCl (Zofran Inj) 4 mg Q6H PRN IV NAUSEA AND/OR VOMITING Last administered on 10/16/18 22:27; Admin Dose 4 MG; Start 10/08/18 at 23:00 Triamcinolone Acetonide (Kenalog 0.1% Cr) 1 applic BID PRN TOP itching Last administered on 10/18/18 03:53; Admin Dose 1 APPLIC; Start 10/09/18 at 16:30 Zolpidem Tartrate (Ambien) 5 mg HS PRN PO INSOMNIA Last administered on 10/24/18 21:08; Admin Dose 5 MG; Start 10/10/18 at 00:30 Diphenhydramine HCl (Benadryl) 25 mg Q12 PRN PO ITCHING Last administered on 10/11/18 08:56; Admin Dose 25 MG; Start 10/11/18 at 09:00 Hydralazine HCl (Apresoline) 75 mg Q8 PO Last administered on 10/25/18 06:16; Admin Dose 75 MG; Start 10/12/18 at 14:00 Ondansetron HCl (Zofran Tab) 4 mg Q6H PRN PO NAUSEA AND/OR VOMITING; Start 10/13/18 at 08:30 Lubiprostone (Amitiza) 16 mcg BID PRN PO CONSTIPTION; Start 10/16/18 at 16:30 Morphine Sulfate (morphine) 2 mg Q4H PRN IV SEVERE PAIN LEVEL 7-10 Last administered on 10/25/18 10:17; Admin Dose 2 MG; Start 10/16/18 at 18:52 Lisinopril (Zestril) 40 mg DAILY PO Last administered on 10/25/18 10:18; Admin Dose 40 MG; Start 10/17/18 at 15:00 Minoxidil (Loniten) 10 mg BID PO Last administered on 10/25/18 10:18; Admin Dose 10 MG; Start 10/18/18 at 21:00 Ketorolac Tromethamine (Toradol) 30 mg PACU ORDER PRN IV FOR PAIN AFTER IV NARCOTIC MED; Start 10/19/18 at 18:00 Epoetin Adi-epbx (Retacrit (Esrd)) 6,000 unit TuThSa@1700 SC Last administered on 10/21/18 02:56; Admin Dose 6,000 UNIT; Start 10/20/18 at 18:36 Insulin Aspart (Novolog Insulin Pen) NOVOLOG *MILD* ALGORITHM WITH MEALS BEDTIME SC ; Start 10/20/18 at 21:00 Levofloxacin (Levaquin) 250 mg Q48H PO Last administered on 10/24/18 12:55; Admin Dose 250 MG; Start 10/22/18 at 11:30 Metronidazole (Flagyl) 500 mg Q8 PO Last administered on 10/25/18 06:16; Admin Dose 500 MG; Start 10/22/18 at 22:00 Vancomycin HCl 250 ml @ 125 mls/hr Q96H IVPB Last administered on 10/24/18 08:51; Admin Dose 125 MLS/HR; Start 10/24/18 at 07:00 Collagenase (Santyl) 1 applic DAILY TOP Last administered on 10/25/18 10:18; Admin Dose 1 APPLIC; Start 10/24/18 at 21:00 PATRICIA RIVAS October 25, 2018 11:15
[2018-10-25] MEDS: MULTIVIT/CA CARB/B CMPLX/FA TAB PO SCH (14:29)
[2018-10-25] MEDS: ZINC SULFATE 220 MG CAP PO SCH (14:29)
--- NOTE | 2018-10-25 16:25 | CONS ---
Assessment/Plan Assessment/Plan Hospital Course (Demo Recall) All noted, no acute events. Indwelling's: left upper extremity AV fistula, RIJ TLC. Antimicrobials: Vanco Levaquin Flagyl Intraoperative culture positive for Bacteroides fragilis, Serratia, enterococcus, alpha hemolytic strep species PHYSICAL EXAMINATION: GENERAL: Well-developed, ill-appearing, middle-aged man in no distress. HEENT: Head is atraumatic, normocephalic. NECK: Supple. CHEST: Rise symmetrical. Breath sounds diminished to bases. HEART: S1, S2. ABDOMEN: Soft. Bowel tones are present. EXTREMITIES: Right foot gangrene Assessment: 1. Right foot gangrene, s/p TMA 2. End-stage renal disease, hemodialysis dependent 3. Chronic diffuse rash==> neg scabies 4. Severe peripheral arterial disease status post left below-knee amputation==s/p balloon angioplasty 08/15/18 5. Coronary artery disease status post cardiac stent 6. Hypertension Plan: Stable, continue on current antibiotics to complete 4 weeks post TMA, wound care per podiatry. Last dose abx November 18 I Consultation Date/Type/Reason Admit Date/Time October 08, 2018 at 00:02 Initial Consult Date 10/08/18 Type of Consult id Date/Time of Note DATE: 10/25/18 TIME: 16:24 Exam/Review of Systems Exam Vitals Vital Signs Date Temp Pulse Resp B/P (MAP) Pulse Ox O2 O2 Flow FiO2 Time Delivery Rate 10/25/18 98.8 72 18 126/72 96 14:00 (90) 10/24/18 Room Air 14:28 Intake and Output 10/24/18 10/24/18 10/25/18 1515:00 23:00 07:00 IntakeIntake Total 850 ml 250 ml 250 ml OutputOutput Total 30 ml 10 ml BalanceBalance 850 ml 220 ml 240 ml Results Result Diagram: 10/24/18 1011 10/24/18 1011 Results 24hrs Laboratory Tests Test 10/24/18 18:34 10/24/18 21:05 10/25/18 07:54 10/25/18 08:32 Bedside Glucose 132 151 80 Lab Scanned BLOOD TRANSFUSIO Report N Test 10/25/18 11:56 Bedside Glucose 96 Medications Medication Current Medications Acetaminophen (Tylenol Tab) 650 mg Q6H PRN PO MILD PAIN(1-3)OR ELEVATED TEMP; Start 10/08/18 at 01:30 Albuterol (Proventil 0.083% (Neb)) 2.5 mg Q6H RESP THERAPY PRN HHN SHORTNESS OF BREATH; Start 10/08/18 at 01:30 Docusate Sodium (Colace) 100 mg BID PRN PO CONSTIPATION; Start 10/08/18 at 01:30 Diagnostic Test (Pha) (Accu-Chek) 1 ea 02 XX Last administered on 10/19/18at 02:19; Admin Dose 1 EA; Start 10/08/18 at 02:00 Miscellaneous Information 1 ea NOTE XX ; Start 10/08/18 at 05:30 Glucose (Glutose) 15 gm Q15M PRN PO DECREASED GLUCOSE; Start 10/08/18 at 05:30 Glucose (Glutose) 22.5 gm Q15M PRN PO DECREASED GLUCOSE; Start 10/08/18 at 05:30 Dextrose (D50w Syringe) 25 ml Q15M PRN IV DECREASED GLUCOSE; Start 10/08/18 at 05:30 Dextrose (D50w Syringe) 50 ml Q15M PRN IV DECREASED GLUCOSE; Start 10/08/18 at 05:30 Glucagon (Glucagen) 1 mg Q15M PRN IM DECREASED GLUCOSE; Start 10/08/18 at 05:30 Glucose (Glutose) 15 gm Q15M PRN BUCCAL DECREASED GLUCOSE; Start 10/08/18 at 05:30 Vancomycin HCl (Vanco Iv Per Pharmacy) VANCOMYCIN PER PHARMACY PER PROTOCOL XX ; Start 10/08/18 at 15:00 Pentoxifylline (Trental) 400 mg WITH MEALS PO Last administered on 10/25/18at 11:57; Admin Dose 400 MG; Start 10/08/18 at 17:35 Pantoprazole (Protonix Tab) 40 mg DAILY@06 PO Last administered on 10/25/18at 06:16; Admin Dose 40 MG; Start 10/09/18 at 06:00 Hydralazine HCl (Apresoline) 10 mg Q6H PRN PO ELEVATED BLOOD PRESSURE Last administered on 10/11/18at 22:01; Admin Dose 10 MG; Start 10/08/18 at 21:30 Ondansetron HCl (Zofran Inj) 4 mg Q6H PRN IV NAUSEA AND/OR VOMITING Last administered on 10/16/18 22:27; Admin Dose 4 MG; Start 10/08/18 at 23:00 Triamcinolone Acetonide (Kenalog 0.1% Cr) 1 applic BID PRN TOP itching Last administered on 10/18/18 03:53; Admin Dose 1 APPLIC; Start 10/09/18 at 16:30 Zolpidem Tartrate (Ambien) 5 mg HS PRN PO INSOMNIA Last administered on 10/24/18 21:08; Admin Dose 5 MG; Start 10/10/18 at 00:30 Diphenhydramine HCl (Benadryl) 25 mg Q12 PRN PO ITCHING Last administered on 10/11/18 08:56; Admin Dose 25 MG; Start 10/11/18 at 09:00 Hydralazine HCl (Apresoline) 75 mg Q8 PO Last administered on 10/25/18 06:16; Admin Dose 75 MG; Start 10/12/18 at 14:00 Ondansetron HCl (Zofran Tab) 4 mg Q6H PRN PO NAUSEA AND/OR VOMITING; Start 10/13/18 at 08:30 Lubiprostone (Amitiza) 16 mcg BID PRN PO CONSTIPTION; Start 10/16/18 at 16:30 Morphine Sulfate (morphine) 2 mg Q4H PRN IV SEVERE PAIN LEVEL 7-10 Last administered on 10/25/18 14:29; Admin Dose 2 MG; Start 10/16/18 at 18:52 Lisinopril (Zestril) 40 mg DAILY PO Last administered on 10/25/18 10:18; Admin Dose 40 MG; Start 10/17/18 at 15:00 Minoxidil (Loniten) 10 mg BID PO Last administered on 10/25/18 10:18; Admin Dose 10 MG; Start 10/18/18 at 21:00 Ketorolac Tromethamine (Toradol) 30 mg PACU ORDER PRN IV FOR PAIN AFTER IV NARCOTIC MED; Start 10/19/18 at 18:00 Epoetin Adi-epbx (Retacrit (Esrd)) 6,000 unit TuThSa@1700 SC Last administered on 10/21/18 02:56; Admin Dose 6,000 UNIT; Start 10/20/18 at 18:36 Insulin Aspart (Novolog Insulin Pen) NOVOLOG *MILD* ALGORITHM WITH MEALS BEDTIME SC ; Start 10/20/18 at 21:00 Levofloxacin (Levaquin) 250 mg Q48H PO Last administered on 10/24/18 12:55; Admin Dose 250 MG; Start 10/22/18 at 11:30 Metronidazole (Flagyl) 500 mg Q8 PO Last administered on 10/25/18 14:29; Admin Dose 500 MG; Start 10/22/18 at 22:00 Vancomycin HCl 250 ml @ 125 mls/hr Q96H IVPB Last administered on 10/24/18 08:51; Admin Dose 125 MLS/HR; Start 10/24/18 at 07:00 Collagenase (Santyl) 1 applic DAILY TOP Last administered on 10/25/18 10:18; Admin Dose 1 APPLIC; Start 10/24/18 at 21:00 Multivit/Ca Carb/ B Cmplx/FA/Prenat (Monique-Man) 1 tab DAILY PO Last administered on 10/25/18 14:29; Admin Dose 1 TAB; Start 10/25/18 at 14:30 Zinc Sulfate (Zinc Sulfate) 220 mg DAILY PO Last administered on 10/25/18 14:29; Admin Dose 220 MG; Start 10/25/18 at 14:30 DAYSI BHATIA NP October 25, 2018 16:25
[2018-10-25] MEDS ORDERED: MULTIVIT/CA CARB/B CMPLX/FA TAB PO SCH (17:00)
[2018-10-25] MEDS ORDERED: LIDOCAINE 1% (MDV) 20 ML INJ INJ PRN (17:00)
[2018-10-25] MEDS ORDERED: ZINC SULFATE 220 MG CAP PO SCH (17:00)
[2018-10-25] MEDS: EPOETIN ALFA-EPBX (ESRD) 3,000 UNIT/ML VIAL SC SCH (17:56)
--- NOTE | 2018-10-25 22:36 | PN ---
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 Change dressings daily. Apply Betadine gauze over the incision site. Elevate the right foot off of the bed. Patient may be discharged home with home health or [facility] facility. Prognosis is poor and patient remains at risk for further amputation of the right lower extremity. [facility] wound VAC paperwork and orders have been signed in the chart. Subjective 24 Hr Interval Summary Patient is s/p transmetatarsal amputation of the RIGHT foot on 10/19/2018. Patient denies significant pain in his right foot. Reports his wound VAC is changed. Patient denies overnight adverse events. Denies fever or chills. Constitutional: no complaints Pain Control: well controlled Exam/Review of Systems Vital Signs Vitals Vital Signs Date Temp Pulse Resp B/P (MAP) Pulse Ox O2 O2 Flow FiO2 Time Delivery Rate 10/25/18 97.6 86 18 142/67 98 20:00 (92) 10/24/18 Room Air 14:28 Intake and Output 10/24/18 10/24/18 10/25/18 1515:00 23:00 07:00 IntakeIntake Total 850 ml 250 ml 250 ml OutputOutput Total 30 ml 10 ml BalanceBalance 850 ml 220 ml 240 ml Exam Free Text/Dictation Patient was seen and examined at bedside. Patient's dressing on the right foot was intact but loose. Wound VAC was intact. There was minimum drainage noted in the wound VAC. Dressing was removed. Sutures are intact and the wound edges well coapted. There is no significant edema of the right foot. No malodor present. There is no purulence and no fluctuance noted. Labs reviewed. Imaging reviewed. Results Result Diagram: 10/24/18 1011 10/24/18 1011 SHEYLA IZAGUIRRE DPM October 25, 2018 22:36
[2018-10-26] MEDS: ACCU-CHEK XX SCH (01:03)
[2018-10-26] MEDS: PANTOPRAZOLE (EC) 40 MG TAB PO SCH (06:00)
[2018-10-26] MEDS: metroNIDAZOLE 500 MG TAB PO SCH (06:00)
[2018-10-26] MEDS: INSULIN ASPART [NOVOLOG] 3 ML PEN SC SCH ×2 (08:00→12:00)
[2018-10-26 08:03] VITALS: BP 109/55; PULSE 94; RESP 18
[2018-10-26] MEDS: MINOXIDIL 10 MG TAB PO SCH (08:33)
[2018-10-26] MEDS: MULTIVIT/CA CARB/B CMPLX/FA TAB PO SCH (08:33)
[2018-10-26] MEDS: ZINC SULFATE 220 MG CAP PO SCH (08:33)
[2018-10-26] MEDS: PENTOXIFYLLINE (SR) 400 MG TAB PO SCH ×2 (08:33→12:17)
[2018-10-26] MEDS: morphine 2 MG INJ IV PRN (08:34)
[2018-10-26] MEDS: LISINOPRIL 20 MG TAB PO SCH (08:34)
[2018-10-26] MEDS: COLLAGENASE 5 GM (UD JAR) TOP SCH (08:41)
--- NOTE | 2018-10-26 09:12 | PN ---
Date/Time of Note Date/Time of Note DATE: 10/26/18 TIME: 09:11 Assessment/Plan VTE Prophylaxis Risk score (from Ns)>0 risk: 6 SCD applied (from [facility] [place]): No SCD contraindicated: bilateral LE trauma Pharmacological prophylaxis: NA/contraindicated Pharm contraindication: anticoag not tolerated Lines/Catheters [facility] Central Line Central line still needed: No Urinary Cath still in place: No Assessment/Plan Hospital Course 1. Right diabetic foot ulcer with osteomyelitis evident on the x-ray. S/p m etatarsal amputation 10/[address] Millard 2. Peripheral vascular disease status post angioplasty. 3. Some vomiting, some right rib pain status post fall, resolved. 4. Hypertension. 5. End-stage renal disease on hemodialysis. 6. Anemia. 7. Hyperlipidemia. 8. Diabetes mellitus type II. 9. End-stage renal disease on hemodialysis. 10. Coronary artery disease, status post stents. 11. History of tracheostomy. 11. Left arm AV fistula Assessment/Plan d/c pending, pt had HD yesterday, home health is arranged Result Diagram: 10/24/18 1011 10/24/18 1011 Results 24hrs Laboratory Tests Test 10/25/18 11:56 10/25/18 17:20 10/25/18 21:27 10/26/18 08:00 Bedside Glucose 96 106 136 96 Subjective 24 Hr Interval Summary Constitutional: no complaints Exam/Review of Systems Exam Vitals Vital Signs Date Temp Pulse Resp B/P (MAP) Pulse Ox O2 O2 Flow FiO2 Time Delivery Rate 10/26/18 98.9 94 18 109/55 97 08:03 (73) 10/25/18 Room Air 23:51 Intake and Output 10/25/18 10/25/18 10/26/18 1515:00 23:00 07:00 IntakeIntake Total 600 ml 250 ml OutputOutput Total 15 ml 1800 ml BalanceBalance 600 ml 235 ml -1800 ml Constitutional: alert, oriented Head: normocephalic Eyes: nl conjunctiva ENMT: nl external ears & nose Cardiovascular: regular rate and rhythm Gastrointestinal: soft Musculoskeletal: other (left foot BKA) Results Results 24hrs Laboratory Tests Test 10/25/18 11:56 10/25/18 17:20 10/25/18 21:27 10/26/18 08:00 Bedside Glucose 96 106 136 96 Medications Medication Current Medications Acetaminophen (Tylenol Tab) 650 mg Q6H PRN PO MILD PAIN(1-3)OR ELEVATED TEMP; Start 10/08/18 at 01:30 Albuterol (Proventil 0.083% (Neb)) 2.5 mg Q6H RESP THERAPY PRN HHN SHORTNESS OF BREATH; Start 10/08/18 at 01:30 Docusate Sodium (Colace) 100 mg BID PRN PO CONSTIPATION; Start 10/08/18 at 01:30 Diagnostic Test (Pha) (Accu-Chek) 1 ea 02 XX Last administered on 10/19/18at 02:19; Admin Dose 1 EA; Start 10/08/18 at 02:00 Miscellaneous Information 1 ea NOTE XX ; Start 10/08/18 at 05:30 Glucose (Glutose) 15 gm Q15M PRN PO DECREASED GLUCOSE; Start 10/08/18 at 05:30 Glucose (Glutose) 22.5 gm Q15M PRN PO DECREASED GLUCOSE; Start 10/08/18 at 05:30 Dextrose (D50w Syringe) 25 ml Q15M PRN IV DECREASED GLUCOSE; Start 10/08/18 at 05:30 Dextrose (D50w Syringe) 50 ml Q15M PRN IV DECREASED GLUCOSE; Start 10/08/18 at 05:30 Glucagon (Glucagen) 1 mg Q15M PRN IM DECREASED GLUCOSE; Start 10/08/18 at 05:30 Glucose (Glutose) 15 gm Q15M PRN BUCCAL DECREASED GLUCOSE; Start 10/08/18 at 05:30 Vancomycin HCl (Vanco Iv Per Pharmacy) VANCOMYCIN PER PHARMACY PER PROTOCOL XX ; Start 10/08/18 at 15:00 Pentoxifylline (Trental) 400 mg WITH MEALS PO Last administered on 10/26/18at 08:33; Admin Dose 400 MG; Start 10/08/18 at 17:35 Pantoprazole (Protonix Tab) 40 mg DAILY@06 PO Last administered on 10/25/18at 06:16; Admin Dose 40 MG; Start 10/09/18 at 06:00 Hydralazine HCl (Apresoline) 10 mg Q6H PRN PO ELEVATED BLOOD PRESSURE Last administered on 10/11/18at 22:01; Admin Dose 10 MG; Start 10/08/18 at 21:30 Ondansetron HCl (Zofran Inj) 4 mg Q6H PRN IV NAUSEA AND/OR VOMITING Last administered on 10/16/18 22:27; Admin Dose 4 MG; Start 10/08/18 at 23:00 Triamcinolone Acetonide (Kenalog 0.1% Cr) 1 applic BID PRN TOP itching Last administered on 10/18/18 03:53; Admin Dose 1 APPLIC; Start 10/09/18 at 16:30 Zolpidem Tartrate (Ambien) 5 mg HS PRN PO INSOMNIA Last administered on 10/24/18 21:08; Admin Dose 5 MG; Start 10/10/18 at 00:30 Diphenhydramine HCl (Benadryl) 25 mg Q12 PRN PO ITCHING Last administered on 10/11/18 08:56; Admin Dose 25 MG; Start 10/11/18 at 09:00 Hydralazine HCl (Apresoline) 75 mg Q8 PO Last administered on 10/25/18 06:16; Admin Dose 75 MG; Start 10/12/18 at 14:00 Ondansetron HCl (Zofran Tab) 4 mg Q6H PRN PO NAUSEA AND/OR VOMITING; Start 10/13/18 at 08:30 Lubiprostone (Amitiza) 16 mcg BID PRN PO CONSTIPTION; Start 10/16/18 at 16:30 Morphine Sulfate (morphine) 2 mg Q4H PRN IV SEVERE PAIN LEVEL 7-10 Last administered on 10/26/18 08:34; Admin Dose 2 MG; Start 10/16/18 at 18:52 Lisinopril (Zestril) 40 mg DAILY PO Last administered on 10/26/18 08:34; Admin Dose 40 MG; Start 10/17/18 at 15:00 Minoxidil (Loniten) 10 mg BID PO Last administered on 10/26/18 08:33; Admin Dose 10 MG; Start 10/18/18 at 21:00 Ketorolac Tromethamine (Toradol) 30 mg PACU ORDER PRN IV FOR PAIN AFTER IV NARCOTIC MED; Start 10/19/18 at 18:00 Epoetin Adi-epbx (Retacrit (Esrd)) 6,000 unit TuThSa@1700 SC Last administered on 10/25/18 17:56; Admin Dose 6,000 UNIT; Start 10/20/18 at 18:36 Insulin Aspart (Novolog Insulin Pen) NOVOLOG *MILD* ALGORITHM WITH MEALS BEDTIME SC ; Start 10/20/18 at 21:00 Levofloxacin (Levaquin) 250 mg Q48H PO Last administered on 10/24/18 12:55; Admin Dose 250 MG; Start 10/22/18 at 11:30 Metronidazole (Flagyl) 500 mg Q8 PO Last administered on 10/25/18 23:15; Admin Dose 500 MG; Start 10/22/18 at 22:00 Vancomycin HCl 250 ml @ 125 mls/hr Q96H IVPB Last administered on 10/24/18 08:51; Admin Dose 125 MLS/HR; Start 10/24/18 at 07:00 Collagenase (Santyl) 1 applic DAILY TOP Last administered on 10/25/18 10:18; Admin Dose 1 APPLIC; Start 10/24/18 at 21:00 Multivit/Ca Carb/ B Cmplx/FA/Prenat (Monique-Man) 1 tab DAILY PO Last administered on 10/26/18 08:33; Admin Dose 1 TAB; Start 10/25/18 at 14:30 Zinc Sulfate (Zinc Sulfate) 220 mg DAILY PO Last administered on 10/26/18 08:33; Admin Dose 220 MG; Start 10/25/18 at 14:30 Lidocaine (Xylocaine 1% (Mdv) 20 ml) 1 ml WITH DIALYSIS PRN INJ PRIOR TO CANULLATION/HD Last administered on 10/25/18 19:42; Admin Dose 1 ML; Start 10/25/18 at 17:00 PATRICIA RIVAS October 26, 2018 09:12
[2018-10-26] MEDS: LEVOFLOXACIN 250 MG TAB PO SCH (12:17)
== END 2018-10-26 12:27 | disposition home health service (06) | DRG 617 ==
LOC: PP2 10-08 00:02
PROVIDERS: ADMIT Internal Medicine Nephrology; ATTEND Internal Medicine Nephrology
PROC: 5A1D70Z Performance of Urinary Filtration, Intermittent, Less than 6 Hours Per Day (ICD-10-PCS; 2018-10-09)
PROC: 05JY3ZZ Inspection of Upper Vein, Percutaneous Approach (ICD-10-PCS; 2018-10-12)
PROC: 02HV33Z Insertion of Infusion Device into Superior Vena Cava, Percutaneous Approach (ICD-10-PCS; 2018-10-16)
PROC: 30233N1 Transfusion of Nonautologous Red Blood Cells into Peripheral Vein, Percutaneous Approach (ICD-10-PCS; 2018-10-18)
PROC: 0Y6M0ZB Detachment at Right Foot, Partial 2nd Ray, Open Approach (ICD-10-PCS; 2018-10-19)
PROC: 0Y6M0ZC Detachment at Right Foot, Partial 3rd Ray, Open Approach (ICD-10-PCS; 2018-10-19)
PROC: 0Y6M0ZD Detachment at Right Foot, Partial 4th Ray, Open Approach (ICD-10-PCS; 2018-10-19)
PROC: 0Y6M0ZF Detachment at Right Foot, Partial 5th Ray, Open Approach (ICD-10-PCS; 2018-10-19)
PROC: 0JBQ0ZZ Excision of Right Foot Subcutaneous Tissue and Fascia, Open Approach (ICD-10-PCS; 2018-10-19)
PROC: 0Y6M0Z9 Detachment at Right Foot, Partial 1st Ray, Open Approach (ICD-10-PCS; principal; 2018-10-19 16:00)
DX: E11.621 Type 2 diabetes mellitus with foot ulcer (principal); E11.52 Type 2 diabetes mellitus with diabetic peripheral angiopathy with gangrene; I96 Gangrene, not elsewhere classified; I50.30 Unspecified diastolic (congestive) heart failure; K81.0 Acute cholecystitis; M86.9 Osteomyelitis, unspecified; I13.2 Hypertensive heart and chronic kidney disease with heart failure and with stage 5 chronic kidney disease, or end stage renal disease; N18.6 End stage renal disease; B95.2 Enterococcus as the cause of diseases classified elsewhere; B95.4 Other streptococcus as the cause of diseases classified elsewhere; B96.6 Bacteroides fragilis [B. fragilis] as the cause of diseases classified elsewhere; D63.8 Anemia in other chronic diseases classified elsewhere; E11.22 Type 2 diabetes mellitus with diabetic chronic kidney disease; E11.69 Type 2 diabetes mellitus with other specified complication; E11.42 Type 2 diabetes mellitus with diabetic polyneuropathy; E78.5 Hyperlipidemia, unspecified; F32.9 Major depressive disorder, single episode, unspecified; I25.10 Atherosclerotic heart disease of native coronary artery without angina pectoris; K81.1 Chronic cholecystitis; L97.514 Non-pressure chronic ulcer of other part of right foot with necrosis of bone; L85.9 Epidermal thickening, unspecified; R21 Rash and other nonspecific skin eruption; R07.81 Pleurodynia; R11.10 Vomiting, unspecified; Z91.81 History of falling; Z95.5 Presence of coronary angioplasty implant and graft; Z98.62 Peripheral vascular angioplasty status; Z99.2 Dependence on renal dialysis; Z89.512 Acquired absence of left leg below knee; Z89.421 Acquired absence of other right toe(s); Z79.02 Long term (current) use of antithrombotics/antiplatelets
CPT/HCPCS: 36430; 71045; 71100; 73630; 76705; 80048; 80053; 80202; 82962; 83735; 84100; 85018; 85025; 85610; 85730; 86706; 86850; 86900; 86901; 86920; 87070; 87075; 87102; 87340; 88305; 88311; 90935; C1751; C9113; J0690; J0696; J1815; J2250; J2270; J2405; J3010; J3370; J7040; J7042; P9016; P9045; Q5105

== ENCOUNTER 2019-04-04 11:40 | Observation (INO) | payer OTHER ==
[~2019-04-04] VITALS: Ht 190.5 cm; Wt 65.2 kg
[~2019-04-04 11:40] MED LIST changes: +AMLO-145 ORAL; +ATOR40TA68 ORAL; -CETI10TA19 PO; +CLON-379 PO; -CLON0.3T PO; -DOCU100C59 PO; +HYDR100T25 ORAL; +LEVE500T8 ORAL; -LISI40TA3 PO; +METO-429 ORAL; +METR-121 ORAL; -MINO10TA16 PO; +NEPH ORAL; +NITR0.4T32 SUBLINGUAL; +PANT40TA4 ORAL; -PENT400T9 PO; +SERT50TA6 ORAL; +SULF1TAB31 PO
[2019-04-04] MEDS ORDERED: ONDANSETRON 4 MG INJ IV PRN ×2 (14:00→17:00)
[2019-04-04] MEDS ORDERED: ACETAMINOPHEN 325 MG TAB PO PRN (14:00)
[2019-04-04] MEDS ORDERED: DOCUSATE SODIUM 100 MG CAP PO PRN (17:00)
[2019-04-04] MEDS ORDERED: NACL 0.9% 3 ML SYG IV SCH (17:00)
[2019-04-04 17:25] VITALS: BP 145/75; PULSE 62; RESP 18
[2019-04-04] MEDS: CALCIUM ACETATE 667 MG CAP PO SCH (18:00)
[2019-04-04 18:06] VITALS: Ht 190.5 cm; Wt 65.2 kg
[2019-04-04] MEDS ORDERED: DEXTROSE 5%-0.45% NACL 1,000 ML IV SCH (19:30)
[2019-04-04 19:50] VITALS: BP 146/79; PULSE 66; RESP 18
[2019-04-04] MEDS ORDERED: GLUCOSE GEL 15 GRAM TUBE PO PRN ×2 (20:30)
[2019-04-04] MEDS ORDERED: GLUCAGON 1 MG INJ IM PRN (20:30)
[2019-04-04] MEDS ORDERED: DEXTROSE 50% 50 ML SYRINGE IV PRN ×2 (20:30)
[2019-04-04] MEDS ORDERED: GLUCOSE GEL 15 GRAM TUBE BUCCAL PRN (20:30)
[2019-04-04] MEDS ORDERED: INSULIN ASPART [NOVOLOG] 3 ML PEN SC SCH (21:00)
[2019-04-04] MEDS: morphine 2 MG INJ IV PRN (23:01)
[2019-04-05] VITALS (16 sets, daily range): BP systolic 136–164; BP diastolic 65–88; PULSE 61–85; RESP 17–21
[2019-04-05] MEDS: ACETAMINOPHEN 325 MG TAB PO PRN ×2 (01:49→20:46)
[2019-04-05] MEDS: ACCU-CHEK XX SCH (02:00)
[2019-04-05] MEDS: PANTOPRAZOLE 40 MG INJ IV SCH (06:29)
[2019-04-05] MEDS: morphine 2 MG INJ IV PRN ×3 (06:30→21:05)
[2019-04-05] MEDS: CALCIUM ACETATE 667 MG CAP PO SCH ×3 (08:00→18:36)
[2019-04-05] MEDS: AMLODIPINE 5 MG TAB PO SCH (08:52)
[2019-04-05] MEDS: ATORVASTATIN 40 MG TAB PO SCH (08:52)
[2019-04-05] MEDS: INSULIN ASPART [NOVOLOG] 3 ML PEN SC SCH ×4 (08:58→21:00)
[2019-04-05] MEDS ORDERED: IOHEXOL 300MG/ML 30 ML BTL ONE (12:00)
[2019-04-05] MEDS ORDERED: PROPOFOL 100 ML ONE (12:03)
[2019-04-05] MEDS ORDERED: FENTAnyl 50 MCG/ML VIAL ONE (12:05)
[2019-04-05] MEDS ORDERED: LIDOCAINE 2% (SDV) 5 ML INJ ONE (12:05)
[2019-04-05] MEDS ORDERED: CEFAZOLIN 1 GM INJ ONE (12:43)
[2019-04-05] MEDS ORDERED: HEPARIN 1000 UNITS/ML 10 ML INJ ONE (13:01)
[2019-04-05] MEDS ORDERED: LIDOCAINE 1%/EPI 30 ML INJ ONE (13:01)
[2019-04-05] MEDS ORDERED: FENTAnyl 50 MCG/ML VIAL IV PRN (13:30)
[2019-04-05] MEDS ORDERED: MEPERIDINE 25 MG INJ IV PRN (13:30)
[2019-04-05] MEDS ORDERED: LABETALOL HCL 20MG INJ IV PRN (13:30)
[2019-04-05] MEDS ORDERED: hydrALAzine 20 MG INJ IV PRN (13:30)
[2019-04-05] MEDS ORDERED: ALBUTEROL 0.083% (NEB) 2.5 MG/3 ML AMP HHN PRN (13:30)
[2019-04-05] MEDS ORDERED: DIPHENHYDRAMINE 50 MG INJ IV PRN (13:30)
[2019-04-05] MEDS ORDERED: EPHEDrine 25 MG/5 ML SYG IV PRN (13:30)
[2019-04-05] MEDS ORDERED: ONDANSETRON 4 MG INJ IV PRN (13:30)
[2019-04-05] MEDS ORDERED: SOD CHLORIDE 0.9% 1,000 ML IV SCH (14:30)
[2019-04-05] MEDS ORDERED: DIPHENHYDRAMINE 50 MG INJ IV ONE (18:30)
[2019-04-05] MEDS: METOPROLOL 25 MG TAB PO SCH (20:46)
[2019-04-05] MEDS ORDERED: METOPROLOL 50 MG TAB PO SCH (21:00)
[2019-04-06] VITALS (16 sets, daily range): BP systolic 101–154; BP diastolic 59–73; PULSE 74–85; RESP 18–20
[2019-04-06] MEDS: ACCU-CHEK XX SCH (02:00)
[2019-04-06] MEDS ORDERED: ACCU-CHEK XX SCH (02:00)
[2019-04-06] MEDS: PANTOPRAZOLE 40 MG INJ IV SCH (05:36)
[2019-04-06] MEDS: morphine 2 MG INJ IV PRN ×2 (05:36→14:44)
[2019-04-06] MEDS: INSULIN ASPART [NOVOLOG] 3 ML PEN SC SCH ×2 (08:00→12:00)
[2019-04-06] MEDS: CALCIUM ACETATE 667 MG CAP PO SCH ×2 (08:47→14:43)
[2019-04-06] MEDS: AMLODIPINE 5 MG TAB PO SCH (08:48)
[2019-04-06] MEDS: METOPROLOL 25 MG TAB PO SCH (08:49)
[2019-04-06] MEDS ORDERED: LEVETIRACETAM 250 MG TAB PO SCH (09:00)
[2019-04-06] MEDS ORDERED: LEVETIRACETAM 500 MG TAB PO SCH (09:00)
[2019-04-06] MEDS: ATORVASTATIN 40 MG TAB PO SCH (09:13)
[2019-04-06] MEDS ORDERED: DIPHENHYDRAMINE 25 MG CAP PO ONE (13:00)
[2019-04-06] MEDS ORDERED: HEPARIN 1000 UNITS/ML 10 ML INJ CATHETER SCH (13:00)
== END 2019-04-06 17:00 | disposition home or self-care (01) ==
LOC: E/R 11:40 → 2NE 17:05
PROVIDERS: ADMIT Internal Medicine; ATTEND Internal Medicine
DX: T82.41XA Breakdown (mechanical) of vascular dialysis catheter, initial encounter (principal); E11.22 Type 2 diabetes mellitus with diabetic chronic kidney disease; I12.0 Hypertensive chronic kidney disease with stage 5 chronic kidney disease or end stage renal disease; N18.6 End stage renal disease; E11.42 Type 2 diabetes mellitus with diabetic polyneuropathy; I25.10 Atherosclerotic heart disease of native coronary artery without angina pectoris; I50.9 Heart failure, unspecified; Z79.4 Long term (current) use of insulin; Z79.899 Other long term (current) drug therapy; X58.XXXA Exposure to other specified factors, initial encounter; Y93.89 Activity, other specified; Y92.89 Other specified places as the place of occurrence of the external cause; Y99.8 Other external cause status
CPT/HCPCS: 36415; 36581; 71045; 80048; 80053; 82962; 83690; 83735; 84100; 85025; 85610; 85730; 87081; 87340; 90935; 93926; C1752; C9113; J0690; J1200; J1644; J1815; J2270; J2405; J3010; J7042; Q9967; Z7500; Z7502; Z7512; Z7610; G0378